=== PATIENT | male | born 1975 | race African-American/Black ===

== ENCOUNTER 2016-03-09 14:29 | Emergency (ER) | payer MEDICARE, OTHER ==
[~2016-03-09] VITALS: Ht 177.8 cm; Wt 150.0 kg
[~2016-03-09 14:29] MED LIST: 1-ME1LIQ PO; ABAC1TAB3 PO; CLON0.2T PO; NOVO7030P2 SQ
[2016-03-09 14:53] VITALS: BP 121/100; PULSE 80; RESP 16; TEMP 98.2; O2SAT 98
--- NOTE | 2016-03-09 15:08 | PD ---
HPI Chief Complaint: Chest Pain Time Seen by Provider: 15:08 Travel History International Travel<30 days: No Contact w/Intl Traveler<30days: No Traveled to known affect area: No History of Present Illness HPI 40-year-old Afro-[place] male with known CAD and recurrent angina. Patient states Central chest and epigastric pain since last night after eating supper. Patient states he has hiccups and burping with it. Patient states he is run out of his nitroglycerin which he would've taken a had a. Patient states the pain subsided last evening but then recurred this morning after eating breakfast , so he called the ambulance. He describes it as a intermittent sharp pain which is 3/10. Patient denies nausea, vomiting, or heartburn. Patient denies shortness of breath. He denies fever, chills, or diarrhea. PFSH Past Medical History Hx Anticoagulant Therapy: No Arthritis: No Asthma: No Autoimmune Disease: No Blood Disorders: No Anxiety: Yes Depression: Yes Heart Rhythm Problems: No Cancer: No Cardiac Catheterization: No Cardiovascular Problems: Yes High Cholesterol: Yes Chemotherapy: No Chest Pain: No Congestive Heart Failure: Yes COPD: Yes Cerebrovascular Accident: Yes (TIA, pt denies) Diabetes: Yes Diminished Hearing: No Endocrine: Yes GERD: Yes Genitourinary: No Headaches: Yes Hepatitis: No Hiatal Hernia: No Heparin Induced Thrombocytopen: No Hypertension: Yes Immune Disorder: Yes (HIV DX , HAS NOT HAD RECENT T CELL CHECK ) Kidney Stones: Yes Musculoskeletal: No Neurologic: No Psychiatric: Yes (anx/dep "ONce in awhile") Reproductive: No Respiratory: Yes Immunizations Current: Yes Migraines: No Myocardial Infarction: No Pneumonia: Yes Radiation Therapy: No Sleep Apnea: No Thyroid Disease: Yes Ulcer: No Past Surgical History Abdominal Surgery: No AICD: No Arteriovenous Shunt: No Cardiac Surgery: No Coronary Artery Bypass Graft: No Ear Surgery: No Endocrine Surgery: No Eye Surgery: Yes (L EYE SURGERY ) Genitourinary Surgery: No Gynecologic Surgery: No Insulin Pump: No Joint Replacement: No Oral Surgery: No Pacemaker: No Thoracic Surgery: No Other Surgery: Yes (L EYE ) Social History Alcohol Use: No (denies) Tobacco Use: No Substance Use: No Allergies-Medications (Allergen,Severity, Reaction): Coded Allergies: No Known Allergies (Verified , 03/09/16) Reported Meds & Prescriptions Reported Meds & Active Scripts Active Nitroglycerin SL (Nitroglycerin) 0.4 Mg Subl 0.4 Mg SL DIRECTED PRN ONE TABLET UNDER THE TONGUE NEEDED FOR CHEST PAIN, MAY REPEAT EVERY FIVE MINUTES FOR A TOTAL OF 3 DOSES OR CALL 911 IF NO RELIEF Isosorbide Mononitrate ER (Isosorbide Mononitrate) 60 Mg Tab 60 Mg PO DAILY Reported Triumeq (Medibcne-Foufntwwxxqy-Einjfvtdpu) 600-50-300 Mg Tab 1 Tab PO DAILY Hazardous agent; use appropriate precautions for handling & disposal. Clonidine (Clonidine HCl) 0.2 Mg Tab 0.2 Mg PO BID Novolin 70-30 Inj (Insulin Human Isoph/Insulin Regular) 1,000 Unit/10 Ml Vial 20 Units SQ HS Novolin 70-30 Inj (Insulin Human Isoph/Insulin Regular) 1,000 Unit/10 Ml Vial 50 Units SQ DAILY 1-Methyl 2-Pyrrolidinone (1-Methyl 2-Pyrrolidone (Bulk)) 10 Mg Tab 10 Mg PO DAILY Review of Systems Except as stated in HPI: all other systems reviewed are Neg General / Constitutional: No: Fever Eyes: No: Visual changes HENT: No: Headaches Cardiovascular: Positive: Chest Pain or Discomfort (see history present illness.), No: Dyspnea on exertion Respiratory: No: Shortness of Breath Gastrointestinal: Positive: Abdominal Pain Genitourinary: No: Dysuria Musculoskeletal: No: Pain Skin: No Rash Neurologic: No: Weakness Psychiatric: No: Depression Endocrine: No: Polydipsia Hematologic/Lymphatic: No: Easy Bruising Physical Exam Narrative GENERAL: Patient appears in no acute distress. He is not dyspneic and speaking in full sentences. He is resting comfortably on the stretcher. SKIN: Warm and dry. Normal color. Normal turgor. HEAD: Atraumatic. Normocephalic. EYES: Pupils equal and round. No scleral icterus. No injection or drainage. ENT: No nasal bleeding or discharge. Mucous membranes pink and moist. Pharynx appears normal. NECK: Trachea midline. No JVD. Neck is supple nontender. CARDIOVASCULAR: Regular rate and rhythm. No murmurs gallops or rubs appreciated. RESPIRATORY: No accessory muscle use. Clear to auscultation. Breath sounds equal bilaterally. No thoracic tenderness with palpation. GASTROINTESTINAL: Abdomen soft, mild to moderate epigastric tenderness to palpation, nondistended. Hepatic and splenic margins not palpable. MUSCULOSKELETAL: Extremities without clubbing, cyanosis, or edema. No obvious deformities. NEUROLOGICAL: Awake and alert. No obvious cranial nerve deficits. Motor grossly within normal limits. Five out of 5 muscle strength in the arms and legs. Normal speech. PSYCHIATRIC: Appropriate mood and affect; insight and judgment normal. Data Data Last Documented VS Vital Signs Date Time Temp Pulse Resp B/P Pulse Ox O2 Delivery O2 Flow Rate FiO2 03/09/16 21:18 70 20 140/89 99 03/09/16 19:15 Room Air 03/09/16 14:53 98.2 Orders Electrocardiogram (03/09/16 15:06) B-Type Natriuretic Peptide (03/09/16 15:06) Ckmb (Isoenzyme) Profile (03/09/16 15:06) Complete Blood Count With Diff (03/09/16 15:06) Comprehensive Metabolic Panel (03/09/16 15:06) Magnesium (Mg) (03/09/16 15:06) Prothrombin Time / Inr (Pt) (03/09/16 15:06) Act Partial Throm Time (Ptt) (03/09/16 15:06) Troponin I (03/09/16 15:06) Chest, Single Ap (03/09/16 15:06) Ecg Monitoring (03/09/16 15:06) Bilateral Bp Monitoring (03/09/16 15:06) Iv Access Insert/Monitor (03/09/16 15:06) Oximetry (03/09/16 15:06) Oxygen Administration (03/09/16 15:06) Aspirin Chew (Aspirin Chew) (03/09/16 15:15) Nitroglycerin 2% Oint (Nitroglycerin 2% (03/09/16 15:15) Sodium Chloride 0.9% Flush (Ns Flush) (03/09/16 15:15) Sodium Chlorid 0.9% 500 Ml Inj (Ns 500 M (03/09/16 15:15) Al-Mag Hy-Si 40-40-4 Mg/Ml Liq (Mag-Al P (03/09/16 15:30) Lidocaine 2% Viscous (Xylocaine 2% Visco (03/09/16 15:30) Morphine Inj (Morphine Inj) (03/09/16 16:45) CKMB (03/09/16 15:53) CKMB% (03/09/16 15:53) Troponin I (03/09/16 19:00) Labs Laboratory Tests Test 03/09/16 03/09/16 15:53 18:35 White Blood Count 3.9 TH/MM3 Red Blood Count 4.65 MIL/MM3 Hemoglobin 12.7 GM/DL Hematocrit 39.5 % Mean Corpuscular Volume 84.8 FL Mean Corpuscular Hemoglobin 27.3 PG Mean Corpuscular Hemoglobin 32.2 % Concent Red Cell Distribution Width 15.4 % Platelet Count 176 TH/MM3 Mean Platelet Volume 9.0 FL Neutrophils (%) (Auto) 69.3 % Lymphocytes (%) (Auto) 16.3 % Monocytes (%) (Auto) 10.0 % Eosinophils (%) (Auto) 3.5 % Basophils (%) (Auto) 0.9 % Neutrophils # (Auto) 2.7 TH/MM3 Lymphocytes # (Auto) 0.6 TH/MM3 Monocytes # (Auto) 0.4 TH/MM3 Eosinophils # (Auto) 0.1 TH/MM3 Basophils # (Auto) 0.0 TH/MM3 CBC Comment DIFF FINAL Differential Comment Prothrombin Time 11.3 SEC Prothromb Time International 1.0 RATIO Ratio Activated Partial 28.5 SEC Thromboplast Time Sodium Level 144 MEQ/L Potassium Level 4.1 MEQ/L Chloride Level 117 MEQ/L Carbon Dioxide Level 17.5 MEQ/L Anion Gap 10 MEQ/L Blood Urea Nitrogen 39 MG/DL Creatinine 3.62 MG/DL Estimat Glomerular Filtration 23 ML/MIN Rate Random Glucose 140 MG/DL Calcium Level 8.4 MG/DL Magnesium Level 2.3 MG/DL Total Bilirubin 0.2 MG/DL Aspartate Amino Transf 5 U/L (AST/SGOT) Alanine Aminotransferase 11 U/L (ALT/SGPT) Alkaline Phosphatase 114 U/L Total Creatine Kinase 130 U/L Creatine Kinase MB 3.1 NG/ML Troponin I 0.05 NG/ML 0.06 NG/ML B-Type Natriuretic Peptide 59 PG/ML Total Protein 7.8 GM/DL Albumin 3.3 GM/DL [facility] Medical Decision Making Medical Screen Exam Complete: Yes Emergency Medical Condition: Yes Differential Diagnosis CAD. Angina. Esophagitis. Gastritis. Narrative Course Patient is medically stable at time of exam. Patient is given 324 mg of aspirin by mouth. Patient started on 2% nitroglycerin ointment 1 inch. EKG is obtained prior to the application of nitroglycerin. IV access is obtained and labs are ordered including CBC, CMP, BNP, cardiac panel. Chest x-ray is ordered. GI cocktail is ordered. Patient was originally seen in the [facility] but then moved to [place] [id number]. EKG shows right bundle-branch block and possible right ventricular hypertrophy which is consistent with previous EKGs without acute changes. This is reviewed with Dr. Reagan. Patient was seen by Dr. Reagan as well. 1635 hrs. patient reassessed and found to be unchanged in terms of his chest pain. GI cocktail did not help. Patient is given 4 mg morphine IV. CBC is unremarkable except for some mild anemia. Coags are normal. Chemistry shows continued renal insufficiency with a BUN of 39 and a creatinine of 3.62. This is typical for the patient. First troponin is 0.05, and BNP is 59. Second troponin is slightly elevated 0.06. Patient is discussed with Dr. Carter. Patient's record and reviewed his medications are reviewed. Patient reports that he recently had a cardiac stress test approximately 3 weeks ago with his oil burner repairer at [facility] which he states was normal. Patient is felt to be medically stable to be discharged home with close follow- up with his primary care physician. Patient was restarted on his exam door 60 mg 1 tablet daily #30. Patient is given a refill of his sublingual nitroglycerin 0.4 mg 1 every 5 minutes when necessary chest pain #100. Patient is to follow with his primary care physician in the next week to ensure improvement and referred to cardiology as needed. Patient may return to emergency Department with worsening symptoms as needed. Diagnosis Primary Impression: CKD (chronic kidney disease) stage 4, GFR 15-29 ml/min Additional Impression: chest pain with elevated troponin I Referrals: Primary Care Physician call for appointment Patient Instructions: Chest Pain (DC), General Instructions, Narcotic given in the ED Additional Instructions: Second troponin is slightly elevated 0.06. Patient is discussed with Dr. Carter. Patient's record and reviewed his medications are reviewed. Patient reports that he recently had a cardiac stress test approximately 3 weeks ago with his oil burner repairer at [facility] which he states was normal. Patient is felt to be medically stable to be discharged home with close follow- up with his primary care physician. Patient was restarted on his exam door 60 mg 1 tablet daily #30. Patient is given a refill of his sublingual nitroglycerin 0.4 mg 1 every 5 minutes when necessary chest pain #100. Patient is to follow with his primary care physician in the next week to ensure improvement and referred to cardiology as needed. Patient may return to emergency Department with worsening symptoms as needed. Med/Other Pt SpecificInfo: Prescription(s) given Scripts Nitroglycerin SL 0.4 Mg Subl0.4 Mg SL DIRECTED PRN (CHEST PAIN) #100 TAB.SL Ref 0 ONE TABLET UNDER THE TONGUE NEEDED FOR CHEST PAIN, MAY REPEAT EVERY FIVE MINUTES FOR A TOTAL OF 3 DOSES OR CALL 911 IF NO RELIEF Prov:Aubree Reagan MD 03/09/16 Isosorbide Mononitrate ER 60 Mg Tab60 Mg PO DAILY #30 TAB Ref 0 Prov:Aubree Reagan MD 03/09/16 Disposition: 01 DISCHARGE HOME Condition: Stable Ronald Rosas Mar 09, 2016 15:08
[2016-03-09] MEDS ORDERED: ASPIRIN 81 MG CHEW TAB PO ONE (15:15)
[2016-03-09] MEDS ORDERED: NITROGLYCERIN 2% OINT 1 GM PACKET TOP ONE (15:15)
[2016-03-09] MEDS ORDERED: SODIUM CHLORID 0.9% 500 ML INJ 500 ML IV ONE (15:15)
[2016-03-09] MEDS ORDERED: SODIUM CHLORIDE 0.9% FLUSH 5 ML FLUSH IVF PRN (15:15)
[2016-03-09] MEDS ORDERED: LIDOCAINE VISCOUS 2% SOLN 15 ML UDC PO ONE (15:30)
[2016-03-09] MEDS ORDERED: ALUMINUM/MAGNESIUM/SIMETH 30 ML CUP PO ONE (15:30)
[2016-03-09 15:41] VITALS: BP_SYST 135; BP_SYST 142; BP_DIAS 66; BP_DIAS 75; BP_DIAS 76; PULSE 75; RESP 18; O2SAT 100; O2SAT 99
--- NOTE | 2016-03-09 15:41 | RADRPT ---
EXAM DATE/TIME: 03/09/2016 15:20 [facility] COMPARISON: CHEST SINGLE AP, December 10, 2015, 6:04. INDICATIONS : Chest pain MEDICAL HISTORY : Hypertension. Chronic obstructive pulmonary disease. Congestive heart failure. SURGICAL HISTORY : None. ENCOUNTER: Initial ACUITY: 1 day PAIN SCORE: 5/10 LOCATION: Right chest FINDINGS: A single view of the chest demonstrates the lungs to be symmetrically aerated without evidence of mas s, infiltrate or effusion. The heart size is enlarged. Osseous structures are intact. CONCLUSION: Cardiomegaly Bhavin Benjamin MD on March 09, 2016 at 15:39 Board Certified Radiologist. This report was verified electronically.
[2016-03-09 16:02] LABS: AUTOMATED NEUTROPHIL # 2.7 TH/MM3 (1.8-7.7); BASOPHIL % 0.9 % (0.0-2.0); EOSINOPHIL # 0.1 TH/MM3 (0-0.4); EOSINOPHIL % 3.5 % (0.0-4.0); HEMATOCRIT 39.5 % (39.0-51.0); HEMO FLAGS DIFF FINAL; LYMPH % 16.3 % (9.0-44.0); LYMPHOCYTE # 0.6 TH/MM3 (1.0-4.8); MEAN CELL VOLUME 84.8 FL (80.0-100.0); MEAN CORPUSCULAR HEMOGLOBIN 27.3 PG (27.0-34.0); MEAN CORPUSCULAR HGB CONC 32.2 % (32.0-36.0); NEUT % 69.3 % (16.0-70.0); PLATELET COUNT 176 TH/MM3 (150-450); RED BLOOD COUNT 4.65 MIL/MM3 (4.50-5.90); RED CELL DISTRIBUTION WIDTH 15.4 % (11.6-17.2); WHITE BLOOD COUNT 3.9 TH/MM3 (4.0-11.0)
[2016-03-09 16:34] LABS: APTT (PATIENT) 28.5 SEC (24.3-30.1); PROTHROMBIN TIME - PATIENT 11.3 SEC (9.8-11.6)
[2016-03-09 16:40] LABS: ALT (GPT) 11 U/L (12-78); ANION GAP 10 MEQ/L (5-15); AST (GOT) 5 U/L (15-37); BICARBONATE 17.5 MEQ/L (21.0-32.0); BLOOD UREA NITROGEN 39 MG/DL (7-18); CHLORIDE 117 MEQ/L (98-107); GLOMERULAR FILTRATION RATE 23 ML/MIN (>89); MAGNESIUM 2.3 MG/DL (1.5-2.5); POTASSIUM 4.1 MEQ/L (3.5-5.1); SODIUM (NA) 144 MEQ/L (136-145)
[2016-03-09 16:43] LABS: ALKALINE PHOSPHATASE 114 U/L (45-117); CREATINE KINASE 130 U/L (39-308); TOTAL BILIRUBIN ADULT 0.2 MG/DL (0.2-1.0)
[2016-03-09] MEDS ORDERED: MORPHINE SULFATE 4 MG/ML INJ IV PUSH ONE (16:45)
[2016-03-09 16:57] LABS: CKMB 3.1 NG/ML (0.5-3.6)
--- NOTE | 2016-03-09 18:29 | PD ---
Data Data Last Documented VS Vital Signs Date Time Temp Pulse Resp B/P Pulse Ox O2 Delivery O2 Flow Rate FiO2 03/09/16 15:41 18 100 Room Air 03/09/16 15:41 75 135/76 142/66 03/09/16 14:53 98.2 Orders Electrocardiogram (03/09/16 15:06) B-Type Natriuretic Peptide (03/09/16 15:06) Ckmb (Isoenzyme) Profile (03/09/16 15:06) Complete Blood Count With Diff (03/09/16 15:06) Comprehensive Metabolic Panel (03/09/16 15:06) Magnesium (Mg) (03/09/16 15:06) Prothrombin Time / Inr (Pt) (03/09/16 15:06) Act Partial Throm Time (Ptt) (03/09/16 15:06) Troponin I (03/09/16 15:06) Chest, Single Ap (03/09/16 15:06) Ecg Monitoring (03/09/16 15:06) Bilateral Bp Monitoring (03/09/16 15:06) Iv Access Insert/Monitor (03/09/16 15:06) Oximetry (03/09/16 15:06) Oxygen Administration (03/09/16 15:06) Aspirin Chew (Aspirin Chew) (03/09/16 15:15) Nitroglycerin 2% Oint (Nitroglycerin 2% (03/09/16 15:15) Sodium Chloride 0.9% Flush (Ns Flush) (03/09/16 15:15) Sodium Chlorid 0.9% 500 Ml Inj (Ns 500 M (03/09/16 15:15) Al-Mag Hy-Si 40-40-4 Mg/Ml Liq (Mag-Al P (03/09/16 15:30) Lidocaine 2% Viscous (Xylocaine 2% Visco (03/09/16 15:30) Morphine Inj (Morphine Inj) (03/09/16 16:45) CKMB (03/09/16 15:53) CKMB% (03/09/16 15:53) Troponin I (03/09/16 19:00) Labs Laboratory Tests Test 03/09/16 15:53 White Blood Count 3.9 TH/MM3 Red Blood Count 4.65 MIL/MM3 Hemoglobin 12.7 GM/DL Hematocrit 39.5 % Mean Corpuscular Volume 84.8 FL Mean Corpuscular Hemoglobin 27.3 PG Mean Corpuscular Hemoglobin 32.2 % Concent Red Cell Distribution Width 15.4 % Platelet Count 176 TH/MM3 Mean Platelet Volume 9.0 FL Neutrophils (%) (Auto) 69.3 % Lymphocytes (%) (Auto) 16.3 % Monocytes (%) (Auto) 10.0 % Eosinophils (%) (Auto) 3.5 % Basophils (%) (Auto) 0.9 % Neutrophils # (Auto) 2.7 TH/MM3 Lymphocytes # (Auto) 0.6 TH/MM3 Monocytes # (Auto) 0.4 TH/MM3 Eosinophils # (Auto) 0.1 TH/MM3 Basophils # (Auto) 0.0 TH/MM3 CBC Comment DIFF FINAL Differential Comment Prothrombin Time 11.3 SEC Prothromb Time International 1.0 RATIO Ratio Activated Partial 28.5 SEC Thromboplast Time Sodium Level 144 MEQ/L Potassium Level 4.1 MEQ/L Chloride Level 117 MEQ/L Carbon Dioxide Level 17.5 MEQ/L Anion Gap 10 MEQ/L Blood Urea Nitrogen 39 MG/DL Creatinine 3.62 MG/DL Estimat Glomerular Filtration 23 ML/MIN Rate Random Glucose 140 MG/DL Calcium Level 8.4 MG/DL Magnesium Level 2.3 MG/DL Total Bilirubin 0.2 MG/DL Aspartate Amino Transf 5 U/L (AST/SGOT) Alanine Aminotransferase 11 U/L (ALT/SGPT) Alkaline Phosphatase 114 U/L Total Creatine Kinase 130 U/L Creatine Kinase MB 3.1 NG/ML Troponin I 0.05 NG/ML B-Type Natriuretic Peptide 59 PG/ML Total Protein 7.8 GM/DL Albumin 3.3 GM/DL [facility] Supervised Visit with DAVID: Yes Narrative Course The history, exam, and medical decision-making in the associated midlevel provider note were completed with my assistance. I reviewed and agree with the findings presented. I attest that I had a [id number] encounter with the patient on the same day, and personally performed and documented my assessment and findings in the medical record. *My assessment and Findings: This is a 40-year-old male who presents to the emergency department with a history chronic kidney disease with chest pain. The patient has come to the emergency department several times this year with chest pain. It's atypical and predominantly in the epigastrium. Patient says he recently had a stress test performed by his primary care physician which was reassuring. I think if patient has 2 troponins at his baseline he can be discharged safely home to follow-up with his tool sharpener. Condition: Stable Aubree Reagan MD Mar 09, 2016 18:29
[2016-03-09 19:15] VITALS: BP 128/77; PULSE 71; RESP 20; O2SAT 100
[2016-03-09] MEDS ORDERED: ISOS60TA PO (20:02)
[2016-03-09] MEDS ORDERED: NITR1SUB3 SL (20:02)
[2016-03-09 21:18] VITALS: BP 140/89
[2016-03-09 21:35] VITALS: BP 146/87
--- NOTE | 2016-03-10 17:06 | EKG ---
Date Performed: 03/09/2016 Time Performed: 15:38:40 PTAGE: 40 years EKG: Sinus rhythm INDETERMINATE AXIS RIGHT BUNDLE BRANCH BLOCK AND POSSIBLE RIGHT VENTRICULAR HYPERTROPHY LEFT POSTERI OR FASCICULAR BLOCK Compared to prior tracing no significant change ABNORMAL ECG PREVIOUS TRACING : 02/07/2016 13.57 DOCTOR: Shannen Tobias Interpretating Date/Time 03/10/2016 17:04:07
== END 2016-03-09 21:57 | disposition home or self-care (01) ==
LOC: NEPE 14:29
DX: I12.9 Hypertensive chronic kidney disease with stage 1 through stage 4 chronic kidney disease, or unspecified chronic kidney disease (principal); N18.4 Chronic kidney disease, stage 4 (severe); R74.8 Abnormal levels of other serum enzymes; R07.9 Chest pain, unspecified; R10.13 Epigastric pain; I50.9 Heart failure, unspecified; I25.10 Atherosclerotic heart disease of native coronary artery without angina pectoris; E11.9 Type 2 diabetes mellitus without complications; Z79.4 Long term (current) use of insulin
CPT/HCPCS: 71010; 80053; 82550; 82552; 83735; 83880; 84484; 85025; 85610; 85730; 93005; 96374; 99285; J2270; J7040

== ENCOUNTER 2016-05-05 16:01 | Emergency (ER) | payer MEDICARE, OTHER ==
[~2016-05-05] VITALS: Ht 175.3 cm; Wt 162.0 kg
[~2016-05-05 16:01] MED LIST changes: +ISOS60TA PO; +NITR1SUB3 SL
[2016-05-05 16:02] VITALS: BP 144/85; PULSE 76; RESP 20; TEMP 97.8; O2SAT 98
== END 2016-05-05 17:30 | disposition left against medical advice (07) ==
LOC: NED 17:30
DX: R68.89 Other general symptoms and signs (principal)
CPT/HCPCS: 99281

== ENCOUNTER 2016-05-12 12:21 | Emergency (ER) | payer MEDICARE, OTHER ==
[~2016-05-12] VITALS: Ht 175.3 cm; Wt 170.0 kg
[2016-05-12 12:35] VITALS: BP 154/91; PULSE 85; RESP 18; TEMP 98; O2SAT 98
[2016-05-12] MEDS ORDERED: SODIUM CHLORIDE 0.9% FLUSH 10 ML FLUSH IVF PRN (15:00)
[2016-05-12] MEDS ORDERED: CARV25TA PO (15:06)
[2016-05-12] MEDS ORDERED: DOLU1TAB PO (15:06)
[2016-05-12] MEDS ORDERED: MINO2.5T PO (15:06)
[2016-05-12] MEDS ORDERED: AMLO10TA2 PO (15:06)
[2016-05-12] MEDS ORDERED: FURO1TAB62 PO (15:06)
[2016-05-12] MEDS ORDERED: LISI40TA PO (15:06)
--- NOTE | 2016-05-12 15:07 | PD ---
HPI Chief Complaint: General Weakness Time Seen by Provider: 14:40 Travel History International Travel<30 days: No Contact w/Intl Traveler<30days: No Traveled to known affect area: No History of Present Illness HPI This patient complains of some generalized weakness. He has no energy and feels fatigued. Duration 2 days. He denies fever or vomiting or diarrhea or abdominal pain or chest pain. He is diabetic insulin-dependent with chronic kidney disease. His sugar was 177 today. Symptoms of moderate severity. No alleviating factors. PFSH Past Medical History Hx Anticoagulant Therapy: No Arthritis: No Asthma: No Autoimmune Disease: No Blood Disorders: No Anxiety: Yes Depression: Yes Heart Rhythm Problems: No Cancer: No Cardiac Catheterization: No Cardiovascular Problems: Yes High Cholesterol: Yes Chemotherapy: No Chest Pain: No Congestive Heart Failure: Yes COPD: Yes Cerebrovascular Accident: Yes (TIA, pt denies) Diabetes: Yes Patient Takes Glucophage: Yes Diminished Hearing: No Endocrine: Yes GERD: Yes Genitourinary: No Headaches: Yes Hepatitis: No Hiatal Hernia: No Heparin Induced Thrombocytopen: No Hypertension: Yes Immune Disorder: Yes (HIV DX , HAS NOT HAD RECENT T CELL CHECK ) Implanted Vascular Access Dvce: No Kidney Stones: Yes Medical other: Yes (HIV) Musculoskeletal: No Neurologic: No Psychiatric: Yes (anx/dep "ONce in awhile") Reproductive: No Respiratory: Yes Immunizations Current: Yes Migraines: No Myocardial Infarction: No Pneumonia: Yes Radiation Therapy: No Sleep Apnea: No Thyroid Disease: Yes Ulcer: No Past Surgical History Abdominal Surgery: No AICD: No Arteriovenous Shunt: No Cardiac Surgery: No Coronary Artery Bypass Graft: No Ear Surgery: No Endocrine Surgery: No Eye Surgery: Yes (L EYE SURGERY ) Genitourinary Surgery: No Gynecologic Surgery: No Insulin Pump: No Joint Replacement: No Neurologic Surgery: No Oral Surgery: No Pacemaker: No Thoracic Surgery: No Other Surgery: Yes (L EYE ) Social History Alcohol Use: No (denies) Tobacco Use: No Substance Use: No Allergies-Medications (Allergen,Severity, Reaction): Coded Allergies: No Known Allergies (Verified , 05/12/16) Reported Meds & Prescriptions Reported Meds & Active Scripts Active Nitroglycerin SL (Nitroglycerin) 0.4 Mg Subl 0.4 Mg SL DIRECTED PRN ONE TABLET UNDER THE TONGUE NEEDED FOR CHEST PAIN, MAY REPEAT EVERY FIVE MINUTES FOR A TOTAL OF 3 DOSES OR CALL 911 IF NO RELIEF Reported Tivicay (Dolutegravir Sodium) 50 Mg Tab 50 Mg PO DAILY Carvedilol 25 Mg Tab 37 Mg PO BID Minoxidil 2.5 Mg Tab 2.5 Mg PO DAILY Amlodipine (Amlodipine Besylate) 10 Mg Tab 10 Mg PO DAILY Lasix (Furosemide) 20 Mg Tab 20 Mg PO DAILY Lisinopril 40 Mg Tab 40 Mg PO DAILY Triumeq (Rjunesgm-Vdvujyxdkmrg-Omamatkgfb) 600-50-300 Mg Tab 1 Tab PO DAILY Hazardous agent; use appropriate precautions for handling & disposal. Clonidine (Clonidine HCl) 0.2 Mg Tab 0.2 Mg PO BID Novolin 70-30 Inj (Insulin Human Isoph/Insulin Regular) 1,000 Unit/10 Ml Vial 20 Units SQ HS Novolin 70-30 Inj (Insulin Human Isoph/Insulin Regular) 1,000 Unit/10 Ml Vial 50 Units SQ DAILY Review of Systems General / Constitutional: No: Fever Eyes: No: Visual changes HENT: No: Headaches Cardiovascular: No: Chest Pain or Discomfort Respiratory: No: Shortness of Breath Gastrointestinal: No: Abdominal Pain Genitourinary: No: Dysuria Musculoskeletal: Positive: Weakness, No: Pain Skin: No Rash Neurologic: Positive: Weakness Psychiatric: No: Depression Endocrine: No: Polydipsia Hematologic/Lymphatic: No: Easy Bruising Physical Exam Narrative GENERAL: Well-nourished, well-developed patient in no apparent distress. SKIN: Warm and dry. HEAD: Atraumatic. Normocephalic. EYES: Pupils equal and round. No scleral icterus. No injection or drainage. ENT: No nasal bleeding or discharge. Mucous membranes pink and moist. NECK: Trachea midline. No JVD. CARDIOVASCULAR: Regular rate and rhythm. No murmur appreciated. RESPIRATORY: No accessory muscle use. Clear to auscultation. Breath sounds equal bilaterally. GASTROINTESTINAL: Abdomen soft, obese, non-tender, nondistended. Hepatic and splenic margins not palpable. MUSCULOSKELETAL: No obvious deformities. No clubbing. No cyanosis. No edema. NEUROLOGICAL: Awake and alert. No obvious cranial nerve deficits. Motor grossly within normal limits. Normal speech. PSYCHIATRIC: Appropriate mood and affect; insight and judgment normal. Data Data Last Documented VS Vital Signs Date Time Temp Pulse Resp B/P Pulse Ox O2 Delivery O2 Flow Rate FiO2 3/27/17 16:50 71 16 127/70 100 Room Air 05/12/16 12:35 98.0 Orders Electrocardiogram (05/12/16 14:53) Basic Metabolic Panel (Bmp) (05/12/16 14:53) Complete Blood Count With Diff (05/12/16 14:53) Urinalysis - C+S If Indicated (05/12/16 14:53) Iv Access Insert/Monitor (05/12/16 14:53) Sodium Chloride 0.9% Flush (Ns Flush) (05/12/16 15:00) Labs Laboratory Tests Test 05/12/16 05/12/16 14:50 14:57 Urine Color LIGHT-YELLOW Urine Turbidity CLEAR Urine pH 6.5 Urine Specific [place] 1.009 Urine Protein 100 mg/dL Urine Glucose (UA) NEG mg/dL Urine Ketones NEG mg/dL Urine Occult Blood NEG Urine Nitrite NEG Urine Bilirubin NEG Urine Urobilinogen LESS THAN 2.0 MG/DL Urine Leukocyte Esterase NEG Urine RBC LESS THAN 1 /hpf Urine WBC 1 /hpf Urine Squamous Epithelial <1 /hpf Cells Microscopic Urinalysis Comment CULT NOT INDICATED White Blood Count 4.3 TH/MM3 Red Blood Count 4.67 MIL/MM3 Hemoglobin 12.6 GM/DL Hematocrit 40.3 % Mean Corpuscular Volume 86.2 FL Mean Corpuscular Hemoglobin 26.9 PG Mean Corpuscular Hemoglobin 31.2 % Concent Red Cell Distribution Width 16.1 % Platelet Count 164 TH/MM3 Mean Platelet Volume 9.8 FL Neutrophils (%) (Auto) 70.0 % Lymphocytes (%) (Auto) 15.1 % Monocytes (%) (Auto) 10.6 % Eosinophils (%) (Auto) 3.1 % Basophils (%) (Auto) 1.2 % Neutrophils # (Auto) 3.0 TH/MM3 Lymphocytes # (Auto) 0.6 TH/MM3 Monocytes # (Auto) 0.5 TH/MM3 Eosinophils # (Auto) 0.1 TH/MM3 Basophils # (Auto) 0.0 TH/MM3 CBC Comment DIFF FINAL Differential Comment Sodium Level 145 MEQ/L Potassium Level 4.1 MEQ/L Chloride Level 115 MEQ/L Carbon Dioxide Level 22.0 MEQ/L Anion Gap 8 MEQ/L Blood Urea Nitrogen 42 MG/DL Creatinine 3.58 MG/DL Estimat Glomerular Filtration 23 ML/MIN Rate Random Glucose 139 MG/DL Calcium Level 8.5 MG/DL MDM Medical Decision Making Medical Screen Exam Complete: Yes Emergency Medical Condition: Yes Medical Record Reviewed: Yes Differential Diagnosis Hyperglycemia, DKA, anemia, renal disease Narrative Course I have reviewed the patient's electronic medical record. Patient was here February 17 had had extensive workup which I have reviewed IV placed CBC is normal Metabolic profile shows significant renal insufficiency with creatinine of 3.5 but this is baseline Urinalysis is clean Patient is neurologically intact I reviewed his EKG was sinus rhythm without ST elevation On recheck he is stable for outpatient follow-up with negative workup other than chronic stable renal failure Diagnosis Primary Impression: Generalized weakness Additional Impression: CKD (chronic kidney disease), stage III Additional Instructions: The patient was advised to follow up with their physician and return if they worsen. Med/Other Pt SpecificInfo: Other Disposition: 01 DISCHARGE HOME Condition: Stable Juancarlos Cruz MD May 12, 2016 15:07
[2016-05-12 16:28] LABS: BASOPHIL % 1.2 % (0.0-2.0); EOSINOPHIL # 0.1 TH/MM3 (0-0.4); EOSINOPHIL % 3.1 % (0.0-4.0); HEMATOCRIT 40.3 % (39.0-51.0); HEMO FLAGS DIFF FINAL; LYMPH % 15.1 % (9.0-44.0); LYMPHOCYTE # 0.6 TH/MM3 (1.0-4.8); MEAN CELL VOLUME 86.2 FL (80.0-100.0); MEAN CORPUSCULAR HEMOGLOBIN 26.9 PG (27.0-34.0); MEAN CORPUSCULAR HGB CONC 31.2 % (32.0-36.0); MONO % 10.6 % (0.0-8.0); PLATELET COUNT 164 TH/MM3 (150-450); RED BLOOD COUNT 4.67 MIL/MM3 (4.50-5.90); RED CELL DISTRIBUTION WIDTH 16.1 % (11.6-17.2); WHITE BLOOD COUNT 4.3 TH/MM3 (4.0-11.0)
[2016-05-12 16:33] LABS: BLOOD, URINE NEG (NEG); GLUCOSE,URINE NEG (NEG); KETONE, URINE NEG (NEG); NITRITE,URINE NEG (NEG); PH, URINE 6.5 (5.0-8.5); SQUAMOUS EPITHELIAL CELL URINE <1 /hpf (0-5); URINE COLOR LIGHT-YELLOW (YELLW/STRAW)
[2016-05-12 16:35] LABS: COMMENT (UR) CULT NOT INDICATED; CULTURE IF INDICATED CULT NOT INDICATED
[2016-05-12 16:47] LABS: POTASSIUM 4.1 MEQ/L (3.5-5.1)
[2016-05-12 16:50] VITALS: BP 127/70; PULSE 71; RESP 16; O2SAT 100
--- NOTE | 2016-05-13 22:05 | EKG ---
Date Performed: 05/12/2016 Time Performed: 15:47:39 PTAGE: 40 years EKG: Sinus rhythm INDETERMINATE AXIS RIGHT BUNDLE BRANCH BLOCK AND POSSIBLE RIGHT VENTRICULAR HYPERTROPHY LEFT POSTERI OR FASCICULAR BLOCK Since previous tracing, no significant change noted ABNORMAL ECG PREVIOUS TRACING : 03/09/2016 15.38 DOCTOR: Guerita Mullen Interpretating Date/Time 05/13/2016 22:04:42
== END 2016-05-12 18:22 | disposition home or self-care (01) ==
LOC: NEPC 12:21
DX: R53.1 Weakness (principal); I12.9 Hypertensive chronic kidney disease with stage 1 through stage 4 chronic kidney disease, or unspecified chronic kidney disease; N18.3 Chronic kidney disease, stage 3 (moderate); E78.00 Pure hypercholesterolemia, unspecified; Z79.4 Long term (current) use of insulin; J44.9 Chronic obstructive pulmonary disease, unspecified; I50.9 Heart failure, unspecified; B20 Human immunodeficiency virus [HIV] disease; R94.31 Abnormal electrocardiogram [ECG] [EKG]
CPT/HCPCS: 80048; 81001; 85025; 93005

== ENCOUNTER 2016-07-09 14:26 | Inpatient (IN) | payer MEDICARE, OTHER ==
[2016-07-09] VITALS (11 sets, daily range): BP systolic 134–254; BP diastolic 77–144; PULSE 102–130; RESP 18–28; TEMP 98–99.1; O2SAT 97–99
[~2016-07-09] VITALS: Ht 175.3 cm; Wt 170.6 kg
[~2016-07-09 14:26] MED LIST changes: -1-ME1LIQ PO; +AMLO10TA2 PO; +CARV25TA PO; +DOLU1TAB PO; +FURO1TAB62 PO; -ISOS60TA PO; +LISI40TA PO; +MINO2.5T PO
--- NOTE | 2016-07-09 14:31 | PD ---
Physical Exam Time Seen by Provider: 14:29 Narrative 40yo M c/o chest tightness, abd pain, diarrhea, vomiting since yesterday. Denies fever. +SOB. Patient seen in triage. VS reviewed. Did not take BP meds this morning. Awaiting bed placement. Data Data Last Documented VS Vital Signs Date Time Temp Pulse Resp B/P Pulse Ox O2 Delivery O2 Flow Rate FiO2 07/09/16 14:27 98.9 106 20 254/144 99 Room Air MDM Supervised Visit with DAVID: Brielle Hdez July 09, 2016 14:31
[2016-07-09] MEDS ORDERED: ONDANSETRON HCL 4 MG/2 ML VIAL IVP ONE (14:45)
[2016-07-09] MEDS ORDERED: SODIUM CHLORIDE 0.9% FLUSH 10 ML FLUSH IV FLUSH PRN (14:45)
--- NOTE | 2016-07-09 14:45 | PD ---
HPI Chief Complaint: GI Complaint Time Seen by Provider: 14:40 Travel History International Travel<30 days: No Contact w/Intl Traveler<30days: No Traveled to known affect area: No History of Present Illness HPI 40-year-old male with history of diabetes, hypertension, recent surgery in [place] for left retinal detachment, presents to the ER today because he has had 2 days history of abdominal pains, chest tightness which she rates at 4 out of 10 currently, nausea, vomiting, and watery diarrhea. He has also been having sore throat and coughing. He does not know any sick contacts. He denies any fevers or any other symptoms. Modifying Factors: None Associated Signs & Symptoms: Nausea, vomiting, abdominal pain, chest pains, diarrhea Risk Factors: None PFSH Past Medical History Hx Anticoagulant Therapy: No Arthritis: No Asthma: No Autoimmune Disease: No Blood Disorders: No Anxiety: Yes Depression: Yes Heart Rhythm Problems: No Cancer: No Cardiac Catheterization: No Cardiovascular Problems: Yes (HTN) High Cholesterol: Yes Chemotherapy: No Chest Pain: No Congestive Heart Failure: Yes COPD: Yes Cerebrovascular Accident: Yes (TIA, pt denies) Diabetes: Yes Diminished Hearing: No Endocrine: Yes GERD: Yes Genitourinary: No Headaches: Yes Hepatitis: No Hiatal Hernia: No Heparin Induced Thrombocytopen: No Hypertension: Yes Immune Disorder: Yes (HIV DX , HAS NOT HAD RECENT T CELL CHECK ) Implanted Vascular Access Dvce: No Kidney Stones: Yes Musculoskeletal: No Neurologic: No Psychiatric: Yes (anx/dep "ONce in awhile") Reproductive: No Respiratory: Yes Immunizations Current: Yes Migraines: No Myocardial Infarction: No Pneumonia: Yes Radiation Therapy: No Sleep Apnea: No Thyroid Disease: Yes Ulcer: No Past Surgical History Abdominal Surgery: No AICD: No Arteriovenous Shunt: No Cardiac Surgery: No Coronary Artery Bypass Graft: No Ear Surgery: No Endocrine Surgery: No Eye Surgery: Yes (L EYE SURGERY ) Genitourinary Surgery: No Gynecologic Surgery: No Insulin Pump: No Joint Replacement: No Neurologic Surgery: No Oral Surgery: No Pacemaker: No Thoracic Surgery: No Other Surgery: Yes (L EYE ) Social History Alcohol Use: No (denies) Tobacco Use: No Substance Use: No Allergies-Medications (Allergen,Severity, Reaction): Coded Allergies: No Known Allergies (Verified , 05/12/16) Reported Meds & Prescriptions Reported Meds & Active Scripts Active Nitroglycerin SL (Nitroglycerin) 0.4 Mg Subl 0.4 Mg SL DIRECTED PRN ONE TABLET UNDER THE TONGUE NEEDED FOR CHEST PAIN, MAY REPEAT EVERY FIVE MINUTES FOR A TOTAL OF 3 DOSES OR CALL 911 IF NO RELIEF Reported Tivicay (Dolutegravir Sodium) 50 Mg Tab 50 Mg PO DAILY Carvedilol 25 Mg Tab 37 Mg PO BID Minoxidil 2.5 Mg Tab 2.5 Mg PO DAILY Amlodipine (Amlodipine Besylate) 10 Mg Tab 10 Mg PO DAILY Lasix (Furosemide) 20 Mg Tab 20 Mg PO DAILY Lisinopril 40 Mg Tab 40 Mg PO DAILY Triumeq (Pwdyqomt-Nfwcszjuqsif-Zsvscfylvg) 600-50-300 Mg Tab 1 Tab PO DAILY Hazardous agent; use appropriate precautions for handling & disposal. Clonidine (Clonidine HCl) 0.2 Mg Tab 0.2 Mg PO BID Novolin 70-30 Inj (Insulin Human Isoph/Insulin Regular) 1,000 Unit/10 Ml Vial 20 Units SQ HS Novolin 70-30 Inj (Insulin Human Isoph/Insulin Regular) 1,000 Unit/10 Ml Vial 50 Units SQ DAILY Review of Systems Except as stated in HPI: all other systems reviewed are Neg Physical Exam Narrative GENERAL: Well-developed obese middle age after Citizen Of The [place] male patient currently in mild distress. Awake and oriented 3. SKIN: Focused skin assessment warm/dry. HEAD: Atraumatic. Normocephalic. EYES: Left conjunctival edema and injection. ENT: No nasal bleeding or discharge. Mucous membranes pink and moist. NECK: Trachea midline. No JVD. CARDIOVASCULAR: Regular rate and rhythm. No murmur appreciated. RESPIRATORY: No accessory muscle use. Clear to auscultation. Breath sounds equal bilaterally. GASTROINTESTINAL: Abdomen soft, mild diffuse left upper quadrant and lower abdominal tenderness without guarding or rebound, nondistended. Hepatic and splenic margins not palpable. MUSCULOSKELETAL: No obvious deformities. No clubbing. No cyanosis. No edema. NEUROLOGICAL: Awake and alert. No obvious cranial nerve deficits. Motor grossly within normal limits. Normal speech. PSYCHIATRIC: Appropriate mood and affect; insight and judgment normal. Data Data Last Documented VS Vital Signs Date Time Temp Pulse Resp B/P Pulse Ox O2 Delivery O2 Flow Rate FiO2 07/09/16 15:45 104 20 236/121 07/09/16 14:55 99 07/09/16 14:27 98.9 Room Air Orders Complete Blood Count With Diff (07/09/16 14:40) Comprehensive Metabolic Panel (07/09/16 14:40) Lipase (07/09/16 14:40) Prothrombin Time / Inr (Pt) (07/09/16 14:40) Act Partial Throm Time (Ptt) (07/09/16 14:40) Urinalysis - C+S If Indicated (07/09/16 14:40) Iv Access Insert/Monitor (07/09/16 14:40) Ecg Monitoring (07/09/16 14:40) Oximetry (07/09/16 14:40) Ondansetron Inj (Zofran Inj) (07/09/16 14:45) Sodium Chloride 0.9% Flush (Ns Flush) (07/09/16 14:45) Electrocardiogram (07/09/16 14:40) Chest, Single Ap (07/09/16 14:40) Ckmb (Isoenzyme) Profile (07/09/16 14:40) Troponin I (07/09/16 14:40) Clonidine (Catapres) (07/09/16 15:15) CKMB (07/09/16 15:00) CKMB% (07/09/16 15:00) Aspirin (Aspirin) (07/09/16 16:30) Nitroglycerin 2% Oint (Nitroglycerin 2% (07/09/16 16:30) Nitroglycerin-Dextrose Inj (Nitroglyceri (07/09/16 16:30) Insulin Human Regular Inj (Novolin R Inj (07/09/16 16:30) Electrocardiogram (07/09/16 14:49) Admit Order (Ed Use Only) (07/09/16 16:35) Labs Laboratory Tests Test 07/09/16 15:00 White Blood Count 8.5 TH/MM3 Red Blood Count 5.25 MIL/MM3 Hemoglobin 14.2 GM/DL Hematocrit 44.5 % Mean Corpuscular Volume 84.8 FL Mean Corpuscular Hemoglobin 27.1 PG Mean Corpuscular Hemoglobin 31.9 % Concent Red Cell Distribution Width 16.4 % Platelet Count 159 TH/MM3 Mean Platelet Volume 10.5 FL Neutrophils (%) (Auto) 80.3 % Lymphocytes (%) (Auto) 8.4 % Monocytes (%) (Auto) 9.2 % Eosinophils (%) (Auto) 1.5 % Basophils (%) (Auto) 0.6 % Neutrophils # (Auto) 6.8 TH/MM3 Lymphocytes # (Auto) 0.7 TH/MM3 Monocytes # (Auto) 0.8 TH/MM3 Eosinophils # (Auto) 0.1 TH/MM3 Basophils # (Auto) 0.1 TH/MM3 CBC Comment DIFF FINAL Differential Comment Prothrombin Time 11.4 SEC Prothromb Time International 1.0 RATIO Ratio Activated Partial 29.5 SEC Thromboplast Time Urine Color YELLOW Urine Turbidity CLEAR Urine pH 6.0 Urine Specific [place] 1.011 Urine Protein 300 mg/dL Urine Glucose (UA) 1000 mg/dL Urine Ketones NEG mg/dL Urine Occult Blood MOD Urine Nitrite NEG Urine Bilirubin NEG Urine Urobilinogen LESS THAN 2.0 MG/DL Urine Leukocyte Esterase NEG Urine RBC 6 /hpf Urine WBC 4 /hpf Urine Squamous Epithelial 1 /hpf Cells Urine Mucus FEW /lpf Microscopic Urinalysis Comment CULT NOT INDICATED Sodium Level 139 MEQ/L Potassium Level 4.0 MEQ/L Chloride Level 108 MEQ/L Carbon Dioxide Level 21.5 MEQ/L Anion Gap 10 MEQ/L Blood Urea Nitrogen 28 MG/DL Creatinine 3.87 MG/DL Estimat Glomerular Filtration 21 ML/MIN Rate Random Glucose 431 MG/DL Calcium Level 8.7 MG/DL Total Bilirubin 0.5 MG/DL Aspartate Amino Transf 27 U/L (AST/SGOT) Alanine Aminotransferase 18 U/L (ALT/SGPT) Alkaline Phosphatase 124 U/L Total Creatine Kinase 136 U/L Creatine Kinase MB 3.6 NG/ML Troponin I 0.15 NG/ML Total Protein 8.3 GM/DL Albumin 3.3 GM/DL Lipase 213 U/L [facility] Medical Decision Making Medical Screen Exam Complete: Yes Emergency Medical Condition: Yes Medical Record Reviewed: Yes Interpretation(s) EKG shows sinus tachycardia at a rate of 100 bpm with a right bundle branch block pattern. Laboratory Tests Test 07/09/16 15:00 Mean Corpuscular Hemoglobin 31.9 % Concent (32.0-36.0) Neutrophils (%) (Auto) 80.3 % (16.0-70.0) Lymphocytes (%) (Auto) 8.4 % (9.0-44.0) Monocytes (%) (Auto) 9.2 % (0.0-8.0) Lymphocytes # (Auto) 0.7 TH/MM3 (1.0-4.8) Urine Protein 300 mg/dL (NEG-TRACE) Urine Glucose (UA) 1000 mg/dL (NEG) Urine Occult Blood MOD (NEG) Urine RBC 6 /hpf (0-3) Urine Mucus FEW /lpf (OCC) Chloride Level 108 MEQ/L (98-107) Blood Urea Nitrogen 28 MG/DL (7-18) Creatinine 3.87 MG/DL (0.60-1.30) Estimat Glomerular Filtration 21 ML/MIN (>89) Rate Random Glucose 431 MG/DL (74-106) Alkaline Phosphatase 124 U/L (45-117) Troponin I 0.15 NG/ML (0.02-0.05) Total Protein 8.3 GM/DL (6.4-8.2) Albumin 3.3 GM/DL (3.4-5.0) Last 24 hours Impressions Chest X-Ray 07/09/16 1440 Signed Impressions: Service Date/Time: Saturday, July 09, 2016 14:49 - CONCLUSION: No acute disease. Bhavin Rivear MD Differential Diagnosis Nausea, vomiting, diarrhea, chest discomfortgastroenteritis versus metabolic issues versus dehydration versus dysrhythmias versus ACS Narrative Course Lab work shows significant hyperglycemia and IV insulin was given. His blood pressure is fairly elevated in the ER. Nitroglycerin was also initiated. At this point, troponin also returns mildly elevated. Aspirin was given as precaution although I think that this may be secondary to the rate and possibly blood pressure. He has underlying hypertensive urgency and there is concern that he could have worsening and cardiac effects. At this point, my plan would be to admit the patient for further treatment. Case was discussed with Dr. Copeland who would like me to admit the patient to critical care. Aggregate critical care time was 25 minutes. Time to perform other separately billable procedures was not included in the critical care time. My time did not include minutes spent treating any other patients simultaneously or on activities that did not directly contribute to the patient's treatment. The services I provided to this patient were to treat and/or prevent clinically significant deterioration that could result in: Worsening accelerated hypertension, CVA, OK, I provided critical care services requiring my management, as noted below: Chart data review, documentation time, medication orders and management, vital sign assessments/reviewing monitor data, ordering and reviewing lab tests, ordering and interpreting/reviewing x-rays and diagnostic studies, care of the patient and discussion of the patient with the admitting physicians. Diagnosis Primary Impression: Malignant hypertension Additional Impression: Diabetes mellitus Admitting Information Admitting Physician Requests: Admit Jesse Smith MD July 09, 2016 14:45
--- NOTE | 2016-07-09 15:14 | RADRPT ---
EXAM DATE/TIME: 07/09/2016 14:49 [facility] COMPARISON: CHEST SINGLE AP, March 09, 2016, 15:20. INDICATIONS : Chest pain today. MEDICAL HISTORY : Hypercholesterolemia. Chronic obstructive pulmonary disease. Gastroesophageal reflux disease. Hypothy roidism. TIA. CHF. Hypertension. Diabetes. Morbidly obese. HIV+. Measles. SURGICAL HISTORY : Left eye surgery. ENCOUNTER: Initial ACUITY: 1 day PAIN SCORE: 7/10 LOCATION: Bilateral chest FINDINGS: A single view of the chest demonstrates the lungs to be symmetrically aerated without evidence of mas s, infiltrate or effusion. The cardiomediastinal contours are unremarkable. Osseous structures are intact. CONCLUSION: No acute disease. Bhavin Rivera MD on July 09, 2016 at 15:12 Board Certified Radiologist. This report was verified electronically.
[2016-07-09] MEDS ORDERED: cloNIDine HCL 0.2 MG TAB PO ONE (15:15)
[2016-07-09 15:22] LABS: AUTOMATED NEUTROPHIL # 6.8 TH/MM3 (1.8-7.7); BASOPHIL # 0.1 TH/MM3 (0-0.2); BASOPHIL % 0.6 % (0.0-2.0); EOSINOPHIL # 0.1 TH/MM3 (0-0.4); EOSINOPHIL % 1.5 % (0.0-4.0); HEMATOCRIT 44.5 % (39.0-51.0); HEMO FLAGS DIFF FINAL; LYMPH % 8.4 % (9.0-44.0); LYMPHOCYTE # 0.7 TH/MM3 (1.0-4.8); MEAN CELL VOLUME 84.8 FL (80.0-100.0); MEAN CORPUSCULAR HEMOGLOBIN 27.1 PG (27.0-34.0); MEAN CORPUSCULAR HGB CONC 31.9 % (32.0-36.0); MONO % 9.2 % (0.0-8.0); NEUT % 80.3 % (16.0-70.0); PLATELET COUNT 159 TH/MM3 (150-450); RED BLOOD COUNT 5.25 MIL/MM3 (4.50-5.90); RED CELL DISTRIBUTION WIDTH 16.4 % (11.6-17.2); WHITE BLOOD COUNT 8.5 TH/MM3 (4.0-11.0)
[2016-07-09 15:27] LABS: BLOOD, URINE MOD (NEG); COMMENT (UR) CULT NOT INDICATED; CULTURE IF INDICATED CULT NOT INDICATED; GLUCOSE,URINE 1000 mg/dL (NEG); KETONE, URINE NEG (NEG); MUCUS URINE FEW /lpf (OCC); NITRITE,URINE NEG (NEG); SQUAMOUS EPITHELIAL CELL URINE 1 /hpf (0-5); URINE COLOR YELLOW (YELLW/STRAW)
[2016-07-09 15:32] LABS: APTT (PATIENT) 29.5 SEC (24.3-30.1); PROTHROMBIN TIME - PATIENT 11.4 SEC (9.8-11.6)
[2016-07-09 15:53] LABS: ALKALINE PHOSPHATASE 124 U/L (45-117); ALT (GPT) 18 U/L (12-78); ANION GAP 10 MEQ/L (5-15); AST (GOT) 27 U/L (15-37); BICARBONATE 21.5 MEQ/L (21.0-32.0); BLOOD UREA NITROGEN 28 MG/DL (7-18); CHLORIDE 108 MEQ/L (98-107); CREATINE KINASE 136 U/L (39-308); GLOMERULAR FILTRATION RATE 21 ML/MIN (>89); SODIUM (NA) 139 MEQ/L (136-145); TOTAL BILIRUBIN ADULT 0.5 MG/DL (0.2-1.0)
[2016-07-09 16:15] LABS: CKMB 3.6 NG/ML (0.5-3.6)
[2016-07-09] MEDS ORDERED: INSULIN HUMAN REGULAR 1,000 UNITS/10 ML VIAL IV PUSH ONE (16:30)
[2016-07-09] MEDS ORDERED: ASPIRIN 325 MG TAB PO ONE (16:30)
[2016-07-09] MEDS ORDERED: NITROGLYCERIN-DEXTROSE INJ 250 ML IV SCH (16:30)
[2016-07-09] MEDS ORDERED: NITROGLYCERIN 2% OINT 1 GM PACKET TOPICAL ONE (16:30)
[2016-07-09] MEDS ORDERED: hydrALAZINE HCL 20 MG/ML VIAL IV PRN (17:00)
[2016-07-09] MEDS ORDERED: LABETALOL HCL 100 MG/20 ML VIAL IV PRN (17:00)
[2016-07-09] MEDS ORDERED: DOLUTEGRAVIR SODIUM 50 MG TAB PO SCH (17:30)
[2016-07-09] MEDS ORDERED: NITROGLYCERIN 0.4 MG SL 25 TABS/BTL SL PRN (17:30)
[2016-07-09] MEDS ORDERED: LOPERAMIDE HCL 2 MG CAP PO PRN (17:45)
[2016-07-09] MEDS ORDERED: SODIUM CHLOR 0.9% 1000 ML INJ 1,000 ML IV ONE (17:45)
[2016-07-09] MEDS ORDERED: Custom Consult Pharmacy 1 EA OTHER SCH (17:45)
[2016-07-09] MEDS ORDERED: FUROSEMIDE 20 MG TAB PO SCH (18:00)
--- NOTE | 2016-07-09 18:32 | HHI.PR ---
Objective Objective Results - Vital Signs Date Time Temp Pulse Resp B/P Pulse Ox O2 Delivery O2 Flow Rate FiO2 07/09/16 18:23 130 18 135/96 07/09/16 18:00 128 134/77 07/09/16 17:31 120 216/95 07/09/16 17:24 122 230/121 07/09/16 15:45 104 20 236/121 07/09/16 15:08 105 24 229/133 07/09/16 15:08 226/127 07/09/16 14:55 102 20 137/88 99 07/09/16 14:27 98.9 106 20 254/144 99 Room Air Result Diagram: 07/09/16 1500 07/09/16 1500 Physical Exam Physical Exam PHYSICAL EXAMINATION GENERAL: This is a well-developed, well-nourished male who appears to be in no acute distress. He is alert and awake, []. HEAD: Normocephalic without any lesion or mass noted. Facial features appear symmetric. OROPHARYNGEAL: Oropharynx without erythema or edema. NECK: Supple. No nuchal rigidity or lymphadenopathy. Trachea midline without deviation. CARDIAC: Regular rhythm, regular rate, S1 and S2 are heard. Murmur []; no gallops or rubs. LUNGS: Clear to auscultation bilaterally. [] wheeze, [] rhonchi or [] rale. No use of accessory muscles on inspiration or expiration. ABDOMEN: Soft, nontender, no organomegaly or masses. Bowel sounds are heard in all four quadrants. No rebound. No guarding. EXTREMITIES: [] edema. Pulses equal bilateral. [] cyanosis. NEUROLOGICAL: Patient mood and affect appropriate. No focal deficit SKIN:Warm and moist A/P Assessment and Plan [id number] Add MARYLU, with dehydration, with CKD Possible gastro Possible C difficile GERD, uncontrolled morbid obesity Possible gastroenteritis IVF, check C diff , CT abd. maintain on clear liquids for now, ada D/W Dr. Dinorah Yadav,Denice SHIPMAN July 09, 2016 18:32
--- NOTE | 2016-07-09 18:41 | RADRPT ---
EXAM DATE/TIME: 07/09/2016 18:08 [facility] COMPARISON: CT ABDOMEN & PELVIS W/O CONTRAST, May 27, 2015, 20:55. INDICATIONS : Upper abdomen pain since yesterday ORAL CONTRAST: No oral contrast ingested. RADIATION DOSE: 35.64 CTDIvol (mGy) MEDICAL HISTORY : Cardiovascular disease. Hypertension. Diabetes mellitus type 2.HIV SURGICAL HISTORY : None. ENCOUNTER: Initial ACUITY: 2 days PAIN SCALE: 4/10 LOCATION: Bilateral upper quadrant TECHNIQUE: Volumetric scanning of the abdomen and pelvis was performed. Using automated exposure control and ad justment of the mA and/or kV according to patient size, radiation dose was kept as low as reasonably achievable to obtain optimal diagnostic quality images. FINDINGS: Lung bases are clear. Degenerative changes of the spine and levoscoliosis identified. No pleural or p ericardial effusions. Liver, gallbladder, spleen, pancreas, bilateral adrenal glands, bilateral kidne ys and stomach are unremarkable. Urinary bladder and prostate are unremarkable. There is abnormal cir cumferential bowel wall thickening identified involving the transverse colon and ascending colon grea test at the level of the ascending colon and hepatic flexure. There is pericolonic stranding. This is characteristic of colitis. No adenopathy and scattered atherosclerotic calcifications are seen. CONCLUSION: 1. Colitis. Rajeev Mcallister MD on July 09, 2016 at 18:37 Board Certified Radiologist. This report was verified electronically.
[2016-07-09] MEDS: LISINOPRIL 20 MG TAB PO SCH (20:07)
[2016-07-09] MEDS: INSULIN HUMAN NPH/R 70/30 1,000 UNITS/10 ML VIAL SQ SCH (20:08)
[2016-07-09] MEDS: SODIUM CHLOR 0.9% 1000 ML INJ 1,000 ML IV SCH (20:36)
[2016-07-09] MEDS: cloNIDine HCL 0.2 MG TAB PO SCH (21:57)
[2016-07-09] MEDS: CARVEDILOL 12.5 MG TAB PO SCH (21:57)
[2016-07-09] MEDS: PANTOPRAZOLE SODIUM 40 MG VIAL IV PUSH SCH (21:57)
[2016-07-09] MEDS: MINOXIDIL 2.5 MG TAB PO SCH (22:05)
[2016-07-09] MEDS: PIPERACIL-TAZO 2.25 GM PREMIX 50 ML IV SCH (22:05)
[2016-07-09] MEDS ORDERED: CHLORHEXIDINE GLUCONATE 2 % 1 PACK (2 CLOTHS)(extra cloths) TOPICAL PRN (23:00)
[2016-07-10] VITALS (13 sets, daily range): BP systolic 94–143; BP diastolic 51–82; PULSE 72–87; RESP 15–33; TEMP 98.3–98.8; O2SAT 89–94
[2016-07-10] MEDS: ACETAMINOPHEN/HYDROcodone 325 MG/5 MG TAB PO PRN ×2 (00:26→09:44)
[2016-07-10] MEDS: PIPERACIL-TAZO 2.25 GM PREMIX 50 ML IV SCH ×4 (02:09→20:10)
[2016-07-10] MEDS ORDERED: ONDANSETRON HCL 4 MG/2 ML VIAL IV PUSH PRN (02:30)
--- NOTE | 2016-07-10 02:48 | PD.CONS ---
[facility] Service Critical Care Medicine Consult Requested By Primary Care Physician Bhavin Concepcion M.D. History of Present Illness 40 yo American male with past medical history of HIV diagnosed in 1989 on HAART with viral load undetectable 6 months ago, hypertension, diabetes mellitus, chronic systolic heart failure with ejection fraction of 45-50%, CKD stage IV who presents to [facility] emergency department with 1 day history of decreased appetite, multiple episodes of nonbloody nonbilious emesis, multiple episodes of watery diarrhea and abdominal pain. Abdominal pain is cramping in nature started on his left side and moved to the middle abdomen. He also complains of sore throat, myalgias. He denies headache, neck pain, fever, ill contacts. He also complained of chest pain which he states was in burning in nature and worse when he tried to eat or when he vomited. Denies exertional shortness of breath or chest pain. He is on 5 different agents for hypertension but has been unable to keep his medications down due to vomiting. Upon presentation to the emergency department his blood pressure was 254/144. He was started on a nitroglycerin drip. He received Zofran and his home medications and nitroglycerin drip was weaned off. He denies chest pain. CT abdomen and pelvis demonstrates findings consistent with a ascending and transverse colitis. C. difficile is pending. Denies recent antibiotic use. Denies prior colits. Past Family Social History Allergies: Coded Allergies: No Known Allergies (Verified , 05/12/16) Past Medical History Hypertension Diabetes HIV diagnosed in 1989. On HAART. Reportedly viral load undetectable 6 months ago CKD stage IV . He is followed by a harvester operator in the [place] he cannot recall their name. chronic systolic heart failure Obesity Retinal detachment Past Surgical History He has had prior eye surgeries He had surgery for retinal detachment of his left eye 07/02/16. He had follow- up for this yesterday with his wedding photographer Reported Medications Lisinopril 40 mg by mouth daily Abacavir/dolutegravir/lamivudine 1 tab by mouth daily Dolutagravir 50 g by mouth daily Carvedilol 37 mg by mouth twice a day Clonidine 0.2 g by mouth twice a day Norvasc to mill grams by mouth daily Minoxidil 2.5 mg by mouth daily Insulin 70 3050 units every morning and 20 units daily at bedtime Lasix 20 mg by mouth daily Nitroglycerin when necessary chest pain Family History Mother has diabetes and hypertension Father is healthy Social History He is a lifetime nonsmoker Denies alcohol or illicit drug use Ambulates with a cane stating that he uses it because of his vision issues He is from [place] Physical Exam Vital Signs Vital Signs Date Time Temp Pulse Resp B/P Pulse Ox O2 Delivery O2 Flow Rate FiO2 07/10/16 00:00 78 07/10/16 00:00 98.8 78 33 116/69 91 07/09/16 22:00 126 07/09/16 20:00 126 07/09/16 20:00 99.1 119 28 153/93 97 07/09/16 18:45 98.0 126 18 141/95 97 07/09/16 18:23 130 18 135/96 07/09/16 18:00 128 134/77 07/09/16 17:31 120 216/95 07/09/16 17:24 122 230/121 07/09/16 15:45 104 20 236/121 07/09/16 15:08 105 24 229/133 07/09/16 15:08 226/127 07/09/16 14:55 102 20 137/88 99 07/09/16 14:27 98.9 106 20 254/144 99 Room Air Physical Exam GENERAL: Overweight, well-developed very pleasant man who is laying in [facility] [place] states that he feels some improvement. SKIN: Warm and dry. HEAD: Atraumatic. Normocephalic. EYES: Right pupil reactive. Left eye has significant chemosis and unable to visualize corneal or pupil.. No scleral icterus. ENT: No nasal bleeding or discharge. Mucous membranes pink and moist. NECK: Trachea midline. No JVD. CARDIOVASCULAR: Regular rate and rhythm. No murmurs rubs or gallops. RESPIRATORY: No accessory muscle use. Clear to auscultation. Breath sounds equal bilaterally. GASTROINTESTINAL: Abdomen soft, obese, non-tender to palpation with no rebound or guarding. Bowel sounds are very active. MUSCULOSKELETAL: Extremities without clubbing, cyanosis, or edema. No obvious deformities. NEUROLOGICAL: Awake and alert. No obvious cranial nerve deficits. Motor grossly within normal limits. Normal speech. Laboratory Laboratory Tests Test 07/09/16 07/09/16 07/09/16 15:00 18:30 19:00 White Blood Count 8.5 Red Blood Count 5.25 Hemoglobin 14.2 Hematocrit 44.5 Mean Corpuscular Volume 84.8 Mean Corpuscular Hemoglobin 27.1 Mean Corpuscular Hemoglobin 31.9 Concent Red Cell Distribution Width 16.4 Platelet Count 159 Mean Platelet Volume 10.5 Neutrophils (%) (Auto) 80.3 Lymphocytes (%) (Auto) 8.4 Monocytes (%) (Auto) 9.2 Eosinophils (%) (Auto) 1.5 Basophils (%) (Auto) 0.6 Neutrophils # (Auto) 6.8 Lymphocytes # (Auto) 0.7 Monocytes # (Auto) 0.8 Eosinophils # (Auto) 0.1 Basophils # (Auto) 0.1 CBC Comment DIFF FINAL Differential Comment Prothrombin Time 11.4 Prothromb Time International 1.0 Ratio Activated Partial 29.5 Thromboplast Time Urine Color YELLOW Urine Turbidity CLEAR Urine pH 6.0 Urine Specific [place] 1.011 Urine Protein 300 Urine Glucose (UA) 1000 Urine Ketones NEG Urine Occult Blood MOD Urine Nitrite NEG Urine Bilirubin NEG Urine Urobilinogen LESS THAN 2.0 Urine Leukocyte Esterase NEG Urine RBC 6 Urine WBC 4 Urine Squamous Epithelial 1 Cells Urine Mucus FEW Microscopic Urinalysis Comment CULT NOT INDICATED Sodium Level 139 Potassium Level 4.0 Chloride Level 108 Carbon Dioxide Level 21.5 Anion Gap 10 Blood Urea Nitrogen 28 Creatinine 3.87 Estimat Glomerular Filtration 21 Rate Random Glucose 431 Calcium Level 8.7 Total Bilirubin 0.5 Aspartate Amino Transf 27 (AST/SGOT) Alanine Aminotransferase 18 (ALT/SGPT) Alkaline Phosphatase 124 Total Creatine Kinase 136 Creatine Kinase MB 3.6 Troponin I 0.15 0.17 Total Protein 8.3 Albumin 3.3 Lipase 213 Lactic Acid Level 1.3 Nasal Screen MRSA (PCR) MRSA NOT DETECTED Result Diagram: 07/09/16 1500 07/09/16 1500 Assessment and Plan Assessment and Plan NEURO: No acute neurologic issues. No headache or focal neuro deficit. RESP: On room air. CV: Accelerated hypertension Troponin elevation is flat at 0.15 and 0.17 which I agree is likely related to accelerated hypertension and chronic systolic heart failure as opposed to an acute coronary process. Obtaining serial troponins and EKG. Noted the cardiology has been consulted and will follow-up recommendations. Was on nitroglycerin in the emergency department to address accelerated hypertension. However he has subsequently been able to tolerate home meds and nitroglycerin was discontinued when systolic blood pressure was in the 110s on home medications. Home medications have been continued by primary team including: lisinopril 40 mg by mouth daily, carvedilol 37 mg by mouth daily, clonidine 0.2 mg by mouth twice a day, Norvasc 10 mg by mouth daily, minoxidil 2.5 mg by mouth daily. GI: Colitis Obesity Constellation of symptoms seems most consistent with viral gastroenterocolitis. LFTs and lipase are unremarkable. CT abdomen and pelvis with ascending and transverse colitis. Consider gastroenterology consult if symptoms not readily resolving. Lactic acid normal. C diff pending. FEN/RENAL: CKD stage IV Suspected CKD secondary to severe HTN, though records from outpatient harvester operator are not available to me. He clinically appeared dry upon admission following multiple episodes of emesis , hyperglycemia and probable osmotic diuresis. Received 1 L normal saline bolus per the emergency Department. Is on gentle hydration at 0.9 NaCl at 100 mL per hour. Will follow-up BMP. Note that nephrology has been consulted and will followup recommendations. ID: HIV on HAART Recent viral load nondetectable. Constellation of symptoms appear to be viral. Has colitis with C diff pending. Lactic acid is normal and his clinical presentation currently does not appear c/w ischemic colitis. Received zosyn empirically but patient clinically does not appear septic at this point so would consider watching off antibiotics if labs remain stable. F/u lactic acid in am. HEME: Monitor CBC. ENDO: Diabetes mellitus Novolin 70 3050 units every morning, 20 units daily at bedtime Bedside glucose every 4 hours with medium dose insulin sliding scale OPHTHO: Surgery for retinal detachment of his left eye 07/02/16 Had follow-up 07/09/16 with wedding photographer and states everything was doing well PROPH: SCDs for DVT prophylaxis. Heparin 5000 units subcutaneous every 12 hours for DVT prophylaxis. Protonix 40 mg IV daily for stress ulcer prophylaxis. ACCESS: Peripheral IV providing adequate access at this time. Level III Consult. Juli Mccarthy MD July 10, 2016 02:48
[2016-07-10] MEDS ORDERED: GLUCAGON 1 MG/ML VIAL OTHER PRN (03:15)
[2016-07-10] MEDS ORDERED: DEXTROSE 50% IN WATER 50 ML VIAL(D50) IV PRN (03:15)
[2016-07-10] MEDS: CHLORHEXIDINE GLUCONATE 2 % 1 PACK (2 CLOTHS)(taper/protocol) TOPICAL SCH (04:00)
[2016-07-10] MEDS: SODIUM CHLOR 0.9% 1000 ML INJ 1,000 ML IV SCH ×2 (04:32→09:48)
[2016-07-10] MEDS: PANTOPRAZOLE SODIUM 40 MG VIAL IV PUSH SCH ×2 (04:33→08:45)
[2016-07-10] MEDS: INSULIN ASPART SUPPLEMENTAL SCALE SQ SCH ×4 (06:43→20:09)
[2016-07-10 06:56] LABS: AUTOMATED NEUTROPHIL # 6.4 TH/MM3 (1.8-7.7); BASOPHIL # 0.1 TH/MM3 (0-0.2); BASOPHIL % 0.7 % (0.0-2.0); EOSINOPHIL # 0.2 TH/MM3 (0-0.4); EOSINOPHIL % 1.9 % (0.0-4.0); HEMATOCRIT 37.6 % (39.0-51.0); HEMO FLAGS DIFF FINAL; LYMPH % 12.2 % (9.0-44.0); MEAN CELL VOLUME 84.3 FL (80.0-100.0); MEAN CORPUSCULAR HEMOGLOBIN 26.7 PG (27.0-34.0); MEAN CORPUSCULAR HGB CONC 31.7 % (32.0-36.0); MONO % 8.7 % (0.0-8.0); NEUT % 76.5 % (16.0-70.0); PLATELET COUNT 142 TH/MM3 (150-450); RED BLOOD COUNT 4.46 MIL/MM3 (4.50-5.90); RED CELL DISTRIBUTION WIDTH 16.2 % (11.6-17.2); WHITE BLOOD COUNT 8.4 TH/MM3 (4.0-11.0)
[2016-07-10 07:30] LABS: BICARBONATE 20.5 MEQ/L (21.0-32.0); POTASSIUM 3.5 MEQ/L (3.5-5.1)
--- NOTE | 2016-07-10 08:09 | MH ---
cc: ABEL SHETTY MD DATE OF ADMISSION 07/09/2016 DATE OF 1975 CHIEF COMPLAINT Chest pain. GI symptoms. Travel last 30 days none. HISTORY OF PRESENT ILLNESS This is a pleasant 40-year-old black male who recently had left retinal detachment surgery in [place] last week. He had been recovering well without any issues up until about 2 days ago, he started having lower mid quadrant abdominal pain. He also had symptoms of nausea, vomiting and diarrhea to the point that he did not take his usual medications today. The patient also is complaining of some cough and sore throat. He denies any contact with sick individuals. He has not had any fever and is basically been just trying to drink fluids and stay in the bed. This was two days ago. Yesterday a.m. he started complaining of midsternal chest pain. He said states that the pain is a burning sensation, nonradiating. He describes it as a reflux pain, burning sensation, nonradiating. He states that he was cleared by cardiology 2 weeks ago before his retinal surgery. He had an EKG that was normal and lab work was normal. He was cleared for his surgery. At this point he is sinus tachycardia, heart rate between 110 and 120. He has a right bundle branch block which may be new. The patient is sitting straight up in the bed, cannot lay flat. He is coughing and some mild shortness of breath noted. The patient's initial blood pressure when first evaluated was 236/121. He was started on nitroglycerin at 5 mics and has been routinely increased up to 20 mics. At this point in time in the emergency room blood pressure is still labile at 230/120. PAST MEDICAL HISTORY Includes, according to the record: 1. Anxiety, depression. 2. Diabetes type 2, 14 years with insulin dependent. The patient states he takes 70/30 insulin, 50 and 20 twice a day. 3. He has hypertension. 4. Hyperlipidemia. 5. Congestive heart failure. 6. Chronic obstructive pulmonary disease. 7. Possible CVAs or TIAs. 8. Gastroesophageal reflux disease. 9. Headaches. 10. HIV diagnosis back in the s but has not had recent T cell check. 11. Kidney stones. 12. History of pneumonia. 13. History of thyroid disease. PAST SURGICAL HISTORY Recent left eye left eye surgery for a retina detachment. SOCIAL HISTORY The patient denies any alcohol, tobacco or illicit drug use. ALLERGIES No known. MEDICATIONS Active medications: 1. Nitroglycerin sublingual. 2. Tivicay. 3. Carvedilol. 4. Minoxidil. 5. Amlodipine. 6. Lasix. 7. Lisinopril. 8. Triumeq. 9. Clonidine. 10. Novolin 70/30. REVIEW OF SYSTEMS A 12 point review of systems was obtained, positives noted are his symptoms from history of present illness including chest pain, burning sensation in his chest, nausea and vomiting, decreased appetite, diarrhea, some shortness of breath, lower abdominal pain with watery diarrhea, cough and some sore throat. Right bundle-branch block which may be new. Hypertensive 236/121. Elevated blood sugar of 431, ketones negative. Other systems negative or unremarkable for now. PHYSICAL EXAMINATION VITAL SIGNS: Temperature is 98.9, pulse labile between 106-122. Respiratory rate 20-24. Blood pressure initially was 254/144, now is 230/121. O2 saturation is 99% on room air. GENERAL: Well-nourished, well-developed, morbidly obese black male, currently sitting up on the side of the bed with acute distress in his chest and his lower abdomen. He is oriented times 3 and a fair historian. SKIN: Has pink mucous membranes, warm and dry. No diaphoresis noted. HEENT: Normocephalic. Right eye is normal and PERRLA. Left eye has conjunctive edema and redness. No nasal discharge. Mucous membranes are pink and moist. Trachea is midline. NECK: Supple. No acute JVD noted. CARDIOVASCULAR: S1, S2. S4 gallop. No murmurs or rubs appreciated. Has a trace to 1+ pedal edema but his extremities are warm. LUNGS: Low volumes but essentially clear to auscultation anteriorly and posteriorly. He does have some decreased breath sounds noted in his bases. GASTROINTESTINAL: Abdomen is obese, soft, tender in the lower mid quadrants. Denies any radiation. No guarding. MUSCULOSKELETAL: No obvious deformities. Mild trace to 1+ lower extremity edema. NEUROLOGIC: He is awake and alert, anxious over his current condition. Moves his extremities with purpose. His speech is clear and understandable. PSYCHIATRIC: Some anxiety but appropriate mood and affect. Insight and judgment are normal. DIAGNOSTIC DATA WBC count 8.5, RBC 5.25, hemoglobin 14.2, hematocrit 44.5, platelet count 159, neutrophils with a left shift at 80.3, lymphocyte 8.4, monocyte percentage 9.2. PT INR is 1. Chemistry, sodium is 139, potassium 4.0, chloride 108, carbon dioxide 21.5, anion gap 10, BUN 28, creatinine 3.87, GFR 21, random glucose is 431, calcium 8.7. Other abnormals are alkaline phosphatase of 124, troponin 0.15 initially. Total protein 8.3, albumin 3.3, lipase 213. Urine is negative for her leukocyte esterase, nitrites and bilirubin. Positive for protein, glucose, moderate amount of blood, occult blood. RBC count is high at 6, few mucus. Culture is not indicated. IMAGING STUDIES Shows chest x-ray to have no acute disease. ASSESSMENT/PLAN 1. Chest pain with probable acute LA. 2. Malignant hypertension with urgency. 3. Insulin dependent diabetes type 2 uncontrolled. 4. Possible gastroenteritis versus metabolic issues. 5. Chronic kidney disease stage III. 6. History of HIV. 7. Noncompliance. 8. Congestive heart failure. 9. Morbid obesity. Our plan is to place him in the ICU setting. I spoke with Dr. Copeland and he is calling the weld inspector at this time for further orders and a report. Our goal at this time is to get his blood pressure under control. He is now on a nitroglycerin drip at 20 mics but he is going to need to have that titrated. He has been given all of his home p.o. meds. Cardiology has been consulted as well as nephrology. The patient was given a Catapres p.o. once. He has Accu-Cheks a.c. and at bedtime with sliding scale. Vital signs are q.1-4 currently being taken every 10 minutes until we get him stabilized. 1800 calories ADA diet will be used but at this point we are maintaining him n.p.o. we will also give him some lactulose 10 milligrams IV q.6 as needed and hydralazine 10 mg IV q.6. The patient will have continuous ECG monitoring, multiple IV access. Aspirin has been given one-time. The patient will receive symptom management for his GI symptoms which will include some Imodium for his diarrhea. DVT prophylaxis. PUD prophylaxis and we will follow. Dictated by: RAMONITA Cyr MD SUMANTH Boswell/JOSEFINA /5:35 PM /8:08 AM
[2016-07-10] MEDS: CARVEDILOL 12.5 MG TAB PO SCH ×2 (08:45→20:07)
[2016-07-10] MEDS: HEPARIN SODIUM - SQ 10,000 UNITS/ML VIAL SQ SCH ×2 (08:45→20:07)
[2016-07-10] MEDS: cloNIDine HCL 0.2 MG TAB PO SCH ×2 (08:45→20:07)
[2016-07-10] MEDS: LISINOPRIL 20 MG TAB PO SCH (08:46)
[2016-07-10] MEDS: INSULIN HUMAN NPH/R 70/30 1,000 UNITS/10 ML VIAL SQ SCH ×2 (08:49→20:09)
[2016-07-10] MEDS ORDERED: NON-FORMULARY DRUG (Abacavir-Dolutegravir-Lamivudine (Triumeq) 1 TAB) PO SCH (09:00)
--- NOTE | 2016-07-10 09:46 | HHI.CCPN ---
Subjective Remarks/Hospital Course 40 yo [place] male with past medical history of HIV diagnosed in 1989 on HAART with viral load undetectable 6 months ago, hypertension, diabetes mellitus, chronic systolic heart failure with ejection fraction of 45-50%, CKD stage IV who presents to [facility] emergency department with 1 day history of decreased appetite, multiple episodes of nonbloody nonbilious emesis, multiple episodes of watery diarrhea and abdominal pain. Abdominal pain is cramping in nature started on his left side and moved to the middle abdomen. He also complains of sore throat, myalgias. He denies headache, neck pain, fever, ill contacts. He also complained of chest pain which he states was in burning in nature and worse when he tried to eat or when he vomited. Denies exertional shortness of breath or chest pain. He is on 5 different agents for hypertension but has been unable to keep his medications down due to vomiting. Upon presentation to the emergency department his blood pressure was 254/144. He was started on a nitroglycerin drip. He received Zofran and his home medications and nitroglycerin drip was weaned off. He denies chest pain. CT abdomen and pelvis demonstrates findings consistent with a ascending and transverse colitis. C. difficile is pending. Denies recent antibiotic use. Denies prior colits. 07/10 Patient is off Nitro drip., afebrile. denies any chest pain, SOB. Objective Vital Signs Date Time Temp Pulse Resp B/P Pulse Ox O2 Delivery O2 Flow Rate FiO2 07/10/16 06:00 84 07/10/16 04:00 98.7 25 94/51 89 07/09/16 14:27 Room Air Intake and Output 07/09/16 07/09/16 07/10/16 08:00 16:00 00:00 Intake Total 485 ml Balance 485 ml Result Diagram: 07/10/16 0635 07/10/16 0635 Other Results Laboratory Tests Test 07/09/16 07/09/16 07/09/16 07/10/16 15:00 18:30 19:00 06:35 White Blood Count 8.5 TH/MM3 8.4 TH/MM3 Red Blood Count 5.25 MIL/MM3 4.46 MIL/MM3 Hemoglobin 14.2 GM/DL 11.9 GM/DL Hematocrit 44.5 % 37.6 % Mean Corpuscular Volume 84.8 FL 84.3 FL Mean Corpuscular Hemoglobin 27.1 PG 26.7 PG Mean Corpuscular Hemoglobin 31.9 % 31.7 % Concent Red Cell Distribution Width 16.4 % 16.2 % Platelet Count 159 TH/MM3 142 TH/MM3 Mean Platelet Volume 10.5 FL 9.7 FL Neutrophils (%) (Auto) 80.3 % 76.5 % Lymphocytes (%) (Auto) 8.4 % 12.2 % Monocytes (%) (Auto) 9.2 % 8.7 % Eosinophils (%) (Auto) 1.5 % 1.9 % Basophils (%) (Auto) 0.6 % 0.7 % Neutrophils # (Auto) 6.8 TH/MM3 6.4 TH/MM3 Lymphocytes # (Auto) 0.7 TH/MM3 1.0 TH/MM3 Monocytes # (Auto) 0.8 TH/MM3 0.7 TH/MM3 Eosinophils # (Auto) 0.1 TH/MM3 0.2 TH/MM3 Basophils # (Auto) 0.1 TH/MM3 0.1 TH/MM3 CBC Comment DIFF FINAL DIFF FINAL Differential Comment Prothrombin Time 11.4 SEC Prothromb Time International 1.0 RATIO Ratio Activated Partial 29.5 SEC Thromboplast Time Urine Color YELLOW Urine Turbidity CLEAR Urine pH 6.0 Urine Specific [place] 1.011 Urine Protein 300 mg/dL Urine Glucose (UA) 1000 mg/dL Urine Ketones NEG mg/dL Urine Occult Blood MOD Urine Nitrite NEG Urine Bilirubin NEG Urine Urobilinogen LESS THAN 2.0 MG/DL Urine Leukocyte Esterase NEG Urine RBC 6 /hpf Urine WBC 4 /hpf Urine Squamous Epithelial 1 /hpf Cells Urine Mucus FEW /lpf Microscopic Urinalysis Comment CULT NOT INDICATED Sodium Level 139 MEQ/L 140 MEQ/L Potassium Level 4.0 MEQ/L 3.5 MEQ/L Chloride Level 108 MEQ/L 110 MEQ/L Carbon Dioxide Level 21.5 MEQ/L 20.5 MEQ/L Anion Gap 10 MEQ/L 10 MEQ/L Blood Urea Nitrogen 28 MG/DL 35 MG/DL Creatinine 3.87 MG/DL 4.77 MG/DL Estimat Glomerular Filtration 21 ML/MIN 16 ML/MIN Rate Random Glucose 431 MG/DL 127 MG/DL Calcium Level 8.7 MG/DL 7.9 MG/DL Total Bilirubin 0.5 MG/DL Aspartate Amino Transf 27 U/L (AST/SGOT) Alanine Aminotransferase 18 U/L (ALT/SGPT) Alkaline Phosphatase 124 U/L Total Creatine Kinase 136 U/L Creatine Kinase MB 3.6 NG/ML Troponin I 0.15 NG/ML 0.17 NG/ML Total Protein 8.3 GM/DL Albumin 3.3 GM/DL Lipase 213 U/L Lactic Acid Level 1.3 mmol/L 0.9 mmol/L Nasal Screen MRSA (PCR) MRSA NOT DETECTED Imaging Last Impressions Chest X-Ray 07/09/16 1440 Signed Impressions: Service Date/Time: Saturday, July 09, 2016 14:49 - CONCLUSION: No acute disease. Bhavin Rivera MD Abdomen/Pelvis CT 07/09/16 0000 Signed Impressions: Service Date/Time: Saturday, July 09, 2016 18:08 - CONCLUSION: 1. Colitis. Rajeev Mcallister MD Objective Remarks GENERAL: Overweight, well-developed very pleasant man sitting up in bed in NAD SKIN: Warm and dry. HEAD: Atraumatic. Normocephalic. EYES: Right pupil reactive. Left eye has significant chemosis and unable to visualize corneal or pupil.. No scleral icterus. ENT: No nasal bleeding or discharge. Mucous membranes pink and moist. NECK: Trachea midline. No JVD. CARDIOVASCULAR: Regular rate and rhythm. No murmurs rubs or gallops. RESPIRATORY: No accessory muscle use. Clear to auscultation. Breath sounds equal bilaterally. GASTROINTESTINAL: Abdomen soft, obese, non-tender to palpation with no rebound or guarding. Bowel sounds are very active. MUSCULOSKELETAL: Extremities without clubbing, cyanosis, or edema. No obvious deformities. NEUROLOGICAL: Awake and alert. No obvious cranial nerve deficits. Motor grossly within normal limits. Normal speech. A/P Assessment and Plan NEURO: No acute neurologic issues. No headache or focal neuro deficit. RESP: Oxygen PRN keep sat>92% CV: Accelerated hypertension- improved Mild elevated trop Off Nitro drip. Monitor HR and BP keep MAP>65mmHg Continue with antihypertensive meds- carvedilol 37 mg BID, clonidine 0.2 mg BID , Norvasc 10 mg by mouth daily, minoxidil 2.5 mg by mouth daily. d/c Lasix Cards consulted-Dr. Monsalve, check echo to eval LV function GI: Colitis Obesity Constellation of symptoms seems most consistent with viral gastroenterocolitis. LFTs and lipase are unremarkable. CT abdomen and pelvis with ascending and transverse colitis. Consider gastroenterology consult if symptoms not readily resolving. Lactic acid normal. C diff pending. FEN/RENAL: Acute on CKD stage IV He clinically appeared dry upon admission following multiple episodes of emesis , hyperglycemia and probable osmotic diuresis. Received 1 L normal saline bolus per the emergency Department. Is on NS@100 mL per hour. Nephrology consulted- Dr. Vera. Cr: 4.77 today from 3.87 Monitor renal function, I/O's, avoid nephrotoxins. Check renal US ID: HIV on HAART Recent viral load nondetectable. C-diff PCR negative Has colitis , Lactic acid is normal and his clinical presentation currently does not appear c/w ischemic colitis. Received zosyn empirically but patient clinically does not appear septic at this point. Continue with empiric abx ( Zosyn)monitor for signs of infections ( Fever, WBC) follow up on blood cxs HEME: Monitor CBC. ENDO: Diabetes mellitus Novolin 70 3050 units every morning, 20 units daily at bedtime Bedside glucose every 4 hours with medium dose insulin sliding scale OPHTHO: Surgery for retinal detachment of his left eye 07/02/16 Had follow-up 07/09/16 with legal secretary receptionist and states everything was doing well PROPH: SCDs for DVT prophylaxis. Heparin 5000 units subcutaneous every 12 hours for DVT prophylaxis. Protonix 40 mg IV daily for stress ulcer prophylaxis. ACCESS: Peripheral IV providing adequate access at this time. Will sign off Level III Jaguar Stein MD July 10, 2016 09:46
--- NOTE | 2016-07-10 09:49 | PD.CONS ---
HPI Consult Requested By Primary Care Physician Bhavin Concepcion M.D. History of Present Illness 40 y/o M with past medical history of HIV diagnosed in 1989 on HAART, hypertension, diabetes mellitus, chronic systolic heart failure with ejection fraction of 45-50%, CKD stage IV admitted with complaints of decreased appetite , multiple episodes of nonbloody nonbilious emesis, multiple episodes of watery diarrhea and abdominal pain. He also complained of chest pain which he states was in burning in nature and worse when he tried to eat or when he vomited. Denies exertional shortness of breath or chest pain. On the emergency department his blood pressure was 254/144. He was started on a nitroglycerin drip. He received Zofran and his home medications and nitroglycerin drip was weaned off. He denies chest pain. Cardiology consulted for mildly elevated troponin. Review of Systems Consitutional: COMPLAINS OF: Fatigue Eyes: DENIES: Amaurosis Fugax, Change in vision HEENT: DENIES: Lightheadedness, Change in hearing Respiratory: COMPLAINS OF: See HPI Cardiovascular: COMPLAINS OF: See HPI Gastrointestinal: COMPLAINS OF: Nausea, Vomiting, Change in bowel habits Genitourinary: DENIES: Urinary incontinence, Difficulty voiding Integumentary: DENIES: Rash Neurologic: DENIES: Tingling or numbness, Memory problems, Poor Balance, Stroke symptoms Musculoskeletal: DENIES: Joint pain, Muscle pain, Limited range of motion, Back pain Psychiatric: DENIES: Anxiety, Depression, Sleep disturbances Hematologic: DENIES: Bruising tendencies, Bleeding tendencies Endocrine: DENIES: Weight gain, Weight loss, Thyroid disease Past Family Social History Allergies: Coded Allergies: No Known Allergies (Verified , 05/12/16) Past Medical History Hypertension Diabetes HIV diagnosed in 1989. On HAART. Reportedly viral load undetectable 6 months ago CKD stage IV . He is followed by a boom conveyor operator in the [place] he cannot recall their name. chronic systolic heart failure Obesity Retinal detachment Past Surgical History He has had prior eye surgeries He had surgery for retinal detachment of his left eye 07/02/16. He had follow- up for this yesterday with his take off man Reported Medications Reported Meds & Active Scripts Active Nitroglycerin SL (Nitroglycerin) 0.4 Mg Subl 0.4 Mg SL DIRECTED PRN ONE TABLET UNDER THE TONGUE NEEDED FOR CHEST PAIN, MAY REPEAT EVERY FIVE MINUTES FOR A TOTAL OF 3 DOSES OR CALL 911 IF NO RELIEF Reported Tivicay (Dolutegravir Sodium) 50 Mg Tab 50 Mg PO DAILY Carvedilol 25 Mg Tab 37 Mg PO BID Minoxidil 2.5 Mg Tab 2.5 Mg PO DAILY Amlodipine (Amlodipine Besylate) 10 Mg Tab 10 Mg PO DAILY Lasix (Furosemide) 20 Mg Tab 20 Mg PO DAILY Lisinopril 40 Mg Tab 40 Mg PO DAILY Triumeq (Uthtmxla-Yyyualyfwolf-Wdvhkskkkp) 600-50-300 Mg Tab 1 Tab PO DAILY Hazardous agent; use appropriate precautions for handling & disposal. Clonidine (Clonidine HCl) 0.2 Mg Tab 0.2 Mg PO BID Novolin 70-30 Inj (Insulin Human Isoph/Insulin Regular) 1,000 Unit/10 Ml Vial 20 Units SQ HS Novolin 70-30 Inj (Insulin Human Isoph/Insulin Regular) 1,000 Unit/10 Ml Vial 50 Units SQ DAILY Active Ordered Medications Current Medications Medications (Trade) Dose Ordered Sig/Sanjeev Route Start Time Stop Time Status Last Admin (NS Flush) 2 ml UNSCH PRN IV FLUSH 07/09/16 14:45 07/09/16 15:48 (Trandate Inj) 10 mg Q6H PRN IV 07/09/16 17:00 (Apresoline Inj) 10 mg Q6H PRN IV 07/09/16 17:00 (Norvasc) 10 mg DAILY PO 07/09/16 17:30 07/10/16 08:45 (Coreg) 37.5 mg BID PO 07/09/16 21:00 07/10/16 08:45 (Catapres) 0.2 mg BID PO 07/09/16 21:00 07/10/16 08:45 (Lasix) 20 mg DAILY PO 07/09/16 18:00 Hold (NovoLIN 70/30 INJ) 20 units HS SQ 07/10/16 21:00 (NovoLIN 70/30 INJ) 50 units DAILY SQ 07/09/16 17:30 07/10/16 08:49 Minoxidil 2.5 mg 2.5 mg DAILY PO 07/09/16 20:00 07/09/16 22:05 (NS 1000 ml Inj) 1,000 ml @ 100 mls/hr Q10H IV 07/09/16 17:45 07/10/16 04:32 (Ziagen) 600 mg DAILY PO 07/09/16 17:45 Lamivudine 300 mg 300 mg DAILY PO 07/09/16 17:45 (Zosyn 2.25 Gm Premix) 50 ml @ 100 mls/hr Q6H IV 07/09/16 20:00 07/10/16 02:09 (Protonix Inj) 40 mg Q12H IV PUSH 07/09/16 20:00 07/10/16 08:45 Miscellaneous Information Patient in critical care unit? Ass... [id number] .[id number] 07/09/16 23:00 07/09/16 23:00 (Chlorhexidine 2% Cloth) 3 pack DAILY@04 TOPICAL 07/10/16 04:00 07/14/16 04:01 07/10/16 04:00 (Chlorhexidine 2% Cloth) 3 pack UNSCH PRN TOPICAL 07/09/16 23:00 07/14/16 22:54 (Chandler 5-325 Mg) 1 tab Q4H PRN PO 07/10/16 00:00 07/10/16 00:26 (Zofran Inj) 4 mg Q6HR PRN IV PUSH 07/10/16 02:30 (Heparin Inj) 5,000 units Q12HR SQ 07/10/16 09:00 07/10/16 08:45 (Protonix Inj) 40 mg Q24H IV PUSH 07/10/16 04:00 07/10/16 04:33 (D50w (Vial) Inj) 50 ml UNSCH PRN IV 07/10/16 03:15 (Glucagon Inj) 1 mg UNSCH PRN OTHER 07/10/16 03:15 Physical Exam Vital Signs Vital Signs Date Time Temp Pulse Resp B/P Pulse Ox O2 Delivery O2 Flow Rate FiO2 07/10/16 06:00 84 07/10/16 04:00 98.7 87 25 94/51 89 07/10/16 04:00 87 07/10/16 02:00 81 07/10/16 00:00 78 07/10/16 00:00 98.8 78 33 116/69 91 07/09/16 22:00 126 07/09/16 20:00 126 07/09/16 20:00 99.1 119 28 153/93 97 07/09/16 18:45 98.0 126 18 141/95 97 07/09/16 18:23 130 18 135/96 07/09/16 18:00 128 134/77 07/09/16 17:31 120 216/95 07/09/16 17:24 122 230/121 07/09/16 15:45 104 20 236/121 07/09/16 15:08 105 24 229/133 07/09/16 15:08 226/127 07/09/16 14:55 102 20 137/88 99 07/09/16 14:27 98.9 106 20 254/144 99 Room Air Physical Exam GENERAL: Well-nourished, well-developed patient. SKIN: Warm and dry. HEAD: Normocephalic. EYES: No scleral icterus. No injection or drainage. NECK: Supple, trachea midline. No JVD or lymphadenopathy. CARDIOVASCULAR: Regular rate and rhythm without murmurs, gallops, or rubs. RESPIRATORY: Breath sounds equal bilaterally. No accessory muscle use. GASTROINTESTINAL: Abdomen soft, non-tender, nondistended. EXTREMITIES: No cyanosis, or edema. NEUROLOGICAL: Awake, alert, and oriented x 3. Non-focal. Laboratory Laboratory Tests Test 07/09/16 07/09/16 07/09/16 07/10/16 15:00 18:30 19:00 06:35 White Blood Count 8.5 8.4 Red Blood Count 5.25 4.46 Hemoglobin 14.2 11.9 Hematocrit 44.5 37.6 Mean Corpuscular Volume 84.8 84.3 Mean Corpuscular Hemoglobin 27.1 26.7 Mean Corpuscular Hemoglobin 31.9 31.7 Concent Red Cell Distribution Width 16.4 16.2 Platelet Count 159 142 Mean Platelet Volume 10.5 9.7 Neutrophils (%) (Auto) 80.3 76.5 Lymphocytes (%) (Auto) 8.4 12.2 Monocytes (%) (Auto) 9.2 8.7 Eosinophils (%) (Auto) 1.5 1.9 Basophils (%) (Auto) 0.6 0.7 Neutrophils # (Auto) 6.8 6.4 Lymphocytes # (Auto) 0.7 1.0 Monocytes # (Auto) 0.8 0.7 Eosinophils # (Auto) 0.1 0.2 Basophils # (Auto) 0.1 0.1 CBC Comment DIFF FINAL DIFF FINAL Differential Comment Prothrombin Time 11.4 Prothromb Time International 1.0 Ratio Activated Partial 29.5 Thromboplast Time Urine Color YELLOW Urine Turbidity CLEAR Urine pH 6.0 Urine Specific [place] 1.011 Urine Protein 300 Urine Glucose (UA) 1000 Urine Ketones NEG Urine Occult Blood MOD Urine Nitrite NEG Urine Bilirubin NEG Urine Urobilinogen LESS THAN 2.0 Urine Leukocyte Esterase NEG Urine RBC 6 Urine WBC 4 Urine Squamous Epithelial 1 Cells Urine Mucus FEW Microscopic Urinalysis Comment CULT NOT INDICATED Sodium Level 139 140 Potassium Level 4.0 3.5 Chloride Level 108 110 Carbon Dioxide Level 21.5 20.5 Anion Gap 10 10 Blood Urea Nitrogen 28 35 Creatinine 3.87 4.77 Estimat Glomerular Filtration 21 16 Rate Random Glucose 431 127 Calcium Level 8.7 7.9 Total Bilirubin 0.5 Aspartate Amino Transf 27 (AST/SGOT) Alanine Aminotransferase 18 (ALT/SGPT) Alkaline Phosphatase 124 Total Creatine Kinase 136 Creatine Kinase MB 3.6 Troponin I 0.15 0.17 Total Protein 8.3 Albumin 3.3 Lipase 213 Lactic Acid Level 1.3 0.9 Nasal Screen MRSA (PCR) MRSA NOT DETECTED Date/Time Procedure Status Source Growth 07/10/16 06:36 Aerobic Blood Culture Received Blood Peripheral Pending 07/10/16 06:36 Anaerobic Blood Culture Received Blood Peripheral Pending Result Diagram: 07/10/16 0635 07/10/16 0635 Imaging Last Impressions Chest X-Ray 07/09/16 1440 Signed Impressions: Service Date/Time: Saturday, July 09, 2016 14:49 - CONCLUSION: No acute disease. Bhavin Rivera MD Abdomen/Pelvis CT 07/09/16 0000 Signed Impressions: Service Date/Time: Saturday, July 09, 2016 18:08 - CONCLUSION: 1. Colitis. Rajeev Mcallister MD Assessment and Plan Problem List: (1) CAD (coronary artery disease) Assessment and Plan: Mildly elevated troponin in the setting of acute on chronic renal failure and HTN urgency. No CV complaints, no EKG changes. No need for invasive cardiac work up at this time. Continue medical management and cardiac risk factors reduction Get 2Dechocardiogram to assess LV systolic function Thank you for the opportunity to participate in the care of this patient Sign off (2) CKD (chronic kidney disease), stage III (3) Type 2 diabetes mellitus (4) Anemia (5) AIDS (acquired immune deficiency syndrome) (6) Morbid obesity (7) Congestive heart failure (8) Diabetes mellitus Josue Lombardo MD July 10, 2016 09:48
[2016-07-10] MEDS: ABACAVIR SULFATE 300 MG TAB PO SCH (10:53)
[2016-07-10] MEDS: DOLUTEGRAVIR SODIUM 50 MG TAB PO SCH (10:53)
--- NOTE | 2016-07-10 11:58 | EC ---
Study Study Date:07/10/2016 STUDY CONCLUSIONS SUMMARY - Left ventricle: The cavity size was normal. Wall thickness was increased increased in a pattern of mild to moderate LVH. Systolic function was normal. The estimated ejection fraction was in the range of 55% to 60%. Wall motion was normal; there were no regional wall motion abnormalities. Doppler parameters are consistent with abnormal left ventricular relaxation (grade 1 diastolic dysfunction). - Mitral valve: Mild regurgitation. If LV function is below 40, please consider prescribing an ACEI or ARB or document rationale for non-use. PROCEDURE DATA STUDY STATUS: Elective. Procedure: Transthoracic echocardiography. Image quality was good. Scanning was performed from the parasternal, apical, and subcostal acoustic windows. Study completion: The patient tolerated the procedure well. Transthoracic echocardiography. M-mode, complete 2D, complete spectral Doppler, and color Doppler. Height: Height: 69in. Weight: Weight: 357.3lb. Body mass index: BMI: 52.9kg/m^2. Body surface area: BSA: 2.65m^2. Patient status: Inpatient. CARDIAC ANATOMY LEFT VENTRICLE: The cavity size was normal. Wall thickness was increased increased in a pattern of mild to moderate LVH. Systolic function was normal. The estimated ejection fraction was in the range of 55% to 60%. Wall motion was normal; there were no regional wall motion abnormalities. Doppler parameters are consistent with abnormal left ventricular relaxation (grade 1 diastolic dysfunction). AORTIC VALVE: Trileaflet; normal thickness leaflets. Doppler: Transvalvular velocity was within the normal range. There was no stenosis. No regurgitation. AORTA: Aortic root: The aortic root was normal in size. MITRAL VALVE: Structurally normal valve. Doppler: Transvalvular velocity was within the normal range. There was no evidence for stenosis. Mild regurgitation. LEFT ATRIUM: The atrium was normal in size. RIGHT VENTRICLE: The cavity size was normal. Wall thickness was normal. PULMONIC VALVE: Doppler: Transvalvular velocity was within the normal range. There was no evidence for stenosis. No regurgitation. TRICUSPID VALVE: Structurally normal valve. Doppler: Transvalvular velocity was within the normal range. Trace to mild regurgitation. PULMONARY ARTERY: The main pulmonary artery was normal-sized. Systolic pressure was within the normal range. RIGHT ATRIUM: The atrium was normal in size. PERICARDIUM: There was no pericardial effusion. SYSTEMIC VEINS: Inferior vena cava: The vessel was normal in size. Patient weight: 357.3lb _Ejection fraction:_ 65-75% _Fractional shortening:_ 32% up to 5Kg 5-11.5Kg 11.6-22.9Kg 23-45Kg 45-57Kg Aortic Root 7-13 <17 13-22 17-27 17-27 LA diam 6-13 <23 24-38 33-47 37-40 RVID 10-17 7-15 7-15 7-18 8-17 LVIDd 12-22 <32 24-38 33-47 37-40 LVPW 2-4 3-6 5-7 6-8 7-8 IVS 2-4 3-6 5-7 6-8 7-8 BASIC MEASUREMENTS ADULT NORMAL Left ventricle LV internal dimension, ED, chordal level, *40 mm 43-52 PLAX LV internal dimension, ES, chordal level, 27.6 mm 23-38 PLAX Fractional shortening, chordal level, PLAX 31 % >29 LV posterior wall thickness, ED 20.6 mm IVS/LVPW ratio, ED 1.03 <1.3 Ventricular septum Septal thickness, ED 21.3 mm Aortic valve Leaflet separation 25 mm 15-26 Right ventricle RV internal dimension, ED, PLAX 36.1 mm 19-38 BASIC MEASUREMENTS ADULT NORMAL Aortic valve Leaflet separation 25 mm 15-26 Aorta Root diameter, ED 34 mm 20-37 Left atrium Anterior-posterior dimension, ES *43 mm 19-40 Anterior-posterior dimension index, ES 1.62 cm/m^2 <2.2 LA/aortic root ratio 1.26 DOPPLER MEASUREMENTS ADULT NORMAL Mitral valve Peak E-wave velocity 57.3 cm/s Peak A-wave velocity 46.9 cm/s Peak E/A ratio 1.2 LEGEND: Mean values are shown as u=mean value. Asterisk (*) potter values outside specified normal range. Prepared and signed by Vishal Morales [id number]
[2016-07-10] MEDS: MINOXIDIL 2.5 MG TAB PO SCH (13:32)
--- NOTE | 2016-07-10 13:44 | HHI.PR ---
Subjective History of Present Illness patient sleeping comfortably OFF nitro gtt BP improved continues to have watery diarrhea upset about Clear liquid diet , wants diet advanced Vitals/Results Intake & Output 07/09/16 07/09/16 07/10/16 15:00 23:00 07:00 Intake Total 485 ml 781 ml Output Total 75 ml Balance 485 ml 706 ml Intake Oral 240 ml 240 ml IV Total 245 ml 541 ml Output Urine Total 75 ml Vital Signs Vital Signs Date Time Temp Pulse Resp B/P Pulse Ox O2 Delivery O2 Flow Rate FiO2 07/10/16 06:00 84 07/10/16 04:00 98.7 87 25 94/51 89 07/10/16 04:00 87 07/10/16 02:00 81 07/10/16 00:00 78 07/10/16 00:00 98.8 78 33 116/69 91 07/09/16 22:00 126 07/09/16 20:00 126 07/09/16 20:00 99.1 119 28 153/93 97 07/09/16 18:45 98.0 126 18 141/95 97 07/09/16 18:23 130 18 135/96 07/09/16 18:00 128 134/77 07/09/16 17:31 120 216/95 07/09/16 17:24 122 230/121 07/09/16 15:45 104 20 236/121 07/09/16 15:08 105 24 229/133 07/09/16 15:08 226/127 07/09/16 14:55 102 20 137/88 99 07/09/16 14:27 98.9 106 20 254/144 99 Room Air CBC/BMP: 07/10/16 0635 07/10/16 0635 Lab Results Laboratory Tests Test 07/09/16 07/09/16 07/09/16 07/10/16 15:00 18:30 19:00 06:35 White Blood Count 8.5 TH/MM3 8.4 TH/MM3 Red Blood Count 5.25 MIL/MM3 4.46 MIL/MM3 Hemoglobin 14.2 GM/DL 11.9 GM/DL Hematocrit 44.5 % 37.6 % Mean Corpuscular Volume 84.8 FL 84.3 FL Mean Corpuscular Hemoglobin 27.1 PG 26.7 PG Mean Corpuscular Hemoglobin 31.9 % 31.7 % Concent Red Cell Distribution Width 16.4 % 16.2 % Platelet Count 159 TH/MM3 142 TH/MM3 Mean Platelet Volume 10.5 FL 9.7 FL Neutrophils (%) (Auto) 80.3 % 76.5 % Lymphocytes (%) (Auto) 8.4 % 12.2 % Monocytes (%) (Auto) 9.2 % 8.7 % Eosinophils (%) (Auto) 1.5 % 1.9 % Basophils (%) (Auto) 0.6 % 0.7 % Neutrophils # (Auto) 6.8 TH/MM3 6.4 TH/MM3 Lymphocytes # (Auto) 0.7 TH/MM3 1.0 TH/MM3 Monocytes # (Auto) 0.8 TH/MM3 0.7 TH/MM3 Eosinophils # (Auto) 0.1 TH/MM3 0.2 TH/MM3 Basophils # (Auto) 0.1 TH/MM3 0.1 TH/MM3 CBC Comment DIFF FINAL DIFF FINAL Differential Comment Prothrombin Time 11.4 SEC Prothromb Time International 1.0 RATIO Ratio Activated Partial 29.5 SEC Thromboplast Time Urine Color YELLOW Urine Turbidity CLEAR Urine pH 6.0 Urine Specific Greer 1.011 Urine Protein 300 mg/dL Urine Glucose (UA) 1000 mg/dL Urine Ketones NEG mg/dL Urine Occult Blood MOD Urine Nitrite NEG Urine Bilirubin NEG Urine Urobilinogen LESS THAN 2.0 MG/DL Urine Leukocyte Esterase NEG Urine RBC 6 /hpf Urine WBC 4 /hpf Urine Squamous Epithelial 1 /hpf Cells Urine Mucus FEW /lpf Microscopic Urinalysis Comment CULT NOT INDICATED Sodium Level 139 MEQ/L 140 MEQ/L Potassium Level 4.0 MEQ/L 3.5 MEQ/L Chloride Level 108 MEQ/L 110 MEQ/L Carbon Dioxide Level 21.5 MEQ/L 20.5 MEQ/L Anion Gap 10 MEQ/L 10 MEQ/L Blood Urea Nitrogen 28 MG/DL 35 MG/DL Creatinine 3.87 MG/DL 4.77 MG/DL Estimat Glomerular Filtration 21 ML/MIN 16 ML/MIN Rate Random Glucose 431 MG/DL 127 MG/DL Calcium Level 8.7 MG/DL 7.9 MG/DL Total Bilirubin 0.5 MG/DL Aspartate Amino Transf 27 U/L (AST/SGOT) Alanine Aminotransferase 18 U/L (ALT/SGPT) Alkaline Phosphatase 124 U/L Total Creatine Kinase 136 U/L Creatine Kinase MB 3.6 NG/ML Troponin I 0.15 NG/ML 0.17 NG/ML Total Protein 8.3 GM/DL Albumin 3.3 GM/DL Lipase 213 U/L Lactic Acid Level 1.3 mmol/L 0.9 mmol/L Nasal Screen MRSA (PCR) MRSA NOT DETECTED Microbiology Microbiology 07/10/16 Aerobic Blood Culture, Received Pending 07/10/16 Anaerobic Blood Culture, Received Pending 07/10/16 Aerobic Blood Culture, Received Pending 07/10/16 Anaerobic Blood Culture, Received Pending Assessment/Plan Assessment/Plan PHYSICAL EXAMINATION GENERAL: Well-nourished, well-developed, morbidly obese black male. appears comfortable SKIN: Has pink mucous membranes, warm and dry. No diaphoresis noted. HEENT: Normocephalic. Right eye is normal and PERRLA. Left eye has conjunctive edema and redness. No nasal discharge. Mucous membranes are pink and moist. Trachea is midline. NECK: Supple. No acute JVD noted. CARDIOVASCULAR: S1, S2. S4 gallop. No murmurs or rubs appreciated. Has a trace to 1+ pedal edema but his extremities are warm. LUNGS: Low volumes but essentially clear to auscultation anteriorly and posteriorly. GASTROINTESTINAL: Abdomen is obese, soft, tender in the lower mid quadrants. Denies any radiation. No guarding. MUSCULOSKELETAL: No obvious deformities. Mild trace to 1+ lower extremity edema. NEUROLOGIC: He is awake and alert, anxious over his current condition. Moves his extremities with purpose. His speech is clear and understandable. PSYCHIATRIC: Some anxiety but appropriate mood and affect. Insight and judgment are normal. SSESSMENT/PLAN 1. Chest pain, unlikely ACS 2. Malignant hypertension with urgency. 3. Insulin dependent diabetes type 2 uncontrolled. 4. Possible gastroenteritis , ascending and transverse colitis 5. Chronic kidney disease stage III. 6. History of HIV. 7. Noncompliance. 8. Congestive heart failure. 9. Morbid obesity. patient seen and examined In ICU Malignant HTN off Nitro gtt monitor BP, low this am Appreciate cardiology input unlikely ACS elevated troponin likely sec to CKD Echo with EF 55-60%, grade 1 diastolic dysfunction monitor renal function nephrology consulted Accuchecks ISS advance diet to soft , diabetic diet send stool for C diff LFTS normal continue HAART recent retinal detachment DVT prophylaxis GI prophylaxis plan of care discussed with nursing staff labs in am Xochitl Stewart MD July 10, 2016 13:43
--- NOTE | 2016-07-10 14:54 | RADRPT ---
EXAM DATE/TIME: 07/10/2016 11:11 [facility] COMPARISON: No previous studies available for comparison. INDICATIONS : Acute renal failure. MEDICAL HISTORY : Congestive heart failure. Hypercholesterolemia. Renal calculi. TIA. HTN. COPD. Pneumonia. Dyspnea. GE RD. Diabetes. HIV. SURGICAL HISTORY : Left eye vision repair. ENCOUNTER: Subsequent ACUITY: 1 day PAIN SCORE: 1/10 LOCATION: Bilateral flank MEASUREMENTS: RIGHT KIDNEY: 11.2 x 6.4 x 6.4 cm LEFT KIDNEY: 12.0 x 6.0 x 6.4 cm FINDINGS: RIGHT KIDNEY: Renal cortex is normal in thickness and echotexture. No hydronephrosis, stone, or mass. LEFT KIDNEY: Renal cortex is normal in thickness and echotexture. No hydronephrosis, stone, or mass. BLADDER: Decompressed CONCLUSION: Normal exam Bhavin Rivera MD on July 10, 2016 at 14:44 Board Certified Radiologist. This report was verified electronically.
[2016-07-10] MEDS: metroNIDAZOLE 500 MG INJ 100 ML IV SCH ×2 (16:00→22:06)
[2016-07-10 16:54] LABS: C. DIFF EPI 027 PRESUMPTIVE NEGATIVE (NEGATIVE); C. DIFF TOXIN PCR NEGATIVE (NEGATIVE)
--- NOTE | 2016-07-10 17:06 | PD.CONS ---
HPI Consult Requested By Primary Care Physician Bhavin Concepcion M.D. History of Present Illness 40-year-old black male with a history of HIV infection, CHF, diabetes mellitus and hypertension. Also has a history of CKD stage IV with a kidney biopsy back in December 2014 indicating diabetic nephropathy, global sclerosis and severe interstitial fibrosis and tubular atrophy. 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 The patient indicated to me that he follows up with a office bookkeeper regularly in [place] however patient indicates he does not remember the name of the office bookkeeper or any contact information. Stated that preparation was being made for dialysis in the near future I cannot indicate to me modality. Now presents with a history of nausea and vomiting noted to have severe accelerated hypertension on presentation. According to patient he could not keep his blood pressure medications down. Recent surgery for detached retina also. Presenting creatinine 3.87 deteriorating today to 4.77. Estimated GFR of only 16. Review of Systems Constitutional: COMPLAINS OF: Fatigue, Change in appetite, DENIES: Diaphoretic episodes, Fever, Weight gain, Weight loss, Chills, Dizziness, Night Sweats Respiratory: DENIES: Apneas, Cough, Snoring, Wheezing, Hemoptysis, Sputum production, Shortness of breath Cardiovascular: DENIES: Chest pain, Palpitations, Syncope, Dyspnea on Exertion , PND, Lower Extremity Edema, Orthopnea, Claudication Gastrointestinal: COMPLAINS OF: Nausea, Vomiting, DENIES: Abdominal pain, Black stools, Bloody stools, Constipation, Diarrhea, Difficulty Swallowing, Anorexia Musculoskeletal: COMPLAINS OF: Joint pain, DENIES: Muscle aches, Stiffness, Joint Swelling, Back pain, Neck pain Psychiatric: DENIES: Anxiety, Confusion Past Family Social History Allergies: Coded Allergies: No Known Allergies (Verified , 05/12/16) Past Medical History Diabetes mellitus Congestive heart failure HIV 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 Previously documented proteinuria of approximately 5000 mg. CKD stage IV with a baseline creatinine ranging between 3.8 and 3.5. Mention of noncompliance in medical records. Past Surgical History Noncontributory to current complaint. Reported Medications Reported Meds & Active Scripts Active Nitroglycerin SL (Nitroglycerin) 0.4 Mg Subl 0.4 Mg SL DIRECTED PRN ONE TABLET UNDER THE TONGUE NEEDED FOR CHEST PAIN, MAY REPEAT EVERY FIVE MINUTES FOR A TOTAL OF 3 DOSES OR CALL 911 IF NO RELIEF Reported Tivicay (Dolutegravir Sodium) 50 Mg Tab 50 Mg PO DAILY Carvedilol 25 Mg Tab 37 Mg PO BID Minoxidil 2.5 Mg Tab 2.5 Mg PO DAILY Amlodipine (Amlodipine Besylate) 10 Mg Tab 10 Mg PO DAILY Lasix (Furosemide) 20 Mg Tab 20 Mg PO DAILY Lisinopril 40 Mg Tab 40 Mg PO DAILY Triumeq (Miyueahh-Egmvsuasvkvw-Acaxlaxpph) 600-50-300 Mg Tab 1 Tab PO DAILY Hazardous agent; use appropriate precautions for handling & disposal. Clonidine (Clonidine HCl) 0.2 Mg Tab 0.2 Mg PO BID Novolin 70-30 Inj (Insulin Human Isoph/Insulin Regular) 1,000 Unit/10 Ml Vial 20 Units SQ HS Novolin 70-30 Inj (Insulin Human Isoph/Insulin Regular) 1,000 Unit/10 Ml Vial 50 Units SQ DAILY Active Ordered Medications Current Medications Ondansetron HCl (Zofran Inj) 4 mg ONCE ONCE IVP Last administered on 15:48; Start 07/09/16 at 14:45; Stop 07/09/16 at 14:46; Status DC Sodium Chloride (NS Flush) 2 ml UNSCH PRN IV FLUSH FLUSH AFTER USING IV ACCESS Last administered on 07/09/16 15:48; Start 07/09/16 at 14:45 Clonidine (Catapres) 0.2 mg ONCE ONCE PO Last administered on 07/09/16 15:48 ; Start 07/09/16 at 15:15; Stop 07/09/16 at 15:16; Status DC Aspirin (Aspirin) 325 mg ONCE ONCE PO Last administered on 07/09/16 16:46; Start 07/09/16 at 16:30; Stop 07/09/16 at 16:31; Status DC Nitroglycerin 1 inch 1 inch ONCE ONCE TOPICAL ; Start 07/09/16 at 16:30; Stop 07/09/16 at 16:31; Status DC Nitroglycerin/ Dextrose (Nitroglycerin-Dextrose Inj) 250 ml @ 0 mls/hr TITRATE IV Last administered on 07/09/16 16:49; Start 07/09/16 at 16:30; Stop at 03:25; Status DC Insulin Human Regular (NovoLIN R INJ) 6 units ONCE ONCE IV PUSH Last administered on 07/09/16 16:30; Start 07/09/16 at 16:30; Stop 07/09/16 at 16:31 ; Status DC Labetalol HCl (Trandate Inj) 10 mg Q6H PRN IV SEE LABEL COMMENTS; Start at 17:00 Hydralazine HCl (Apresoline Inj) 10 mg Q6H PRN IV SEE LABEL COMMENTS; Start at 17:00 Amlodipine Besylate (Norvasc) 10 mg DAILY PO Last administered on 07/10/16 08: 45; Start 07/09/16 at 17:30 Carvedilol (Coreg) 37.5 mg BID PO Last administered on 07/10/16 08:45; Start 07/09/16 at 21:00 Clonidine (Catapres) 0.2 mg BID PO Last administered on 07/10/16 08:45; Start 07/09/16 at 21:00 Furosemide (Lasix) 20 mg DAILY PO ; Start 07/09/16 at 18:00; Status Hold Insulin Human Isoph/Insulin Regular (NovoLIN 70/30 INJ) 20 units HS SQ ; Start 07/10/16 at 21:00 Insulin Human Isoph/Insulin Regular (NovoLIN 70/30 INJ) 50 units DAILY SQ Last administered on 07/10/16 08:49; Start 07/09/16 at 17:30 Minoxidil (Loniten) 2.5 mg DAILY PO Last administered on 07/10/16 13:32; Start 07/09/16 at 20:00 Nitroglycerin (Nitrostat Sl) 0.4 mg 5 TIMES A DAY PRN SL CHEST PAIN; Start at 17:30 Non-Formulary Medication 1 tab DAILY PO ; Start 07/10/16 at 09:00; Status UNV Lisinopril 40 mg 40 mg DAILY PO Last administered on 07/10/16 08:46; Start at 17:45; Stop 07/10/16 at 09:40; Status DC Sodium Chloride 1,000 ml @ 100 mls/hr Q10H IV Last administered on 07/10/16 09:48; Start 07/09/16 at 17:45 Sodium Chloride (NS 1000 ml Inj) 1,000 ml @ 999 mls/hr BOLUS ONCE IV ; Start 07/09/16 at 17:45; Stop 07/09/16 at 18:45; Status DC Abacavir Sulfate (Ziagen) 600 mg DAILY PO Last administered on 07/10/16 10:53 ; Start 07/09/16 at 17:45 Lamivudine 300 mg 300 mg DAILY PO Last administered on 07/10/16 10:53; Start 07/09/16 at 17:45 Piperacillin Sod/ Tazobactam Sod 50 ml @ 100 mls/hr Q6H IV Last administered on 07/10/16 13:33; Start 07/09/16 at 20:00 Pharmacy Profile Note ([facility]) 0 ml @ 0 mls/hr UNSCH OTHER ; Start 07/09/16 at 17:45; Status UNV Loperamide HCl (Imodium) 2 mg UNSCH PRN PO DIARRHEA; Start 07/09/16 at 17:45; Stop 07/10/16 at 02:28; Status DC Pantoprazole Sodium (Protonix Inj) 40 mg Q12H IV PUSH Last administered on 07/10 08:45; Start 07/09/16 at 20:00; Stop 07/10/16 at 14:57; Status DC Miscellaneous Information Patient in critical care unit? Ass... [id number] Last administered on 07/09/16 23:00; Start 07/09/16 at 23:00 Chlorhexidine Gluconate (Chlorhexidine 2% Cloth) 3 pack DAILY@04 TOPICAL Last administered on 07/10/16 04:00; Start 07/10/16 at 04:00; Stop 07/14/16 at 04:01 Chlorhexidine Gluconate (Chlorhexidine 2% Cloth) 3 pack UNSCH PRN TOPICAL HYGIENIC CARE; Start 07/09/16 at 23:00; Stop 07/14/16 at 22:54 Acetaminophen/ Hydrocodone Bitart (Magnolia 5-325 Mg) 1 tab Q4H PRN PO PAIN Last administered on 07/10/16 09:44; Start 07/10/16 at 00:00 Ondansetron HCl (Zofran Inj) 4 mg Q6HR PRN IV PUSH NAUSEA; Start 07/10/16 at 02 :30 Heparin Sodium (Porcine) (Heparin Inj) 5,000 units Q12HR SQ Last administered on 07/10/16 08:45; Start 07/10/16 at 09:00 Pantoprazole Sodium (Protonix Inj) 40 mg Q24H IV PUSH Last administered on 07/10 04:33; Start 07/10/16 at 04:00 Dextrose (D50w (Vial) Inj) 50 ml UNSCH PRN IV HYPOGLYCEMIA-SEE COMMENTS; Start 07/10/16 at 03:15 Glucagon (Glucagon Inj) 1 mg UNSCH PRN OTHER HYPOGLYCEMIA-SEE COMMENTS; Start 07/10/16 at 03:15 Insulin Aspart 1 1 ACHS SLIDING SCALE SQ ; Start 07/10/16 at 07:00 Metronidazole (Flagyl 500 Mg Inj) 100 ml @ 100 mls/hr Q8H IV Last administered on 07/10/16 16:00; Start 07/10/16 at 15:00 Family History Noncontributory to current complaint. Social History As per H&P. Physical Exam Vital Signs Vital Signs Date Time Temp Pulse Resp B/P Pulse Ox O2 Delivery O2 Flow Rate FiO2 07/10/16 06:00 84 07/10/16 04:00 98.7 87 25 94/51 89 07/10/16 04:00 87 07/10/16 02:00 81 07/10/16 00:00 78 07/10/16 00:00 98.8 78 33 116/69 91 07/09/16 22:00 126 07/09/16 20:00 126 07/09/16 20:00 99.1 119 28 153/93 97 07/09/16 18:45 98.0 126 18 141/95 97 07/09/16 18:23 130 18 135/96 07/09/16 18:00 128 134/77 07/09/16 17:31 120 216/95 07/09/16 17:24 122 230/121 Physical Exam GENERAL: The patient is morbidly obese. Not in respiratory distress. SKIN: Warm and dry. Skin turgor slightly diminished. HEAD: Normocephalic. EYES: No scleral icterus. No injection or drainage. NECK: Supple, trachea midline. No JVD or lymphadenopathy. CARDIOVASCULAR: Regular rate and rhythm without murmurs, gallops, or rubs. RESPIRATORY: Breath sounds equal bilaterally. No accessory muscle use. GASTROINTESTINAL: Abdomen soft, non-tender, nondistended. Markedly obese. MUSCULOSKELETAL: No cyanosis, or edema. BACK: Nontender without obvious deformity. No CVA tenderness. Laboratory Laboratory Tests Test 07/09/16 07/09/16 07/10/16 18:30 19:00 06:35 Lactic Acid Level 1.3 0.9 Troponin I 0.17 Nasal Screen MRSA (PCR) MRSA NOT DETECTED White Blood Count 8.4 Red Blood Count 4.46 Hemoglobin 11.9 Hematocrit 37.6 Mean Corpuscular Volume 84.3 Mean Corpuscular Hemoglobin 26.7 Mean Corpuscular Hemoglobin 31.7 Concent Red Cell Distribution Width 16.2 Platelet Count 142 Mean Platelet Volume 9.7 Neutrophils (%) (Auto) 76.5 Lymphocytes (%) (Auto) 12.2 Monocytes (%) (Auto) 8.7 Eosinophils (%) (Auto) 1.9 Basophils (%) (Auto) 0.7 Neutrophils # (Auto) 6.4 Lymphocytes # (Auto) 1.0 Monocytes # (Auto) 0.7 Eosinophils # (Auto) 0.2 Basophils # (Auto) 0.1 CBC Comment DIFF FINAL Differential Comment Sodium Level 140 Potassium Level 3.5 Chloride Level 110 Carbon Dioxide Level 20.5 Anion Gap 10 Blood Urea Nitrogen 35 Creatinine 4.77 Estimat Glomerular Filtration 16 Rate Random Glucose 127 Calcium Level 7.9 Date/Time Procedure Status Source Growth 07/10/16 06:36 Aerobic Blood Culture Received Blood Peripheral Pending 07/10/16 06:36 Anaerobic Blood Culture Received Blood Peripheral Pending Result Diagram: 07/10/16 0635 07/10/16 0635 Imaging Last 48 hours Impressions Renal Ultrasound 07/10/16 0000 Signed Impressions: Service Date/Time: June 11:11 - CONCLUSION: Normal exam Bhavin Rivera MD Chest X-Ray 07/09/16 1440 Signed Impressions: Service Date/Time: Saturday, July 09, 2016 14:49 - CONCLUSION: No acute disease. Bhavin Rivera MD Abdomen/Pelvis CT 07/09/16 0000 Signed Impressions: Service Date/Time: Saturday, July 09, 2016 18:08 - CONCLUSION: 1. Colitis. Rajeev Mcallister MD Assessment and Plan Problem List: (1) Acute renal failure Plan: Patient's creatinine level has deteriorated since admission. This may be related to a relative intravascular volume depletion secondary to accelerated hypertension. Agree with IV hydration at this time. Also there is impaired autoregulation associated with severe hypertension. Renal perfusion may temporarily be reduced with improvement in blood pressure. Continue to monitor. Hopefully the patient has not developed ATN. Patient has a history of severe CKD with limited renal reserve. He may progress to end-stage renal disease during this admission. Medications should be adjusted for the patient's estimated GFR if clinically indicated. Avoid agents with significant potential for nephrotoxicity possible including NSAIDs for analgesia, iodine contrast agents. Gadolinium is contraindicated if the GFR is below 30. (2) CKD (chronic kidney disease) stage 4, GFR 15-29 ml/min Plan: Documented as being secondary to diabetic nephropathy based on kidney biopsy December 21, 2014. The presence of heavy proteinuria, severe interstitial nephritis as well as tubular atrophy are poor prognostic indicators as far as preservation of renal function is concerned. Screen for secondary hyperparathyroidism of renal disease. (3) Hypertensive urgency Plan: Blood pressure improving. Once patient's renal function stabilizes he may benefit from reinstitution of the ROB inhibitor which can slow progression of diabetic nephropathy in the setting of proteinuria. (4) AIDS (acquired immune deficiency syndrome) Plan: Defer management to primary care physician. (5) Diabetes mellitus Plan: Defer management to primary care physician. (6) Proteinuria Plan: Secondary to diabetic nephropathy. (7) CHF (congestive heart failure) Plan: Clinically compensated at this time. Antoni Vera MD July 10, 2016 17:06
--- NOTE | 2016-07-10 17:32 | EKG ---
Date Performed: 07/09/2016 Time Performed: 14:49:57 PTAGE: 40 years EKG: SINUS TACHYCARDIA POSSIBLE LEFT ATRIAL ENLARGEMENT INDETERMINATE AXIS RIGHT BUNDLE BRANCH B LOCK AND POSSIBLE RIGHT VENTRICULAR HYPERTROPHY POSSIBLE LEFT VENTRICULAR HYPERTROPHY INFERIOR MYOCAR DIAL INFARCTION MARKED T-WAVE ABNORMALITY, CONSIDER ANTEROLATERAL ISCHEMIA ABNORMAL ECG PREVIOUS TRACING : 07/09/2016 14.48 Compared to prior tracing no significant change DOCTOR: Dominic Alanis Interpretating Date/Time 07/10/2016 17:31:27
--- NOTE | 2016-07-10 17:32 | EKG ---
Date Performed: 07/09/2016 Time Performed: 14:48:03 PTAGE: 40 years EKG: SINUS TACHYCARDIA POSSIBLE LEFT ATRIAL ENLARGEMENT INDETERMINATE AXIS RIGHT BUNDLE BRANCH B LOCK AND POSSIBLE RIGHT VENTRICULAR HYPERTROPHY LEFT POSTERIOR FASCICULAR BLOCK POSSIBLE LEFT VENTRIC ULAR HYPERTROPHY MARKED T-WAVE ABNORMALITY, CONSIDER ANTEROLATERAL ISCHEMIA MODERATE T-WAVE ABNORMALI TY, CONSIDER INFERIOR ISCHEMIA ABNORMAL ECG Compared to the PREVIOUS TRACING from 05/12/16, rate has increased DOCTOR: Dominic Alanis Interpretating Date/Time 07/10/2016 17:31:57
[2016-07-11] VITALS (12 sets, daily range): BP systolic 96–141; BP diastolic 50–81; PULSE 75–91; RESP 18–31; TEMP 98.2–98.7; O2SAT 94–97
[2016-07-11] MEDS: SODIUM CHLOR 0.9% 1000 ML INJ 1,000 ML IV SCH ×3 (01:31→19:45)
[2016-07-11] MEDS: PIPERACIL-TAZO 2.25 GM PREMIX 50 ML IV SCH ×4 (01:31→21:42)
[2016-07-11] MEDS: CHLORHEXIDINE GLUCONATE 2 % 1 PACK (2 CLOTHS)(taper/protocol) TOPICAL SCH (04:00)
[2016-07-11] MEDS: PANTOPRAZOLE SODIUM 40 MG VIAL IV PUSH SCH (05:01)
[2016-07-11] MEDS: INSULIN ASPART SUPPLEMENTAL SCALE SQ SCH ×4 (06:02→21:00)
[2016-07-11] MEDS: metroNIDAZOLE 500 MG INJ 100 ML IV SCH ×3 (06:02→21:42)
[2016-07-11 07:22] LABS: AUTOMATED NEUTROPHIL # 4.1 TH/MM3 (1.8-7.7); BASOPHIL % 0.8 % (0.0-2.0); EOSINOPHIL # 0.2 TH/MM3 (0-0.4); EOSINOPHIL % 3.5 % (0.0-4.0); HEMATOCRIT 36.3 % (39.0-51.0); HEMO FLAGS DIFF FINAL; LYMPH % 11.7 % (9.0-44.0); LYMPHOCYTE # 0.7 TH/MM3 (1.0-4.8); MEAN CELL VOLUME 85.4 FL (80.0-100.0); MEAN CORPUSCULAR HEMOGLOBIN 26.7 PG (27.0-34.0); MEAN CORPUSCULAR HGB CONC 31.3 % (32.0-36.0); MONO % 9.3 % (0.0-8.0); NEUT % 74.7 % (16.0-70.0); PLATELET COUNT 124 TH/MM3 (150-450); RED BLOOD COUNT 4.25 MIL/MM3 (4.50-5.90); RED CELL DISTRIBUTION WIDTH 16.5 % (11.6-17.2); WHITE BLOOD COUNT 5.6 TH/MM3 (4.0-11.0)
[2016-07-11 07:50] LABS: POTASSIUM 3.3 MEQ/L (3.5-5.1)
--- NOTE | 2016-07-11 08:24 | HHI.PR ---
Objective Objective Results - Vital Signs Date Time Temp Pulse Resp B/P Pulse Ox O2 Delivery O2 Flow Rate FiO2 07/11/16 06:00 81 07/11/16 04:00 81 07/11/16 04:00 98.6 81 23 103/59 07/11/16 02:00 80 07/11/16 00:00 98.7 81 21 121/66 94 07/11/16 00:00 81 07/10/16 22:00 79 07/10/16 20:00 84 07/10/16 20:00 98.4 84 32 116/72 94 07/10/16 18:00 75 07/10/16 16:00 75 07/10/16 15:00 98.3 72 17 95/55 92 07/10/16 14:00 74 07/10/16 12:00 77 07/10/16 12:00 98.4 77 15 107/65 93 07/10/16 10:00 85 I/O 07/10/16 07/10/16 07/10/16 07/11/16 07/11/16 07/11/16 07:00 15:00 23:00 07:00 15:00 23:00 Intake Total 781 ml 1920 ml 931 ml 764 ml Output Total 75 ml 4 ml 100 ml 200 ml Balance 706 ml 1916 ml 831 ml 564 ml Intake Oral 240 ml 1060 ml 480 ml IV Total 541 ml 860 ml 451 ml 764 ml Output Urine Total 75 ml 100 ml 200 ml Stool Total 4 ml # Voids 4 1 # Bowel Movements 1 1 Result Diagram: 07/11/16 0636 07/11/16 0636 A/P Assessment and Plan [id number] Add MARYLU, with dehydration, with CKD Possible gastro Possible C difficile GERD, uncontrolled morbid obesity Possible gastroenteritis IVF, check C diff , CT abd. maintain on clear liquids for now, ada D/W Dr. Copeland, patient was seen per Dr. Copeland, on admission Denice Yadav July 11, 2016 08:24
[2016-07-11] MEDS: CARVEDILOL 12.5 MG TAB PO SCH ×2 (09:16→21:43)
[2016-07-11] MEDS: ABACAVIR SULFATE 300 MG TAB PO SCH (09:16)
[2016-07-11] MEDS: cloNIDine HCL 0.2 MG TAB PO SCH ×2 (09:17→21:43)
[2016-07-11] MEDS: DOLUTEGRAVIR SODIUM 50 MG TAB PO SCH (09:17)
[2016-07-11] MEDS: MINOXIDIL 2.5 MG TAB PO SCH (09:17)
[2016-07-11] MEDS: INSULIN HUMAN NPH/R 70/30 1,000 UNITS/10 ML VIAL SQ SCH ×2 (09:19→21:00)
[2016-07-11] MEDS: HEPARIN SODIUM - SQ 10,000 UNITS/ML VIAL SQ SCH ×2 (09:19→21:44)
--- NOTE | 2016-07-11 14:19 | HHI.NPPN ---
Subjective History of Present Illness 40-year-old black male with a history of HIV infection, CHF, diabetes mellitus and hypertension. Also has a history of CKD stage IV with a kidney biopsy back in December 2014 indicating diabetic nephropathy, global sclerosis and severe interstitial fibrosis and tubular atrophy. 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 The patient indicated to me that he follows up with a molder foam rubber regularly in [place] however patient indicates he does not remember the name of the molder foam rubber or any contact information. Stated that preparation was being made for dialysis in the near future I cannot indicate to me modality. Now presents with a history of nausea and vomiting noted to have severe accelerated hypertension on presentation. According to patient he could not keep his blood pressure medications down. Recent surgery for detached retina also. Interval History Patient had verbal complaints currently. Objective Data Data 07/10/16 07/11/16 19:00 07:00 Intake Total 1920 ml 1695 ml Output Total 4 ml 300 ml Balance 1916 ml 1395 ml Intake Oral 1060 ml 480 ml IV Total 860 ml 1215 ml Output Urine Total 300 ml Stool Total 4 ml # Voids 4 1 # Bowel Movements 2 Vital Signs Date Time Temp Pulse Resp B/P Pulse Ox O2 Delivery O2 Flow Rate FiO2 07/11/16 12:00 98.2 80 23 97/50 97 07/11/16 12:00 82 07/11/16 10:00 80 07/11/16 08:00 82 07/11/16 08:00 98.5 82 23 113/59 97 07/11/16 06:00 81 07/11/16 04:00 81 07/11/16 04:00 98.6 81 23 103/59 07/11/16 02:00 80 07/11/16 00:00 98.7 81 21 121/66 94 07/11/16 00:00 81 07/10/16 22:00 79 07/10/16 20:00 84 07/10/16 20:00 98.4 84 32 116/72 94 07/10/16 18:00 75 07/10/16 16:00 75 07/10/16 15:00 98.3 72 17 95/55 92 -: 07/11/16 0636 07/11/16 0636 Medication Review Current Medications Ondansetron HCl (Zofran Inj) 4 mg ONCE ONCE IVP Last administered on 15:48; Start 07/09/16 at 14:45; Stop 07/09/16 at 14:46; Status DC Sodium Chloride (NS Flush) 2 ml UNSCH PRN IV FLUSH FLUSH AFTER USING IV ACCESS Last administered on 07/09/16 15:48; Start 07/09/16 at 14:45 Clonidine (Catapres) 0.2 mg ONCE ONCE PO Last administered on 07/09/16 15:48 ; Start 07/09/16 at 15:15; Stop 07/09/16 at 15:16; Status DC Aspirin (Aspirin) 325 mg ONCE ONCE PO Last administered on 07/09/16 16:46; Start 07/09/16 at 16:30; Stop 07/09/16 at 16:31; Status DC Nitroglycerin 1 inch 1 inch ONCE ONCE TOPICAL ; Start 07/09/16 at 16:30; Stop 07/09/16 at 16:31; Status DC Nitroglycerin/ Dextrose (Nitroglycerin-Dextrose Inj) 250 ml @ 0 mls/hr TITRATE IV Last administered on 07/09/16 16:49; Start 07/09/16 at 16:30; Stop at 03:25; Status DC Insulin Human Regular (NovoLIN R INJ) 6 units ONCE ONCE IV PUSH Last administered on 07/09/16 16:30; Start 07/09/16 at 16:30; Stop 07/09/16 at 16:31 ; Status DC Labetalol HCl (Trandate Inj) 10 mg Q6H PRN IV SEE LABEL COMMENTS; Start at 17:00 Hydralazine HCl (Apresoline Inj) 10 mg Q6H PRN IV SEE LABEL COMMENTS; Start at 17:00 Amlodipine Besylate (Norvasc) 10 mg DAILY PO Last administered on 07/11/16 09: 17; Start 07/09/16 at 17:30 Carvedilol (Coreg) 37.5 mg BID PO Last administered on 07/11/16 09:16; Start 07/09/16 at 21:00 Clonidine (Catapres) 0.2 mg BID PO Last administered on 07/11/16 09:17; Start 07/09/16 at 21:00 Furosemide (Lasix) 20 mg DAILY PO ; Start 07/09/16 at 18:00; Status Hold Insulin Human Isoph/Insulin Regular (NovoLIN 70/30 INJ) 20 units HS SQ Last administered on 07/10/16 20:09; Start 07/10/16 at 21:00 Insulin Human Isoph/Insulin Regular (NovoLIN 70/30 INJ) 50 units DAILY SQ Last administered on 07/11/16 09:19; Start 07/09/16 at 17:30 Minoxidil (Loniten) 2.5 mg DAILY PO Last administered on 07/11/16 09:17; Start 07/09/16 at 20:00 Nitroglycerin (Nitrostat Sl) 0.4 mg 5 TIMES A DAY PRN SL CHEST PAIN; Start at 17:30 Non-Formulary Medication 1 tab DAILY PO ; Start 07/10/16 at 09:00; Status UNV Lisinopril 40 mg 40 mg DAILY PO Last administered on 07/10/16 08:46; Start at 17:45; Stop 07/10/16 at 09:40; Status DC Sodium Chloride 1,000 ml @ 100 mls/hr Q10H IV Last administered on 07/11/16 09:20; Start 07/09/16 at 17:45 Sodium Chloride (NS 1000 ml Inj) 1,000 ml @ 999 mls/hr BOLUS ONCE IV ; Start 07/09/16 at 17:45; Stop 07/09/16 at 18:45; Status DC Abacavir Sulfate (Ziagen) 600 mg DAILY PO Last administered on 07/11/16 09:16 ; Start 07/09/16 at 17:45 Lamivudine 300 mg 300 mg DAILY PO Last administered on 07/11/16 09:16; Start 07/09/16 at 17:45 Piperacillin Sod/ Tazobactam Sod 50 ml @ 100 mls/hr Q6H IV Last administered on 07/11/16 09:21; Start 07/09/16 at 20:00 Pharmacy Profile Note ([facility]) 0 ml @ 0 mls/hr UNSCH OTHER ; Start 07/09/16 at 17:45; Status UNV Loperamide HCl (Imodium) 2 mg UNSCH PRN PO DIARRHEA; Start 07/09/16 at 17:45; Stop 07/10/16 at 02:28; Status DC Pantoprazole Sodium (Protonix Inj) 40 mg Q12H IV PUSH Last administered on 07/10 08:45; Start 07/09/16 at 20:00; Stop 07/10/16 at 14:57; Status DC Miscellaneous Information Patient in critical care unit? Ass... [id number] Last administered on 07/09/16 23:00; Start 07/09/16 at 23:00 Chlorhexidine Gluconate (Chlorhexidine 2% Cloth) 3 pack DAILY@04 TOPICAL Last administered on 07/11/16 04:00; Start 07/10/16 at 04:00; Stop 07/14/16 at 04:01 Chlorhexidine Gluconate (Chlorhexidine 2% Cloth) 3 pack UNSCH PRN TOPICAL HYGIENIC CARE; Start 07/09/16 at 23:00; Stop 07/14/16 at 22:54 Acetaminophen/ Hydrocodone Bitart ([place] 5-325 Mg) 1 tab Q4H PRN PO PAIN Last administered on 07/10/16 09:44; Start 07/10/16 at 00:00 Ondansetron HCl (Zofran Inj) 4 mg Q6HR PRN IV PUSH NAUSEA; Start 07/10/16 at 02 :30 Heparin Sodium (Porcine) (Heparin Inj) 5,000 units Q12HR SQ Last administered on 07/11/16 09:19; Start 07/10/16 at 09:00 Pantoprazole Sodium (Protonix Inj) 40 mg Q24H IV PUSH Last administered on 07/11 05:01; Start 07/10/16 at 04:00 Dextrose (D50w (Vial) Inj) 50 ml UNSCH PRN IV HYPOGLYCEMIA-SEE COMMENTS; Start 07/10/16 at 03:15 Glucagon (Glucagon Inj) 1 mg UNSCH PRN OTHER HYPOGLYCEMIA-SEE COMMENTS; Start 07/10/16 at 03:15 Insulin Aspart 1 1 ACHS SLIDING SCALE SQ ; Start 07/10/16 at 07:00 Metronidazole (Flagyl 500 Mg Inj) 100 ml @ 100 mls/hr Q8H IV Last administered on 07/11/16 06:02; Start 07/10/16 at 15:00 Physical Exam General Appearance: No Acute Distress, Comfortable, Obese Eyes Eye Exam: Sclera White Pulmonary Resp Exam: Clear Bilaterally, Breath Sounds Equal Cardiology CV Exam: Regular, Normal Sinus Rhythm Gastrointestinal/Abdomen GI Exam: Soft GI Remarks Morbidly obese. Extremeties Extremities Exam: No Edema Neurologic Neuro Exam: Alert, Awake, Speech Clear, Moving All Extremities Assessment/Plan Problem List: (1) Acute renal failure Plan: Unfortunately despite IV fluids patient's creatinine continues to deteriorate. Continue IV hydration. Patient was counseled regarding the progressive nature of his azotemia. Continue to monitor and hopefully the renal indices will plateau and improve prior to requirement for dialysis as discussed with him. Appears that the patient has sustained significant acute kidney injury. Medications should be adjusted for the patient's estimated GFR if clinically indicated. Avoid agents with significant potential for nephrotoxicity possible including NSAIDs for analgesia, iodine contrast agents. Gadolinium is contraindicated if the GFR is below 30. (2) CKD (chronic kidney disease) stage 4, GFR 15-29 ml/min Plan: Documented as being secondary to diabetic nephropathy based on kidney biopsy December 21, 2014. The presence of heavy proteinuria, severe interstitial nephritis as well as tubular atrophy are poor prognostic indicators as far as preservation of renal function is concerned. Screen for secondary hyperparathyroidism of renal disease. (3) Hypertensive urgency Plan: Blood pressure improving. Once patient's renal function stabilizes he may benefit from reinstitution of the ROB inhibitor which can slow progression of diabetic nephropathy in the setting of proteinuria. (4) AIDS (acquired immune deficiency syndrome) Plan: Defer management to primary care physician. (5) Diabetes mellitus Plan: Defer management to primary care physician. (6) Proteinuria Plan: Secondary to diabetic nephropathy. (7) CHF (congestive heart failure) Plan: Clinically compensated at this time. Antoni Vera MD July 11, 2016 14:19
--- NOTE | 2016-07-11 14:56 | HHI.PR ---
Subjective History of Present Illness awake alertand oriented OFF nitro gtt BP improved improving diarrhea tolerating diet no other complaints Vitals/Results Intake & Output 07/10/16 07/10/16 07/11/16 15:00 23:00 07:00 Intake Total 1920 ml 931 ml 764 ml Output Total 4 ml 100 ml 200 ml Balance 1916 ml 831 ml 564 ml Intake Oral 1060 ml 480 ml IV Total 860 ml 451 ml 764 ml Output Urine Total 100 ml 200 ml Stool Total 4 ml # Voids 4 1 # Bowel Movements 1 1 Vital Signs Vital Signs Date Time Temp Pulse Resp B/P Pulse Ox O2 Delivery O2 Flow Rate FiO2 07/11/16 12:00 98.2 80 23 97/50 97 07/11/16 12:00 82 07/11/16 10:00 80 07/11/16 08:00 82 07/11/16 08:00 98.5 82 23 113/59 97 07/11/16 06:00 81 07/11/16 04:00 81 07/11/16 04:00 98.6 81 23 103/59 07/11/16 02:00 80 07/11/16 00:00 98.7 81 21 121/66 94 07/11/16 00:00 81 07/10/16 22:00 79 07/10/16 20:00 84 07/10/16 20:00 98.4 84 32 116/72 94 07/10/16 18:00 75 07/10/16 16:00 75 07/10/16 15:00 98.3 72 17 95/55 92 CBC/BMP: 07/11/16 0636 07/11/16 0636 Lab Results Laboratory Tests Test 07/11/16 06:36 White Blood Count 5.6 TH/MM3 Red Blood Count 4.25 MIL/MM3 Hemoglobin 11.4 GM/DL Hematocrit 36.3 % Mean Corpuscular Volume 85.4 FL Mean Corpuscular Hemoglobin 26.7 PG Mean Corpuscular Hemoglobin 31.3 % Concent Red Cell Distribution Width 16.5 % Platelet Count 124 TH/MM3 Mean Platelet Volume 9.8 FL Neutrophils (%) (Auto) 74.7 % Lymphocytes (%) (Auto) 11.7 % Monocytes (%) (Auto) 9.3 % Eosinophils (%) (Auto) 3.5 % Basophils (%) (Auto) 0.8 % Neutrophils # (Auto) 4.1 TH/MM3 Lymphocytes # (Auto) 0.7 TH/MM3 Monocytes # (Auto) 0.5 TH/MM3 Eosinophils # (Auto) 0.2 TH/MM3 Basophils # (Auto) 0.0 TH/MM3 CBC Comment DIFF FINAL Differential Comment Sodium Level 144 MEQ/L Potassium Level 3.3 MEQ/L Chloride Level 113 MEQ/L Carbon Dioxide Level 20.0 MEQ/L Anion Gap 11 MEQ/L Blood Urea Nitrogen 40 MG/DL Creatinine 5.26 MG/DL Estimat Glomerular Filtration 15 ML/MIN Rate Random Glucose 96 MG/DL Calcium Level 7.6 MG/DL Troponin I 0.16 NG/ML 25-Hydroxy Vitamin D Total 21.5 ng/ML Parathyroid Hormone (Intact) 456.7 PG/ML Physical Exam General General Appearance: No Acute Distress, Comfortable, Obese Eyes Eye Exam: Sclera White Pulmonary Resp Exam: Clear Bilaterally, Breath Sounds Equal Cardiology CV Exam: Regular, Normal Sinus Rhythm Gastrointestinal/Abdomen GI Exam: Soft Extremeties Extremities Exam: No Edema Neurologic Neuro Exam: Alert, Awake, Speech Clear, Moving All Extremities Assessment/Plan Assessment/Plan PHYSICAL EXAMINATION GENERAL: Well-nourished, well-developed, morbidly obese black male. appears comfortable SKIN: Has pink mucous membranes, warm and dry. No diaphoresis noted. HEENT: Normocephalic. Right eye is normal and PERRLA. Left eye has conjunctive edema and redness. No nasal discharge. Mucous membranes are pink and moist. Trachea is midline. NECK: Supple. No acute JVD noted. CARDIOVASCULAR: S1, S2. S4 gallop. No murmurs or rubs appreciated. Has a trace to 1+ pedal edema but his extremities are warm. LUNGS: Low volumes but essentially clear to auscultation anteriorly and posteriorly. GASTROINTESTINAL: Abdomen is obese, soft, tender in the lower mid quadrants. Denies any radiation. No guarding. MUSCULOSKELETAL: No obvious deformities. Mild trace to 1+ lower extremity edema. NEUROLOGIC: He is awake and alert, anxious over his current condition. Moves his extremities with purpose. His speech is clear and understandable. PSYCHIATRIC: Some anxiety but appropriate mood and affect. Insight and judgment are normal. SSESSMENT/PLAN 1. Chest pain, unlikely ACS 2. Malignant hypertension with urgency. 3. Insulin dependent diabetes type 2 uncontrolled. 4. Possible gastroenteritis , ascending and transverse colitis 5. Chronic kidney disease stage III. 6. History of HIV. 7. Noncompliance. 8. Congestive heart failure. 9. Morbid obesity. patient seen and examined In ICU Malignant HTN off Nitro gtt monitor BP, low this am Appreciate cardiology input unlikely ACS elevated troponin likely sec to CKD Echo with EF 55-60%, grade 1 diastolic dysfunction monitor renal function nephrology input appreciated CR 5.26 Accuchecks ISS advance diet to soft , diabetic diet stool neg for C diff LFTS normal continue HAART recent retinal detachment DVT prophylaxis GI prophylaxis plan of care discussed with patient, nursing staff labs in am ok to transfer to floor with tele Xochitl Stewart MD July 11, 2016 14:56
[2016-07-12] VITALS (12 sets, daily range): BP systolic 122–143; BP diastolic 75–86; PULSE 77–86; RESP 18–31; TEMP 98.3–100.3; O2SAT 97–98
[2016-07-12] MEDS: PIPERACIL-TAZO 2.25 GM PREMIX 50 ML IV SCH ×4 (01:23→21:57)
[2016-07-12] MEDS: PANTOPRAZOLE SODIUM 40 MG VIAL IV PUSH SCH (03:40)
[2016-07-12] MEDS: CHLORHEXIDINE GLUCONATE 2 % 1 PACK (2 CLOTHS)(taper/protocol) TOPICAL SCH (03:40)
[2016-07-12] MEDS: SODIUM CHLOR 0.9% 1000 ML INJ 1,000 ML IV SCH ×2 (03:40→22:08)
[2016-07-12] MEDS: metroNIDAZOLE 500 MG INJ 100 ML IV SCH ×3 (06:36→21:57)
[2016-07-12] MEDS: INSULIN ASPART SUPPLEMENTAL SCALE SQ SCH ×4 (06:40→21:00)
[2016-07-12 07:40] LABS: AUTOMATED NEUTROPHIL # 2.8 TH/MM3 (1.8-7.7); BASOPHIL % 0.9 % (0.0-2.0); EOSINOPHIL # 0.2 TH/MM3 (0-0.4); EOSINOPHIL % 3.7 % (0.0-4.0); HEMATOCRIT 34.7 % (39.0-51.0); HEMO FLAGS DIFF FINAL; LYMPHOCYTE # 0.7 TH/MM3 (1.0-4.8); MEAN CELL VOLUME 84.3 FL (80.0-100.0); MEAN CORPUSCULAR HGB CONC 32.1 % (32.0-36.0); MONO % 12.5 % (0.0-8.0); NEUT % 65.9 % (16.0-70.0); PLATELET COUNT 144 TH/MM3 (150-450); RED BLOOD COUNT 4.11 MIL/MM3 (4.50-5.90); RED CELL DISTRIBUTION WIDTH 16.2 % (11.6-17.2); WHITE BLOOD COUNT 4.2 TH/MM3 (4.0-11.0)
[2016-07-12 08:03] LABS: BICARBONATE 20.9 MEQ/L (21.0-32.0); POTASSIUM 3.4 MEQ/L (3.5-5.1)
[2016-07-12] MEDS: ABACAVIR SULFATE 300 MG TAB PO SCH (08:17)
[2016-07-12] MEDS: CARVEDILOL 12.5 MG TAB PO SCH ×2 (08:17→21:50)
[2016-07-12] MEDS: cloNIDine HCL 0.2 MG TAB PO SCH ×3 (08:17→23:22)
[2016-07-12] MEDS: HEPARIN SODIUM - SQ 10,000 UNITS/ML VIAL SQ SCH ×2 (08:18→21:00)
[2016-07-12] MEDS: DOLUTEGRAVIR SODIUM 50 MG TAB PO SCH (08:18)
[2016-07-12] MEDS: INSULIN HUMAN NPH/R 70/30 1,000 UNITS/10 ML VIAL SQ SCH ×2 (08:22→22:00)
[2016-07-12] MEDS: MINOXIDIL 2.5 MG TAB PO SCH (08:22)
[2016-07-12] MEDS: ACETAMINOPHEN/HYDROcodone 325 MG/5 MG TAB PO PRN (08:22)
--- NOTE | 2016-07-12 10:30 | HHI.NPPN ---
Subjective History of Present Illness 40-year-old black male with a history of HIV infection, CHF, diabetes mellitus and hypertension. Also has a history of CKD stage IV with a kidney biopsy back in December 2014 indicating diabetic nephropathy, global sclerosis and severe interstitial fibrosis and tubular atrophy. 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 The patient indicated to me that he follows up with a tanning consultant regularly in [place] however patient indicates he does not remember the name of the tanning consultant or any contact information. Stated that preparation was being made for dialysis in the near future I cannot indicate to me modality. Now presents with a history of nausea and vomiting noted to have severe accelerated hypertension on presentation. According to patient he could not keep his blood pressure medications down. Recent surgery for detached retina also. Interval History Patient indicated that he was feeling tired. Otherwise no verbal complaints. Objective Data Data 07/11/16 07/12/16 19:00 07:00 Intake Total 1732 ml 1636 ml Output Total 2 ml 275 ml Balance 1730 ml 1361 ml Intake Oral 840 ml 340 ml IV Total 892 ml 1296 ml Output Urine Total 275 ml Stool Total 2 ml # Voids 4 1 Vital Signs Date Time Temp Pulse Resp B/P Pulse Ox O2 Delivery O2 Flow Rate FiO2 07/12/16 08:00 100.3 80 31 132/77 07/12/16 08:00 80 07/12/16 06:00 77 07/12/16 04:00 98.9 77 25 135/77 07/12/16 04:00 77 07/12/16 02:00 81 07/12/16 00:00 80 07/12/16 00:00 98.6 80 28 135/79 07/11/16 22:00 91 07/11/16 20:00 86 07/11/16 20:00 98.6 86 31 141/81 07/11/16 18:00 85 07/11/16 16:00 98.6 75 18 96/54 95 07/11/16 16:00 75 07/11/16 14:00 80 07/11/16 12:00 98.2 80 23 97/50 97 07/11/16 12:00 82 -: 07/12/16 0658 07/12/16 0658 Physical Exam General Appearance: No Acute Distress, Comfortable, Obese Eyes Eye Exam: Sclera White Pulmonary Resp Exam: Clear Bilaterally, Breath Sounds Equal Cardiology CV Exam: Regular, Normal Sinus Rhythm Gastrointestinal/Abdomen GI Exam: Soft GI Remarks Morbidly obese. Extremeties Extremities Exam: No Edema Neurologic Neuro Exam: Alert, Awake, Speech Clear, Moving All Extremities Assessment/Plan Discussed Condition With: Patient Problem List: (1) Acute renal failure Plan: Unfortunately despite IV fluids patient's creatinine again continues to deteriorate. Continue IV hydration. Patient was counseled regarding the progressive nature of his azotemia. Continue to monitor and hopefully the renal indices will plateau and improve prior to requirement for dialysis as discussed with him. Continue to monitor for signs of fluid overload and or uremia. Appears that the patient has sustained significant acute kidney injury related to his previous accelerated hypertension. Medications should be adjusted for the patient's estimated GFR if clinically indicated. Avoid agents with significant potential for nephrotoxicity possible including NSAIDs for analgesia, iodine contrast agents. Gadolinium is contraindicated if the GFR is below 30. (2) CKD (chronic kidney disease) stage 4, GFR 15-29 ml/min Plan: Documented as being secondary to diabetic nephropathy based on kidney biopsy December 21, 2014. The presence of heavy proteinuria, severe interstitial nephritis as well as tubular atrophy are poor prognostic indicators as far as preservation of renal function is concerned. Screen for secondary hyperparathyroidism of renal disease. (3) Hypertensive urgency Plan: Blood pressure improving. Once patient's renal function stabilizes he may benefit from reinstitution of the ROB inhibitor which can slow progression of diabetic nephropathy in the setting of proteinuria. (4) AIDS (acquired immune deficiency syndrome) Plan: Defer management to primary care physician. (5) Diabetes mellitus Plan: Defer management to primary care physician. (6) Proteinuria Plan: Secondary to diabetic nephropathy. (7) CHF (congestive heart failure) Plan: Clinically compensated at this time. Antoni Vera MD July 12, 2016 10:30
[2016-07-12] MEDS ORDERED: ERGOCALCIFEROL (VIT D2) 50,000 UNIT CAP PO SCH (12:00)
[2016-07-12] MEDS ORDERED: POTASSIUM CHLORIDE 25 MEQ EFFERVESCENT TAB PO ONE (15:00)
--- NOTE | 2016-07-12 15:06 | HHI.PR ---
Subjective Remarks Patient's resting on his right side Alert oriented cooperative Low-grade fever last night at midnight, normal trends today Blood pressure controlled Objective Objective Results - Vital Signs Date Time Temp Pulse Resp B/P Pulse Ox O2 Delivery O2 Flow Rate FiO2 07/12/16 13:30 98.7 78 18 122/75 07/12/16 12:01 98.4 82 28 132/77 07/12/16 12:00 100.3 80 31 132/77 07/12/16 12:00 80 07/12/16 10:00 77 07/12/16 08:00 100.3 80 31 132/77 07/12/16 08:00 80 07/12/16 06:00 77 07/12/16 04:00 98.9 77 25 135/77 07/12/16 04:00 77 07/12/16 02:00 81 07/12/16 00:00 80 07/12/16 00:00 98.6 80 28 135/79 07/11/16 22:00 91 07/11/16 20:00 86 07/11/16 20:00 98.6 86 31 141/81 07/11/16 18:00 85 07/11/16 16:00 98.6 75 18 96/54 95 07/11/16 16:00 75 I/O 07/11/16 07/11/16 07/11/16 07/12/16 07/12/16 07/12/16 07:00 15:00 23:00 07:00 15:00 23:00 Intake Total 764 ml 1732 ml 708 ml 928 ml 1869 ml Output Total 200 ml 2 ml 225 ml 50 ml 354 ml Balance 564 ml 1730 ml 483 ml 878 ml 1515 ml Intake Oral 840 ml 100 ml 240 ml 240 ml IV Total 764 ml 892 ml 608 ml 688 ml 1629 ml Output Urine Total 200 ml 225 ml 50 ml 350 ml Stool Total 2 ml 4 ml # Voids 4 1 # Bowel Movements 1 Result Diagram: 07/12/1665707/12/16657 ROS General: Fatigue, Weakness (continues), Other (10 point ROS done positives noted other systems negative or unremarkable) Cardiac: Edema (mild to 1+ lower extremity but improved) Pulmonary: SOB (exertional) GI: BM (BM yesterdaym, continue to monitor bowel regimen) Neuro/MS: Other (alert responsive) Physical Exam Physical Exam PHYSICAL EXAMINATION GENERAL: This is an obese male who appears to be in no acute distress. He is alert and awake, HEAD: Normocephalic without any lesion or mass noted. Facial features appear symmetric. Bilateral periorbital edema noted with some tearing. Noted recent surgery OROPHARYNGEAL: Oropharynx without erythema or edema. NECK: Supple. Obese Trachea midline without deviation. CARDIAC: Regular rhythm, regular rate, S1 and S2 are heard. LUNGS: Mild diminished sounds to auscultation bilaterally. No wheezes rales or rhonchi noted ABDOMEN: Soft, nontender, no organomegaly or masses. Bowel sounds are heard in all four quadrants. No rebound. No guarding. EXTREMITIES: Mild lower extremity edema. Pulses equal bilateral. NEUROLOGICAL: Patient mood and affect appropriate. Answers questions appropriately SKIN:Warm and moist, turgor thick and dry A/P Assessment and Plan 1. Chest pain, unlikely ACS 2. Malignant hypertension with urgency. 3. Insulin dependent diabetes type 2 uncontrolled. 4. Possible gastroenteritis , ascending and transverse colitis 5. Chronic kidney disease stage IV 6. History of HIV. 7. Noncompliance. 8. Congestive heart failure. 9. Morbid obesity. #10 hypokalemia Malignant HTN, now controlled with medical management off Nitro gtt. monitor Appreciate cardiology input unlikely ACS elevated troponin probably secondary CKD stage IV Echo with EF 55-60%, grade 1 diastolic dysfunction Peripheral edema in his lower extremities improved with medical management nephrology input appreciated Monitoring renal labs and also checking for parathyroidism Discussing with patient possible dialysis, patient is considering the pros and cons but states if he has to do it to [facility] he will Periorbital edema noted Accuchecks, ISS Patient now on renal, diabetic diet and tolerating fairly well continue HAART recent retinal detachment, using his eyedrops from outpatient Still has some tearing Will increase activity to at least sitting on side of the bed tomorrow, and up in chair PT to eval and treat Mild hypokalemia noted, 1 by mouth dose of K today, recheck BMP in the morning DVT prophylaxis GI prophylaxis Denice Yadav July 12, 2016 15:06
[2016-07-13] VITALS (7 sets, daily range): BP systolic 113–142; BP diastolic 71–92; PULSE 76–87; RESP 16–22; TEMP 98.1–99.1; O2SAT 96–99
[2016-07-13] MEDS: PIPERACIL-TAZO 2.25 GM PREMIX 50 ML IV SCH ×2 (02:24→08:56)
[2016-07-13] MEDS: SODIUM CHLOR 0.9% 1000 ML INJ 1,000 ML IV SCH ×3 (02:24→21:45)
[2016-07-13] MEDS: CHLORHEXIDINE GLUCONATE 2 % 1 PACK (2 CLOTHS)(taper/protocol) TOPICAL SCH (04:00)
[2016-07-13] MEDS: INSULIN ASPART SUPPLEMENTAL SCALE SQ SCH ×4 (06:01→21:52)
[2016-07-13] MEDS: PANTOPRAZOLE SODIUM 40 MG VIAL IV PUSH SCH (06:02)
[2016-07-13] MEDS: metroNIDAZOLE 500 MG INJ 100 ML IV SCH (06:03)
[2016-07-13 06:05] LABS: AUTOMATED NEUTROPHIL # 2.2 TH/MM3 (1.8-7.7); BASOPHIL % 0.9 % (0.0-2.0); EOSINOPHIL # 0.1 TH/MM3 (0-0.4); EOSINOPHIL % 3.5 % (0.0-4.0); HEMATOCRIT 32.9 % (39.0-51.0); HEMO FLAGS DIFF FINAL; LYMPHOCYTE # 0.7 TH/MM3 (1.0-4.8); MEAN CELL VOLUME 84.1 FL (80.0-100.0); MEAN CORPUSCULAR HEMOGLOBIN 27.9 PG (27.0-34.0); MEAN CORPUSCULAR HGB CONC 33.2 % (32.0-36.0); MONO % 12.3 % (0.0-8.0); NEUT % 64.3 % (16.0-70.0); PLATELET COUNT 140 TH/MM3 (150-450); RED CELL DISTRIBUTION WIDTH 16.1 % (11.6-17.2); WHITE BLOOD COUNT 3.5 TH/MM3 (4.0-11.0)
[2016-07-13 06:43] LABS: POTASSIUM 3.4 MEQ/L (3.5-5.1)
[2016-07-13] MEDS: CARVEDILOL 12.5 MG TAB PO SCH ×2 (09:18→21:53)
[2016-07-13] MEDS: ABACAVIR SULFATE 300 MG TAB PO SCH (09:19)
[2016-07-13] MEDS: cloNIDine HCL 0.2 MG TAB PO SCH ×2 (09:19→21:53)
[2016-07-13] MEDS: HEPARIN SODIUM - SQ 10,000 UNITS/ML VIAL SQ SCH ×2 (09:19→21:54)
[2016-07-13] MEDS: INSULIN HUMAN NPH/R 70/30 1,000 UNITS/10 ML VIAL SQ SCH ×2 (09:19→21:51)
[2016-07-13] MEDS: DOLUTEGRAVIR SODIUM 50 MG TAB PO SCH (09:20)
[2016-07-13] MEDS: MINOXIDIL 2.5 MG TAB PO SCH (09:20)
[2016-07-13] MEDS ORDERED: POTASSIUM CHLORIDE 25 MEQ EFFERVESCENT TAB PO ONE (10:30)
[2016-07-13] MEDS ORDERED: POTASSIUM CHLORIDE 20 MEQ CONTROLLED RELEASE TAB PO ONE (11:00)
--- NOTE | 2016-07-13 12:11 | HHI.PR ---
Subjective Subjective Remarks sleeping, awakes to voice, oriented x 3 was out of bed for breakfast for one hour no cp no sob has no complaints. Review of Systems Constitutional Constitutional Remarks 12 point ROS completed, negative except as noted above, unreliable Vitals/Results Intake & Output 07/12/16 07/12/16 07/13/16 15:00 23:00 07:00 Intake Total 1869 ml 720 ml 480 ml Output Total 354 ml 1100 ml 1600 ml Balance 1515 ml -380 ml -1120 ml Intake Oral 240 ml 720 ml 480 ml IV Total 1629 ml Output Urine Total 350 ml 1100 ml 1600 ml Stool Total 4 ml # Bowel Movements 0 0 Vital Signs Vital Signs Date Time Temp Pulse Resp B/P Pulse Ox O2 Delivery O2 Flow Rate FiO2 07/13/16 08:45 98.3 82 16 137/76 98 07/13/16 00:00 98.4 87 20 142/92 99 07/12/16 20:00 98.3 86 19 125/80 98 07/12/16 20:00 81 07/12/16 16:00 98.4 80 24 143/86 07/12/16 16:00 98.4 80 24 143/86 97 07/12/16 13:30 98.7 78 18 122/75 07/12/16 13:03 80 07/12/16 12:01 98.4 82 28 132/77 07/12/16 12:00 100.3 80 31 132/77 07/12/16 12:00 80 CBC/BMP: 07/13/16 0504 07/13/16 0504 Lab Results Laboratory Tests Test 07/13/16 05:04 White Blood Count 3.5 TH/MM3 Red Blood Count 3.90 MIL/MM3 Hemoglobin 10.9 GM/DL Hematocrit 32.9 % Mean Corpuscular Volume 84.1 FL Mean Corpuscular Hemoglobin 27.9 PG Mean Corpuscular Hemoglobin 33.2 % Concent Red Cell Distribution Width 16.1 % Platelet Count 140 TH/MM3 Mean Platelet Volume 9.8 FL Neutrophils (%) (Auto) 64.3 % Lymphocytes (%) (Auto) 19.0 % Monocytes (%) (Auto) 12.3 % Eosinophils (%) (Auto) 3.5 % Basophils (%) (Auto) 0.9 % Neutrophils # (Auto) 2.2 TH/MM3 Lymphocytes # (Auto) 0.7 TH/MM3 Monocytes # (Auto) 0.4 TH/MM3 Eosinophils # (Auto) 0.1 TH/MM3 Basophils # (Auto) 0.0 TH/MM3 CBC Comment DIFF FINAL Differential Comment Sodium Level 143 MEQ/L Potassium Level 3.4 MEQ/L Chloride Level 112 MEQ/L Carbon Dioxide Level 22.0 MEQ/L Anion Gap 9 MEQ/L Blood Urea Nitrogen 40 MG/DL Creatinine 5.28 MG/DL Estimat Glomerular Filtration 15 ML/MIN Rate Random Glucose 177 MG/DL Calcium Level 7.6 MG/DL Physical Exam General General Appearance: No Acute Distress, Comfortable, Obese Eyes Eye Remarks left eye with recent surgery, erythematous, ectropion Ears & Nose Ears & Nose Exam: Nasal Mucosa [place] Throat Throat Exam: Oral Mucosa [place] & Moist Neck Neck Exam: Neck Supple, Trachea Midline Pulmonary Resp Exam: Clear Bilaterally, Breath Sounds Equal Cardiology CV Exam: Regular, Normal Sinus Rhythm Gastrointestinal/Abdomen GI Exam: Soft, Non-Tender, Bowel Sounds Present, Non-Distended Musculoskeletal MS Exam: Joints Intact Extremeties Extremities Exam: No Edema, Pedal Pulses Palpable Neurologic Neuro Exam: Alert, Awake, Speech Clear, Moving All Extremities, No Focal Deficits VTE Prophylaxis VTE Prophylaxis Meds: Heparin Assessment/Plan Assessment/Plan 1. Chest pain, unlikely ACS 2. Malignant hypertension with urgency. 3. Insulin dependent diabetes type 2 uncontrolled. 4. Possible gastroenteritis , ascending and transverse colitis 5. Acute on Chronic kidney disease stage III. 6. HIV. 7. Noncompliance. 8. Congestive heart failure. 9. Morbid obesity. Plan Malignant HTN off Nitro gtt BP improved continue PO meds Appreciate cardiology input- unlikely ACS elevated troponin likely sec to CKD Echo with EF 55-60%, grade 1 diastolic dysfunction Acute on CKD nephrology input appreciated Creat. not improving, continue with IVF -NS @ 100/hr avoid nephrotoxic agents IDDM continue with Accuchecks and ISS advance diet to soft , diabetic diet Colitis Stop Zosyn change Flagyl to PO stool neg for C diff LFTS normal HIV continue HAART recent retinal detachment monitor closely Inc. activity Heparin for DVT prophylaxis PPI for GI prophylaxis Replace K PT eval and tx needs OOB, d/w pt. Labs in am not ready for dc yet, monitor renal function closely D/W RN D/W pt. D/W Dr. Stewart This patient was seen by myself and Dr. Stewart, this note is written on her behalf. Marianna Chino July 13, 2016 12:10
[2016-07-13] MEDS: metroNIDAZOLE 500 MG TAB PO SCH ×3 (14:00→21:54)
--- NOTE | 2016-07-13 14:44 | HHI.NPPN ---
Subjective History of Present Illness 40-year-old black male with a history of HIV infection, CHF, diabetes mellitus and hypertension. Also has a history of CKD stage IV with a kidney biopsy back in December 2014 indicating diabetic nephropathy, global sclerosis and severe interstitial fibrosis and tubular atrophy. 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 The patient indicated to me that he follows up with a motor vehicle lecturer regularly in [place] however patient indicates he does not remember the name of the motor vehicle lecturer or any contact information. Stated that preparation was being made for dialysis in the near future I cannot indicate to me modality. Now presents with a history of nausea and vomiting noted to have severe accelerated hypertension on presentation. According to patient he could not keep his blood pressure medications down. Recent surgery for detached retina also. Interval History Patient indicated that he was feeling somewhat better today. Objective Data Data 07/12/16 07/13/16 19:00 07:00 Intake Total 1869 ml 1200 ml Output Total 454 ml 2600 ml Balance 1415 ml -1400 ml Intake Oral 240 ml 1200 ml IV Total 1629 ml Output Urine Total 450 ml 2600 ml Stool Total 4 ml # Bowel Movements 0 Vital Signs Date Time Temp Pulse Resp B/P Pulse Ox O2 Delivery O2 Flow Rate FiO2 07/13/16 12:00 98.8 77 18 128/71 96 07/13/16 08:45 98.3 82 16 137/76 98 07/13/16 08:05 80 07/13/16 00:00 98.4 87 20 142/92 99 07/12/16 20:00 98.3 86 19 125/80 98 07/12/16 20:00 81 07/12/16 16:00 98.4 80 24 143/86 07/12/16 16:00 98.4 80 24 143/86 97 -: 07/13/16 0504 07/13/16 0504 Physical Exam General Appearance: No Acute Distress, Comfortable, Obese Ears & Nose Ears & Nose Exam: Nasal Mucosa [place] Throat Throat Exam: Oral Mucosa [place] & Moist Neck Neck Exam: Neck Supple, Trachea Midline Pulmonary Resp Exam: Clear Bilaterally, Breath Sounds Equal Cardiology CV Exam: Regular, Normal Sinus Rhythm Gastrointestinal/Abdomen GI Exam: Soft, Non-Tender, Bowel Sounds Present, Non-Distended GI Remarks Morbidly obese. Musculoskeletal MS Exam: Joints Intact Extremeties Extremities Exam: No Edema, Pedal Pulses Palpable Neurologic Neuro Exam: Alert, Awake, Speech Clear, Moving All Extremities, No Focal Deficits Assessment/Plan Discussed Condition With: Patient Problem List: (1) Acute renal failure Plan: The patient's creatinine level is slightly better today and his urine output appears to be improving. Hopefully this trend will continue as discussed with the patient. Potassium supplementation as ordered. Appears that the patient has sustained significant acute kidney injury related to his previous accelerated hypertension. Medications should be adjusted for the patient's estimated GFR if clinically indicated. Avoid agents with significant potential for nephrotoxicity possible including NSAIDs for analgesia, iodine contrast agents. Gadolinium is contraindicated if the GFR is below 30. (2) CKD (chronic kidney disease) stage 4, GFR 15-29 ml/min Plan: Documented as being secondary to diabetic nephropathy based on kidney biopsy December 21, 2014. The presence of heavy proteinuria, severe interstitial nephritis as well as tubular atrophy are poor prognostic indicators as far as preservation of renal function is concerned. Screen for secondary hyperparathyroidism of renal disease. (3) Hypertensive urgency Plan: Blood pressure improving. Once patient's renal function stabilizes he may benefit from reinstitution of the ROB inhibitor which can slow progression of diabetic nephropathy in the setting of proteinuria. (4) AIDS (acquired immune deficiency syndrome) Plan: Defer management to primary care physician. (5) Diabetes mellitus Plan: Defer management to primary care physician. (6) Proteinuria Plan: Secondary to diabetic nephropathy. (7) CHF (congestive heart failure) Plan: Clinically compensated at this time. Antoni Vera MD July 13, 2016 14:44
[2016-07-13] MEDS ORDERED: POTASSIUM CHLORIDE 10 MEQ CONTROLLED RELEASE TAB PO ONE (14:45)
[2016-07-14] VITALS (8 sets, daily range): BP systolic 127–178; BP diastolic 66–108; PULSE 78–89; RESP 20–22; TEMP 98–98.9; O2SAT 94–99
[2016-07-14] MEDS: SODIUM CHLOR 0.9% 1000 ML INJ 1,000 ML IV SCH ×2 (02:00→07:45)
[2016-07-14] MEDS: CHLORHEXIDINE GLUCONATE 2 % 1 PACK (2 CLOTHS)(taper/protocol) TOPICAL SCH (02:00)
[2016-07-14] MEDS: INSULIN ASPART SUPPLEMENTAL SCALE SQ SCH ×4 (05:19→21:40)
[2016-07-14] MEDS: metroNIDAZOLE 500 MG TAB PO SCH ×3 (05:41→21:53)
--- NOTE | 2016-07-14 09:36 | HHI.NPPN ---
Subjective History of Present Illness 40-year-old black male with a history of HIV infection, CHF, diabetes mellitus and hypertension. Also has a history of CKD stage IV with a kidney biopsy back in December 2014 indicating diabetic nephropathy, global sclerosis and severe interstitial fibrosis and tubular atrophy. 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 The patient indicated to me that he follows up with a flight operations manager regularly in [place] however patient indicates he does not remember the name of the flight operations manager or any contact information. Stated that preparation was being made for dialysis in the near future I cannot indicate to me modality. Now presents with a history of nausea and vomiting noted to have severe accelerated hypertension on presentation. According to patient he could not keep his blood pressure medications down. Recent surgery for detached retina also. Interval History Labs pending today Pt c/o watery diarrhea No other complaints. RN states BP overnight been running very high. (Lesley Castillo) Review of Systems Gastrointestinal Gastrointestinal: Diarrhea (Lesley Castillo) Objective Data Data 07/13/16 07/14/16 19:00 07:00 Intake Total 1720 ml 2470 ml Output Total 1000 ml 2000 ml Balance 720 ml 470 ml Intake Oral 720 ml 720 ml IV Total 1000 ml 1750 ml Output Urine Total 1000 ml 2000 ml # Bowel Movements 1 Vital Signs Date Time Temp Pulse Resp B/P Pulse Ox O2 Delivery O2 Flow Rate FiO2 07/14/16 08:04 80 07/14/16 05:00 98.9 89 20 155/94 98 07/14/16 02:00 98.9 82 22 141/99 98 07/13/16 20:11 79 07/13/16 20:00 99.1 84 22 139/92 98 07/13/16 16:00 98.1 76 16 113/71 98 07/13/16 12:00 98.8 77 18 128/71 96 (eLsley Castillo) -: 07/13/16 0504 07/13/16 0504 Imaging Last Impressions Renal Ultrasound 07/10/16 0000 Signed Impressions: Service Date/Time: June 11:11 - CONCLUSION: Normal exam Bhavin Rivera MD Chest X-Ray 07/09/16 1440 Signed Impressions: Service Date/Time: Saturday, July 09, 2016 14:49 - CONCLUSION: No acute disease. Bhavin Rivera MD Abdomen/Pelvis CT 07/09/16 0000 Signed Impressions: Service Date/Time: Saturday, July 09, 2016 18:08 - CONCLUSION: 1. Colitis. Rajeev Mcallister MD Medication Review Current Medications Medications (Trade) Dose Ordered Sig/Sanjeev Route Start Time Stop Time Status Last Admin (NS Flush) 2 ml UNSCH PRN IV FLUSH 07/09/16 14:45 07/09/16 15:48 (Trandate Inj) 10 mg Q6H PRN IV 07/09/16 17:00 (Apresoline Inj) 10 mg Q6H PRN IV 07/09/16 17:00 (Norvasc) 10 mg DAILY PO 07/09/16 17:30 07/13/16 09:19 (Coreg) 37.5 mg BID PO 07/09/16 21:00 07/13/16 21:53 (Catapres) 0.2 mg BID PO 07/09/16 21:00 07/13/16 21:53 (Lasix) 20 mg DAILY PO 07/09/16 18:00 Hold (NovoLIN 70/30 INJ) 20 units HS SQ 07/10/16 21:00 07/13/16 21:51 (NovoLIN 70/30 INJ) 50 units DAILY SQ 07/09/16 17:30 07/13/16 09:19 Minoxidil 2.5 mg 2.5 mg DAILY PO 07/09/16 20:00 07/13/16 09:20 (NS 1000 ml Inj) 1,000 ml @ 100 mls/hr Q10H IV 07/09/16 17:45 07/14/16 02:00 (Ziagen) 600 mg DAILY PO 07/09/16 17:45 07/13/16 09:19 (Epivir) 300 mg DAILY PO 07/09/16 17:45 07/13/16 09:20 Miscellaneous Information Patient in critical care unit? Ass... [id number] 07/09/16 23:00 07/09/16 23:00 (Chlorhexidine 2% Cloth) 3 pack UNSCH PRN TOPICAL 07/09/16 23:00 07/14/16 22:54 ([place] 5-325 Mg) 1 tab Q4H PRN PO 07/10/16 00:00 07/12/16 08:22 (Zofran Inj) 4 mg Q6HR PRN IV PUSH 07/10/16 02:30 (Heparin Inj) 5,000 units Q12HR SQ 07/10/16 09:00 07/13/16 21:54 (D50w (Vial) Inj) 50 ml UNSCH PRN IV 07/10/16 03:15 (Glucagon Inj) 1 mg UNSCH PRN OTHER 07/10/16 03:15 (Drisdol) 50,000 units Q7D PO 07/12/16 12:00 (Protonix) 40 mg DAILY PO 07/14/16 09:00 (Flagyl) 500 mg Q8HR PO 07/13/16 14:00 07/13/16 21:54 (Lesley Castillo) Physical Exam General Appearance: No Acute Distress, Comfortable, Obese (Lesley Castillo) Ears & Nose Ears & Nose Exam: Nasal Mucosa [place] (Lesley Castillo) Throat Throat Exam: Oral Mucosa [place] & Moist (Lesley Castillo) Neck Neck Exam: Neck Supple, Trachea Midline (Lesley Castillo) Pulmonary Resp Exam: Clear Bilaterally, Breath Sounds Equal (Lesley Castillo) Cardiology CV Exam: Regular, Normal Sinus Rhythm (Lesley Castillo) Gastrointestinal/Abdomen GI Exam: Soft, Non-Tender, Bowel Sounds Present, Non-Distended (Lesley Castillo) Musculoskeletal MS Exam: Joints Intact (Lesley Castillo) Extremeties Extremities Exam: No Edema, Pedal Pulses Palpable (Lesley Castillo) Neurologic Neuro Exam: Alert, Awake, Speech Clear, Moving All Extremities, No Focal Deficits (Lesley Castillo) Assessment/Plan Discussed Condition With: Patient Problem List: (1) Acute renal failure Plan: Appears that the patient has sustained significant acute kidney injury related to his previous accelerated hypertension. Renal functions improving UOP remains good. Change IVF to 1/2NS as he is developing hypernatremia Hopefully renal functions continue to improve, or at least remain stable. Pt aware that he will require dialytic intervention in the near future Medications should be adjusted for the patient's estimated GFR if clinically indicated. Avoid agents with significant potential for nephrotoxicity possible including NSAIDs for analgesia, iodine contrast agents. Gadolinium is contraindicated if the GFR is below 30. (2) CKD (chronic kidney disease) stage 4, GFR 15-29 ml/min Plan: Documented as being secondary to diabetic nephropathy based on kidney biopsy December 21, 2014. The presence of heavy proteinuria, severe interstitial nephritis as well as tubular atrophy are poor prognostic indicators as far as preservation of renal function is concerned. Screen for secondary hyperparathyroidism of renal disease. (3) Hypertensive urgency Plan: Blood pressure improving. Will switch Minoxidil to HS dosing to see if improves overnight BPs Once patient's renal function stabilizes he may benefit from reinstitution of the ROB inhibitor which can slow progression of diabetic nephropathy in the setting of proteinuria. (4) AIDS (acquired immune deficiency syndrome) Plan: Defer management to primary care physician. (5) Diabetes mellitus Plan: Defer management to primary care physician. (6) Proteinuria Plan: Secondary to diabetic nephropathy. (7) CHF (congestive heart failure) Plan: Clinically compensated at this time. Continue on IVF in light of diarrhea. (8) Diarrhea Plan: Mgmt as per primary (Lesley Castillo) Plan The exam, history, and the medical decision-making described in the above note were completed with the assistance of the PA-C. I reviewed and agree with the findings presented. (Antoni Vera MD) Lesley Castillo July 14, 2016 09:36 Antoni Vera MD July 15, 2016 10:45
[2016-07-14] MEDS: CARVEDILOL 12.5 MG TAB PO SCH ×2 (10:00→21:40)
[2016-07-14] MEDS: PANTOPRAZOLE SOD 40 MG DELAYED RELEASE TAB PO SCH (10:00)
[2016-07-14] MEDS: ABACAVIR SULFATE 300 MG TAB PO SCH (10:01)
[2016-07-14] MEDS: cloNIDine HCL 0.2 MG TAB PO SCH ×2 (10:01→21:40)
[2016-07-14] MEDS: DOLUTEGRAVIR SODIUM 50 MG TAB PO SCH (10:01)
[2016-07-14] MEDS: HEPARIN SODIUM - SQ 10,000 UNITS/ML VIAL SQ SCH ×2 (10:03→21:39)
[2016-07-14] MEDS: INSULIN HUMAN NPH/R 70/30 1,000 UNITS/10 ML VIAL SQ SCH ×2 (10:04→21:38)
--- NOTE | 2016-07-14 11:55 | HHI.PR ---
Subjective Subjective Remarks sitting up in chair voiding no cp no sob eating okay diarrhea, watery x 3. Refusing Flagyl, "pills are too big" BP up he can't understand why his kidneys not working and why blood pressure high Review of Systems Constitutional Constitutional Remarks 12 point ROS completed, negative except as noted above, unreliable Vitals/Results Intake & Output 07/13/16 07/13/16 07/14/16 15:00 23:00 07:00 Intake Total 1720 ml 1290 ml 1180 ml Output Total 1000 ml 1000 ml 1000 ml Balance 720 ml 290 ml 180 ml Intake Oral 720 ml 240 ml 480 ml IV Total 1000 ml 1050 ml 700 ml Output Urine Total 1000 ml 1000 ml 1000 ml # Bowel Movements 0 1 Vital Signs Vital Signs Date Time Temp Pulse Resp B/P Pulse Ox O2 Delivery O2 Flow Rate FiO2 07/14/16 08:04 80 07/14/16 08:00 98.3 85 20 178/108 98 07/14/16 05:00 98.9 89 20 155/94 98 07/14/16 02:00 98.9 82 22 141/99 98 07/13/16 20:11 79 07/13/16 20:00 99.1 84 22 139/92 98 07/13/16 16:00 98.1 76 16 113/71 98 07/13/16 12:00 98.8 77 18 128/71 96 CBC/BMP: 07/13/16 0504 07/13/16 0504 Physical Exam General General Appearance: No Acute Distress, Comfortable, Obese Eyes Eye Remarks left eye with recent surgery, erythematous, ectropion Ears & Nose Ears & Nose Exam: Nasal Mucosa [place] Throat Throat Exam: Oral Mucosa [place] & Moist Neck Neck Exam: Neck Supple, Trachea Midline Pulmonary Resp Exam: Clear Bilaterally, Breath Sounds Equal Cardiology CV Exam: Regular, Normal Sinus Rhythm Gastrointestinal/Abdomen GI Exam: Soft, Non-Tender, Bowel Sounds Present, Non-Distended Musculoskeletal MS Exam: Joints Intact Extremeties Extremities Exam: No Edema, Pedal Pulses Palpable Neurologic Neuro Exam: Alert, Awake, Speech Clear, Moving All Extremities, No Focal Deficits VTE Prophylaxis VTE Prophylaxis Meds: Heparin Assessment/Plan Assessment/Plan 1. Chest pain, unlikely ACS 2. Malignant hypertension with urgency. 3. Insulin dependent diabetes type 2 uncontrolled. 4. Possible gastroenteritis , ascending and transverse colitis 5. Acute on Chronic kidney disease stage III. 6. HIV. 7. Noncompliance. 8. Congestive heart failure. 9. Morbid obesity. 10. Diarrhea Plan Malignant HTN off Nitro gtt BP improved continue PO meds BP up, added Hydralazine 50 mg PO q 8 Appreciate cardiology input- unlikely ACS elevated troponin likely sec to CKD Echo with EF 55-60%, grade 1 diastolic dysfunction Acute on CKD nephrology input appreciated creat improved today, continue IVF NS at 100/hr avoid nephrotoxic agents IDDM continue with Accuchecks and ISS advance diet to soft , diabetic diet Colitis Stop Zosyn continue Flagyl PO, had been refusing. D/W pt. at length, agreeing to take now c/o diarrhea x 3 today, will check stools for cdiff HIV continue HAART recent retinal detachment monitor closely Inc. activity Heparin for DVT prophylaxis PPI for GI prophylaxis Replace K PT eval and tx OOB daily some improvement in renal function poss dc in 1-2 days D/W RN D/W pt. D/W Dr. Stewart This patient was seen by myself and Dr. Stewart, this note is written on her behalf. Marianna Chino July 14, 2016 11:55
[2016-07-14 12:07] LABS: BICARBONATE 22.3 MEQ/L (21.0-32.0); POTASSIUM 3.5 MEQ/L (3.5-5.1)
[2016-07-14] MEDS: hydrALAZINE HCL 50 MG TAB PO SCH ×2 (14:57→22:40)
[2016-07-14] MEDS ORDERED: POTASSIUM CHLORIDE 20 MEQ CONTROLLED RELEASE TAB PO ONE (15:00)
[2016-07-14] MEDS: SODIUM CHLOR 0.45% 1000 ML INJ 1,000 ML IV SCH (16:40)
[2016-07-14] MEDS: MINOXIDIL 2.5 MG TAB PO SCH (21:39)
[2016-07-14] MEDS: ACETAMINOPHEN/HYDROcodone 325 MG/5 MG TAB PO PRN (21:53)
[2016-07-15] VITALS (8 sets, daily range): BP systolic 124–142; BP diastolic 74–87; PULSE 74–86; RESP 16–24; TEMP 79–98.4; O2SAT 96–98
[2016-07-15] MEDS: INSULIN ASPART SUPPLEMENTAL SCALE SQ SCH ×4 (05:49→19:59)
[2016-07-15] MEDS: SODIUM CHLOR 0.45% 1000 ML INJ 1,000 ML IV SCH (05:49)
[2016-07-15] MEDS: ACETAMINOPHEN/HYDROcodone 325 MG/5 MG TAB PO PRN ×2 (05:54→15:57)
[2016-07-15] MEDS: hydrALAZINE HCL 50 MG TAB PO SCH ×4 (06:00→22:51)
[2016-07-15] MEDS: metroNIDAZOLE 500 MG TAB PO SCH ×4 (06:00→22:51)
[2016-07-15 06:48] LABS: HEMATOCRIT 36.7 % (39.0-51.0); MEAN CELL VOLUME 85.5 FL (80.0-100.0); MEAN CORPUSCULAR HEMOGLOBIN 26.8 PG (27.0-34.0); MEAN CORPUSCULAR HGB CONC 31.3 % (32.0-36.0); PLATELET COUNT 165 TH/MM3 (150-450); RED CELL DISTRIBUTION WIDTH 16.4 % (11.6-17.2); REVIEW FLAG FINAL
[2016-07-15 07:13] LABS: BICARBONATE 19.2 MEQ/L (21.0-32.0); POTASSIUM 3.4 MEQ/L (3.5-5.1)
[2016-07-15] MEDS ORDERED: POTASSIUM CHLORIDE 20 MEQ CONTROLLED RELEASE TAB PO ONE ×2 (08:00→11:00)
--- NOTE | 2016-07-15 10:10 | HHI.PR ---
Subjective Subjective Remarks working with PT able to transfer no cp no sob stools soft, x 1 today taking meds BP improved Review of Systems Constitutional Constitutional Remarks 12 point ROS completed, negative except as noted above, unreliable Vitals/Results Intake & Output 07/14/16 07/14/16 07/15/16 15:00 23:00 07:00 Intake Total 360 ml 1300 ml 1520 ml Output Total 700 ml 400 ml Balance 360 ml 600 ml 1120 ml Intake Oral 360 ml 500 ml 720 ml IV Total 800 ml 800 ml Output Urine Total 700 ml 400 ml # Voids 3 # Bowel Movements 3 1 0 Vital Signs Vital Signs Date Time Temp Pulse Resp B/P Pulse Ox O2 Delivery O2 Flow Rate FiO2 07/15/16 08:00 97.5 82 16 142/87 98 07/15/16 05:25 97.4 83 24 135/79 97 07/15/16 00:00 98.4 80 18 135/74 96 07/14/16 21:50 98.3 84 22 128/66 99 07/14/16 20:06 84 07/14/16 16:24 98.0 89 20 133/73 94 07/14/16 12:00 98.1 78 20 127/83 96 CBC/BMP: 07/15/16 0557 07/15/16 0557 Lab Results Laboratory Tests Test 07/14/16 07/15/16 10:52 05:57 Sodium Level 146 MEQ/L 144 MEQ/L Potassium Level 3.5 MEQ/L 3.4 MEQ/L Chloride Level 113 MEQ/L 114 MEQ/L Carbon Dioxide Level 22.3 MEQ/L 19.2 MEQ/L Anion Gap 11 MEQ/L 11 MEQ/L Blood Urea Nitrogen 35 MG/DL 32 MG/DL Creatinine 4.39 MG/DL 4.13 MG/DL Estimat Glomerular Filtration 18 ML/MIN 19 ML/MIN Rate Random Glucose 118 MG/DL 66 MG/DL Calcium Level 8.0 MG/DL 8.3 MG/DL Magnesium Level 2.0 MG/DL White Blood Count 4.0 TH/MM3 Red Blood Count 4.30 MIL/MM3 Hemoglobin 11.5 GM/DL Hematocrit 36.7 % Mean Corpuscular Volume 85.5 FL Mean Corpuscular Hemoglobin 26.8 PG Mean Corpuscular Hemoglobin 31.3 % Concent Red Cell Distribution Width 16.4 % Platelet Count 165 TH/MM3 Mean Platelet Volume 10.0 FL Phosphorus Level 3.1 MG/DL Albumin 2.7 GM/DL Physical Exam General General Appearance: No Acute Distress, Comfortable, Obese Eyes Eye Remarks left eye with recent surgery, erythematous, ectropion Ears & Nose Ears & Nose Exam: Nasal Mucosa [place] Throat Throat Exam: Oral Mucosa [place] & Moist Neck Neck Exam: Neck Supple, Trachea Midline Pulmonary Resp Exam: Clear Bilaterally, Breath Sounds Equal Cardiology CV Exam: Regular, Normal Sinus Rhythm Gastrointestinal/Abdomen GI Exam: Soft, Non-Tender, Bowel Sounds Present, Non-Distended Musculoskeletal MS Exam: Joints Intact Extremeties Extremities Exam: No Edema, Pedal Pulses Palpable Neurologic Neuro Exam: Alert, Awake, Speech Clear, Moving All Extremities, No Focal Deficits VTE Prophylaxis VTE Prophylaxis Meds: Heparin Assessment/Plan Assessment/Plan 1. Chest pain, unlikely ACS 2. Malignant hypertension with urgency. 3. Insulin dependent diabetes type 2 uncontrolled. 4. Possible gastroenteritis , ascending and transverse colitis 5. Acute on Chronic kidney disease stage III. 6. HIV. 7. Noncompliance. 8. Congestive heart failure. 9. Morbid obesity. 10. Diarrhea Plan Malignant HTN off Nitro gtt BP improved continue PO meds BP better, continue Hydralazine 50 mg PO q 8 Appreciate cardiology input- unlikely ACS elevated troponin likely sec to CKD Echo with EF 55-60%, grade 1 diastolic dysfunction Acute on CKD nephrology input appreciated creat improving, dec. IVF to 50/hr avoid nephrotoxic agents IDDM continue with Accuchecks and ISS advance diet to soft , diabetic diet Colitis continue Flagyl PO diarrhea, neg. cdiff stools loose now HIV continue HAART recent retinal detachment monitor closely Inc. activity doing well wants to go to SNF Heparin for DVT prophylaxis PPI for GI prophylaxis Replace K PT eval and tx OOB daily Renal function continues to improve, poss dc today or tomorrow CM for dc planning, SNF placement. Pt. lives alone and needs more help/ supervision D/W RN D/W pt. D/W Dr. Stewart This patient was seen by myself and Dr. Stewart, this note is written on her behalf. Marianna Chino July 15, 2016 10:10
[2016-07-15] MEDS: ABACAVIR SULFATE 300 MG TAB PO SCH (10:12)
[2016-07-15] MEDS: cloNIDine HCL 0.2 MG TAB PO SCH ×2 (10:13→20:01)
[2016-07-15] MEDS: CARVEDILOL 12.5 MG TAB PO SCH ×2 (10:13→20:01)
[2016-07-15] MEDS: PANTOPRAZOLE SOD 40 MG DELAYED RELEASE TAB PO SCH (10:13)
[2016-07-15] MEDS: HEPARIN SODIUM - SQ 10,000 UNITS/ML VIAL SQ SCH ×2 (10:15→20:05)
[2016-07-15] MEDS: DOLUTEGRAVIR SODIUM 50 MG TAB PO SCH (10:15)
[2016-07-15] MEDS: INSULIN HUMAN NPH/R 70/30 1,000 UNITS/10 ML VIAL SQ SCH ×2 (10:20→20:02)
--- NOTE | 2016-07-15 10:50 | HHI.NPPN ---
Subjective History of Present Illness 40-year-old black male with a history of HIV infection, CHF, diabetes mellitus and hypertension. Also has a history of CKD stage IV with a kidney biopsy back in December 2014 indicating diabetic nephropathy, global sclerosis and severe interstitial fibrosis and tubular atrophy. 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 The patient indicated to me that he follows up with a textile artist regularly in [place] however patient indicates he does not remember the name of the textile artist or any contact information. Stated that preparation was being made for dialysis in the near future I cannot indicate to me modality. Now presents with a history of nausea and vomiting noted to have severe accelerated hypertension on presentation. According to patient he could not keep his blood pressure medications down. Recent surgery for detached retina also. Interval History Patient had no verbal complaints today. Review of Systems Gastrointestinal Gastrointestinal: Diarrhea Objective Data Data 07/14/16 07/15/16 19:00 07:00 Intake Total 360 ml 2820 ml Output Total 1100 ml Balance 360 ml 1720 ml Intake Oral 360 ml 1220 ml IV Total 1600 ml Output Urine Total 1100 ml # Voids 3 # Bowel Movements 3 1 Vital Signs Date Time Temp Pulse Resp B/P Pulse Ox O2 Delivery O2 Flow Rate FiO2 07/15/16 08:00 97.5 82 16 142/87 98 07/15/16 05:25 97.4 83 24 135/79 97 07/15/16 00:00 98.4 80 18 135/74 96 07/14/16 21:50 98.3 84 22 128/66 99 07/14/16 20:06 84 07/14/16 16:24 98.0 89 20 133/73 94 07/14/16 12:00 98.1 78 20 127/83 96 -: 07/15/16 0557 07/15/16 0557 Physical Exam General Appearance: No Acute Distress, Comfortable, Obese Ears & Nose Ears & Nose Exam: Nasal Mucosa [place] Throat Throat Exam: Oral Mucosa [place] & Moist Neck Neck Exam: Neck Supple, Trachea Midline Pulmonary Resp Exam: Clear Bilaterally, Breath Sounds Equal Cardiology CV Exam: Regular, Normal Sinus Rhythm Gastrointestinal/Abdomen GI Exam: Soft, Non-Tender, Bowel Sounds Present, Non-Distended GI Remarks Morbidly obese. Musculoskeletal MS Exam: Joints Intact Extremeties Extremities Exam: No Edema, Pedal Pulses Palpable Neurologic Neuro Exam: Alert, Awake, Speech Clear, Moving All Extremities, No Focal Deficits Assessment/Plan Discussed Condition With: Patient Problem List: (1) Acute renal failure Plan: Patient's creatinine level improved again today and the patient appears to be approaching his preadmission baseline. Discharge planning okay from renal point of view with outpatient follow-up within the next week or 2 with the patient's primary textile artist post discharge as discussed with him. Recommend holding ROB inhibitor for the present pending follow-up with his own textile artist. Blood pressure currently well controlled. Potassium chloride as ordered. Will probably not require regular potassium supplementation once his ROB inhibitor is resumed as an outpatient. Pt aware that he will require dialytic intervention in the near future he was also counseled regarding the importance of compliance with his hypertensive regimen. At this point in time patient will be seen when necessary. Medications should be adjusted for the patient's estimated GFR if clinically indicated. Avoid agents with significant potential for nephrotoxicity possible including NSAIDs for analgesia, iodine contrast agents. Gadolinium is contraindicated if the GFR is below 30. (2) CKD (chronic kidney disease) stage 4, GFR 15-29 ml/min Plan: Documented as being secondary to diabetic nephropathy based on kidney biopsy December 21, 2014. The presence of heavy proteinuria, severe interstitial nephritis as well as tubular atrophy are poor prognostic indicators as far as preservation of renal function is concerned. Screen for secondary hyperparathyroidism of renal disease. (3) Hypertensive urgency Plan: Blood pressure improving. Will switch Minoxidil to HS dosing to see if improves overnight BPs Once patient's renal function stabilizes he may benefit from reinstitution of the ROB inhibitor which can slow progression of diabetic nephropathy in the setting of proteinuria. (4) AIDS (acquired immune deficiency syndrome) Plan: Defer management to primary care physician. (5) Diabetes mellitus Plan: Defer management to primary care physician. (6) Proteinuria Plan: Secondary to diabetic nephropathy. (7) CHF (congestive heart failure) Plan: Clinically compensated at this time. Continue on IVF in light of diarrhea. (8) Diarrhea Plan: Mgmt as per primary Plan The exam, history, and the medical decision-making described in the above note were completed with the assistance of the ROSSI. I reviewed and agree with the findings presented. Antoni Vera MD July 15, 2016 10:50
[2016-07-15] MEDS ORDERED: MINO2.5T PO (12:57)
--- NOTE | 2016-07-15 12:57 | HHI.DCPOC ---
Discharge Care Plan Diagnosis: (1) Malignant hypertension Your Health Problems Are: Chest Pain Shortness of Breath Goals to Promote Your Health * To prevent worsening of your condition and complications * To maintain your health at the optimal level Directions to Meet Your Goals Take your medications as prescribed Follow your dietary instruction Follow activity as directed Keep your appointments as scheduled Take your immunizations and boosters as scheduled If your symptoms worsen call your PCP, if no PCP go to Urgent Care Center or Emergency Room Smoking is Dangerous to Your Health. Avoid second hand smoke Call the 24-hour hour crisis hotline for domestic abuse at [facility]. [facility] July 15, 2016 12:57
--- NOTE | 2016-07-15 15:44 | HHI.DS ---
Discharge Summary Admission Date July 09, 2016 at 16:39 Discharge Date: July 15, 2016 Admitting Diagnosis accelerated hypertension/hyperglycemia (1) Chest pain, atypical (2) Accelerated hypertension (3) Colitis (4) CKD (chronic kidney disease) stage 4, GFR 15-29 ml/min (5) Non-compliance (6) Persistent proteinuria associated with type 2 diabetes mellitus (7) Morbid obesity (8) Hypothyroidism (9) Anemia (10) Type 2 diabetes mellitus (11) Immunocompromised (12) CAD (coronary artery disease) (13) CHF (congestive heart failure) (14) Diarrhea (15) Non-ischemic cardiomyopathy CBC/BMP: 07/15/16 0557 07/15/16 0557 Significant Findings Laboratory Tests Test 07/13/16 07/14/16 07/15/16 05:04 10:52 05:57 White Blood Count 3.5 TH/MM3 (4.0-11.0) Red Blood Count 3.90 MIL/MM3 4.30 MIL/MM3 (4.50-5.90) (4.50-5.90) Hemoglobin 10.9 GM/DL 11.5 GM/DL (13.0-17.0) (13.0-17.0) Hematocrit 32.9 % 36.7 % (39.0-51.0) (39.0-51.0) Platelet Count 140 TH/MM3 (150-450) Monocytes (%) (Auto) 12.3 % (0.0-8.0) Lymphocytes # (Auto) 0.7 TH/MM3 (1.0-4.8) Potassium Level 3.4 MEQ/L 3.4 MEQ/L (3.5-5.1) (3.5-5.1) Chloride Level 112 MEQ/L 113 MEQ/L 114 MEQ/L (98-107) (98-107) (98-107) Blood Urea Nitrogen 40 MG/DL (7-18) 35 MG/DL (7-18) 32 MG/DL (7-18) Creatinine 5.28 MG/DL 4.39 MG/DL 4.13 MG/DL (0.60-1.30) (0.60-1.30) (0.60-1.30) Estimat Glomerular Filtration 15 ML/MIN (>89) 18 ML/MIN (>89) 19 ML/MIN (>89) Rate Random Glucose 177 MG/DL 118 MG/DL 66 MG/DL (74-106) (74-106) (74-106) Calcium Level 7.6 MG/DL 8.0 MG/DL 8.3 MG/DL (8.5-10.1) (8.5-10.1) (8.5-10.1) Sodium Level 146 MEQ/L (136-145) Mean Corpuscular Hemoglobin 26.8 PG (27.0-34.0) Mean Corpuscular Hemoglobin 31.3 % Concent (32.0-36.0) Carbon Dioxide Level 19.2 MEQ/L (21.0-32.0) Albumin 2.7 GM/DL (3.4-5.0) Imaging Last Impressions Renal Ultrasound 07/10/16 0000 Signed Impressions: Service Date/Time: June 11:11 - CONCLUSION: Normal exam Bhavin Rivera MD Chest X-Ray 07/09/16 1440 Signed Impressions: Service Date/Time: Saturday, July 09, 2016 14:49 - CONCLUSION: No acute disease. Bhavin Rivera MD Abdomen/Pelvis CT 07/09/16 0000 Signed Impressions: Service Date/Time: Saturday, July 09, 2016 18:08 - CONCLUSION: 1. Colitis. Rajeev Mcallister MD Hospital Course 40 yo [facility] male with past medical history of HIV diagnosed in 1989 on HAART with viral load undetectable 6 months ago, hypertension, diabetes mellitus, chronic systolic heart failure with ejection fraction of 45-50%, CKD stage IV who presents to [facility] emergency department with 1 day history of decreased appetite, multiple episodes of nonbloody nonbilious emesis, multiple episodes of watery diarrhea and abdominal pain. Abdominal pain is cramping in nature started on his left side and moved to the middle abdomen. He also complains of sore throat, myalgias. He denies headache, neck pain, fever, ill contacts. He also complained of chest pain which he states was in burning in nature and worse when he tried to eat or when he vomited. Denies exertional shortness of breath or chest pain. He is on 5 different agents for hypertension but has been unable to keep his medications down due to vomiting. Upon presentation to the emergency department his blood pressure was 254/144. He was started on a nitroglycerin drip. He received Zofran and his home medications and nitroglycerin drip was weaned off. He denies chest pain. CT abdomen and pelvis demonstrates findings consistent with a ascending and transverse colitis. C. difficile was pending. Denied recent antibiotic use. Denies prior colits. Was noted with worsening renal function. Pt. was admitted to ICU initially with: 1. Chest pain, unlikely ACS 2. Malignant hypertension with urgency. 3. Insulin dependent diabetes type 2 uncontrolled. 4. Possible gastroenteritis , ascending and transverse colitis 5. Acute on Chronic kidney disease stage III. 6. HIV. 7. Noncompliance. 8. Congestive heart failure. 9. Morbid obesity. 10. Diarrhea During the course of hospitalization, the following events took place: Initially admitted to ICU, CCM consulted for Malignant HTN weaned off Nitro gtt BP improved, continue PO meds. Meds continued to be adjusted. Added Hydralazine 50 mg PO q 8 For chest and elevated trop. Cardiology consulted- unlikely ACS elevated troponin likely sec to CKD Echo with EF 55-60%, grade 1 diastolic dysfunction medical management recommended Acute on CKD nephrology input appreciated creat improving, put on IVF ROB stopped K replaced orally recommendations were to restart ROB when renal function improved. Pt. likely to need HD in the future, compliance with follow up and meds discussed. Pt. could not recall intake clerk name, instructed to f/u dr. Marino if needed. avoided nephrotoxic agents IDDM continued with Accuchecks and ISS advance diet to soft , diabetic diet Colitis noted via ct abd. put on abx Stopped Sozyn, changed to Flagyl PO. Pt. did refuse some of the doses. diarrhea, neg. cdiff stools loose now, less frequency. HIV continued HAART recent retinal detachment monitored closely needs to f/u ophthalmology Inc. activity with PT instructed daily to get out bed wanted to go to SNF Heparin for DVT prophylaxis PPI for GI prophylaxis Renal function continues to improve, cleared by renal abd. pain improved, less diarrhea, no fever, tolerating diet well bp better controlled. Discharged in stable condition F/U nephrology, PCP Diet-diabetic Activity-as tolerated Pt Condition on Discharge: Stable Discharge Disposition: Discharge to SNF Discharge Instructions DIET: Follow Instructions for: Heart Healthy Diet, Renal Failure Diet Activities you can perform: Regular-No Restrictions Follow up Referrals: Nephrology - [address] MARINO New Medications: Hydralazine HCl (Hydralazine HCl) 50 Mg Tablet 50 MG PO Q8HR Blood Pressure Management #90 Ref 0 TAB Changed Medications: Minoxidil (Minoxidil) 2.5 Mg Tab 2.5 MG PO HS Blood Pressure Management #30 Ref 0 TAB (Changed from: DAILY) Continued Medications: Radbumih-Edhrqencyqht-Kuxoofspac (Triumeq) 600-50-300 Mg Tab 1 TAB PO DAILY Hazardous agent; use appropriate precautions for handling & disposal. Mgmt Viral Infection #30 Ref 0 TAB Amlodipine (Amlodipine) 10 Mg Tab 10 MG PO DAILY Blood Pressure Management #30 Ref 0 TAB Carvedilol (Carvedilol) 25 Mg Tab 37 MG PO BID #60 Ref 0 TAB Clonidine (Clonidine) 0.2 Mg Tab 0.2 MG PO BID Blood Pressure Management #60 Ref 0 TAB Dolutegravir (Tivicay) 50 Mg Tab 50 MG PO DAILY Mgmt Viral Infection #30 Ref 0 TAB Insulin Human Isophane-Regular 70-30 Inj (Novolin 70-30 Inj) 1,000 Unit/10 Ml Vial 50 UNITS SQ DAILY Blood Sugar Management Ref 0 ML Insulin Human Isophane-Regular 70-30 Inj (Novolin 70-30 Inj) 1,000 Unit/10 Ml Vial 20 UNITS SQ HS Blood Sugar Management Ref 0 ML Nitroglycerin SL (Nitroglycerin SL) 0.4 Mg Subl 0.4 MG SL DIRECTED ONE TABLET UNDER THE TONGUE NEEDED FOR CHEST PAIN, MAY REPEAT EVERY FIVE MINUTES FOR A TOTAL OF 3 DOSES OR CALL 911 IF NO RELIEF PRN CHEST PAIN #100 Ref 0 TAB.SL Discontinued Medications: Furosemide (Lasix) 20 Mg Tab 20 MG PO DAILY #30 Ref 0 TAB Lisinopril (Lisinopril) 40 Mg Tab 40 MG PO DAILY Blood Pressure Management #30 Ref 0 TAB [facility] July 15, 2016 15:44
[2016-07-15] MEDS ORDERED: HYDR-3800 PO (15:45)
--- NOTE | 2016-07-15 15:46 | HHI.FF ---
Face to Face Verification Diagnosis: (1) Hypertension (2) Generalized weakness (3) CKD (chronic kidney disease) stage 4, GFR 15-29 ml/min (4) Hypertensive urgency (5) Diarrhea Physical Therapy Order: Evaluate and Treat Occupational Therapy Order: Evaluate and Treat I have seen patient Frank Thakkar on 07/15/16. My clinical findings support the need for the requested home health care services because: Deconditioned w/ increased weakness I certify that my clinical findings support that this patient is homebound because: Unsteady gait/balance Xochitl Stewart MD July 15, 2016 15:46
[2016-07-15] MEDS: MINOXIDIL 2.5 MG TAB PO SCH (20:01)
[2016-07-16] VITALS: BP 123/62; PULSE 85; RESP 20; TEMP 98.1; O2SAT 95
[2016-07-16 04:00] VITALS: BP_SYST 117; BP_SYST 129; BP_DIAS 72; BP_DIAS 95; PULSE 82; PULSE 85; RESP 20; TEMP 97; TEMP 98.9; O2SAT 95
[2016-07-16] MEDS: metroNIDAZOLE 500 MG TAB PO SCH ×2 (05:27→14:31)
[2016-07-16] MEDS: hydrALAZINE HCL 50 MG TAB PO SCH ×2 (05:27→14:31)
[2016-07-16] MEDS: INSULIN ASPART SUPPLEMENTAL SCALE SQ SCH ×3 (06:00→16:00)
[2016-07-16 08:00] VITALS: BP 151/97; PULSE 97; RESP 18; TEMP 98.3; O2SAT 95
[2016-07-16] MEDS: cloNIDine HCL 0.2 MG TAB PO SCH (09:27)
[2016-07-16] MEDS: PANTOPRAZOLE SOD 40 MG DELAYED RELEASE TAB PO SCH (09:27)
[2016-07-16] MEDS: CARVEDILOL 12.5 MG TAB PO SCH (09:27)
[2016-07-16] MEDS: ABACAVIR SULFATE 300 MG TAB PO SCH (09:27)
[2016-07-16] MEDS: HEPARIN SODIUM - SQ 10,000 UNITS/ML VIAL SQ SCH (09:28)
[2016-07-16] MEDS: DOLUTEGRAVIR SODIUM 50 MG TAB PO SCH (09:28)
[2016-07-16] MEDS: ACETAMINOPHEN/HYDROcodone 325 MG/5 MG TAB PO PRN (09:37)
[2016-07-16] MEDS: INSULIN HUMAN NPH/R 70/30 1,000 UNITS/10 ML VIAL SQ SCH (09:37)
[2016-07-16 10:52] LABS: BICARBONATE 17.6 MEQ/L (21.0-32.0); POTASSIUM 3.8 MEQ/L (3.5-5.1)
[2016-07-16 12:00] VITALS: BP 136/82; PULSE 82; RESP 18; TEMP 98.2; O2SAT 96
--- NOTE | 2016-07-16 13:05 | HHI.PR ---
Subjective Subjective Remarks sitting up in chair eating lunch No acute pain or SOB afebrile (Denice Yadav) Review of Systems Constitutional Constitutional: Fatigue (improved), Weakness Constitutional Remarks 10 pt. ROS done. Positives noted, (Denice Yadav) Musculoskeletal MS: Swelling (provingmils) (Denice Yadav) Psychiatric Psychiatric: Normal Mood (Denice Yadav) Vitals/Results Intake & Output 07/15/16 07/15/16 07/16/16 15:00 23:00 07:00 Intake Total 1080 ml 890 ml 1200 ml Output Total 1200 ml 200 ml 1000 ml Balance -120 ml 690 ml 200 ml Intake Oral 1080 ml 240 ml 1200 ml IV Total 650 ml Output Urine Total 1200 ml 200 ml 1000 ml # Bowel Movements 1 1 0 Vital Signs Vital Signs Date Time Temp Pulse Resp B/P Pulse Ox O2 Delivery O2 Flow Rate FiO2 07/16/16 12:00 98.2 82 18 136/82 96 07/16/16 08:00 98.3 97 18 151/97 95 07/16/16 04:00 98.9 85 20 129/95 95 07/16/16 00:00 98.1 85 20 123/62 95 07/15/16 23:00 97.6 86 20 124/74 97 07/15/16 20:02 80 07/15/16 20:00 79.0 78 20 126/74 96 07/15/16 16:00 97.9 84 16 141/80 98 (Denice Yadav) CBC/BMP: 07/15/16 0557 07/16/16 0626 Lab Results Laboratory Tests Test 07/16/16 06:26 Sodium Level 142 MEQ/L Potassium Level 3.8 MEQ/L Chloride Level 115 MEQ/L Carbon Dioxide Level 17.6 MEQ/L Anion Gap 9 MEQ/L Blood Urea Nitrogen 38 MG/DL Creatinine 4.24 MG/DL Estimat Glomerular Filtration 19 ML/MIN Rate Random Glucose 78 MG/DL Calcium Level 8.3 MG/DL (Denice Yadav) Physical Exam General General Appearance: No Acute Distress, Comfortable, Obese (Denice Yadav) Eyes Eye Exam: Pupils Reactive ([place],Denice M. EXPORT DOCUMENTS CLERK) Ears & Nose Ears & Nose Exam: Nasal Mucosa [place] (Denice Yadav M. EXPORT DOCUMENTS CLERK) Throat Throat Exam: Oral Mucosa [place] & Moist (Denice Yadav M. EXPORT DOCUMENTS CLERK) Neck Neck Exam: Neck Supple, Trachea Midline (Denice Yadav M. EXPORT DOCUMENTS CLERK) Pulmonary Resp Exam: Clear Bilaterally, Breath Sounds Equal (Denice Yadav M. EXPORT DOCUMENTS CLERK) Cardiology CV Exam: Regular, Normal Sinus Rhythm (Denice Yadav. EXPORT DOCUMENTS CLERK) Gastrointestinal/Abdomen GI Exam: Soft, Non-Tender, Bowel Sounds Present, Non-Distended (Denice Yadav M. EXPORT DOCUMENTS CLERK) Musculoskeletal MS Exam: Joints Intact (Denice Yadav. EXPORT DOCUMENTS CLERK) Extremeties Extremities Exam: No Edema, Pedal Pulses Palpable (Denice Yadav M. EXPORT DOCUMENTS CLERK) Neurologic Neuro Exam: Alert, Awake, Speech Clear, Moving All Extremities, No Focal Deficits (Denice Yadav M. EXPORT DOCUMENTS CLERK) VTE Prophylaxis VTE Prophylaxis Meds: Heparin (Denice YadavP) Assessment/Plan Assessment/Plan 1. Chest pain, unlikely ACS 2. Malignant hypertension with urgency. 3. Insulin dependent diabetes type 2 uncontrolled. 4. Possible gastroenteritis , ascending and transverse colitis 5. Acute on Chronic kidney disease stage III. 6. HIV. 7. Noncompliance. 8. Congestive heart failure. 9. Morbid obesity. 10. Diarrhea Plan Malignant HTN, controlled vitals reviewed, BP improved Hydralazine 50 mg PO q 8 Appreciate cardiology input- unlikely ACS elevated troponin likely sec to CKD Echo with EF 55-60%, grade 1 diastolic dysfunction Acute on CKD, stable f/u as OP nephrology input appreciated avoid nephrotoxic agents IDDM continue with Accuchecks and ISS advance diet to soft , diabetic diet, appetite good Colitis, controlled continue Flagyl PO diarrhea, neg. cdiff HIV continue HAART recent retinal detachment monitor closely , eye with erythema, but opened now Inc. activity doing well wants to go to SNF, plan for today Heparin for DVT prophylaxis PPI for GI prophylaxis D/W RN D/W pt. D/W Dr. Stewart, seen on her behalf (Denice Yadav) Assessment/Plan patient seen and examined no diarrhea agree with above assessment and plan has a bed at [facility] discussed with patient, case liner discussed with Denice SHIPMAN (Xochitl Stewart MD) Denice Yadav July 16, 2016 13:05 Xochitl Stewart MD July 16, 2016 14:24
[2016-07-16 16:00] VITALS: BP 139/88; PULSE 88; RESP 18; TEMP 98.4; O2SAT 95
--- NOTE | 2016-07-16 18:39 | HHI.DS ---
Discharge Summary Admission Date July 09, 2016 at 16:39 Discharge Date: July 16, 2016 Admitting Diagnosis accelerated hypertension/hyperglycemia (1) Chest pain, atypical Diagnosis: Principal (2) Accelerated hypertension Diagnosis: Principal (3) Colitis Diagnosis: Principal (4) CKD (chronic kidney disease) stage 4, GFR 15-29 ml/min Diagnosis: Secondary (5) Non-compliance Diagnosis: Secondary (6) Persistent proteinuria associated with type 2 diabetes mellitus Diagnosis: Secondary (7) Morbid obesity Diagnosis: Secondary (8) Hypothyroidism Diagnosis: Secondary (9) Anemia Diagnosis: Secondary (10) Type 2 diabetes mellitus Diagnosis: Secondary (11) Immunocompromised Diagnosis: Secondary (12) CAD (coronary artery disease) Diagnosis: Secondary (13) CHF (congestive heart failure) Diagnosis: Secondary (14) Diarrhea Diagnosis: Principal (15) Non-ischemic cardiomyopathy Diagnosis: Secondary Brief History 40 yr old black male having chest pain, and found with MARYLU, CKD. Admitted for further eval and R/O CAD, mi. Morbid obese with severe debility and SOB noted in ER CBC/BMP: 07/15/16 0557 07/16/16 0626 Significant Findings Laboratory Tests Test 07/14/16 07/15/16 07/16/16 10:52 05:57 06:26 Sodium Level 146 MEQ/L (136-145) Chloride Level 113 MEQ/L 114 MEQ/L 115 MEQ/L (98-107) (98-107) (98-107) Blood Urea Nitrogen 35 MG/DL (7-18) 32 MG/DL (7-18) 38 MG/DL (7-18) Creatinine 4.39 MG/DL 4.13 MG/DL 4.24 MG/DL (0.60-1.30) (0.60-1.30) (0.60-1.30) Estimat Glomerular Filtration 18 ML/MIN (>89) 19 ML/MIN (>89) 19 ML/MIN (>89) Rate Random Glucose 118 MG/DL 66 MG/DL (74-106) (74-106) Calcium Level 8.0 MG/DL 8.3 MG/DL 8.3 MG/DL (8.5-10.1) (8.5-10.1) (8.5-10.1) Red Blood Count 4.30 MIL/MM3 (4.50-5.90) Hemoglobin 11.5 GM/DL (13.0-17.0) Hematocrit 36.7 % (39.0-51.0) Mean Corpuscular Hemoglobin 26.8 PG (27.0-34.0) Mean Corpuscular Hemoglobin 31.3 % Concent (32.0-36.0) Potassium Level 3.4 MEQ/L (3.5-5.1) Carbon Dioxide Level 19.2 MEQ/L 17.6 MEQ/L (21.0-32.0) (21.0-32.0) Albumin 2.7 GM/DL (3.4-5.0) Imaging Administered Medications Medications (Trade) Dose Ordered Sig/Sanjeev Route PRN Reason Start Time Stop Time Status Last Admin Dose Admin Sodium Chloride (NS Flush) 2 ml UNSCH PRN IV FLUSH FLUSH AFTER USING IV ACCESS 07/09/16 14:45 07/09/16 15:48 Amlodipine Besylate (Norvasc) 10 mg DAILY PO 07/09/16 17:30 07/16/16 09:28 Carvedilol (Coreg) 37.5 mg BID PO 07/09/16 21:00 07/16/16 09:27 Clonidine (Catapres) 0.2 mg BID PO 07/09/16 21:00 07/16/16 09:27 Insulin Human Isoph/Insulin Regular (NovoLIN 70/30 INJ) 20 units HS SQ 07/10/16 21:00 07/15/16 20:02 Insulin Human Isoph/Insulin Regular (NovoLIN 70/30 INJ) 50 units DAILY SQ 07/09/16 17:30 07/16/16 09:37 Abacavir Sulfate (Ziagen) 600 mg DAILY PO 07/09/16 17:45 07/16/16 09:27 Lamivudine (Epivir) 300 mg DAILY PO 07/09/16 17:45 07/16/16 09:27 Miscellaneous Information Patient in critical care unit? Ass... [id number] .XX 07/09/16 23:00 07/09/16 23:00 Acetaminophen/ Hydrocodone Bitart ([place] 5-325 Mg) 1 tab Q4H PRN PO PAIN 07/10/16 00:00 07/16/16 09:37 Heparin Sodium (Porcine) (Heparin Inj) 5,000 units Q12HR SQ 07/10/16 09:00 07/16/16 09:28 Pantoprazole Sodium (Protonix) 40 mg DAILY PO 07/14/16 09:00 07/16/16 09:27 Metronidazole (Flagyl) 500 mg Q8HR PO 07/13/16 14:00 07/16/16 14:31 Minoxidil (Loniten) 2.5 mg HS PO 07/14/16 21:00 07/15/16 20:01 Hydralazine HCl (Apresoline) 50 mg Q8HR PO 07/14/16 14:00 07/16/16 14:31 PE at Discharge General General Appearance: No Acute Distress, Comfortable, Obese (Vicenta,Denice M. PATIENT FLOW COORDINATOR) Eyes Eye Exam: Pupils Reactive (VicentaDenice M. PATIENT FLOW COORDINATOR) Ears & Nose Ears & Nose Exam: Nasal Mucosa [place] (Vicenta,Denice M. PATIENT FLOW COORDINATOR) Throat Throat Exam: Oral Mucosa [place] & Moist ([place],Denice M. PATIENT FLOW COORDINATOR) Neck Neck Exam: Neck Supple, Trachea Midline ([place],Denice M. PATIENT FLOW COORDINATOR) Pulmonary Resp Exam: Clear Bilaterally, Breath Sounds Equal ([place],Denice M. PATIENT FLOW COORDINATOR) Cardiology CV Exam: Regular, Normal Sinus Rhythm (Vicenta,Denice M. PATIENT FLOW COORDINATOR) Gastrointestinal/Abdomen GI Exam: Soft, Non-Tender, Bowel Sounds Present, Non-Distended (Vicenta,Denice M. PATIENT FLOW COORDINATOR) Musculoskeletal MS Exam: Joints Intact ([place],Denice M. PATIENT FLOW COORDINATOR) Extremeties Extremities Exam: No Edema, Pedal Pulses Palpable (Vicenta,Denice M. PATIENT FLOW COORDINATOR) Neurologic Neuro Exam: Alert, Awake, Speech Clear, Moving All Extremities, No Focal Deficits (Vicenta,Denice M. PATIENT FLOW COORDINATOR) VTE Prophylaxis VTE Prophylaxis Meds: Heparin ([place],Denice M. PATIENT FLOW COORDINATOR) HIV continue HAART recent retinal detachment monitor closely , eye with erythema, but opened now Inc. activity doing well wants to go to SNF, plan for today Heparin for DVT prophylaxis PPI for GI prophylaxis Hospital Course note available SNF bed today for rehabilitation for pt. dc today Diagnosis listed used to treat patient. See above Initially patient was monitored and treated in the ICU setting until stable. Continued with labs and medical management until DC planning donr for SNF rehab. See initial dc summary. Plan on 07/16/16 Malignant HTN, controlled vitals reviewed, BP improved Hydralazine 50 mg PO q 8 Appreciate cardiology input- unlikely ACS elevated troponin likely sec to CKD Echo with EF 55-60%, grade 1 diastolic dysfunction Acute on CKD, stable f/u as OP nephrology input appreciated IDDM continue with Accuchecks and ISS advance diet to soft , diabetic diet, appetite good Colitis, controlled continue Flagyl PO diarrhea, neg. cdiff Debility, further rehab for dc planning Pt Condition on Discharge: Stable Discharge Disposition: Discharge to SNF Discharge Instructions DIET: Follow Instructions for: Heart Healthy Diet, Renal Failure Diet Activities you can perform: Regular-No Restrictions Follow up Referrals: Nephrology - [address] MARINO New Medications: Hydralazine HCl (Hydralazine HCl) 50 Mg Tablet 50 MG PO Q8HR htn #90 TAB Changed Medications: Minoxidil (Minoxidil) 2.5 Mg Tab 2.5 MG PO HS Blood Pressure Management #30 Ref 0 TAB (Changed from: DAILY) Continued Medications: Mjoqghvu-Dsmemwzwfthb-Pxxdixnimn (Triumeq) 600-50-300 Mg Tab 1 TAB PO DAILY Hazardous agent; use appropriate precautions for handling & disposal. Mgmt Viral Infection #30 Ref 0 TAB Amlodipine (Amlodipine) 10 Mg Tab 10 MG PO DAILY Blood Pressure Management #30 Ref 0 TAB Carvedilol (Carvedilol) 25 Mg Tab 37 MG PO BID #60 Ref 0 TAB Clonidine (Clonidine) 0.2 Mg Tab 0.2 MG PO BID Blood Pressure Management #60 Ref 0 TAB Dolutegravir (Tivicay) 50 Mg Tab 50 MG PO DAILY Mgmt Viral Infection #30 Ref 0 TAB Insulin Human Isophane-Regular 70-30 Inj (Novolin 70-30 Inj) 1,000 Unit/10 Ml Vial 50 UNITS SQ DAILY Blood Sugar Management Ref 0 ML Insulin Human Isophane-Regular 70-30 Inj (Novolin 70-30 Inj) 1,000 Unit/10 Ml Vial 20 UNITS SQ HS Blood Sugar Management Ref 0 ML Nitroglycerin SL (Nitroglycerin SL) 0.4 Mg Subl 0.4 MG SL DIRECTED ONE TABLET UNDER THE TONGUE NEEDED FOR CHEST PAIN, MAY REPEAT EVERY FIVE MINUTES FOR A TOTAL OF 3 DOSES OR CALL 911 IF NO RELIEF PRN CHEST PAIN #100 Ref 0 TAB.SL Discontinued Medications: Furosemide (Lasix) 20 Mg Tab 20 MG PO DAILY #30 Ref 0 TAB Lisinopril (Lisinopril) 40 Mg Tab 40 MG PO DAILY Blood Pressure Management #30 Ref 0 TAB Denice Yadav July 16, 2016 18:39
== END 2016-07-16 18:53 | DRG 683 ==
LOC: NEPE 14:26 → NEDA 16:39 → HIMN 19:00 → HOCA 07-12 12:43
PROVIDERS: ADMIT Specialist; ATTEND Specialist
DX: N17.9 Acute kidney failure, unspecified (principal); I42.9 Cardiomyopathy, unspecified; Z68.43 Body mass index [BMI] 50.0-59.9, adult; E11.22 Type 2 diabetes mellitus with diabetic chronic kidney disease; I13.0 Hypertensive heart and chronic kidney disease with heart failure and stage 1 through stage 4 chronic kidney disease, or unspecified chronic kidney disease; I50.32 Chronic diastolic (congestive) heart failure; K52.9 Noninfective gastroenteritis and colitis, unspecified; N18.3 Chronic kidney disease, stage 3 (moderate); J44.9 Chronic obstructive pulmonary disease, unspecified; E66.01 Morbid (severe) obesity due to excess calories; I45.10 Unspecified right bundle-branch block; I16.0 Hypertensive urgency; K21.9 Gastro-esophageal reflux disease without esophagitis; F32.9 Major depressive disorder, single episode, unspecified; E78.5 Hyperlipidemia, unspecified; F41.9 Anxiety disorder, unspecified; I25.10 Atherosclerotic heart disease of native coronary artery without angina pectoris; E03.9 Hypothyroidism, unspecified; D64.9 Anemia, unspecified; Z21 Asymptomatic human immunodeficiency virus [HIV] infection status; E11.65 Type 2 diabetes mellitus with hyperglycemia; E86.0 Dehydration; E87.6 Hypokalemia; Z79.4 Long term (current) use of insulin; Z91.19 Patient's noncompliance with other medical treatment and regimen
CPT/HCPCS: 71010; 74176; 76775; 80048; 80053; 80069; 81001; 82306; 82550; 82552; 82948; 83605; 83690; 83735; 83970; 84484; 85025; 85027; 85610; 85730; 87040; 87493; 87641; 93005; 93306; 96372; 96374; C9113; J1644; J1815; J2405; J2543; J7030

== ENCOUNTER 2016-07-17 10:37 | Emergency (ER) | payer MEDICARE, OTHER ==
[~2016-07-17] VITALS: Ht 175.3 cm; Wt 160.0 kg
[~2016-07-17 10:37] MED LIST changes: -FURO1TAB62 PO; +HYDR-3800 PO; -LISI40TA PO
[2016-07-17 10:48] VITALS: BP 173/114; PULSE 109; RESP 24; TEMP 99.6; O2SAT 95
[2016-07-17 11:00] VITALS: RESP 18; O2SAT 98
[2016-07-17 11:17] LABS: AUTOMATED NEUTROPHIL # 3.1 TH/MM3 (1.8-7.7); BASOPHIL % 0.8 % (0.0-2.0); EOSINOPHIL # 0.1 TH/MM3 (0-0.4); EOSINOPHIL % 3.2 % (0.0-4.0); HEMO FLAGS DIFF FINAL; LYMPH % 16.9 % (9.0-44.0); LYMPHOCYTE # 0.8 TH/MM3 (1.0-4.8); MEAN CELL VOLUME 84.9 FL (80.0-100.0); MEAN CORPUSCULAR HGB CONC 31.8 % (32.0-36.0); MONO % 10.2 % (0.0-8.0); NEUT % 68.9 % (16.0-70.0); PLATELET COUNT 199 TH/MM3 (150-450); RED BLOOD COUNT 4.71 MIL/MM3 (4.50-5.90); RED CELL DISTRIBUTION WIDTH 16.6 % (11.6-17.2); WHITE BLOOD COUNT 4.5 TH/MM3 (4.0-11.0)
--- NOTE | 2016-07-17 11:29 | PD ---
HPI Chief Complaint: Respiratory Distress Time Seen by Provider: 11:29 Travel History International Travel<30 days: No Contact w/Intl Traveler<30days: No Traveled to known affect area: No History of Present Illness HPI 40-year-old male with a history of CHF, diabetes, hypertension, hyperlipidemia, COPD, GERD, HIV presents to the emergency department for evaluation of shortness of breath when lying flat. The patient was discharged from our hospital yesterday to a custodial facility. He states that when he got to the custodial facility yesterday he was upset that he had to share a room with another patient and therefore left and went home. He states that when he went home he went to sleep and this morning he woke up feeling short of breath. States that he tried to go back to sleep but when he lays flat he experiences shortness of breath. States that the shortness of breath is alleviated when sitting up. States that he "just doesn't feel right." He denies any chest pain, lightheadedness, dizziness, nausea, vomiting, abdominal pain, fever, chills, cough or cold symptoms. No other complaints. PCP is Dr. Oneil Concepcion. FORMERLY [facility], [facility] Past Medical History Hx Anticoagulant Therapy: No Arthritis: No Asthma: No Autoimmune Disease: No Blood Disorders: No Anxiety: Yes Depression: Yes Heart Rhythm Problems: No Cancer: No Cardiac Catheterization: No Cardiovascular Problems: Yes (HTN) High Cholesterol: Yes Chemotherapy: No Chest Pain: No Congestive Heart Failure: Yes COPD: Yes Cerebrovascular Accident: Yes (TIA, pt denies) Diabetes: Yes (13 yrs.) Patient Takes Glucophage: No Diminished Hearing: No Endocrine: Yes GERD: Yes Genitourinary: No Headaches: Yes Hepatitis: No Hiatal Hernia: No Heparin Induced Thrombocytopen: No Hypertension: Yes Immune Disorder: Yes (HIV DX , HAS NOT HAD RECENT T CELL CHECK ) Implanted Vascular Access Dvce: No Kidney Stones: Yes Medical other: Yes (HIV) Musculoskeletal: No Neurologic: No Psychiatric: Yes (anx/dep "ONce in awhile") Reproductive: No Respiratory: Yes Immunizations Current: Yes Migraines: No Myocardial Infarction: No Pneumonia: Yes Radiation Therapy: No Sleep Apnea: No Thyroid Disease: Yes Ulcer: No ?: Not Past Surgical History Abdominal Surgery: No AICD: No Arteriovenous Shunt: No Cardiac Surgery: No Coronary Artery Bypass Graft: No Ear Surgery: No Endocrine Surgery: No Eye Surgery: Yes (recent) Genitourinary Surgery: No Gynecologic Surgery: No Insulin Pump: No Joint Replacement: No Neurologic Surgery: No Oral Surgery: No Pacemaker: No Thoracic Surgery: No Other Surgery: Yes (L EYE ) Family History Family Myocardial Infarction: No Social History Alcohol Use: No Tobacco Use: No Substance Use: No Allergies-Medications (Allergen,Severity, Reaction): Coded Allergies: No Known Allergies (Verified , 05/12/16) Reported Meds & Prescriptions Reported Meds & Active Scripts Active Hydralazine HCl 50 Mg Tablet 50 Mg PO Q8HR Minoxidil 2.5 Mg Tab 2.5 Mg PO HS Nitroglycerin SL (Nitroglycerin) 0.4 Mg Subl 0.4 Mg SL DIRECTED PRN ONE TABLET UNDER THE TONGUE NEEDED FOR CHEST PAIN, MAY REPEAT EVERY FIVE MINUTES FOR A TOTAL OF 3 DOSES OR CALL 911 IF NO RELIEF Reported Tivicay (Dolutegravir Sodium) 50 Mg Tab 50 Mg PO DAILY Carvedilol 25 Mg Tab 37 Mg PO BID Amlodipine (Amlodipine Besylate) 10 Mg Tab 10 Mg PO DAILY Triumeq (Pmmuikij-Ipfzsjsvthzy-Ozahtvmmna) 600-50-300 Mg Tab 1 Tab PO DAILY Hazardous agent; use appropriate precautions for handling & disposal. Clonidine (Clonidine HCl) 0.2 Mg Tab 0.2 Mg PO BID Novolin 70-30 Inj (Insulin Human Isoph/Insulin Regular) 1,000 Unit/10 Ml Vial 20 Units SQ HS Novolin 70-30 Inj (Insulin Human Isoph/Insulin Regular) 1,000 Unit/10 Ml Vial 50 Units SQ DAILY Review of Systems Except as stated in HPI: all other systems reviewed are Neg Physical Exam Narrative GENERAL: Morbidly obese male patient in no acute distress. Sleeping sitting up in bed when I arrived to the room. SKIN: Warm and dry. HEAD: Normocephalic and atraumatic. EYES: No injection, drainage, or hyphema noted. PERRLA. EOMI. ENT: No nasal drainage noted. Oropharynx is clear. NECK: Supple and the trachea is midline. CARDIOVASCULAR: Regular rate and rhythm. RESPIRATORY: Breath sounds are equal bilaterally with no accessory muscle use, wheezing, rhonchi, or crackles. GASTROINTESTINAL: Abdomen is soft, non-tender, and nondistended. MUSCULOSKELETAL: No obvious deformities, swelling, cyanosis, or ecchymosis is present throughout the upper and lower extremities. Patient has full range of motion without any signs of neurovascular compromise. NEUROLOGICAL: Awake, alert, and oriented. Normal speech and gait. Cranial nerves are grossly intact. Data Data Last Documented VS Vital Signs Date Time Temp Pulse Resp B/P Pulse Ox O2 Delivery O2 Flow Rate FiO2 07/17/16 12:23 99 18 184/95 96 Room Air 07/17/16 11:00 2 07/17/16 10:48 99.6 Orders Electrocardiogram (07/17/16 10:56) Complete Blood Count With Diff (07/17/16 10:56) Basic Metabolic Panel (Bmp) (07/17/16 10:56) Ckmb (Isoenzyme) Profile (07/17/16 10:56) Troponin I (07/17/16 10:56) Chest, Single Ap (07/17/16 10:56) Iv Access Insert/Monitor (07/17/16 10:56) Ecg Monitoring (07/17/16 10:56) Oxygen Administration (07/17/16 10:56) Oximetry (07/17/16 10:56) Comprehensive Metabolic Panel (07/17/16 10:56) Lactic Acid Sepsis Protocol (07/17/16 10:56) B-Type Natriuretic Peptide (07/17/16 11:27) CKMB (07/17/16 11:00) CKMB% (07/17/16 11:00) Labs Laboratory Tests Test 07/17/16 07/17/16 11:00 11:32 White Blood Count 4.5 TH/MM3 Red Blood Count 4.71 MIL/MM3 Hemoglobin 12.7 GM/DL Hematocrit 40.0 % Mean Corpuscular Volume 84.9 FL Mean Corpuscular Hemoglobin 27.0 PG Mean Corpuscular Hemoglobin 31.8 % Concent Red Cell Distribution Width 16.6 % Platelet Count 199 TH/MM3 Mean Platelet Volume 9.6 FL Neutrophils (%) (Auto) 68.9 % Lymphocytes (%) (Auto) 16.9 % Monocytes (%) (Auto) 10.2 % Eosinophils (%) (Auto) 3.2 % Basophils (%) (Auto) 0.8 % Neutrophils # (Auto) 3.1 TH/MM3 Lymphocytes # (Auto) 0.8 TH/MM3 Monocytes # (Auto) 0.5 TH/MM3 Eosinophils # (Auto) 0.1 TH/MM3 Basophils # (Auto) 0.0 TH/MM3 CBC Comment DIFF FINAL Differential Comment Sodium Level 144 MEQ/L Potassium Level 4.1 MEQ/L Chloride Level 113 MEQ/L Carbon Dioxide Level 19.2 MEQ/L Anion Gap 12 MEQ/L Blood Urea Nitrogen 34 MG/DL Creatinine 4.14 MG/DL Estimat Glomerular Filtration 19 ML/MIN Rate Random Glucose 158 MG/DL Lactic Acid Level 0.8 mmol/L Calcium Level 9.0 MG/DL Total Bilirubin 0.3 MG/DL Aspartate Amino Transf 29 U/L (AST/SGOT) Alanine Aminotransferase 29 U/L (ALT/SGPT) Alkaline Phosphatase 89 U/L Total Creatine Kinase 161 U/L Creatine Kinase MB 4.0 NG/ML Troponin I 0.14 NG/ML Total Protein 7.8 GM/DL Albumin 3.4 GM/DL B-Type Natriuretic Peptide 346 PG/ML MDM Medical Decision Making Medical Screen Exam Complete: Yes Emergency Medical Condition: Yes Differential Diagnosis CHF exacerbation versus pneumonia versus sleep apnea versus placement issues Narrative Course 40-year-old male presents to the emergency department 1 day after being discharged from our hospital to a custodial facility. Patient is afebrile. Vital signs are stable. Physical examination is unremarkable for any acute abnormalities, he is in no acute distress, lungs are clear to auscultation, he speaking in full sentences without any difficulty. He is complaining of orthopnea. He left the custodial facility yesterday because he was upset that he would be sharing a room with another patient and went home. He does admit that he is hoping to be placed in another facility today. CBC shows mild anemia with a hemoglobin of 12.7, otherwise unremarkable. Improved from recent lab values. CMP shows renal insufficiency with a creatinine of 4.14, BUN 34, GFR 19. This appears to be about his recent baseline. Troponin is 0.14, trending down from recent elevation. BNP is elevated at 346. Chest x-ray shows low lung volumes with chronic cardiac silhouette enlargement. Likely secondary to body habitus. The patient has remained stable and without complaint while here in the emergency department. He has been sleeping comfortably throughout the entire visit with no signs of respiratory difficulty or distress. Labs are reassuring , similar and even improved from his recent hospitalization. His chest x-ray does not show any fluid or volume overload. The patient's clinical picture does not fit an acute heart failure or other acute pulmonary illness. The patient is seeking a change in placement of his custodial. I did discuss this case with my attending physician Dr. Cruz who recommends patient either be discharged back to [facility] or discharged to home. I discussed this with the patient who agrees with this plan. Diagnosis Primary Impression: SOB (shortness of breath) Referrals: Primary Care Physician 2 days Patient Instructions: General Instructions Additional Instructions: Follow-up with your Primary Care Physician. Return to the ED for any acute worsening of symptoms. Med/Other Pt SpecificInfo: No Change to Meds Disposition: 01 DISCHARGE HOME Condition: Stable Brielle Matthew Jul 17, 2016 11:29
--- NOTE | 2016-07-17 11:32 | RADRPT ---
EXAM DATE/TIME: 07/17/2016 11:02 [place] COMPARISON: CHEST SINGLE AP, July 09, 2016, 14:49. INDICATIONS : Shortness of breath today. MEDICAL HISTORY : Hypertension. Diabetes mellitus type II. Congestive heart failure. COPD. TIA. SURGICAL HISTORY : None. ENCOUNTER: Initial ACUITY: 1 day PAIN SCORE: 0/10 LOCATION: Bilateral chest FINDINGS: Single AP view of the chest. Low lung volumes. Moderate cardiac silhouette enlargement unchanged. Leila gs clear. No evidence of pleural effusion or pneumothorax. CONCLUSION: Low lung volumes. Chronic cardiac silhouette enlargement. Bladimir Lancaster MD on July 17, 2016 at 11:28 Board Certified Radiologist. This report was verified electronically.
[2016-07-17 11:50] LABS: ALKALINE PHOSPHATASE 89 U/L (45-117); ALT (GPT) 29 U/L (12-78); ANION GAP 12 MEQ/L (5-15); AST (GOT) 29 U/L (15-37); BICARBONATE 19.2 MEQ/L (21.0-32.0); BLOOD UREA NITROGEN 34 MG/DL (7-18); CHLORIDE 113 MEQ/L (98-107); CREATINE KINASE 161 U/L (39-308); GLOMERULAR FILTRATION RATE 19 ML/MIN (>89); POTASSIUM 4.1 MEQ/L (3.5-5.1); SODIUM (NA) 144 MEQ/L (136-145); TOTAL BILIRUBIN ADULT 0.3 MG/DL (0.2-1.0)
[2016-07-17 12:23] VITALS: BP 184/95; PULSE 99; RESP 18; O2SAT 96
--- NOTE | 2016-07-18 12:20 | EKG ---
Date Performed: 07/17/2016 Time Performed: 11:00:10 PTAGE: 40 years EKG: SINUS TACHYCARDIA INDETERMINATE AXIS RIGHT BUNDLE BRANCH BLOCK AND POSSIBLE RIGHT VENTRICUL AR HYPERTROPHY LEFT POSTERIOR FASCICULAR BLOCK ABNORMAL ECG Compared to prior tracing no significant change PREVIOUS TRACING : 07/09/2016 14.49 DOCTOR: Jb Kim Interpretating Date/Time 07/18/2016 12:18:54
== END 2016-07-17 14:10 | disposition home or self-care (01) ==
LOC: NEPE 10:37
DX: R06.02 Shortness of breath (principal); I50.9 Heart failure, unspecified; J44.9 Chronic obstructive pulmonary disease, unspecified; B20 Human immunodeficiency virus [HIV] disease; I10 Essential (primary) hypertension; E78.5 Hyperlipidemia, unspecified; Z79.4 Long term (current) use of insulin; E66.01 Morbid (severe) obesity due to excess calories; E11.9 Type 2 diabetes mellitus without complications; Z86.73 Personal history of transient ischemic attack (TIA), and cerebral infarction without residual deficits; R94.31 Abnormal electrocardiogram [ECG] [EKG]
CPT/HCPCS: 71010; 80053; 82550; 82552; 83605; 83880; 84484; 85025; 93005

== ENCOUNTER 2016-08-04 15:03 | Emergency (ER) | payer MEDICARE, OTHER ==
[~2016-08-04] VITALS: Ht 175.3 cm; Wt 163.0 kg
[2016-08-04 15:15] VITALS: BP 165/108; PULSE 79; RESP 16; TEMP 98; O2SAT 98
[2016-08-04 16:12] VITALS: BP 163/90; PULSE 77; RESP 14; TEMP 98.5; O2SAT 98
--- NOTE | 2016-08-04 16:26 | PD ---
HPI Chief Complaint: Eye Problems/Injury Time Seen by Provider: 16:14 Travel History International Travel<30 days: No Contact w/Intl Traveler<30days: No Traveled to known affect area: No History of Present Illness HPI This is a 41-year-old male who presents to the emergency department having had retinal surgery several weeks ago by Dr. Grimm in [place] who presents to the emergency department with increasing pain and swelling of his left eye, constant, severe. He says he hasn't been able to see anything out of his left eye and he reports he has no light perception ever since the surgery. He says that his route clerk has seen the swelling in his thigh but since then has gotten worse and now he has some pus coming from it. He has a lot of pain. PFSH Past Medical History Hx Anticoagulant Therapy: No Arthritis: No Asthma: No Autoimmune Disease: No Blood Disorders: No Anxiety: Yes Depression: Yes Heart Rhythm Problems: No Cancer: No Cardiac Catheterization: No Cardiovascular Problems: Yes (HTN) High Cholesterol: Yes Chemotherapy: No Chest Pain: No Congestive Heart Failure: Yes COPD: Yes Cerebrovascular Accident: Yes (TIA, pt denies) Diabetes: Yes (13 yrs.) Patient Takes Glucophage: No Diminished Hearing: No Endocrine: Yes GERD: Yes Genitourinary: No Headaches: Yes Hepatitis: No Hiatal Hernia: No Heparin Induced Thrombocytopen: No Hypertension: Yes Immune Disorder: Yes (HIV DX , HAS NOT HAD RECENT T CELL CHECK ) Implanted Vascular Access Dvce: No Kidney Stones: Yes Medical other: Yes (HIV) Musculoskeletal: No Neurologic: No Psychiatric: Yes (anx/dep "ONce in awhile") Reproductive: No Respiratory: Yes Immunizations Current: Yes Migraines: No Myocardial Infarction: No Pneumonia: Yes Radiation Therapy: No Sleep Apnea: No Thyroid Disease: Yes Ulcer: No Past Surgical History Abdominal Surgery: No AICD: No Arteriovenous Shunt: No Cardiac Surgery: No Coronary Artery Bypass Graft: No Ear Surgery: No Endocrine Surgery: No Eye Surgery: Yes (recent) Genitourinary Surgery: No Gynecologic Surgery: No Insulin Pump: No Joint Replacement: No Neurologic Surgery: No Oral Surgery: No Pacemaker: No Thoracic Surgery: No Other Surgery: Yes (L EYE ) Social History Alcohol Use: No Tobacco Use: No Substance Use: No Allergies-Medications (Allergen,Severity, Reaction): Coded Allergies: No Known Allergies (Verified , 08/04/16) Reported Meds & Prescriptions Reported Meds & Active Scripts Active Hydralazine HCl 50 Mg Tablet 50 Mg PO Q8HR Minoxidil 2.5 Mg Tab 2.5 Mg PO HS Nitroglycerin SL (Nitroglycerin) 0.4 Mg Subl 0.4 Mg SL DIRECTED PRN ONE TABLET UNDER THE TONGUE NEEDED FOR CHEST PAIN, MAY REPEAT EVERY FIVE MINUTES FOR A TOTAL OF 3 DOSES OR CALL 911 IF NO RELIEF Reported Tivicay (Dolutegravir Sodium) 50 Mg Tab 50 Mg PO DAILY Carvedilol 25 Mg Tab 37 Mg PO BID Amlodipine (Amlodipine Besylate) 10 Mg Tab 10 Mg PO DAILY Triumeq (Axrcbtgf-Ysiesjpxqmnp-Ayuoabqhpn) 600-50-300 Mg Tab 1 Tab PO DAILY Hazardous agent; use appropriate precautions for handling & disposal. Clonidine (Clonidine HCl) 0.2 Mg Tab 0.2 Mg PO BID Novolin 70-30 Inj (Insulin Human Isoph/Insulin Regular) 1,000 Unit/10 Ml Vial 20 Units SQ HS Novolin 70-30 Inj (Insulin Human Isoph/Insulin Regular) 1,000 Unit/10 Ml Vial 50 Units SQ DAILY Review of Systems Except as stated in HPI: all other systems reviewed are Neg Physical Exam Narrative GENERAL:Well appearing, no acute distress SKIN: Focused skin assessment warm and dry. HEAD: Atraumatic. Normocephalic. EYES: Diffuse conjunctival injection of the left eye with chemosis impressive involving the left lower conjunctiva with the left eyelid inverted and some purulent drainage overlying the surface of the eye on the exposed lower lid. Pupil does not react to light and is dilated. ENT: Moist mucous membranes NECK: Trachea midline. CARDIOVASCULAR: Regular rate and rhythm. No murmur appreciated. RESPIRATORY: Clear to auscultation. Breath sounds equal bilaterally. GASTROINTESTINAL: Abdomen soft, non-tender, nondistended. MUSCULOSKELETAL: No obvious deformities. NEUROLOGICAL: Awake and alert. No obvious cranial nerve deficits. Moving all extremities. PSYCHIATRIC: Appropriate mood and affect; insight and judgment normal. Data Data Last Documented VS Vital Signs Date Time Temp Pulse Resp B/P Pulse Ox O2 Delivery O2 Flow Rate FiO2 08/04/16 16:12 98.5 77 14 163/90 98 Room Air MDM Medical Decision Making Medical Screen Exam Complete: Yes Emergency Medical Condition: Yes Interpretation(s) afebrile, no tachycardic, hypertensive Differential Diagnosis Chemosis, edema, conjunctivitis Narrative Course This is a 41-year-old male who presents to the emergency department with swelling in his left eye. Patient had cyclic cryotherapy on his left eye by Dr. Grimm an route clerk to control pressure. I spoke to Dr. Grimm and he reports that the patient has no function in that left eye. He saw him recently in the office in the setting of this poorly controlled chemosis and the discharge is expected as has exposed conjunctiva. He thinks it 's likely in the setting of global volume imbalance and it will take some time to heal. He instructed him to keep it moist. He doesn't think he needs any antibiotics or any additional treatment at this time. He agrees to see the patient back in clinic. Diagnosis Primary Impression: Chemosis of conjunctiva Qualified Code: H11.422 - Chemosis of conjunctiva, left Additional Instructions: Follow up with Dr. Grimm as an outpatient. Keep your eye moistened with wet gauze. Med/Other Pt SpecificInfo: No Change to Meds Disposition: 01 DISCHARGE HOME Condition: Stable Aubree Reagan MD Aug 04, 2016 16:26
[2016-08-04] MEDS ORDERED: ERYTOIN10 EACH EYE (16:52)
== END 2016-08-04 17:06 | disposition home or self-care (01) ==
LOC: NEPD 15:03
DX: H11.422 Conjunctival edema, left eye (principal); E78.00 Pure hypercholesterolemia, unspecified; I10 Essential (primary) hypertension; I50.9 Heart failure, unspecified; J44.9 Chronic obstructive pulmonary disease, unspecified; E11.9 Type 2 diabetes mellitus without complications; Z21 Asymptomatic human immunodeficiency virus [HIV] infection status; Z98.890 Other specified postprocedural states
CPT/HCPCS: 99283

== ENCOUNTER → 2016-09-02 | Day surgery (SDC) | payer MEDICARE, OTHER ==
[~2016-09-02] VITALS: Ht 175.3 cm; Wt 166.9 kg
[~2016-09-02] MED LIST changes: +*RESP: ALBUTEROL 2.5 MG/3 ML NEB (PRN) PERIprocedural Use ONLY NEB ONE; +ABAC300T PO; +ACETAMINOPHEN/HYDROcodone 325 MG/5 MG TAB PO PRN; +BUPIVACAINE/EPINEPHRINE 0.5% PF 30 ML VIAL INFIL ONE; +CALC0.25 PO; +CHLORHEXIDINE GLUCONATE 2 % 1 PACK (2 CLOTHS) TOPICAL PRN; +DO NOT ADM ANY ANTICOAGULANT DRUGS PRN; +ERYTOIN10 EACH EYE; +FURO20TA PO; +HEPARIN SODIUM - SQ 10,000 UNITS/ML VIAL ONE; +INSULIN HUMAN REGULAR 1,000 UNITS/10 ML VIAL SQ PRN; +KETAMINE HCL 500 MG/5 ML VIAL ONE; +LACTATED RINGER'S 1000 ML IV PRN; +LAMI1TAB7 PO; +LISI40TA PO; +METOPROLOL TARTRATE 25 MG TAB PO PRN; +MIDAZOLAM HCL 2 MG/2 ML VIAL ONE; +NEPHTAB3 PO; +ONDANSETRON HCL 4 MG/2 ML VIAL IV PUSH ONE; +PHENYLEPH/NS 1000 MCG/10 ML SYR IV ONE; +POVIDONE IODINE 5% (ANTISEPSIS KIT) 4 APPLICATIONS EACH NARE PRN; +PROPOFOL 200 MG/20 ML AMP IV ONE; +SODIUM CHLOR 0.9% 250 ML INJ 250 ML IV ONE; +SODIUM CHLORID 0.9% 500 ML IV PRN; +VASOPRESSIN INJ 20 UNITS/ML VIAL IV ONE; +ceFAZolin 1,000 MG/NS 100 ML IV SCH; +ePHEDrine/NS 25 MG/5 ML SYR IV ONE; +fentaNYL CITRATE 250 MCG/5 ML AMP ONE
[2016-09-02 06:45] VITALS: BP 159/97; PULSE 81; RESP 20; TEMP 98.6; O2SAT 98
[2016-09-02 07:05] LABS: AUTOMATED NEUTROPHIL # 3.8 TH/MM3 (1.8-7.7); BASOPHIL % 0.8 % (0.0-2.0); EOSINOPHIL # 0.2 TH/MM3 (0-0.4); EOSINOPHIL % 3.4 % (0.0-4.0); HEMATOCRIT 38.7 % (39.0-51.0); HEMO FLAGS DIFF FINAL; LYMPH % 15.8 % (9.0-44.0); LYMPHOCYTE # 0.8 TH/MM3 (1.0-4.8); MEAN CELL VOLUME 84.2 FL (80.0-100.0); MEAN CORPUSCULAR HEMOGLOBIN 27.8 PG (27.0-34.0); MONO % 9.6 % (0.0-8.0); NEUT % 70.4 % (16.0-70.0); PLATELET COUNT 182 TH/MM3 (150-450); RED BLOOD COUNT 4.59 MIL/MM3 (4.50-5.90); RED CELL DISTRIBUTION WIDTH 15.5 % (11.6-17.2); WHITE BLOOD COUNT 5.4 TH/MM3 (4.0-11.0)
[2016-09-02 07:25] LABS: POTASSIUM 4.6 MEQ/L (3.5-5.1)
[2016-09-02 13:28] VITALS: BP 114/85; PULSE 80; RESP 20; TEMP 97.5; O2SAT 100
--- NOTE | 2016-09-02 18:19 | EKG ---
Date Performed: 09/02/2016 Time Performed: 06:50:29 PTAGE: 41 years EKG: Sinus rhythm INDETERMINATE AXIS RIGHT BUNDLE BRANCH BLOCK AND POSSIBLE RIGHT VENTRICULAR HYPERTROPHY LEFT POSTERI OR FASCICULAR BLOCK ABNORMAL ECG PREVIOUS TRACING : 07/17/2016 11.00 Compared to the previous tracing, rate has decreased DOCTOR: Dominic Alanis Interpretating Date/Time 09/02/2016 18:18:01
--- NOTE | 2016-09-02 23:33 | MP ---
cc: JASPER GENAO DATE OF SURGERY 09/02/16 PREOPERATIVE DIAGNOSIS Need for permanent hemodialysis access. POSTOPERATIVE DIAGNOSIS Need for permanent hemodialysis access. PROCEDURE Right brachiocephalic AV fistula creation. SURGEON Antoni Genao MD ANESTHESIA Local MAC ASSOCIATE DIRECTOR ARACELI Matias DESCRIPTION OF PROCEDURE With the patient in the supine position and under IV sedation, the right arm was prepped with Betadine and draped in a sterile fashion. One gram of Ancef was administered intravenously. Following a protocol time-out, skin and subcutaneous tissue along the proposed incisional area was preemptively infiltrated with 0.5% Marcaine with epinephrine. A curvilinear incision was made along the medial supra antecubital region through which the cephalic vein and brachial artery were circumferentially mobilized. The vein was ligated distally with 4-0 silk, transected proximal to the ligature, spatulated on end, flushed with heparinized saline and occluded with a Yasargil clip. The brachial artery was occluded proximally and distally with Yasargil clips. A vertical 4-mm arteriotomy was performed along the anterolateral surface. The arterial lumen was flushed proximally and distally with heparinized saline. An end-to-side anastomosis was accomplished between the vein and arteriotomy with continuous 7-0 Prolene. The occluding Yasargil clips were removed reestablishing pulsatile flow within the brachial artery as well as to the cephalic vein. Strict hemostasis was assured along with normal perfusion within the right hand. The incision was closed with interrupted subcutaneous 4-0 Monocryl and continuous subcuticular 5-0 Monocryl, reinforced with Steri-Strips and covered with sterile gauze. The patient had needle and sponge count correct. There were no operative complications. The patient taken to the recovery room in stable condition having tolerated procedure well. MD MORRIS Pond/ /5:31 PM /11:26 PM
== END | disposition home or self-care (01) ==
LOC: HSDC 06:03
PROVIDERS: ATTEND Surgery Vascular Surgery
DX: I13.0 Hypertensive heart and chronic kidney disease with heart failure and stage 1 through stage 4 chronic kidney disease, or unspecified chronic kidney disease (principal); E11.22 Type 2 diabetes mellitus with diabetic chronic kidney disease; I50.9 Heart failure, unspecified; N18.4 Chronic kidney disease, stage 4 (severe); E21.3 Hyperparathyroidism, unspecified; B20 Human immunodeficiency virus [HIV] disease
CPT/HCPCS: 01844; 36821; 80048; 85025; 93005; 94664; J0690; J1644; J2250; J2370; J2405; J3010; J7040; J7050; J7613

== ENCOUNTER 2016-09-17 12:01 | Emergency (ER) | payer MEDICARE, OTHER ==
[~2016-09-17] VITALS: Ht 175.3 cm; Wt 162.5 kg
[~2016-09-17 12:01] MED LIST changes: -*RESP: ALBUTEROL 2.5 MG/3 ML NEB (PRN) PERIprocedural Use ONLY NEB ONE; -ACETAMINOPHEN/HYDROcodone 325 MG/5 MG TAB PO PRN; -BUPIVACAINE/EPINEPHRINE 0.5% PF 30 ML VIAL INFIL ONE; -CHLORHEXIDINE GLUCONATE 2 % 1 PACK (2 CLOTHS) TOPICAL PRN; -DO NOT ADM ANY ANTICOAGULANT DRUGS PRN; -ERYTOIN10 EACH EYE; -HEPARIN SODIUM - SQ 10,000 UNITS/ML VIAL ONE; -HYDR-3800 PO; -INSULIN HUMAN REGULAR 1,000 UNITS/10 ML VIAL SQ PRN; -KETAMINE HCL 500 MG/5 ML VIAL ONE; -LACTATED RINGER'S 1000 ML IV PRN; -METOPROLOL TARTRATE 25 MG TAB PO PRN; -MIDAZOLAM HCL 2 MG/2 ML VIAL ONE; -ONDANSETRON HCL 4 MG/2 ML VIAL IV PUSH ONE; -PHENYLEPH/NS 1000 MCG/10 ML SYR IV ONE; -POVIDONE IODINE 5% (ANTISEPSIS KIT) 4 APPLICATIONS EACH NARE PRN; -PROPOFOL 200 MG/20 ML AMP IV ONE; -SODIUM CHLOR 0.9% 250 ML INJ 250 ML IV ONE; -SODIUM CHLORID 0.9% 500 ML IV PRN; -VASOPRESSIN INJ 20 UNITS/ML VIAL IV ONE; -ceFAZolin 1,000 MG/NS 100 ML IV SCH; -ePHEDrine/NS 25 MG/5 ML SYR IV ONE; -fentaNYL CITRATE 250 MCG/5 ML AMP ONE
[2016-09-17 12:13] VITALS: BP 180/92; PULSE 96; RESP 15; TEMP 98.8; O2SAT 98
--- NOTE | 2016-09-17 12:36 | PD ---
Physical Exam Time Seen by Provider: 12:34 Narrative 41yo M c/o weakness, SOB, body aches since yesterday. Denies chest pain. Says he had high fever at his house. Patient seen in triage. VS reviewed. Patient awaiting bed placement. Data Data Last Documented VS Vital Signs Date Time Temp Pulse Resp B/P Pulse Ox O2 Delivery O2 Flow Rate FiO2 09/17/16 12:13 98.8 96 15 180/92 98 MDM Supervised Visit with DAVID: Brielle Hdez Sep 17, 2016 12:36
[2016-09-17 16:53] VITALS: BP 186/129; PULSE 83; RESP 19; TEMP 97.7; O2SAT 98
--- NOTE | 2016-09-17 17:16 | PD ---
HPI Chief Complaint: General Weakness Time Seen by Provider: 17:09 Travel History International Travel<30 days: No Contact w/Intl Traveler<30days: No Traveled to known affect area: No History of Present Illness HPI 41-year-old male presents emergency Department with complaints of body aches cough and congestion for the past 2 days. Patient states diabetic and his sugars been running fine in the 170s range. He also states that he's recently had surgery on his left eye is waiting for the go down to have a repeat operation. Denies any fevers. Denies any sputum production. Denies any earache sore throat. Denies any chest pain or shortness of breath. States symptoms are mild and gradually worsening. PFSH Past Medical History Hx Anticoagulant Therapy: No Arthritis: No Asthma: No Autoimmune Disease: No Blood Disorders: No Anxiety: Yes Depression: Yes Heart Rhythm Problems: No Cancer: No Cardiac Catheterization: No Cardiovascular Problems: Yes (enlarged heart,CHF) High Cholesterol: Yes Chemotherapy: No Chest Pain: No Congestive Heart Failure: Yes COPD: Yes Cerebrovascular Accident: Yes (TIA, pt denies) Diabetes: Yes Patient Takes Glucophage: No Diminished Hearing: No Endocrine: Yes GERD: Yes Genitourinary: No Headaches: Yes Hepatitis: No Hiatal Hernia: No Heparin Induced Thrombocytopen: No Hypertension: Yes Immune Disorder: Yes (HIV DX ) Implanted Vascular Access Dvce: No Kidney Stones: Yes Medical other: Yes (ALLERGIC REACTION TO SURGERY IN L EYE BLISTER COVERING IT) Musculoskeletal: No Neurologic: No Psychiatric: Yes (anx/depression-no medication) Reproductive: No Respiratory: No Immunizations Current: Yes Migraines: No Myocardial Infarction: No Pneumonia: Yes Radiation Therapy: No Sleep Apnea: No Thyroid Disease: No Ulcer: No Past Surgical History Abdominal Surgery: No AICD: No Arteriovenous Shunt: No Cardiac Surgery: No Coronary Artery Bypass Graft: No Ear Surgery: No Endocrine Surgery: No Eye Surgery: Yes (L cataract removed) Genitourinary Surgery: No Gynecologic Surgery: No Insulin Pump: No Joint Replacement: No Neurologic Surgery: No Oral Surgery: Yes (teeth pulled) Pacemaker: No Thoracic Surgery: No Other Surgery: Yes (L EYE ) Social History Alcohol Use: No Tobacco Use: No Substance Use: No Allergies-Medications (Allergen,Severity, Reaction): Coded Allergies: No Known Allergies (Verified , 09/17/16) Reported Meds & Prescriptions Reported Meds & Active Scripts Active Azithromycin 250 Mg Tab 250 Mg PO DIRECTED Take 2 tabs (500 mg) on day 1 then 1 tab daily x 4 days. Minoxidil 2.5 Mg Tab 2.5 Mg PO HS Reported Furosemide 20 Mg Tab 20 Mg PO DAILY PRN Nephro-Destiny (B-Complex W/ C & Folic Acid) 1 Tab 1 Tab PO DAILY Lisinopril 40 Mg Tab 40 Mg PO DAILY Calcitriol 0.25 Mcg Cap 0.25 Mcg PO M,W,F Lamivudine 150 Mg Tab 75 Mg PO DAILY Abacavir (Abacavir Sulfate) 300 Mg Tab 300 Mg PO DAILY Hazardous agent; use appropriate precautions for handling & disposal. Tivicay (Dolutegravir Sodium) 50 Mg Tab 50 Mg PO DAILY Carvedilol 25 Mg Tab 37 Mg PO BID Amlodipine (Amlodipine Besylate) 10 Mg Tab 10 Mg PO DAILY Triumeq (Vbmevram-Vzdguqtyfxel-Jswcozvwmw) 600-50-300 Mg Tab 1 Tab PO DAILY Hazardous agent; use appropriate precautions for handling & disposal. Clonidine (Clonidine HCl) 0.2 Mg Tab 0.2 Mg PO BID Novolin 70-30 Inj (Insulin Human Isoph/Insulin Regular) 1,000 Unit/10 Ml Vial 25 Units SQ HS Novolin 70-30 Inj (Insulin Human Isoph/Insulin Regular) 1,000 Unit/10 Ml Vial 50 Units SQ DAILY Review of Systems Except as stated in HPI: all other systems reviewed are Neg Physical Exam Narrative GENERAL: Well-developed, morbidly obese, no obvious distress. SKIN: Focused skin assessment warm/dry. HEAD: Atraumatic. Normocephalic. EYES: Pupils equal and round and reactive to light.. No scleral icterus. No injection or drainage. Significant palpebral swelling of the inferior eyelid. Symptoms the point where it swelling his eye shut. This appears to be noninfectious in etiology without any erythema or surrounding induration. Overlying skin is thin. Appears to be consistent with a bulla. ENT: No nasal bleeding or discharge. Mucous membranes pink and moist. TMs clear bilaterally, oropharynx clear and moist. NECK: Trachea midline. No JVD. CARDIOVASCULAR: Regular rate and rhythm. No murmur appreciated. RESPIRATORY: No accessory muscle use. Clear to auscultation. Breath sounds equal bilaterally. GASTROINTESTINAL: Abdomen soft, non-tender, nondistended. Hepatic and splenic margins not palpable. MUSCULOSKELETAL: No obvious deformities. No clubbing. No cyanosis. Minimal pitting edema to bilateral lower extremities from mid tibia distally. NEUROLOGICAL: Awake and alert. No obvious cranial nerve deficits. Motor grossly within normal limits. Normal speech. PSYCHIATRIC: Appropriate mood and affect; insight and judgment normal. Data Data Last Documented VS Vital Signs Date Time Temp Pulse Resp B/P Pulse Ox O2 Delivery O2 Flow Rate FiO2 09/17/16 16:53 97.7 83 19 186/129 98 Room Air Orders Chest, Pa & Lat (09/17/16 ) [facility] Medical Decision Making Medical Screen Exam Complete: Yes Emergency Medical Condition: Yes Differential Diagnosis URI, body aches, pneumonia. Narrative Course Patient roomed emergency department, appears well in no obvious distress. Chest x-ray shows no obvious infiltrate or effusion. There is some cardiomegaly. The patient does have some mild pedal edema but states does have a history of congestive heart failure. Do not see any indication at this is a worsening heart failure complains pushing given his cough which is dry. We'll place on some azithromycin and discussed need for follow-up with his primary care physician and return here. No indication further workup at this time Diagnosis Primary Impression: Upper respiratory infection Med/Other Pt SpecificInfo: Prescription(s) given Scripts Azithromycin 250 Mg [id number] Mg PO DIRECTED #6 TAB Ref 0 Take 2 tabs (500 mg) on day 1 then 1 tab daily x 4 days. Prov:Rafael Stafford MD 09/17/16 Disposition: 01 DISCHARGE HOME Condition: Stable Rafael Stafford MD Sep 17, 2016 17:16
--- NOTE | 2016-09-17 17:44 | RADRPT ---
EXAM DATE/TIME: 09/17/2016 17:23 [facility] COMPARISON: CHEST PA & LAT, May 21, 2015, 21:08. INDICATIONS : Cough and shortness of breath. MEDICAL HISTORY : Stroke. Hypertension. Diabetes mellitus type II. Congestive heart failure. COPD. SURGICAL HISTORY : None. ENCOUNTER: Initial ACUITY: 2 days PAIN SCORE: 0/10 LOCATION: Bilateral chest FINDINGS: PA and lateral views of the chest demonstrate the lungs to be symmetrically aerated without evidence of mass, infiltrate or effusion. Mild cardiomegaly without pulmonary vascular engorgement. Osseous s tructures are intact. CONCLUSION: Cardiomegaly without pulmonary vascular engorgement. Jorje Andres Jr., MD on September 17, 2016 at 17:42 Board Certified Radiologist. This report was verified electronically.
[2016-09-17] MEDS ORDERED: AZIT250T3 PO (17:56)
== END 2016-09-17 18:43 | disposition home or self-care (01) ==
LOC: NEPD 12:01
DX: J06.9 Acute upper respiratory infection, unspecified (principal); Z79.4 Long term (current) use of insulin; E11.9 Type 2 diabetes mellitus without complications; E78.00 Pure hypercholesterolemia, unspecified; I11.0 Hypertensive heart disease with heart failure; I50.9 Heart failure, unspecified; Z87.442 Personal history of urinary calculi; J44.9 Chronic obstructive pulmonary disease, unspecified
CPT/HCPCS: 71020; 99283

== ENCOUNTER 2016-09-23 11:01 | Observation (INO) | payer MEDICARE, OTHER ==
[~2016-09-23] VITALS: Ht 175.3 cm; Wt 160.0 kg
[~2016-09-23 11:01] MED LIST changes: +AZIT250T3 PO; -NITR1SUB3 SL
[2016-09-23 11:20] VITALS: BP 161/84; PULSE 95; RESP 18; TEMP 98.3; O2SAT 93
[2016-09-23 11:29] LABS: AUTOMATED NEUTROPHIL # 3.3 TH/MM3 (1.8-7.7); BASOPHIL % 0.7 % (0.0-2.0); EOSINOPHIL # 0.2 TH/MM3 (0-0.4); EOSINOPHIL % 3.5 % (0.0-4.0); HEMATOCRIT 35.7 % (39.0-51.0); HEMO FLAGS DIFF FINAL; LYMPH % 13.5 % (9.0-44.0); LYMPHOCYTE # 0.6 TH/MM3 (1.0-4.8); MEAN CORPUSCULAR HEMOGLOBIN 27.1 PG (27.0-34.0); MEAN CORPUSCULAR HGB CONC 31.8 % (32.0-36.0); MONO % 9.4 % (0.0-8.0); NEUT % 72.9 % (16.0-70.0); PLATELET COUNT 165 TH/MM3 (150-450); RED CELL DISTRIBUTION WIDTH 15.9 % (11.6-17.2); WHITE BLOOD COUNT 4.6 TH/MM3 (4.0-11.0)
--- NOTE | 2016-09-23 11:42 | RADRPT ---
EXAM DATE/TIME: 09/23/2016 11:18 [facility] COMPARISON: CHEST SINGLE AP, July 17, 2016, 11:02. INDICATIONS : Chest pain, fatigue, weakness, cough, and shortness of breath. MEDICAL HISTORY : Chronic obstructive pulmonary disease. Stroke. Hypertension. Diabetes mellitus type II. Congest hussein heart failure SURGICAL HISTORY : None. ENCOUNTER: Initial ACUITY: 2 days PAIN SCORE: 8/10 LOCATION: Bilateral chest FINDINGS: There is increased interstitial infiltrate throughout both lung dougherty suggestive of either pulmonary edema versus pneumonia. The heart size is enlarged. No definite pleural effusions. No evidence of pn eumothorax. CONCLUSION: Increased interstitial infiltrates bilaterally suggestive of either pulmonary edema versus pneumonia. Fernando Gu MD on September 23, 2016 at 11:40 Board Certified Radiologist. This report was verified electronically.
[2016-09-23 11:51] LABS: ANION GAP 7 MEQ/L (5-15); BICARBONATE 23.9 MEQ/L (21.0-32.0); BLOOD UREA NITROGEN 31 MG/DL (7-18); CHLORIDE 112 MEQ/L (98-107); GLOMERULAR FILTRATION RATE 20 ML/MIN (>89); POTASSIUM 4.3 MEQ/L (3.5-5.1); SODIUM (NA) 143 MEQ/L (136-145)
[2016-09-23 11:54] LABS: CREATINE KINASE 260 U/L (39-308)
--- NOTE | 2016-09-23 12:46 | PD ---
HPI Chief Complaint: Chest Pain Time Seen by Provider: 12:36 Travel History International Travel<30 days: No Contact w/Intl Traveler<30days: No Traveled to known affect area: No History of Present Illness HPI Patient is a 41-year-old male presenting to the emergency department for evaluation of shortness of breath. Patient states it started yesterday, he reports feeling fatigued and weak. The shortness of breath is worse with exertion and produces a tightness in his chest. He denies any fever, chills, nausea, vomiting, abdominal pain, headache. He does report a productive cough with clear sputum. Additionally patient states he has hesitancy when he attempts to urinate just been ongoing for the last 2 weeks. Past medical history is significant for congestive heart failure, type 2 diabetes, hypertension, HIV on antiviral therapy, COPD, chronic kidney disease, coronary artery disease, cardiomyopathy. His primary care provider is Oneil Concepcion. [facility] Past Medical History Anxiety: Yes Depression: Yes Cardiomyopathy: Yes High Cholesterol: Yes Congestive Heart Failure: Yes COPD: Yes Coronary Artery Disease: Yes Diabetes: Yes Gastrointestinal Disorders: Yes (COLITIS) GERD: Yes Headaches: Yes Hypertension: Yes Immune Disorder: Yes (HIV ON HAART) Kidney Stones: Yes Medical other: Yes (ALLERGIC REACTION TO SURGERY IN L EYE BLISTER COVERING IT) Immunizations Current: Yes Myocardial Infarction: Yes Pneumonia: Yes Renal Failure: Yes (CKD STAGE 4) Past Surgical History Abdominal Surgery: No AICD: No Arteriovenous Shunt: Yes (RIGHT ARM AV FISTULA) Cardiac Surgery: No Coronary Artery Bypass Graft: No Ear Surgery: No Endocrine Surgery: No Eye Surgery: Yes (L cataract removed) Genitourinary Surgery: No Gynecologic Surgery: No Insulin Pump: No Joint Replacement: No Neurologic Surgery: No Pacemaker: No Thoracic Surgery: No Social History Alcohol Use: No Tobacco Use: No Substance Use: No Allergies-Medications (Allergen,Severity, Reaction): Coded Allergies: No Known Allergies (Verified , 09/17/16) Reported Meds & Prescriptions Reported Meds & Active Scripts Active Azithromycin 250 Mg Tab 250 Mg PO DIRECTED Take 2 tabs (500 mg) on day 1 then 1 tab daily x 4 days. Minoxidil 2.5 Mg Tab 2.5 Mg PO HS Reported Furosemide 20 Mg Tab 20 Mg PO DAILY PRN Nephro-Destiny (B-Complex W/ C & Folic Acid) 1 Tab 1 Tab PO DAILY Lisinopril 40 Mg Tab 40 Mg PO DAILY Calcitriol 0.25 Mcg Cap 0.25 Mcg PO M,W,F Lamivudine 150 Mg Tab 75 Mg PO DAILY Abacavir (Abacavir Sulfate) 300 Mg Tab 300 Mg PO DAILY Hazardous agent; use appropriate precautions for handling & disposal. Tivicay (Dolutegravir Sodium) 50 Mg Tab 50 Mg PO DAILY Carvedilol 25 Mg Tab 37 Mg PO BID Amlodipine (Amlodipine Besylate) 10 Mg Tab 10 Mg PO DAILY Triumeq (Dkjqoeyu-Kuafsravhfwg-Uhvdwckxov) 600-50-300 Mg Tab 1 Tab PO DAILY Hazardous agent; use appropriate precautions for handling & disposal. Clonidine (Clonidine HCl) 0.2 Mg Tab 0.2 Mg PO BID Novolin 70-30 Inj (Insulin Human Isoph/Insulin Regular) 1,000 Unit/10 Ml Vial 25 Units SQ HS Novolin 70-30 Inj (Insulin Human Isoph/Insulin Regular) 1,000 Unit/10 Ml Vial 50 Units SQ DAILY Review of Systems Except as stated in HPI: all other systems reviewed are Neg General / Constitutional: No: Fever, Chills HENT: No: Headaches, Lightheadedness Cardiovascular: Positive: Chest Pain or Discomfort, Dyspnea on exertion, No: Edema Respiratory: Positive: Cough, Shortness of Breath, Orthopnea Gastrointestinal: No: Nausea, Vomiting, Abdominal Pain Genitourinary: Positive: Hesitancy Neurologic: Positive: Weakness, No: Dizziness, Syncope, Focal Abnormalities Physical Exam Narrative GENERAL: Morbidly obese, well-developed, alert male. Resting comfortably in no acute distress. SKIN: Warm and dry. HEAD: Atraumatic. Normocephalic. EYES: Pupils equal and round. No scleral icterus. No injection or drainage. Left lower eyelid bulla, no surrounding erythema. ENT: No nasal bleeding or discharge. Mucous membranes pink and moist. NECK: Trachea midline. No JVD. CARDIOVASCULAR: Regular rate and rhythm. RESPIRATORY: No accessory muscle use. Diminished throughout. GASTROINTESTINAL: Abdomen obese, soft, non-tender, nondistended. Hepatic and splenic margins not palpable. Positive bowel sounds, no rebound, no guarding. MUSCULOSKELETAL: Extremities without clubbing, cyanosis, or edema. No obvious deformities. 2+ dorsalis pedal pulses bilaterally NEUROLOGICAL: Awake and alert. No obvious cranial nerve deficits. Motor grossly within normal limits. Five out of 5 muscle strength in the arms and legs. Normal speech. PSYCHIATRIC: Appropriate mood and affect; insight and judgment normal. Data Data Last Documented VS Vital Signs Date Time Temp Pulse Resp B/P Pulse Ox O2 Delivery O2 Flow Rate FiO2 09/23/16 15:35 90 Room Air 09/23/16 13:27 2.00 09/23/16 11:20 98.3 95 18 161/84 Orders Electrocardiogram (09/23/16 11:13) Complete Blood Count With Diff (09/23/16 11:13) Basic Metabolic Panel (Bmp) (09/23/16 11:13) Ckmb (Isoenzyme) Profile (09/23/16 11:13) Troponin I (09/23/16 11:13) Chest, Single Ap (09/23/16 11:13) Iv Access Insert/Monitor (09/23/16 11:13) Ecg Monitoring (09/23/16 11:13) Oxygen Administration (09/23/16 11:13) Oximetry (09/23/16 11:13) B-Type Natriuretic Peptide (09/23/16 11:18) CKMB (09/23/16 11:15) CKMB% (09/23/16 11:15) Furosemide Inj (Lasix Inj) (09/23/16 13:00) Albuterol-Ipratropium Neb (Duoneb Neb) (09/23/16 13:00) Urinalysis - C+S If Indicated (09/23/16 13:08) Budesonide Neb (Pulmicort Respule Neb) (09/23/16 15:00) Admit Order (Ed Use Only) (09/23/16 16:03) Labs Laboratory Tests Test 09/23/16 09/23/16 11:15 13:49 White Blood Count 4.6 TH/MM3 Red Blood Count 4.20 MIL/MM3 Hemoglobin 11.4 GM/DL Hematocrit 35.7 % Mean Corpuscular Volume 85.0 FL Mean Corpuscular Hemoglobin 27.1 PG Mean Corpuscular Hemoglobin 31.8 % Concent Red Cell Distribution Width 15.9 % Platelet Count 165 TH/MM3 Mean Platelet Volume 8.8 FL Neutrophils (%) (Auto) 72.9 % Lymphocytes (%) (Auto) 13.5 % Monocytes (%) (Auto) 9.4 % Eosinophils (%) (Auto) 3.5 % Basophils (%) (Auto) 0.7 % Neutrophils # (Auto) 3.3 TH/MM3 Lymphocytes # (Auto) 0.6 TH/MM3 Monocytes # (Auto) 0.4 TH/MM3 Eosinophils # (Auto) 0.2 TH/MM3 Basophils # (Auto) 0.0 TH/MM3 CBC Comment DIFF FINAL Differential Comment Sodium Level 143 MEQ/L Potassium Level 4.3 MEQ/L Chloride Level 112 MEQ/L Carbon Dioxide Level 23.9 MEQ/L Anion Gap 7 MEQ/L Blood Urea Nitrogen 31 MG/DL Creatinine 3.99 MG/DL Estimat Glomerular Filtration 20 ML/MIN Rate Random Glucose 161 MG/DL Calcium Level 8.5 MG/DL Total Creatine Kinase 260 U/L Creatine Kinase MB 3.0 NG/ML Troponin I 0.06 NG/ML B-Type Natriuretic Peptide 166 PG/ML Urine Color LIGHT-YELLOW Urine Turbidity CLEAR Urine pH 6.0 Urine Specific [place] 1.007 Urine Protein 30 mg/dL Urine Glucose (UA) NEG mg/dL Urine Ketones NEG mg/dL Urine Occult Blood NEG Urine Nitrite NEG Urine Bilirubin NEG Urine Urobilinogen LESS THAN 2.0 MG/DL Urine Leukocyte Esterase NEG Urine RBC LESS THAN 1 /hpf Urine WBC 1 /hpf Microscopic Urinalysis Comment CULT NOT INDICATED MDM Medical Decision Making Medical Screen Exam Complete: Yes Emergency Medical Condition: Yes Medical Record Reviewed: Yes Interpretation(s) Last Impressions Chest X-Ray 09/23/16 1113 Signed Impressions: Service Date/Time: Friday, September 23, 2016 11:18 - CONCLUSION: Increased interstitial infiltrates bilaterally suggestive of either pulmonary edema versus pneumonia. Fernando Gu MD Vital Signs Date Time Temp Pulse Resp B/P Pulse Ox O2 Delivery O2 Flow Rate FiO2 09/23/16 11:35 97 Nasal Cannula 2 09/23/16 11:24 97 Nasal Cannula 2 09/23/16 11:20 98.3 95 18 161/84 93 Differential Diagnosis CHF versus pneumonia versus ACS versus metabolic abnormality versus other Narrative Course Patient is a 41-year-old male presenting for evaluation of shortness breath and chest pain that started yesterday, shortness of breath is exacerbated with exertion. Vital signs reviewed, patient is on 2 L nasal cannula. Labs and imaging ordered per protocol while patient was waiting. Initial chest x-ray shows increased interstitial infiltrates bilaterally suggestive of either pulmonary edema versus pneumonia, this was read by the radiologist. Lasix 40mg IV X 1 dose ordered as well as Duonebs x 3. CBC with a mild anemia 11.4/35.7, stable when compared to prior values. CMP reviewed, BUN and creatinine 31/3.99, this improved from prior 3 weeks ago. Troponin 0.06, this continues to trend down. BNP 166 UA is unremarkable Pt continues to feel SOB. He was ambulated on room air and O2 sats dropped to 90 %. Pt has no inhalers (advair/spiriva etc) at home for COPD mgmt, nor does it appear he is compliant with lasix. [facility] paged for admit. Discussed with Dr. Lewis. Orders placed. Dr. Lewis called back and stated pt needs to go to [facility], page placed. Discussed with Dr. Childress. Admit order changed to his service. Diagnosis Primary Impression: Chronic obstructive airway disease Qualified Code: J44.1 - Chronic obstructive pulmonary disease with acute exacerbation Additional Impressions: CHF (congestive heart failure) Qualified Code: I50.9 - Congestive heart failure, unspecified congestive heart failure chronicity, unspecified congestive heart failure type Chest pain Qualified Code: R07.89 - Other chest pain Admitting Information Admitting Physician Requests: Observation Condition: Stable Neda Castillo Sep 23, 2016 12:46
[2016-09-23] MEDS ORDERED: FUROSEMIDE 40 MG/4 ML VIAL IV PUSH ONE (13:00)
[2016-09-23] MEDS: RESP: ALBUTEROL 2.5 MG/IPRATROPIUM 0.5 MG NEB (SCH) INH (13:25)
[2016-09-23 13:27] VITALS: O2SAT 96
[2016-09-23 14:08] LABS: BLOOD, URINE NEG (NEG); GLUCOSE,URINE NEG (NEG); KETONE, URINE NEG (NEG); NITRITE,URINE NEG (NEG); URINE COLOR LIGHT-YELLOW (YELLW/STRAW)
[2016-09-23 14:14] LABS: COMMENT (UR) CULT NOT INDICATED; CULTURE IF INDICATED CULT NOT INDICATED
[2016-09-23] MEDS ORDERED: RESP: BUDESONIDE 0.5 MG/2 ML NEB NEB ONE (15:00)
[2016-09-23 15:35] VITALS: O2SAT 90
[2016-09-23] MEDS ORDERED: LACTULOSE SYRUP 20 GM/30 ML CUP PO PRN (17:00)
[2016-09-23] MEDS ORDERED: NALOXONE HCL 0.4 MG/ML AMP IV PRN (17:00)
[2016-09-23] MEDS ORDERED: MAGNESIUM HYDROXIDE SUSP 30 ML CUP PO PRN (17:00)
[2016-09-23] MEDS ORDERED: SENNOSIDES 8.6 MG TAB PO PRN (17:00)
[2016-09-23] MEDS ORDERED: BISACODYL 10 MG SUPP RECTAL PRN (17:00)
[2016-09-23] MEDS ORDERED: FUROSEMIDE 20 MG TAB PO PRN (17:00)
[2016-09-23] MEDS ORDERED: ONDANSETRON HCL 4 MG/2 ML VIAL IVP PRN (17:00)
[2016-09-23] MEDS ORDERED: SODIUM CHLORIDE 0.9% FLUSH 10 ML FLUSH IV FLUSH PRN (17:00)
[2016-09-23 17:58] VITALS: BP 151/97; PULSE 86; RESP 20; O2SAT 94
--- NOTE | 2016-09-23 18:38 | HHI.PR ---
Objective Objective Results - Vital Signs Date Time Temp Pulse Resp B/P Pulse Ox O2 Delivery O2 Flow Rate FiO2 09/23/16 17:58 86 20 151/97 94 Room Air 09/23/16 15:35 90 Room Air 09/23/16 13:27 96 Nasal Cannula 2.00 09/23/16 11:35 97 Nasal Cannula 2 09/23/16 11:24 97 Nasal Cannula 2 09/23/16 11:20 98.3 95 18 161/84 93 I/O 09/22/16 09/22/16 09/22/16 09/23/16 09/23/16 09/23/16 07:00 15:00 23:00 07:00 15:00 23:00 Output Total 200 ml Balance -200 ml Output Urine Total 200 ml # Voids 1 Result Diagram: 09/23/16 1115 09/23/16 1115 A/P Assessment and Plan wound care consult for rt. AC, open area on suture line, vaseline gauze and dry dressing tonight. Denice Yadav Sep 23, 2016 18:38 OROPHARYNGEAL: Oropharynx without erythema or edema. NECK: Supple. No nuchal rigidity or lymphadenopathy. Trachea midline without deviation. CARDIAC: Regular rhythm, regular rate, S1 and S2 are heard. Murmur []; no gallops or rubs. LUNGS: Clear to auscultation bilaterally. [] wheeze, [] rhonchi or [] rale. No use of accessory muscles on inspiration or expiration. ABDOMEN: Soft, nontender, no organomegaly or masses. Bowel sounds are heard in all four quadrants. No rebound. No guarding. EXTREMITIES: [] edema. Pulses equal bilateral. [] cyanosis. NEUROLOGICAL: Patient mood and affect appropriate. No focal deficit SKIN:Warm and moist A/P Assessment and Plan wound care consult for rt. AC, open area on suture line, vaseline gauze and dry dressing tonight. Denice Yadav Sep 23, 2016 18:38
[2016-09-23] MEDS ORDERED: PILL SPLITTER OTHER PRN (19:30)
--- NOTE | 2016-09-23 20:11 | HP.UPD ---
H&P Update Note Is a 41-year-old male with history of HIV, diabetes, morbid obesity, hypertension, hyperlipidemia, cataract surgery on her left eye, COPD, reflux disease, He also has advanced chronic kidney disease stage IV, status post AV fistula surgery, arrangements are being made for dialysis He was evaluated in the emergency department for shortness of breath, fatigue and chest pressure, Chest x-ray shows bilateral infiltrate versus pulmonary congestion, infection versus pulmonary edema He was placed on observation, serial CKs and troponins ordered, cardiology consultation and nephrology consultation requested He also has a swollen left lower lid, CT of the orbit is ordered and ophthalmology consultation Full history and physical to follow He was seen and evaluated by the undersigned at the emergency department room C 35 Sandra Childress MD Sep 23, 2016 20:08
--- NOTE | 2016-09-23 20:13 | RADRPT ---
EXAM DATE/TIME: 09/23/2016 18:32 [facility] COMPARISON: No previous studies available for comparison. INDICATIONS : Patient with swollen left eye. RADIATION DOSE: 14.99 CTDIvol (mGy) MEDICAL HISTORY : Congestive hearrt failure. Hypertension. Renal failure, chronic. SURGICAL HISTORY : right arm fistula ENCOUNTER: Initial ACUITY: 2 months PAIN SCORE: 0/10 LOCATION: Left eye TECHNIQUE: Volumetric scanning of the orbits was performed. Using automated exposure control and adjustment of the mA and/or kV according to patient size, radiation dose was kept as low as reasonably achievable t o obtain optimal diagnostic quality images. DICOM format image data is available electronically for review and comparison. FINDINGS: There is pre-septal soft tissue swelling at the left orbit the thickness of about 1.6 cm in length kn own etiology. The globes are intact. There is no right sided orbital swelling. No acute bony abnormal ities are present. There is a retention cyst in the right maxillary sinus. CONCLUSION: 1. Preseptal soft tissue swelling left orbit, possibly complex fluid. Globes intact. No retro-bulbar abnormalities identified. Javier Monsalve MD on September 23, 2016 at 20:08 Board Certified Radiologist. This report was verified electronically.
[2016-09-23 20:24] VITALS: BP 174/95; PULSE 86; RESP 19; TEMP 98.2; O2SAT 94
[2016-09-23] MEDS: cloNIDine HCL 0.2 MG TAB PO SCH (20:42)
[2016-09-23] MEDS: DOCUSATE SODIUM 50 MG/SENNA 8.6 MG TAB PO SCH (20:42)
[2016-09-23] MEDS: CARVEDILOL 12.5 MG TAB PO SCH (20:43)
[2016-09-23] MEDS: SODIUM CHLORIDE 0.9% FLUSH 10 ML FLUSH IV FLUSH SCH (20:52)
[2016-09-23] MEDS: INSULIN HUMAN NPH/R 70/30 1,000 UNITS/10 ML VIAL SQ SCH (21:00)
[2016-09-23] MEDS: MINOXIDIL 2.5 MG TAB PO SCH (22:06)
[2016-09-23 23:09] VITALS: PULSE 79
[2016-09-24] VITALS (7 sets, daily range): BP systolic 126–179; BP diastolic 69–96; PULSE 80–94; RESP 19–22; TEMP 97.3–98.5; O2SAT 95–98
[2016-09-24 07:39] LABS: BICARBONATE 21.4 MEQ/L (21.0-32.0); POTASSIUM 4.4 MEQ/L (3.5-5.1)
[2016-09-24] MEDS ORDERED: hydrALAZINE HCL 20 MG/ML VIAL IV PUSH PRN (08:00)
[2016-09-24 08:03] LABS: AUTOMATED NEUTROPHIL # 2.8 TH/MM3 (1.8-7.7); BASOPHIL % 0.6 % (0.0-2.0); EOSINOPHIL # 0.2 TH/MM3 (0-0.4); EOSINOPHIL % 4.7 % (0.0-4.0); HEMATOCRIT 34.2 % (39.0-51.0); HEMO FLAGS DIFF FINAL; LYMPH % 17.2 % (9.0-44.0); LYMPHOCYTE # 0.7 TH/MM3 (1.0-4.8); MEAN CORPUSCULAR HEMOGLOBIN 27.1 PG (27.0-34.0); MEAN CORPUSCULAR HGB CONC 31.5 % (32.0-36.0); MONO % 10.9 % (0.0-8.0); NEUT % 66.6 % (16.0-70.0); PLATELET COUNT 149 TH/MM3 (150-450); RED BLOOD COUNT 3.97 MIL/MM3 (4.50-5.90); RED CELL DISTRIBUTION WIDTH 16.1 % (11.6-17.2); WHITE BLOOD COUNT 4.3 TH/MM3 (4.0-11.0)
[2016-09-24] MEDS: LISINOPRIL 20 MG TAB PO SCH (08:15)
[2016-09-24] MEDS: FUROSEMIDE 40 MG/4 ML VIAL IV PUSH SCH ×3 (08:15→17:25)
[2016-09-24] MEDS: VITAMIN B CMPLX/VITC/FOLIC AC CAP PO SCH (08:16)
[2016-09-24] MEDS: hydrALAZINE HCL 50 MG TAB PO SCH ×2 (08:16→17:26)
[2016-09-24] MEDS: DOLUTEGRAVIR SODIUM 50 MG TAB PO SCH (08:17)
[2016-09-24] MEDS: ABACAVIR SULFATE 300 MG TAB PO SCH (08:17)
[2016-09-24] MEDS: DOCUSATE SODIUM 50 MG/SENNA 8.6 MG TAB PO SCH ×2 (08:17→20:30)
[2016-09-24] MEDS: CALCITRIOL 0.25 MCG CAP PO SCH (08:17)
[2016-09-24] MEDS: CARVEDILOL 12.5 MG TAB PO SCH ×2 (08:18→20:30)
[2016-09-24] MEDS: cloNIDine HCL 0.2 MG TAB PO SCH ×2 (08:18→20:30)
[2016-09-24] MEDS: SODIUM CHLORIDE 0.9% FLUSH 10 ML FLUSH IV FLUSH SCH ×2 (08:29→20:30)
[2016-09-24] MEDS: INSULIN HUMAN NPH/R 70/30 1,000 UNITS/10 ML VIAL SQ SCH ×2 (08:29→20:36)
--- NOTE | 2016-09-24 08:34 | HHI.PR ---
Subjective Subjective Remarks still sob worst with laying down no cp at this time no palpitations left eye covered no fever no acute changes overnight going for STT today BP 170s Review of Systems Constitutional Constitutional Remarks 12 point ros completed, negative except as noted above Vitals/Results Intake & Output 09/23/16 09/23/16 09/24/16 15:00 23:00 07:00 Output Total 200 ml Balance -200 ml Output Urine Total 200 ml # Voids 1 Vital Signs Vital Signs Date Time Temp Pulse Resp B/P Pulse Ox O2 Delivery O2 Flow Rate FiO2 09/24/16 07:35 98.5 86 22 174/92 96 09/24/16 04:48 98.1 83 19 158/94 98 09/24/16 00:21 97.3 80 20 179/96 96 09/23/16 23:09 79 09/23/16 20:24 98.2 86 19 174/95 94 09/23/16 17:58 86 20 151/97 94 Room Air 09/23/16 15:35 90 Room Air 09/23/16 13:27 96 Nasal Cannula 2.00 09/23/16 11:35 97 Nasal Cannula 2 09/23/16 11:24 97 Nasal Cannula 2 09/23/16 11:20 98.3 95 18 161/84 93 CBC/BMP: 09/24/16 0612 09/24/16 0612 Lab Results Laboratory Tests Test 09/23/16 09/23/16 09/23/16 09/24/16 11:15 13:49 17:25 06:12 White Blood Count 4.6 TH/MM3 4.3 TH/MM3 Red Blood Count 4.20 MIL/MM3 3.97 MIL/MM3 Hemoglobin 11.4 GM/DL 10.8 GM/DL Hematocrit 35.7 % 34.2 % Mean Corpuscular Volume 85.0 FL 86.0 FL Mean Corpuscular Hemoglobin 27.1 PG 27.1 PG Mean Corpuscular Hemoglobin 31.8 % 31.5 % Concent Red Cell Distribution Width 15.9 % 16.1 % Platelet Count 165 TH/MM3 149 TH/MM3 Mean Platelet Volume 8.8 FL 8.6 FL Neutrophils (%) (Auto) 72.9 % 66.6 % Lymphocytes (%) (Auto) 13.5 % 17.2 % Monocytes (%) (Auto) 9.4 % 10.9 % Eosinophils (%) (Auto) 3.5 % 4.7 % Basophils (%) (Auto) 0.7 % 0.6 % Neutrophils # (Auto) 3.3 TH/MM3 2.8 TH/MM3 Lymphocytes # (Auto) 0.6 TH/MM3 0.7 TH/MM3 Monocytes # (Auto) 0.4 TH/MM3 0.5 TH/MM3 Eosinophils # (Auto) 0.2 TH/MM3 0.2 TH/MM3 Basophils # (Auto) 0.0 TH/MM3 0.0 TH/MM3 CBC Comment DIFF FINAL DIFF FINAL Differential Comment Sodium Level 143 MEQ/L 142 MEQ/L Potassium Level 4.3 MEQ/L 4.4 MEQ/L Chloride Level 112 MEQ/L 111 MEQ/L Carbon Dioxide Level 23.9 MEQ/L 21.4 MEQ/L Anion Gap 7 MEQ/L 10 MEQ/L Blood Urea Nitrogen 31 MG/DL 32 MG/DL Creatinine 3.99 MG/DL 4.00 MG/DL Estimat Glomerular Filtration 20 ML/MIN 20 ML/MIN Rate Random Glucose 161 MG/DL 149 MG/DL Calcium Level 8.5 MG/DL 8.3 MG/DL Total Creatine Kinase 260 U/L 247 U/L Creatine Kinase MB 3.0 NG/ML Troponin I 0.06 NG/ML 0.06 NG/ML B-Type Natriuretic Peptide 166 PG/ML Urine Color LIGHT-YELLOW Urine Turbidity CLEAR Urine pH 6.0 Urine Specific Dora 1.007 Urine Protein 30 mg/dL Urine Glucose (UA) NEG mg/dL Urine Ketones NEG mg/dL Urine Occult Blood NEG Urine Nitrite NEG Urine Bilirubin NEG Urine Urobilinogen LESS THAN 2.0 MG/DL Urine Leukocyte Esterase NEG Urine RBC LESS THAN 1 /hpf Urine WBC 1 /hpf Microscopic Urinalysis Comment CULT NOT INDICATED Physical Exam General General Appearance: Well Developed, No Acute Distress, Comfortable, Obese Eyes Eye Remarks right pupil equal and reactive left lower lid protruding, swollen Ears & Nose Ears & Nose Exam: Nasal Mucosa Herrings Throat Throat Exam: Oral Mucosa [place] & Moist Neck Neck Exam: Neck Supple, Trachea Midline Pulmonary Resp Exam: Decreased Bases, Poor Inspiratory Effort Cardiology CV Exam: Regular, Good Perfusion Gastrointestinal/Abdomen GI Exam: Soft, Non-Tender, Bowel Sounds Present, Non-Distended Musculoskeletal MS Exam: Joints Intact Integumentary Skin Exam: Warm, Dry Extremeties Extremities Exam: Trace Edema Neurologic Neuro Exam: Alert, Awake, Oriented, Speech Clear, Moving All Extremities, No Focal Deficits Psychiatric Psych Exam: Appropriate Responses Assessment/Plan Problem List: (1) Pulmonary edema (2) Chest pain (3) Type 2 diabetes mellitus (4) Morbid obesity (5) Hypothyroidism (6) Hypertension (7) CAD (coronary artery disease) (8) CKD (chronic kidney disease) stage 4, GFR 15-29 ml/min Assessment/Plan SOB worst with laying flat, no CP today trop indeterminate appreciate card input, plans for STT today Pulm edema continue Lasix nephrology consult pending has new AVF to right FA, per Dr. Genao has some dehiscence, wound care consult keep covered. May need to be seen by Dr. Genao BP elevated continue home meds PRN Hydralazine IV added per card, pt. will need to go to floor if necessary add Accuchecks AC/HS with ISS continue home meds Left eye with lower lid swelling ophthalmology consult pending orbit MRI, preseptal soft tissue swelling left orbit, possibly complex fluid, globe intact keep covered will f/u results of STT D/W RN D/W Dr. Childress D/W pt This patient was seen by myself and Dr. Childress, this note is written on his behalf. Problem Qualifiers (1) Pulmonary edema: Qualified Code: J81.0 - Acute pulmonary edema (2) Chest pain: Qualified Code: R07.89 - Other chest pain (3) Type 2 diabetes mellitus: (4) Hypothyroidism: Qualified Code: E03.9 - Hypothyroidism, unspecified type (5) Hypertension: Qualified Code: I10 - Essential hypertension (6) CAD (coronary artery disease): Qualified Code: I25.10 - Coronary artery disease involving viejas coronary artery of viejas heart without angina pectoris Marianna Chino [facility] Sep 24, 2016 08:34
--- NOTE | 2016-09-24 08:36 | MH ---
cc: RAJENDRA PIÑA MD DATE OF ADMISSION: 09/23/2016 DATE OF 1975. CHIEF COMPLAINT: Shortness of breath, chest pain. Travel in the last 30 days, none. HISTORY OF PRESENT ILLNESS This is a pleasant 41-year-old black male who started feeling weak and fatigue yesterday with acute shortness of breath. He states that he could not lie flat and was unable to sleep well last night. He states that the breathing has continued to worsen to the point that he was breathing hard and started having tightness in his chest. He states now the chest pain has eased and he is beginning to diurese after receiving IV Lasix in the ER. The patient states that he did have a hacky cough yesterday but is coughing up no sputum. Denies any fever, chills, no nausea, no vomiting, no diarrhea or constipation. The patient has end-stage renal disease and has recently had an AV shunt placed in his right axilla. He does have significant history of cardiomyopathy, congestive heart failure, diabetes with peripheral neuropathy, and other comorbidities. Currently he is alert, oriented, fairly good historian, sitting on the side of the bed. PAST MEDICAL HISTORY: According to the patient and record: 1. Cardiomyopathy. 2. Hyperlipidemia. 3. Congestive heart failure. 4. COPD. 5. Coronary artery disease. 6. Diabetes with peripheral neuropathy. 7. Anxiety and depression. 8. Colitis. 9. GERD. 10. Headache. 11. HIV on HAART. 12. Hypertension. 13. Kidney stones. 14. Chronic kidney disease, stage IV. 15. Pneumonia. 16. [place]. PAST SURGICAL HISTORY: 1. Recent right arm A-V fistula. 2. Left cataract removed. ALLERGIES: NONE KNOWN. MEDICATIONS: 1. Azithromycin. 2. Minoxidil. Dictated by: RAMONITA Cyr MD VIANNEY Lawrence/GINETTE /6:17 PM /8:30 AM
--- NOTE | 2016-09-24 08:40 | EKG ---
Date Performed: 09/23/2016 Time Performed: 11:09:01 PTAGE: 41 years EKG: Sinus rhythm INDETERMINATE AXIS RIGHT BUNDLE BRANCH BLOCK AND POSSIBLE RIGHT VENTRICULAR HYPERTROPHY LEFT POSTERI OR FASCICULAR BLOCK MODERATE T-WAVE ABNORMALITY, CONSIDER LATERAL ISCHEMIA ABNORMAL ECG INTERPRETATIO N BASED ON A DEFAULT AGE OF 40 YEARS PREVIOUS TRACING : 09/02/2016 06.50 DOCTOR: Josue Lombardo Interpretating Date/Time 09/24/2016 08:34:51
[2016-09-24] MEDS ORDERED: FOLIC ACID PO SCH (09:00)
[2016-09-24] MEDS ORDERED: NON-FORMULARY DRUG (Lisinopril 40 MG) PO SCH (09:00)
[2016-09-24] MEDS ORDERED: B COMPLEX PO SCH (09:00)
[2016-09-24] MEDS ORDERED: [UNRECOGNIZED DRUG - OTHER] PO SCH (09:00)
[2016-09-24] MEDS: NIFEdipine 60 MG SUSTAINED RELEASE TAB PO SCH (09:45)
[2016-09-24] MEDS ORDERED: DEXTROSE 50% IN WATER 50 ML VIAL(D50) IV PRN (10:00)
[2016-09-24] MEDS ORDERED: GLUCAGON 1 MG/ML VIAL OTHER PRN (10:00)
[2016-09-24] MEDS: INSULIN ASPART SUPPLEMENTAL SCALE SQ SCH ×3 (11:00→20:29)
[2016-09-24 11:51] LABS: INDIRECT BILIRUBIN 0.2 MG/DL (0.0-0.8); TOTAL BILIRUBIN ADULT 0.3 MG/DL (0.2-1.0)
[2016-09-24] MEDS: SUCRALFATE 1 GM/10 ML CUP PO SCH ×3 (12:13→20:30)
[2016-09-24] MEDS: PANTOPRAZOLE SOD 40 MG DELAYED RELEASE TAB PO SCH (12:14)
[2016-09-24] MEDS ORDERED: REGADENOSON INJ 0.4 MG/5 ML SYR ONE (13:42)
[2016-09-24] MEDS: MINOXIDIL 2.5 MG TAB PO SCH (20:30)
[2016-09-25] VITALS (12 sets, daily range): BP systolic 88–140; BP diastolic 50–88; PULSE 80–92; RESP 17–21; TEMP 97.4–98.2; O2SAT 95–96
[2016-09-25] MEDS: hydrALAZINE HCL 50 MG TAB PO SCH ×3 (01:03→16:00)
[2016-09-25] MEDS: INSULIN ASPART SUPPLEMENTAL SCALE SQ SCH ×5 (06:24→22:11)
[2016-09-25] MEDS: SUCRALFATE 1 GM/10 ML CUP PO SCH ×4 (06:26→20:25)
[2016-09-25] MEDS: ABACAVIR SULFATE 300 MG TAB PO SCH (08:05)
[2016-09-25] MEDS: FUROSEMIDE 40 MG/4 ML VIAL IV PUSH SCH ×2 (08:05→18:06)
[2016-09-25] MEDS: DOLUTEGRAVIR SODIUM 50 MG TAB PO SCH (08:06)
[2016-09-25] MEDS: VITAMIN B CMPLX/VITC/FOLIC AC CAP PO SCH (08:06)
[2016-09-25] MEDS: LISINOPRIL 20 MG TAB PO SCH (08:07)
[2016-09-25] MEDS: cloNIDine HCL 0.2 MG TAB PO SCH ×2 (08:07→21:00)
[2016-09-25] MEDS: DOCUSATE SODIUM 50 MG/SENNA 8.6 MG TAB PO SCH ×2 (08:07→20:26)
[2016-09-25] MEDS: PANTOPRAZOLE SOD 40 MG DELAYED RELEASE TAB PO SCH (08:07)
[2016-09-25] MEDS: NIFEdipine 60 MG SUSTAINED RELEASE TAB PO SCH (08:07)
[2016-09-25] MEDS: CALCITRIOL 0.25 MCG CAP PO SCH (08:07)
[2016-09-25] MEDS: SODIUM CHLORIDE 0.9% FLUSH 10 ML FLUSH IV FLUSH SCH ×2 (08:08→20:31)
[2016-09-25] MEDS: INSULIN HUMAN NPH/R 70/30 1,000 UNITS/10 ML VIAL SQ SCH ×2 (08:08→21:00)
[2016-09-25] MEDS: CARVEDILOL 12.5 MG TAB PO SCH ×2 (08:08→20:26)
--- NOTE | 2016-09-25 08:34 | MB ---
cc: DAVID DUNN MD DATE OF CONSULTATION 09/24/2016 REASON FOR CONSULTATION Chronic kidney disease with elevated BUN and creatinine. HISTORY OF PRESENT ILLNESS This 41-year-old male with a past medical history of hypertension and diabetes mellitus, history of chronic kidney disease with advanced stage IV renal failure, cardiomyopathy, hyperlipidemia, chronic obstructive pulmonary disease, gastroesophageal reflux disease, peripheral neuropathy, anxiety/depression was admitted because of shortness of breath and chest pain. I was called to see the patient because of elevated BUN and creatinine. The patient has a known history of chronic kidney disease. He has been following with nephrology in [place] with Dr. Medina. He has multiple admissions here at [facility]. The patient was told that he will require hemodialysis soon and he has AV fistula in the right arm by Dr. Genao about two weeks ago. The patient gradually noticed that his breathing is getting worse and there was some retrosternal chest pain and he also noticed increased swelling of the legs. He was taking the diuretics at home, but according to him, he did not notice any improvement in his swelling. The patient came to the emergency department. He also has cough with whitish sputum. There is no dysuria, hematuria or difficulty passing urine. PAST MEDICAL HISTORY 1. Hypertension 2. Diabetes mellitus 3. Chronic kidney disease 4. Cardiomyopathy 5. Hyperlipidemia 6. Depression 7. History of renal stone. PAST SURGICAL HISTORY 1. He right arm AV fistula surgery 2. Cataract surgery REVIEW OF SYSTEMS The patient denies any history of fever, sore throat, generalized weakness. The patient has shortness of breath especially on exertion. He has increased swelling of his legs. He has cough with whitish sputum. Chest pain is retrosternal off and on increased with exertion. There is no nausea or vomiting and appetite has been normal. SOCIAL HISTORY He has no previous history of smoking or alcoholism. FAMILY HISTORY Positive for hypertension. There is no known history of renal disease. ALLERGIES He has NO KNOWN DRUG ALLERGIES. MEDICATIONS Currently he is on following medications: 1. Carafate one grams q.h.s. 2. Larisa-Colace one tablet b.i.d. 3. Coreg 37.5 mg b.i.d. 4. Catapres 0.2 mg b.i.d. 5. Furosemide 40 mg IV b.i.d. 6. Ziagen 300 mg once a day 7. Calcitriol 0.25 mcg once a day 8. Insulin sliding scale 9. Epivir 75 mg daily 10. Lisinopril 40 mg once daily 11. Nephrocaps 1 capsule daily 12. Nifedipine 60 mg once a day 13. Protonix 40 mg daily 14. NovoLog 70/30, 25 units q.h.s. 15. Minoxidil 2.5 mg q.h.s. 16. Hydralazine 50 mg q8h 17. Zofran as needed 18. Lactulose as needed NEUROLOGIC EXAMINATION The patient is alert and oriented and not in acute distress. VITAL SIGNS: Blood pressure is 140/77, temperature 97.9, oxygen saturation 95%. HEAD, EYES, EARS, NOSE, AND THROAT: Pupils equally reacting to light. Nonicteric sclera, conjunctiva normal. NECK: Supple. JVD slightly elevated. LUNGS: The patient has bilateral decreased air entry with basilar rales and scattered wheezing. HEART: S1 and S2, regular rhythm. ABDOMEN: Soft and lax. There is no tenderness. Bowel sounds positive. EXTREMITIES: Bilateral 2+ edema. The right arm has an AV fistula. INVESTIGATION WBC count is 4.3, hemoglobin 10.88, platelet count of 149, neutrophils 66.6%, eosinophils 4.7%. BMP showing a sodium of 142, potassium 4.4, chloride 111, bicarb 21.4, BUN 32, creatinine 4.0, glucose 149, calcium 8.3, AST, ALT 11 and 10, total bilirubin is 0.3, creatinine kinase 247. Troponin-I is 0.06, BNP is 166, total protein 7.4, albumin 3.1. Urinalysis showing that he has protein of 30. Previously, he has serology showing that the NICOL was negative and ANCA was negative January 2013. IMAGING STUDIES The patient has a chest x-ray done which shows interstitial infiltrate with mild pedal edema. No evidence of pneumothorax. CT of the orbit was done July 24 shows soft tissue swelling in the left orbit. No retrobulbar abnormalities identified. ASSESSMENT/PLAN 1. Chronic kidney disease with advanced renal failure 2. Cardiomyopathy and fluid overload status. 3. Chest pain atypical 4. Chronic obstructive pulmonary disease 5. History of HIV disease. 6. Anemia 7. Diabetes mellitus The patient had a kidney biopsy done in the past that shows that he has a history of diabetic renal disease along with severe arteriosclerosis. The patient has advanced renal failure. He is getting preparation for hemodialysis. The GFR is around 20 and this is his baseline. I agree with continuing diuretics at present. There is no acute urgent need for dialysis. Follow the urine output and the BUN and creatinine. I did discuss with the patient about the possibility of future dialysis. He was seen by cardiology. Cardiology atypical and follow with them for further recommendations. Thank you for the consultation. I will follow the patient while he is in the hospital. MD SELMA George/KEISHA /10:57 PM /8:05 AM
--- NOTE | 2016-09-25 08:48 | PD.CONS ---
History of Present Illness Service Ophthalmology Consult Requested By Reason for Consult left eye swelling Primary Care Physician No Primary Care Physician Diagnoses: History of Present Illness 41 yo BM with history of HIV, diabetes, morbid obesity, hypertension, hyperlipidemia, COPD, reflux disease, and chronic kidney disease. Presented to ED for shortness of breath and chest pressure. Patient is poor historian - had to obtain ocular history from several different ophthalmologists he has been treated by as an outpatient. ([facility]) has done panretinal photocoagulation laser for his diabetic retinopathy in both eyes in 2011. Dr. Hopper performed cataract surgery on both eyes in early 2015. 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 He saw in [place] a few months ago for a second opinion. He performed possible cyclophotocoagulation (YARD SPOTTER) to help reduce pressure. Pt states he noticed his left eye starting to swell a few months ago. told him to keep it well lubricated with ointment and keep it covered which the patient has not been doing. Past Family Social History Allergies: Coded Allergies: No Known Allergies (Verified , 09/17/16) Physical Exam Vital Signs Vital Signs Date Time Temp Pulse Resp B/P Pulse Ox O2 Delivery O2 Flow Rate FiO2 09/25/16 04:14 98.2 84 18 107/54 95 09/25/16 02:08 92 09/25/16 00:07 98.2 92 17 136/78 96 09/24/16 20:17 97.9 94 20 140/77 95 09/24/16 16:00 98.0 86 20 149/79 97 09/24/16 11:08 97.9 82 22 126/69 95 Physical Exam Va sc at near OD 20/400, OS NLP EOM full OU, no diplopia CVF unable Pupils 3mm OU IOP 14, 16 Anterior exam OD - normal eyelid, C/S W&Q, K clear, AC deep, pupil round, PCIOL OS - normal eyelid, severe inferior conj chemosis, K clear, AC deep, pupil round , PCIOL Laboratory Laboratory Tests Test 09/24/16 11:07 Lactic Acid Level 0.5 Total Bilirubin 0.3 Direct Bilirubin 0.1 Indirect Bilirubin 0.2 Aspartate Amino Transf 11 (AST/SGOT) Alanine Aminotransferase 10 (ALT/SGPT) Alkaline Phosphatase 96 Total Protein 7.4 Albumin 3.1 Result Diagram: 09/24/1661109/24/16611 Assessment and Plan Problem List: (1) Retinal detachment, tractional, both eyes Status: Acute Plan: Secondary to severe diabetic retinopathy. has been operated on by ([facility]). (2) Chemosis of left conjunctiva Status: Acute Plan: Has been present for months. Recommend generous amount of Lacri-lube on swollen conjunctiva and keeping it covered (not with gauze or anything else that will stick to it) 24 hours a day to reduce exposure to air which is making it more inflamed. This will take weeks to resolve. Can follow up as outpatient. Puja Harmon MD Sep 25, 2016 08:48
--- NOTE | 2016-09-25 09:01 | PD.CARD.PN ---
Subjective Subjective Remarks Feels a little better. No chest discomfort at rest Objective Vital Signs / I&O Vital Signs Date Time Temp Pulse Resp B/P Pulse Ox O2 Delivery O2 Flow Rate FiO2 09/25/16 08:41 98.2 86 20 140/76 95 09/25/16 04:14 98.2 84 18 107/54 95 09/25/16 02:08 92 09/25/16 00:07 98.2 92 17 136/78 96 09/24/16 20:17 97.9 94 20 140/77 95 09/24/16 16:00 98.0 86 20 149/79 97 09/24/16 11:08 97.9 82 22 126/69 95 Physical Exam Lungs clear Heart sounds distant Laboratory Laboratory Tests Test 09/24/16 11:07 Lactic Acid Level 0.5 mmol/L Total Bilirubin 0.3 MG/DL Direct Bilirubin 0.1 MG/DL Indirect Bilirubin 0.2 MG/DL Aspartate Amino Transf 11 U/L (AST/SGOT) Alanine Aminotransferase 10 U/L (ALT/SGPT) Alkaline Phosphatase 96 U/L Total Protein 7.4 GM/DL Albumin 3.1 GM/DL Assessment and Plan Assessment and Plan For Dieter Mirza MD Sep 25, 2016 09:01
--- NOTE | 2016-09-25 10:32 | MH ---
cc: RAJENDRA PIÑA MD CORRECTED COPY: 09/25/2016 DATE OF ADMISSION 09/23/2016 DATE OF 1975 CHIEF COMPLAINT: Shortness of breath, chest pain. Travel in the last 30 days, none. HISTORY OF PRESENT ILLNESS This is a pleasant 41-year-old black male who started feeling weak and fatigue yesterday with acute shortness of breath. He states that he could not lie flat and was unable to sleep well last night. The patient was having chest pain with inspiration and tachypneic respirations being evaluated per EMS. He states that the breathing has continued to worsen to the point that he was breathing hard and started having tightness in his chest. He states now the chest pain has eased and he is beginning to diurese after receiving IV Lasix in the ER. The patient states that he did have a hacky cough yesterday but is coughing up no sputum. Denies any fever, chills, no nausea, no vomiting, no diarrhea or constipation. The patient has end-stage renal disease. The patient had a right arm new AV fistula that had been placed. Part of the sutures are intact, but there is one small area that has opened. He does have significant history of cardiomyopathy, congestive heart failure, diabetes with peripheral neuropathy, and other comorbidities. Currently he is alert, oriented, fairly good historian, sitting on the side of the bed. PAST MEDICAL HISTORY: According to the patient and record: 1. Cardiomyopathy. 2. Hyperlipidemia. 3. Congestive heart failure. 4. COPD. 5. Coronary artery disease. 6. Diabetes with peripheral neuropathy. 7. Anxiety and depression. 8. Colitis. 9. GERD. 10. Headache. 11. HIV on HAART. 12. Hypertension. 13. Kidney stones. 14. Chronic kidney disease, stage IV. 15. Pneumonia. 16. [place]. PAST SURGICAL HISTORY: 1. Recent right arm A-V fistula. 2. Left cataract removed. ALLERGIES: NONE KNOWN. MEDICATIONS 1. Lisinopril 2. Abacavir 3. Tivicay 4. Carvedilol 5. Clonidine 6. Amlodipine 7. Minoxidil 8. Lamivudine 9. Insulin 10. Lasix 11. Azithromycin 12. B-complex 13. Calcium SOCIAL HISTORY The patient is single, lives in his own apartment upstairs. He has no history of alcohol, tobacco or illicit drugs. REVIEW OF SYSTEMS Positives noted in the HPI which include acute shortness of breath with anxiety, tachypneic respirations, orthopnea, cough, generalized weakness and fatigue. Otherwise systems negative or unremarkable. VITAL SIGNS Temperature 98, pulse 86, respirations 20, blood pressure 149/79, O2 sat 97. PHYSICAL EXAMINATION GENERAL: A morbidly obese black male who looks to be his stated age sitting up on the side of the bed with tachypneic respirations. SKIN: [place] mucous membranes, warm and dry. HEENT: Atraumatic, normocephalic with the exception of a left eye bulla with a large amount of edema under the left eye. Tongue is midline. Large amount of swelling under the left eye with a pink consistency bulla. NECK: Obese, supple. CARDIOVASCULAR: S1-S2, distal heart sounds, S3 gallop. LUNGS: Diminished breath sounds throughout with bibasilar rales. No audible rhonchi. ABDOMEN: Morbidly obese, but soft and nontender, nondistended. Bowel sounds are active. MUSCULOSKELETAL: Moves his extremities with purpose. No obvious deformities. NEUROLOGIC: He is alert and oriented and a fairly good historian. PSYCHIATRIC: Appropriate mood and affect. DIAGNOSTIC DATA WBC count 4.6, RBC 4.2, hemoglobin 11.4, hematocrit 35.7, platelet count 165, neutrophil count percentage 72.9, monocyte 9.4, lymphocytes 0.9, otherwise are negative or within normal range. Chemistry BNP 166, troponin 0.06. Urine light yellow and clear. Protein is 30, negative leukocyte esterase. Cath is not indicated. IMAGING STUDIES Show a chest x-ray to have increased interstitial infiltrates bilateral suggestive of pulmonary edema versus pneumonia. Orbit CT preseptal soft tissue swelling left orbit possibly complex fluid. Globes intact. No retrobulbar abnormalities identified. ASSESSMENT/PLAN 1. Pulmonary edema 2. Chronic kidney disease stage IV with probable end-stage renal disease 3. Hypertension 4. History of coronary artery disease. 5. Chest time atypical PLAN The plan is to admit. Active diuresis with intensive intake and output. We will reconcile medications, monitor his labs and rule out cardiac event with his troponin's. A heart healthy diet, 1800 calorie ADA, vital signs q. four and as warranted. The patient can be out of bed, but with assistance. We will consult cardiology for his expert opinion. We will consult ophthalmology to evaluate left eye bulla, swelling and edema. PPI Protonix. We will consult nephrology for their expert opinion. Once the patient's diuresis is complete, we will follow his response to the treatment regimen and the plan of care and plan his discharge planning when he is stable. Dictated by, RAMONITA Cyr MD VIANNEY Lawrence/KEISHA /9:05 AM /10:04 AM
--- NOTE | 2016-09-25 10:35 | HHI.PR ---
Subjective Remarks Resting in the bed Able to lie flat at 25-30 now States shortness of breath much improved and hopes to finish testing today Blood pressure low normal range, continue to monitor for any symptoms (Denice Yadav) Objective Objective Results - Vital Signs Date Time Temp Pulse Resp B/P Pulse Ox O2 Delivery O2 Flow Rate FiO2 09/25/16 08:41 98.2 86 20 140/76 95 09/25/16 04:14 98.2 84 18 107/54 95 09/25/16 02:08 92 09/25/16 00:07 98.2 92 17 136/78 96 09/24/16 20:17 97.9 94 20 140/77 95 09/24/16 16:00 98.0 86 20 149/79 97 09/24/16 11:08 97.9 82 22 126/69 95 (Denice Yadav) Result Diagram: 09/24/16 0612 09/24/16 0612 ROS General: Fatigue, Weakness, Other (10 point ROS done , generalized weakness improving) HEENT: Other (left eye edema bulla lower.) Pulmonary: Cough (occasional), SOB (exertional) GI: BM ( bowel regimen) (Denice Yadav) Physical Exam Physical Exam PHYSICAL EXAMINATION GENERAL: This is a morbidly obese male who appears to be in no acute distress this a.m. and dosing, responds to verbal stimuli HEAD: Normocephalic Facial features With left eye bulla and swelling, wrapped with some serous pink drainage OROPHARYNGEAL: Oropharynx clear NECK: Supple. Trachea midline without deviation. CARDIAC: Regular rhythm, regular rate, S1 and S2 are heard. Sounds distant LUNGS: Diminished especially in bases to auscultation bilaterally. ABDOMEN: Large round Soft, nontender, sounds active EXTREMITIES: 3+ lower extremity edema. NEUROLOGICAL: Patient mood and affect appropriate. Responds to simple questions SKIN:Warm and moist (Denice Yadav) A/P Assessment and Plan Vital signs reviewed , Telemetry shows sinus rhythm with bundle branch block rate controlled Bowel regimen monitor Pulm edema, Active diuresis, patient is now able to lay at 25-30 head of bed, without struggle for shortness of breath, now compensated Etiology consult appreciate, patient was unable to lie flat for a nuclear med study yesterday but thinks that he should be able to complete today. continue Lasix nephrology consult has new AVF to right FA,, smaller wound with suture that may have opened, covered, maintaining dressing clean dry and intact BP elevated initially on admission but now controlled, 107/54, which seems to be on the low side for him continue home meds PRN Hydralazine IV added per card, pt. will need to go to floor if necessary add Accuchecks AC/HS with ISS continue home meds Left eye with lower lid swelling continues, patient did have some release of edematous fluid, wrapped and secured with gauze, pinkish tinged fluid Change dressing when necessary and as needed ophthalmology consult, appreciate assistance with medical management D/W RN D/W Dr. Childress, seen on his behalf D/W pt (Denice Yadav) Assessment and Plan seen, examined by myself, Dr Childress, today Discussed with patient Due for stress test today Further plans with the results of the stress test Left side looking relatively better Seen by ophthalmology Discussed with mid level provider The exam, history, and the medical decision-making described in the above note were completed with the assistance of the mid-level provider. I reviewed the findings presented. I attest that I had a [id number] encounter with the patient on the same day, and personally performed and documented my assessment and findings in the medical record. (Sandra Childress MD) Denice Yadav Sep 25, 2016 10:35 Sandra Childress MD Sep 25, 2016 20:13
[2016-09-25] MEDS ORDERED: ERYTOIN10 LEFT EYE (11:35)
[2016-09-25] MEDS ORDERED: REGADENOSON INJ 0.4 MG/5 ML SYR ONE (12:34)
--- NOTE | 2016-09-25 17:24 | HHI.NPPN ---
Subjective General Problems: Anemia, Edema, Heart Disease, Hypertension Renal Failure: Chronic, Stage IV History of Present Illness 41-year-old male with a past medical history of hypertension and diabetes mellitus, history of chronic kidney disease with advanced stage IV renal failure, cardiomyopathy, hyperlipidemia, chronic obstructive pulmonary disease, gastroesophageal reflux disease, peripheral neuropathy, anxiety/depression was admitted because of shortness of breath and chest pain. I was called to see the patient because of elevated BUN and creatinine. The patient has a known history of chronic kidney disease. He has been following with nephrology in [place] with Dr. Medina. Additional Remarks Patient is alert, breathing is slightly better, no chest pain. Review of Systems General Constitutional: Fatigue Respiratory Lungs: SOB, Cough, Sputum, Wheeze Cardiovascular Cardiac: FUNG Objective Data Data Vital Signs Date Time Temp Pulse Resp B/P Pulse Ox O2 Delivery O2 Flow Rate FiO2 09/25/16 17:10 136/88 Automatic Cuff 09/25/16 15:38 98.0 84 20 88/53 95 09/25/16 14:55 97.4 88 18 140/70 96 09/25/16 11:55 98.0 80 21 96/50 95 09/25/16 08:41 98.2 86 20 140/76 95 09/25/16 08:00 83 09/25/16 04:14 98.2 84 18 107/54 95 09/25/16 02:08 92 09/25/16 00:07 98.2 92 17 136/78 96 09/24/16 20:17 97.9 94 20 140/77 95 -: 09/24/16 0612 09/24/16 0612 Physical Exam General Appearance: Well Developed, No Acute Distress, Comfortable, Obese Ears & Nose Ears & Nose Exam: Nasal Mucosa [place] Throat Throat Exam: Oral Mucosa [place] & Moist Neck Neck Exam: Neck Supple, Trachea Midline Pulmonary Resp Exam: Decreased Bases, Poor Inspiratory Effort Cardiology CV Exam: Regular, Good Perfusion Gastrointestinal/Abdomen GI Exam: Soft, Non-Tender, Bowel Sounds Present, Non-Distended Musculoskeletal MS Exam: Joints Intact Integumentary Skin Exam: Warm, Dry Extremeties Extremities Exam: Trace Edema Neurologic Neuro Exam: Alert, Awake, Oriented, Speech Clear, Moving All Extremities, No Focal Deficits Psychiatric Psych Exam: Appropriate Responses Assessment/Plan Assessment Summary: Anemia of CKD, Fluid/Volume Overload, Hypertension, CKD Stage IV Problem List: (1) HTN (hypertension) (2) CHF (congestive heart failure) (3) Diabetes mellitus (4) SOB (shortness of breath) (5) Hypoxia (6) AIDS (acquired immune deficiency syndrome) (7) CKD (chronic kidney disease) stage 4, GFR 15-29 ml/min Plan Patient has no BMP today, refused drawing the blood. Urine out put is better. Continue Lasix. Cardiology following, has stress test. Follow the BMP. If get worse, possible Dialysis. Problem Qualifiers (1) Diabetes mellitus: Parker Ramos MD Sep 25, 2016 17:24
[2016-09-25 18:19] LABS: POTASSIUM 4.3 MEQ/L (3.5-5.1)
[2016-09-25] MEDS: MINOXIDIL 2.5 MG TAB PO SCH (20:26)
[2016-09-26] VITALS (8 sets, daily range): BP systolic 105–136; BP diastolic 59–74; PULSE 82–90; RESP 16–20; TEMP 98–98.6; O2SAT 94–97
[2016-09-26] MEDS: INSULIN ASPART SUPPLEMENTAL SCALE SQ SCH ×4 (06:27→21:00)
[2016-09-26] MEDS: SUCRALFATE 1 GM/10 ML CUP PO SCH ×4 (06:30→22:05)
[2016-09-26] MEDS: cloNIDine HCL 0.2 MG TAB PO SCH ×2 (08:36→22:05)
[2016-09-26] MEDS: CALCITRIOL 0.25 MCG CAP PO SCH (08:36)
[2016-09-26] MEDS: ABACAVIR SULFATE 300 MG TAB PO SCH (08:36)
[2016-09-26] MEDS: DOCUSATE SODIUM 50 MG/SENNA 8.6 MG TAB PO SCH ×2 (08:36→21:00)
[2016-09-26] MEDS: CARVEDILOL 12.5 MG TAB PO SCH ×2 (08:36→22:06)
[2016-09-26] MEDS: NIFEdipine 60 MG SUSTAINED RELEASE TAB PO SCH (08:36)
[2016-09-26] MEDS: LISINOPRIL 20 MG TAB PO SCH (08:36)
[2016-09-26] MEDS: DOLUTEGRAVIR SODIUM 50 MG TAB PO SCH (08:37)
[2016-09-26] MEDS: SODIUM CHLORIDE 0.9% FLUSH 10 ML FLUSH IV FLUSH SCH ×2 (08:37→22:07)
[2016-09-26] MEDS: hydrALAZINE HCL 50 MG TAB PO SCH ×3 (08:37→18:11)
--- NOTE | 2016-09-26 08:37 | PD.CARD.PN ---
Subjective Subjective Remarks continues with cough, denies chest pain Objective Vital Signs / I&O Vital Signs Date Time Temp Pulse Resp B/P Pulse Ox O2 Delivery O2 Flow Rate FiO2 09/26/16 07:53 98.6 90 17 115/69 95 09/26/16 07:15 90 09/26/16 03:32 98.1 82 20 105/59 95 09/25/16 23:02 97.9 83 20 133/73 96 09/25/16 20:02 82 09/25/16 19:23 97.9 81 20 136/73 96 09/25/16 17:10 136/88 Automatic Cuff 09/25/16 15:38 98.0 84 20 88/53 95 09/25/16 14:55 97.4 88 18 140/70 96 09/25/16 11:55 98.0 80 21 96/50 95 09/25/16 08:41 98.2 86 20 140/76 95 I/O 09/25/16 09/25/16 09/25/16 09/26/16 09/26/16 09/26/16 06:59 14:59 22:59 06:59 14:59 22:59 Output Total 300 ml Balance -300 ml Output Urine Total 300 ml Physical Exam GENERAL: Well-nourished, well-developed patient in no apparent distress. NECK: No JVD. No carotid bruit. CARDIOVASCULAR: Regular rate and rhythm. S1/S2 no murmur, rub, or gallop. RESPIRATORY: No accessory muscle use. Clear to auscultation. Breath sounds equal bilaterally. GASTROINTESTINAL: Abdomen soft, non-tender, nondistended. MUSCULOSKELETAL: Extremities without clubbing, cyanosis, or edema. Laboratory Laboratory Tests Test 09/25/16 17:05 Sodium Level 142 MEQ/L Potassium Level 4.3 MEQ/L Chloride Level 108 MEQ/L Carbon Dioxide Level 24.0 MEQ/L Anion Gap 10 MEQ/L Blood Urea Nitrogen 44 MG/DL Creatinine 4.81 MG/DL Estimat Glomerular Filtration 16 ML/MIN Rate Random Glucose 187 MG/DL Calcium Level 8.3 MG/DL Total Creatine Kinase 250 U/L Troponin I 0.06 NG/ML Assessment and Plan Problem List: (1) Ischemic cardiomyopathy (2) CAD (coronary artery disease) (3) Hypertension Assessment and Plan will await SPECT results and go from there He is on a good medical regimen and has has slight diuresis His blood pressure is well controlled Problem Qualifiers (1) CAD (coronary artery disease): Qualified Code: I25.10 - Coronary artery disease involving [place] coronary artery of [place] heart without angina pectoris (2) Hypertension: Qualified Code: I10 - Essential hypertension Rishi Stahl Sep 26, 2016 08:37
[2016-09-26] MEDS: PANTOPRAZOLE SOD 40 MG DELAYED RELEASE TAB PO SCH (08:38)
[2016-09-26] MEDS: INSULIN HUMAN NPH/R 70/30 1,000 UNITS/10 ML VIAL SQ SCH ×2 (08:40→22:03)
[2016-09-26] MEDS: FUROSEMIDE 40 MG/4 ML VIAL IV PUSH SCH ×2 (09:00→18:09)
[2016-09-26] MEDS: VITAMIN B CMPLX/VITC/FOLIC AC CAP PO SCH (09:00)
--- NOTE | 2016-09-26 09:32 | HHI.PR ---
Subjective Remarks Resting in the bed and dangle on the side of the bed Able to lie flat at 25-30 now Due to complete second part of test today Blood pressure low normal range, continue to monitor for any symptoms (Denice Yadav) Objective Objective Results - Vital Signs Date Time Temp Pulse Resp B/P Pulse Ox O2 Delivery O2 Flow Rate FiO2 09/26/16 07:53 98.6 90 17 115/69 95 09/26/16 07:15 90 09/26/16 03:32 98.1 82 20 105/59 95 09/25/16 23:02 97.9 83 20 133/73 96 09/25/16 20:02 82 09/25/16 19:23 97.9 81 20 136/73 96 09/25/16 17:10 136/88 Automatic Cuff 09/25/16 15:38 98.0 84 20 88/53 95 09/25/16 14:55 97.4 88 18 140/70 96 09/25/16 11:55 98.0 80 21 96/50 95 I/O 09/25/16 09/25/16 09/25/16 09/26/16 09/26/16 09/26/16 07:00 15:00 23:00 07:00 15:00 23:00 Output Total 300 ml Balance -300 ml Output Urine Total 300 ml (Denice Yadav) Result Diagram: 09/24/16 0612 09/25/16 1705 ROS General: Fatigue, Weakness, Other (10 point ROS done positives noted) /WELT WHEELER: Other (to see and follow-up with nephrology, recent AV shunt placed in right arm) (Denice Yadav) Physical Exam Physical Exam PHYSICAL EXAMINATION GENERAL: This is a morbidly obese male who appears to be in no acute distress. He is alert and awake, feeling much better HEAD: Normocephalic Facial features appear asymmetric with left eye bulla, still has erythema and edema but mildly improved OROPHARYNGEAL: Oropharynx clear NECK: Supple. Trachea midline without deviation. CARDIAC: Regular rhythm, regular rate, S1 and S2 are heard. Distant LUNGS: Diminished in bases bilateral to auscultation Mild use of accessory muscles on inspiration or expiration. ABDOMEN: Obese, Soft, nontender, no organomegaly or masses. Bowel sounds soft EXTREMITIES: 2-3+ or extremity edema. Extremities warm NEUROLOGICAL: Patient mood and affect appropriate. SKIN:Warm and moist (Denice Yadav) A/P Assessment and Plan Vital signs reviewed , normal trends patient is afebrile, BP 105/59 with machine blood pressure, due to patient's body habitus encouraged staff to take manual blood pressures on him for accuracy Telemetry shows sinus rhythm with bundle branch block rate controlled, case and all PVCs Bowel regimen monitor, may need laxative this p.m. if no BM today Pulm edema, Active diuresis, continues to mildly diurese now compensated Cardiology consult appreciated, patient is to have the second part of his cardiac scan today continue Lasix nephrology consult has new AVF to right FA,, smaller wound with suture light scab, no erythema covered, maintaining dressing clean dry and intact BP, controlled with increased diuresis continue home meds PRN Hydralazine IV added per card, pt. will need to go to floor if necessary add Accuchecks AC/HS with ISS continue home meds Left eye with lower lid swelling continues, patient did have some release of edematous fluid, wrapped and secured with gauze, pinkish tinged fluid Change dressing when necessary and as needed ophthalmology consult, appreciate assistance with medical management D/W RN D/W Dr. 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 I reviewed the findings presented. I attest that I had a [id number] encounter with the patient on the same day, and personally performed and documented my assessment and findings in the medical record. (Sandra Childress MD) Denice Yadav Sep 26, 2016 09:32 Sandra Childress MD Sep 26, 2016 19:18
--- NOTE | 2016-09-26 10:16 | HHI.NPPN ---
Subjective General Problems: Anemia, Edema, Heart Disease, Hypertension Renal Failure: Chronic, Stage IV History of Present Illness 41-year-old male with a past medical history of hypertension and diabetes mellitus, history of chronic kidney disease with advanced stage IV renal failure, cardiomyopathy, hyperlipidemia, chronic obstructive pulmonary disease, gastroesophageal reflux disease, peripheral neuropathy, anxiety/depression was admitted because of shortness of breath and chest pain. I was called to see the patient because of elevated BUN and creatinine. The patient has a known history of chronic kidney disease. He has been following with nephrology in [place] with Dr. Medina. Additional Remarks Patient is alert, has orthopnea, and SOB on exertion. Review of Systems General Constitutional: Fatigue Respiratory Lungs: SOB, Cough, Sputum, Wheeze Cardiovascular Cardiac: FUNG Objective Data Data 09/25/16 09/26/16 19:00 07:00 Output Total 300 ml Balance -300 ml Output Urine Total 300 ml Vital Signs Date Time Temp Pulse Resp B/P Pulse Ox O2 Delivery O2 Flow Rate FiO2 09/26/16 07:53 98.6 90 17 115/69 95 09/26/16 07:15 90 09/26/16 03:32 98.1 82 20 105/59 95 09/25/16 23:02 97.9 83 20 133/73 96 09/25/16 20:02 82 09/25/16 19:23 97.9 81 20 136/73 96 09/25/16 17:10 136/88 Automatic Cuff 09/25/16 15:38 98.0 84 20 88/53 95 09/25/16 14:55 97.4 88 18 140/70 96 09/25/16 11:55 98.0 80 21 96/50 95 -: 09/24/16 0612 09/25/16 1705 Physical Exam General Appearance: Well Developed, No Acute Distress, Comfortable, Obese Ears & Nose Ears & Nose Exam: Nasal Mucosa [place] Throat Throat Exam: Oral Mucosa [place] & Moist Neck Neck Exam: Neck Supple, Trachea Midline Pulmonary Resp Exam: Decreased Bases, Poor Inspiratory Effort Cardiology CV Exam: Regular, Good Perfusion Gastrointestinal/Abdomen GI Exam: Soft, Non-Tender, Bowel Sounds Present, Non-Distended Musculoskeletal MS Exam: Joints Intact Integumentary Skin Exam: Warm, Dry Extremeties Extremities Exam: Trace Edema Neurologic Neuro Exam: Alert, Awake, Oriented, Speech Clear, Moving All Extremities, No Focal Deficits Psychiatric Psych Exam: Appropriate Responses Assessment/Plan Assessment Summary: Anemia of CKD, Fluid/Volume Overload, Hypertension, CKD Stage IV Problem List: (1) HTN (hypertension) (2) CHF (congestive heart failure) (3) Diabetes mellitus (4) SOB (shortness of breath) (5) Hypoxia (6) AIDS (acquired immune deficiency syndrome) (7) CKD (chronic kidney disease) stage 4, GFR 15-29 ml/min Plan Creatinine increase slightly, mainly due to diuretics. Urine out put is better. Continue Lasix. Cardiology following, has stress test. Follow the result. Discuss with the patient about possible Dialysis, if not better. Problem Qualifiers (1) Diabetes mellitus: Parker Ramos MD Sep 26, 2016 10:16
--- NOTE | 2016-09-26 12:02 | RADRPT ---
EXAM DATE/TIME: 09/25/2016 13:01 [facility] COMPARISON: MYOCARDIAL PERF PHARM SPECT, GATED W/EF, October 11, 2011, 13:25. INDICATIONS : Dyspnea worse with exertion and produces chest tightness. Angina. DOSE: 30.1 mCi Tc99m Myoview at stress. 30.5 mCi Tc99m Myoview at rest. 0.4 mg Lexiscan STRESS SYMPTOMS: Chest heaviness. EJECTION FRACTION: 50% MEDICAL HISTORY : Renal insufficiency, chrnoic. Congestive heart failure. Chronic obstructive pulmonary disease. Hypert ension. GERD. SURGICAL HISTORY : None. ENCOUNTER: Initial ACUITY: 1 day PAIN SCALE: 5/10 LOCATION: chest TECHNIQUE: The patient underwent pharmacologic stress with infusion of prescribed dose. Continuous ECG tracing was monitored during stress. Gated SPECT imaging was performed after stress and conventional SPECT i maging was performed at rest. The examination was performed on a SPECT/CT scanner, both attenuation and non-corrected datasets were reviewed. FINDINGS: DISTRIBUTION: The maximum perfused segment at stress is in the inferoseptal wall. PERFUSION STUDY: A large and predominantly fixed perfusion abnormality is identified anterior, lateral and inferior wa lls. There is some reperfusion on the anterior wall margin of the defect. No other reversible perfusi on abnormalities are seen. GATED STUDY: Left ventricular chamber is dilated.. Significant hypokinesia is identified in both the anterior and inferior sanchez. There is paradoxical motion of the apex. Calculated ejection fraction is 50%. CONCLUSION: Large predominantly fixed perfusion abnormality involving the anterior, lateral and inferior sanchez wi th some reperfusion along the anterior wall margin. Hypokinetic anterior and inferior sanchez with paradoxical motion of the apex. 50% ejection fraction. RISK CATEGORY: High (>3% Annual Mortality Rate) Richy Holder MD on September 26, 2016 at 11:54 Board Certified Radiologist. This report was verified electronically.
[2016-09-26] MEDS: MINOXIDIL 2.5 MG TAB PO SCH (22:07)
[2016-09-27] VITALS (9 sets, daily range): BP systolic 92–136; BP diastolic 53–72; PULSE 77–96; RESP 18–20; TEMP 98.3–98.5; O2SAT 94–97
[2016-09-27] MEDS: hydrALAZINE HCL 50 MG TAB PO SCH ×3 (00:54→17:15)
[2016-09-27] MEDS: INSULIN ASPART SUPPLEMENTAL SCALE SQ SCH ×4 (06:29→20:41)
[2016-09-27] MEDS: SUCRALFATE 1 GM/10 ML CUP PO SCH ×4 (06:33→21:15)
[2016-09-27] MEDS: FUROSEMIDE 40 MG/4 ML VIAL IV PUSH SCH ×2 (08:16→17:16)
[2016-09-27] MEDS: CALCITRIOL 0.25 MCG CAP PO SCH (08:17)
[2016-09-27] MEDS: LISINOPRIL 20 MG TAB PO SCH (08:17)
[2016-09-27] MEDS: DOLUTEGRAVIR SODIUM 50 MG TAB PO SCH (08:17)
[2016-09-27] MEDS: NIFEdipine 60 MG SUSTAINED RELEASE TAB PO SCH (08:18)
[2016-09-27] MEDS: ABACAVIR SULFATE 300 MG TAB PO SCH (08:18)
[2016-09-27] MEDS: DOCUSATE SODIUM 50 MG/SENNA 8.6 MG TAB PO SCH ×2 (08:18→20:42)
[2016-09-27] MEDS: CARVEDILOL 12.5 MG TAB PO SCH ×2 (08:18→21:16)
[2016-09-27] MEDS: SODIUM CHLORIDE 0.9% FLUSH 10 ML FLUSH IV FLUSH SCH ×2 (08:18→21:13)
[2016-09-27] MEDS: cloNIDine HCL 0.2 MG TAB PO SCH ×2 (08:18→21:16)
[2016-09-27] MEDS: VITAMIN B CMPLX/VITC/FOLIC AC CAP PO SCH (08:19)
[2016-09-27] MEDS: PANTOPRAZOLE SOD 40 MG DELAYED RELEASE TAB PO SCH (08:19)
--- NOTE | 2016-09-27 08:54 | HHI.PR ---
Subjective Remarks Resting in the bed , able to lie flatter No SOB at rest Blood pressure low normal range, continue to monitor for any symptoms, need manual checks , discussed with nurse (Denice Yadav) Objective Objective Results - Vital Signs Date Time Temp Pulse Resp B/P Pulse Ox O2 Delivery O2 Flow Rate FiO2 09/27/16 07:15 77 09/27/16 04:15 83 09/27/16 04:07 98.5 80 18 109/59 97 09/27/16 00:07 86 09/26/16 23:13 98.2 85 18 136/70 97 09/26/16 20:21 98.2 86 20 133/63 97 09/26/16 20:02 85 09/26/16 18:32 98.0 86 18 122/74 97 09/26/16 12:38 98.6 85 16 117/65 94 I/O 09/26/16 09/26/16 09/26/16 09/27/16 09/27/16 09/27/16 07:00 15:00 23:00 07:00 15:00 23:00 Output Total 400 ml 250 ml Balance -400 ml -250 ml Output Urine Total 400 ml 250 ml # Voids 2 (Denice Yadav) Result Diagram: 09/24/16 0612 09/25/16 1705 ROS General: Weakness, Other (10 point ROS done) HEENT: Other (lt. eye bulla, serous drainage) Pulmonary: SOB (none at rest.) (Denice Yadav) Physical Exam Physical Exam PHYSICAL EXAMINATION GENERAL: This is a black [place] male who appears to be in no acute distress. He is sleeping , but arouses HEAD: Normocephalic, lt eye bulla OROPHARYNGEAL: Oropharynx without erythema or edema. NECK: Supple. obese Trachea midline without deviation. CARDIAC: Regular rhythm, regular rate, S1 and S2 are heard. distant LUNGS: Diminished at bases to auscultation bilaterally. ABDOMEN: Soft, nontender, no organomegaly or masses. Bowel sounds are heard in all four quadrants. No rebound. No guarding. EXTREMITIES: 2+ edema. LE NEUROLOGICAL: Patient mood and affect appropriate. No focal deficit SKIN:Warm and moist (Denice Yadav) A/P Assessment and Plan Vital signs reviewed , normal trends patient is afebrile, machine BP 105/59, requested manual, asymptomatic Telemetry shows sinus rhythm with bundle branch block rate controlled, case and all PVCs Bowel regimen BM yesterday restarted Ointment on lt. eye Pulm edema, Active diuresis, continues to mildly diurese now compensated Cardiology consult appreciated, nuclear scan reviewed, further testing and treatment possible. continue Lasix, patient able to sleep flat now. nephrology consult has new AVF to right FA,, smaller wound with suture light scab, no erythema covered, maintaining dressing clean dry and intact BP, controlled with increased diuresis continue home meds PRN Hydralazine IV added per card, pt. will need to go to floor if necessary add Accuchecks AC/HS with ISS continue home meds Left eye with lower lid swelling continues, patient did have some release of edematous fluid, wrapped and secured with gauze, pinkish tinged fluid, patient removes dressing at intervals for comfort. Change dressing when necessary and as needed appreciate ophthalmology input, F/U as OP D/W RN D/W Dr. Childress, seen on his behalf D/W pt Discharge planning based on cardiology findings and further testing (Denice Yadav) Assessment and Plan seen, examined by myself, Dr Childress, today Discussed with patient Stable clinically Stress test showed a large fixed defect We will discuss with cardiology Likely he could go home on medical treatment Discussed with mid level provider The exam, history, and the medical decision-making described in the above note were completed with the assistance of the mid-level provider. I reviewed the findings presented. I attest that I had a [id number] encounter with the patient on the same day, and personally performed and documented my assessment and findings in the medical record. (Sandra Childress MD) Denice Yadav Sep 27, 2016 08:54 Sandra Childress MD Sep 27, 2016 09:36
[2016-09-27] MEDS: ERYTHROMYCIN 0.5% OPTH OINT 3.5 GM TUBO LEFT EYE SCH ×4 (09:00→21:13)
[2016-09-27] MEDS: INSULIN HUMAN NPH/R 70/30 1,000 UNITS/10 ML VIAL SQ SCH ×2 (10:26→21:10)
--- NOTE | 2016-09-27 13:28 | HHI.NPPN ---
Subjective General Problems: Anemia, Edema, Heart Disease, Hypertension Renal Failure: Chronic, Stage IV History of Present Illness 41-year-old male with a past medical history of hypertension and diabetes mellitus, history of chronic kidney disease with advanced stage IV renal failure, cardiomyopathy, hyperlipidemia, chronic obstructive pulmonary disease, gastroesophageal reflux disease, peripheral neuropathy, anxiety/depression was admitted because of shortness of breath and chest pain. I was called to see the patient because of elevated BUN and creatinine. The patient has a known history of chronic kidney disease. He has been following with nephrology in [place] with Dr. Medina. Additional Remarks Patient is alert, has orthopnea, other [place] breathing is better. Review of Systems General Constitutional: Fatigue Respiratory Lungs: SOB, Cough, Sputum, Wheeze Cardiovascular Cardiac: FUNG Objective Data Data 09/26/16 09/27/16 19:00 07:00 Output Total 650 ml Balance -650 ml Output Urine Total 650 ml # Voids 2 Vital Signs Date Time Temp Pulse Resp B/P Pulse Ox O2 Delivery O2 Flow Rate FiO2 09/27/16 10:44 126/72 09/27/16 07:15 77 09/27/16 04:15 83 09/27/16 04:07 98.5 80 18 109/59 97 09/27/16 00:07 86 09/26/16 23:13 98.2 85 18 136/70 97 09/26/16 20:21 98.2 86 20 133/63 97 09/26/16 20:02 85 09/26/16 18:32 98.0 86 18 122/74 97 -: 09/24/16 0612 09/25/16 1705 Physical Exam General Appearance: Well Developed, No Acute Distress, Comfortable, Obese Ears & Nose Ears & Nose Exam: Nasal Mucosa [place] Throat Throat Exam: Oral Mucosa [place] & Moist Neck Neck Exam: Neck Supple, Trachea Midline Pulmonary Resp Exam: Decreased Bases, Poor Inspiratory Effort Cardiology CV Exam: Regular, Good Perfusion Gastrointestinal/Abdomen GI Exam: Soft, Non-Tender, Bowel Sounds Present, Non-Distended Musculoskeletal MS Exam: Joints Intact Integumentary Skin Exam: Warm, Dry Extremeties Extremities Exam: Trace Edema Neurologic Neuro Exam: Alert, Awake, Oriented, Speech Clear, Moving All Extremities, No Focal Deficits Psychiatric Psych Exam: Appropriate Responses Assessment/Plan Assessment Summary: Anemia of CKD, Fluid/Volume Overload, Hypertension, CKD Stage IV Problem List: (1) HTN (hypertension) (2) CHF (congestive heart failure) (3) Diabetes mellitus (4) SOB (shortness of breath) (5) Hypoxia (6) AIDS (acquired immune deficiency syndrome) (7) CKD (chronic kidney disease) stage 4, GFR 15-29 ml/min Plan Creatinine increase slightly, mainly due to diuretics. Urine out put is better. Continue Lasix. Cardiology following, has stress test. The results are noted. Need top restrict salt and fluid. Continue diuretics. Will need HD in near future. Problem Qualifiers (1) HTN (hypertension): Qualified Code: I10 - Essential hypertension (2) Diabetes mellitus: Parker Ramos MD Sep 27, 2016 13:28
[2016-09-27] MEDS ORDERED: FURO1TAB61 PO (18:19)
[2016-09-27] MEDS: MINOXIDIL 2.5 MG TAB PO SCH (21:16)
[2016-09-28 00:07] VITALS: BP 112/54; PULSE 85; RESP 18; TEMP 98.1; O2SAT 97
[2016-09-28 04:02] VITALS: PULSE 79
[2016-09-28 04:12] VITALS: BP 93/51; PULSE 80; RESP 18; TEMP 98.4; O2SAT 98
[2016-09-28] MEDS: INSULIN ASPART SUPPLEMENTAL SCALE SQ SCH (05:50)
[2016-09-28] MEDS: SUCRALFATE 1 GM/10 ML CUP PO SCH ×2 (05:56→10:28)
[2016-09-28] MEDS: hydrALAZINE HCL 50 MG TAB PO SCH ×2 (08:00)
--- NOTE | 2016-09-28 08:24 | HHI.PR ---
Subjective Remarks Resting in the bed , states struggling with shortness of breath more this morning Chest x-ray done, no new infiltrate noted Encourage patient to keep his left eye wrapped and secured Duo nebs ordered (Denice Yadav) Objective Objective Results - Vital Signs Date Time Temp Pulse Resp B/P Pulse Ox O2 Delivery O2 Flow Rate FiO2 09/28/16 04:12 98.4 80 18 93/51 98 09/28/16 04:02 79 09/28/16 00:07 98.1 85 18 112/54 97 09/27/16 23:43 83 09/27/16 23:38 96 09/27/16 20:21 98.3 89 18 136/71 97 09/27/16 12:00 89 20 116/68 94 09/27/16 10:44 126/72 I/O 09/27/16 09/27/16 09/27/16 09/28/16 09/28/16 09/28/16 07:00 15:00 23:00 07:00 15:00 23:00 Output Total 250 ml Balance -250 ml Output Urine Total 250 ml # Voids 2 (Denice Yadav) Result Diagram: 09/24/16 0612 09/25/16 1705 ROS General: Fatigue, Weakness, Other HEENT: Other (10 point ROS done positives noted in left eye bulla edema) Pulmonary: Cough, SOB (Denice Yadav) Physical Exam Physical Exam PHYSICAL EXAMINATION GENERAL: This is a obese male who appears to be in mild shortness of breath. He is alert and awake, HEAD: Normocephalic with left eye bulla and edema. Currently open to air with serous drainage OROPHARYNGEAL: Oropharynx without erythema or edema. NECK: Supple. Obese Trachea midline without deviation. CARDIAC: Regular rhythm, regular rate, S1 and S2 are heard. LUNGS: Decreased breath sounds in his mid to lower bases to auscultation bilaterally. Mild tachypnea respirations at rest low volumes ABDOMEN: Soft, nontender, obese Bowel sounds are heard in all four quadrants. EXTREMITIES: 2-3+ lower extremity edema. Pulses equal bilateral. NEUROLOGICAL: Patient mood and affect appropriate. SKIN:Warm and moist (Denice Yadav) A/P Assessment and Plan Vital signs reviewed , normal trends patient is afebrile, charted blood pressure 93/51, requested manual pressure with large cuff, BP 128/65 Lab results, anemia secondary to his chronic disease, no obvious blood loss Telemetry shows sinus rhythm with bundle branch block rate controlled, case and all PVCs Bowel regimen BM 2 days ago restarted Ointment on lt. eye, encourage patient to keep dressing on especially during the daytime Pulm edema, Active diuresis, which controlled his shortness of breath for several days but now complaining that he is struggling to lay flat again, lung volumes are low, chest x-ray ordered, no new infiltrates seen no Lasix given, duo nebs ordered Cardiology consult appreciated, need scan results and plan a care for this patient before discharge If chest x-ray continues to show heart failure we'll give IV Lasix this morning COPD, added DuoNeb treatments this morning every 6 hours nephrology consult has new AVF to right FA,, smaller wound with suture light scab, no erythema covered, maintaining dressing clean dry and intact Noted that patient may need dialysis to assist with his fluid control BP, controlled, continue home meds PRN Hydralazine IV added per card, pt. will need to go to floor if necessary add Accuchecks AC/HS with ISS continue home meds Left eye with lower lid swelling continues, patient did have some release of edematous fluid, wrapped and secured with gauze, pinkish tinged fluid, patient removes dressing at intervals for comfort. Change dressing when necessary and as needed appreciate ophthalmology input, F/U as OP D/W RN D/W Dr. Childress, seen on his behalf D/W pt Discharge planning based on cardiology findings and further testing and patient' s stability with his heart failure (Denice Yadav) Assessment and Plan seen, examined by myself, Dr Childress, today Discussed with patient Discussed with nurse Discussed with Dr. Mason Discussed with energy conservation specialist Discharge home today, he is cleared from cardiology standpoint He does have fixed defect on his stress test He is a high risk for intervention from several standpoints He has advanced kidney disease and unlikely to tolerate contrast for any cardiac catheterization without pushing him towards dialysis Discussed with mid level provider The exam, history, and the medical decision-making described in the above note were completed with the assistance of the mid-level provider. I reviewed the findings presented. I attest that I had a [id number] encounter with the patient on the same day, and personally performed and documented my assessment and findings in the medical record. 45 minutes Discussed With: Nurse (Sandra Childress MD) Denice Yadav Sep 28, 2016 08:24 Sandra Childress MD Sep 28, 2016 12:34
--- NOTE | 2016-09-28 08:24 | RADRPT ---
EXAM DATE/TIME: 09/28/2016 08:14 [facility] COMPARISON: CHEST SINGLE AP, September 23, 2016, 11:18. INDICATIONS : Chest pain, coughing, and shortness of breath. MEDICAL HISTORY : Diabetes mellitus type II. Congestive heart failure. Chronic obstructive pulmonary disease. Stro ke. Hypertension. SURGICAL HISTORY : None. ENCOUNTER: Subsequent ACUITY: 4 - 6 days PAIN SCORE: 6/10 LOCATION: Bilateral chest FINDINGS: 2 AP portable semierect views of the chest were obtained and again demonstrate moderate cardiomegaly with globular heart configuration. There is mild hazy opacity in the perihilar regions and lung bases with no definite confluent infiltrates or effusions. The bony thorax is intact. There are overlying electrocardiogram leads. CONCLUSION: 1. Cardiomegaly again noted. 2. Mild hazy opacity in both lungs which may be artifactual and due to overlying attenuation by soft tissue. There is no definite consolidation or effusion. Germain Ramírez MD on September 28, 2016 at 8:21 Board Certified Radiologist. This report was verified electronically.
[2016-09-28 08:40] VITALS: BP 128/65; PULSE 68; RESP 18; TEMP 97.8; O2SAT 95
[2016-09-28] MEDS: VITAMIN B CMPLX/VITC/FOLIC AC CAP PO SCH (09:00)
[2016-09-28] MEDS: CALCITRIOL 0.25 MCG CAP PO SCH (09:00)
[2016-09-28] MEDS: ERYTHROMYCIN 0.5% OPTH OINT 3.5 GM TUBO LEFT EYE SCH (09:00)
[2016-09-28] MEDS: INSULIN HUMAN NPH/R 70/30 1,000 UNITS/10 ML VIAL SQ SCH (09:00)
[2016-09-28] MEDS ORDERED: RESP: ALBUTEROL 2.5 MG/IPRATROPIUM 0.5 MG NEB (SCH) NEB (10:00)
[2016-09-28] MEDS: PANTOPRAZOLE SOD 40 MG DELAYED RELEASE TAB PO SCH (10:25)
[2016-09-28] MEDS: cloNIDine HCL 0.2 MG TAB PO SCH (10:25)
[2016-09-28] MEDS: DOCUSATE SODIUM 50 MG/SENNA 8.6 MG TAB PO SCH (10:25)
[2016-09-28] MEDS: NIFEdipine 60 MG SUSTAINED RELEASE TAB PO SCH (10:25)
[2016-09-28] MEDS: DOLUTEGRAVIR SODIUM 50 MG TAB PO SCH (10:25)
[2016-09-28] MEDS: ABACAVIR SULFATE 300 MG TAB PO SCH (10:25)
[2016-09-28] MEDS: LISINOPRIL 20 MG TAB PO SCH (10:25)
[2016-09-28] MEDS: CARVEDILOL 12.5 MG TAB PO SCH (10:26)
[2016-09-28] MEDS: FUROSEMIDE 40 MG/4 ML VIAL IV PUSH SCH (10:26)
[2016-09-28] MEDS: SODIUM CHLORIDE 0.9% FLUSH 10 ML FLUSH IV FLUSH SCH (10:26)
--- NOTE | 2016-09-28 12:58 | HHI.NPPN ---
Subjective General Problems: Anemia, Edema, Heart Disease, Hypertension Renal Failure: Chronic, Stage IV History of Present Illness 41-year-old male with a past medical history of hypertension and diabetes mellitus, history of chronic kidney disease with advanced stage IV renal failure, cardiomyopathy, hyperlipidemia, chronic obstructive pulmonary disease, gastroesophageal reflux disease, peripheral neuropathy, anxiety/depression was admitted because of shortness of breath and chest pain. I was called to see the patient because of elevated BUN and creatinine. The patient has a known history of chronic kidney disease. He has been following with nephrology in [place] with Dr. Medina. Additional Remarks Patient is alert, breathing is much better, passing more urine. Review of Systems General Constitutional: Fatigue Respiratory Lungs: SOB, Cough, Sputum, Wheeze Cardiovascular Cardiac: FUNG Objective Data Data Vital Signs Date Time Temp Pulse Resp B/P Pulse Ox O2 Delivery O2 Flow Rate FiO2 09/28/16 08:40 97.8 68 18 128/65 95 09/28/16 04:12 98.4 80 18 93/51 98 09/28/16 04:02 79 09/28/16 00:07 98.1 85 18 112/54 97 09/27/16 23:43 83 09/27/16 23:38 96 09/27/16 20:21 98.3 89 18 136/71 97 -: 09/24/16 0612 09/25/16 1705 Physical Exam General Appearance: Well Developed, No Acute Distress, Comfortable, Obese Ears & Nose Ears & Nose Exam: Nasal Mucosa [place] Throat Throat Exam: Oral Mucosa [place] & Moist Neck Neck Exam: Neck Supple, Trachea Midline Pulmonary Resp Exam: Decreased Bases, Poor Inspiratory Effort Cardiology CV Exam: Regular, Good Perfusion Gastrointestinal/Abdomen GI Exam: Soft, Non-Tender, Bowel Sounds Present, Non-Distended Musculoskeletal MS Exam: Joints Intact Integumentary Skin Exam: Warm, Dry Extremeties Extremities Exam: Trace Edema Neurologic Neuro Exam: Alert, Awake, Oriented, Speech Clear, Moving All Extremities, No Focal Deficits Psychiatric Psych Exam: Appropriate Responses Assessment/Plan Assessment Summary: Anemia of CKD, Fluid/Volume Overload, Hypertension, CKD Stage IV Problem List: (1) HTN (hypertension) (2) CHF (congestive heart failure) (3) Diabetes mellitus (4) SOB (shortness of breath) (5) Hypoxia (6) AIDS (acquired immune deficiency syndrome) (7) CKD (chronic kidney disease) stage 4, GFR 15-29 ml/min Plan Creatinine increase slightly, mainly due to diuretics. Urine out put is better. Continue Lasix. Cardiology following, has stress test. The results are noted. Need top restrict salt and fluid. Continue diuretics. Will need HD in near future. Now for D/C, to follow in 2-3 weeks. Problem Qualifiers (1) HTN (hypertension): Qualified Code: I10 - Essential hypertension (2) Diabetes mellitus: Parker Ramos MD Sep 28, 2016 12:58
--- NOTE | 2016-09-28 17:05 | HHI.DS ---
Discharge Summary Admission Date Sep 23, 2016 at 16:04 Discharge Date: Sep 28, 2016 Admitting Diagnosis ATYPICAL CP, SOB, CHF Brief History This was a pleasant 41-year-old black male who started feeling weak and fatigue yesterday with acute shortness of breath. He stated that he could not lie flat and was unable to sleep well last night. He stated that the breathing has continued to worsen to the point that he was breathing hard and started having tightness in his chest. He stated now the chest pain has eased and he was beginning to diurese after receiving IV Lasix in the ER. The patient stated that he did have a hacky cough yesterday but is coughing up no sputum. Denied any fever, chills, no nausea, no vomiting, no diarrhea or constipation. The patient has end-stage renal disease and has recently had an AV shunt placed in his right axilla. He does have significant history of cardiomyopathy, congestive heart failure, diabetes with peripheral neuropathy, and other comorbidities. alert, oriented, fairly good historian, sitting on the side of the bed. CBC/BMP: 09/24/16 0612 09/25/16 1705 Significant Findings Laboratory Tests Test 09/25/16 17:05 Chloride Level 108 MEQ/L (98-107) Blood Urea Nitrogen 44 MG/DL (7-18) Creatinine 4.81 MG/DL (0.60-1.30) Estimat Glomerular Filtration 16 ML/MIN (>89) Rate Random Glucose 187 MG/DL (74-106) Calcium Level 8.3 MG/DL (8.5-10.1) Troponin I 0.06 NG/ML (0.02-0.05) Imaging Last Impressions Chest X-Ray 09/28/16 0000 Signed Impressions: Service Date/Time: Wednesday, September 28, 2016 08:14 - CONCLUSION: 1. Cardiomegaly again noted. 2. Mild hazy opacity in both lungs which may be artifactual and due to overlying attenuation by soft tissue. There is no definite consolidation or effusion. Germain Ramírez MD Myocardial Perfusion Scan Nuc Med 09/25/16 0000 Signed Impressions: Service Date/Time: September 13:01 - CONCLUSION: Large predominantly fixed perfusion abnormality involving the anterior, lateral and inferior sanchez with some reperfusion along the anterior wall margin. Hypokinetic anterior and inferior sanchez with paradoxical motion of the apex. 50%% ejection fraction. RISK CATEGORY: High (>3%% Annual Mortality Rate) Richy Holder MD Orbit CT 09/23/16 0000 Signed Impressions: Service Date/Time: Friday, September 23, 2016 18:32 - CONCLUSION: 1. Preseptal soft tissue swelling left orbit, possibly complex fluid. Globes intact. No retro-bulbar abnormalities identified. Javier Monsalve MD PE at Discharge GENERAL: obese male who appeared to be in mild shortness of breath. alert and awake, HEAD: Normocephalic with left eye bulla and edema. Currently open to air with serous drainage OROPHARYNGEAL: Oropharynx without erythema or edema. NECK: Supple. Obese Trachea midline without deviation. CARDIAC: Regular rhythm, regular rate, S1 and S2 are heard. LUNGS: Decreased breath sounds in his mid to lower bases to auscultation bilaterally. Mild tachypnea respirations at rest low volumes ABDOMEN: Soft, nontender, obese Bowel sounds are heard in all four quadrants. EXTREMITIES: 2-3+ lower extremity edema. Pulses equal bilateral. NEUROLOGICAL: Patient mood and affect appropriate. SKIN:Warm and moist Hospital Course Patient's initial diagnosis was used to design his plan of care during this hospital stay. Vital signs reviewed throughout hospital stay , normal trends for the most part , charted blood pressure 93/51, requested manual pressure with large cuff, BP 128/65, encouraged staff to use the same large BP cuff for every blood pressure Lab results, anemia secondary to his chronic disease, no obvious blood loss throughout hospital stay Telemetry shows sinus rhythm with bundle branch block rate controlled, case and all PVCs Bowel regimen BM 2 days ago, no acute issues during hospital stay restarted Ointment on lt. eye, encourage patient to keep dressing on especially during the daytime Admitted with Pulm edema, Active diuresis, on admission which controlled his shortness of breath for several days but now complaining that he is struggling to lay flat again, lung volumes are low, chest x-ray ordered, no new infiltrates seen no Lasix given, duo nebs ordered, chest x-ray done today shows improvement of pulmonary edema and resolved. No further Lasix given Cardiology consult appreciated, need scan results and plan a care for this patient before discharge Dr. Childress did speak with Dr. Mason today, cardiac stress test was negative. Patient is high risk for any further intervention test, due to his kidney disease, and using any type of contrast media. Patient was medically stable and appropriate to discharge COPD, added DuoNeb treatments this morning every 6 hours nephrology consult has new AVF to right FA,, smaller wound with suture light scab, no erythema covered, maintaining dressing clean dry and intact Noted that patient may need dialysis to assist with his fluid control in the near future BP, controlled, continue home meds PRN Hydralazine IV added per card, pt. will need to go to floor if necessary add Accuchecks AC/HS with ISS continue home meds Left eye with lower lid swelling continues, patient did have some release of edematous fluid, wrapped and secured with gauze, pinkish tinged fluid, patient removes dressing at intervals for comfort. Change dressing when necessary and as needed appreciate ophthalmology input, F/U as OP Pt Condition on Discharge: Stable Discharge Disposition: Discharge Home Discharge Instructions DIET: Follow Instructions for: Heart Healthy Diet, Diabetic Diet Activities you can perform: Weight Bearing as Andrez Follow up Referrals: Nephrology - 3-[address] Ramos New Medications: Furosemide (Lasix) 80 Mg Tab 80 MG PO BID fluid retention #60 Ref 0 TAB Continued Medications: Abacavir (Abacavir) 300 Mg Tab 300 MG PO DAILY Hazardous agent; use appropriate precautions for handling & disposal. Mgmt Viral Infection #30 Ref 0 TAB Wtukgqlc-Uygiheubjulr-Jhvhklkacl (Triumeq) 600-50-300 Mg Tab 1 TAB PO DAILY Hazardous agent; use appropriate precautions for handling & disposal. Mgmt Viral Infection #30 Ref 0 TAB Amlodipine (Amlodipine) 10 Mg Tab 10 MG PO DAILY Blood Pressure Management #30 Ref 0 TAB Azithromycin (Azithromycin) 250 Mg Tab 250 MG PO DIRECTED Take 2 tabs (500 mg) on day 1 then 1 tab daily x 4 days. Infection #6 Ref 0 TAB B-Complex W/ C & Folic Acid (Nephro-Destiny) 1 Tab 1 TAB PO DAILY Nutritional Supplement #30 Ref 0 TAB Calcitriol (Calcitriol) 0.25 Mcg Cap 0.25 MCG PO M,W,F Calcium Supplement #30 Ref 0 CAP Carvedilol (Carvedilol) 25 Mg Tab 37 MG PO BID #60 Ref 0 TAB Clonidine (Clonidine) 0.2 Mg Tab 0.2 MG PO BID Blood Pressure Management #60 Ref 0 TAB Dolutegravir (Tivicay) 50 Mg Tab 50 MG PO DAILY Mgmt Viral Infection #30 Ref 0 TAB Erythromycin Opth Oint (Erythromycin Opth Oint) 5 Mg/Gm Oint 1 APPLIC LEFT EYE QID Infection #1 Ref 0 TUBE Furosemide (Furosemide) 20 Mg Tab 20 MG PO DAILY PRN SWELLING #30 Ref 0 TAB Insulin Human Isophane-Regular 70-30 Inj (Novolin 70-30 Inj) 1,000 Unit/10 Ml Vial 50 UNITS SQ DAILY Blood Sugar Management Ref 0 ML Insulin Human Isophane-Regular 70-30 Inj (Novolin 70-30 Inj) 1,000 Unit/10 Ml Vial 25 UNITS SQ HS Blood Sugar Management Ref 0 ML Lamivudine (Lamivudine) 150 Mg Tab 75 MG PO DAILY Mgmt Viral Infection #60 Ref 0 TAB Lisinopril (Lisinopril) 40 Mg Tab 40 MG PO DAILY Blood Pressure Management #30 Ref 0 TAB Minoxidil (Minoxidil) 2.5 Mg Tab 2.5 MG PO HS Blood Pressure Management #30 Ref 0 TAB Denice Yadav Sep 28, 2016 17:04
== END 2016-09-28 12:05 | disposition home or self-care (01) ==
LOC: NEPC 11:01 → NEDA 16:04 → NEPGCP 18:37
PROVIDERS: ADMIT Specialist; ATTEND Specialist
DX: J44.1 Chronic obstructive pulmonary disease with (acute) exacerbation (principal); I50.9 Heart failure, unspecified; N18.6 End stage renal disease; I25.5 Ischemic cardiomyopathy; E11.42 Type 2 diabetes mellitus with diabetic polyneuropathy; E78.5 Hyperlipidemia, unspecified; I25.10 Atherosclerotic heart disease of native coronary artery without angina pectoris; F41.8 Other specified anxiety disorders; K21.9 Gastro-esophageal reflux disease without esophagitis; B20 Human immunodeficiency virus [HIV] disease; I25.2 Old myocardial infarction; Z79.899 Other long term (current) drug therapy; I45.4 Nonspecific intraventricular block; Z79.4 Long term (current) use of insulin; I13.2 Hypertensive heart and chronic kidney disease with heart failure and with stage 5 chronic kidney disease, or end stage renal disease; R94.31 Abnormal electrocardiogram [ECG] [EKG]; H57.8 Other specified disorders of eye and adnexa; E66.01 Morbid (severe) obesity due to excess calories; E11.319 Type 2 diabetes mellitus with unspecified diabetic retinopathy without macular edema; H33.23 Serous retinal detachment, bilateral; E03.9 Hypothyroidism, unspecified; T81.30XA Disruption of wound, unspecified, initial encounter; X58.XXXA Exposure to other specified factors, initial encounter; E11.22 Type 2 diabetes mellitus with diabetic chronic kidney disease
CPT/HCPCS: 70480; 71010; 78452; 80048; 80076; 81001; 82550; 82552; 82948; 83605; 83880; 84484; 85025; 93005; 93017; 94640; 94664; 96372; 96374; 96376; 99285; A9502; G0378; J1815; J1940; J2785; J7626

== ENCOUNTER 2016-09-29 12:38 | Inpatient (IN) | payer MEDICARE, OTHER ==
[~2016-09-29] VITALS: Ht 172.7 cm; Wt 170.0 kg
[2016-09-29] VITALS (9 sets, daily range): BP systolic 134–165; BP diastolic 59–109; PULSE 86–96; RESP 18–22; TEMP 97.9–99.4; O2SAT 83–98
[~2016-09-29 12:38] MED LIST changes: +ERYTOIN10 LEFT EYE; +FURO1TAB61 PO
[2016-09-29] MEDS ORDERED: SODIUM CHLORIDE 0.9% FLUSH 10 ML FLUSH IVF PRN (13:45)
--- NOTE | 2016-09-29 14:40 | RADRPT ---
EXAM DATE/TIME: 09/29/2016 14:11 [facility] COMPARISON: CHEST SINGLE AP, September 28, 2016, 8:14. INDICATIONS : Shortness of breath. MEDICAL HISTORY : Diabetes mellitus type II. Congestive heart failure. Chronic obstructive SURGICAL HISTORY : None. ENCOUNTER: Initial ACUITY: 1 week PAIN SCORE: 0/10 LOCATION: Bilateral chest FINDINGS: The heart is enlarged. There is diffuse interstitial prominence suggesting congestive failure. No pne umothorax is seen. The visualized bony structures are grossly intact. The exam does demonstrate tubing overlying the right shoulder and upper right neck. CONCLUSION: 1. Cardiomegaly and interstitial prominence suggesting congestive failure. Deni Conklin MD on September 29, 2016 at 14:38 Board Certified Radiologist. This report was verified electronically.
[2016-09-29 14:52] LABS: AUTOMATED NEUTROPHIL # 3.6 TH/MM3 (1.8-7.7); BASOPHIL % 0.7 % (0.0-2.0); EOSINOPHIL # 0.1 TH/MM3 (0-0.4); EOSINOPHIL % 2.6 % (0.0-4.0); HEMO FLAGS DIFF FINAL; LYMPH % 11.9 % (9.0-44.0); LYMPHOCYTE # 0.6 TH/MM3 (1.0-4.8); MEAN CORPUSCULAR HEMOGLOBIN 27.6 PG (27.0-34.0); MEAN CORPUSCULAR HGB CONC 32.9 % (32.0-36.0); MONO % 9.5 % (0.0-8.0); NEUT % 75.3 % (16.0-70.0); PLATELET COUNT 144 TH/MM3 (150-450); RED BLOOD COUNT 3.93 MIL/MM3 (4.50-5.90); RED CELL DISTRIBUTION WIDTH 15.8 % (11.6-17.2); WHITE BLOOD COUNT 4.8 TH/MM3 (4.0-11.0)
[2016-09-29] MEDS ORDERED: FUROSEMIDE 100 MG/10 ML VIAL IV PUSH ONE (15:00)
[2016-09-29 15:06] LABS: ALT (GPT) 13 U/L (12-78); ANION GAP 9 MEQ/L (5-15); AST (GOT) 13 U/L (15-37); BICARBONATE 23.5 MEQ/L (21.0-32.0); BLOOD UREA NITROGEN 65 MG/DL (7-18); CHLORIDE 109 MEQ/L (98-107); GLOMERULAR FILTRATION RATE 14 ML/MIN (>89); POTASSIUM 4.6 MEQ/L (3.5-5.1); SODIUM (NA) 141 MEQ/L (136-145)
[2016-09-29 15:10] LABS: ALKALINE PHOSPHATASE 93 U/L (45-117); TOTAL BILIRUBIN ADULT 0.4 MG/DL (0.2-1.0)
[2016-09-29] MEDS ORDERED: SENNOSIDES 8.6 MG TAB PO PRN (15:45)
[2016-09-29] MEDS ORDERED: MAGNESIUM HYDROXIDE SUSP 30 ML CUP PO PRN (15:45)
[2016-09-29] MEDS ORDERED: ONDANSETRON HCL 4 MG/2 ML VIAL IVP PRN (15:45)
[2016-09-29] MEDS ORDERED: BISACODYL 10 MG SUPP RECTAL PRN (15:45)
[2016-09-29] MEDS ORDERED: SODIUM CHLORIDE 0.9% FLUSH 10 ML FLUSH IV FLUSH PRN (15:45)
[2016-09-29] MEDS ORDERED: NALOXONE HCL 0.4 MG/ML AMP IV PRN (15:45)
[2016-09-29] MEDS ORDERED: LACTULOSE SYRUP 20 GM/30 ML CUP PO PRN (15:45)
--- NOTE | 2016-09-29 16:12 | PD ---
HPI Chief Complaint: Respiratory Symptoms Time Seen by Provider: 12:54 Travel History International Travel<30 days: No Contact w/Intl Traveler<30days: No Traveled to known affect area: No History of Present Illness HPI This is a 41-year-old male who has a history of chronic kidney disease who presents to the emergency department with increasing shortness of breath, constant, severe, worse with exertion and worse laying flat associated with lower extremity swelling. Patient was just admitted to the hospital for 5 days and discharged yesterday. He was diuresed. His symptoms improved. His symptoms seem to be attributed to worsening kidney disease. He Had a fistula placed on September 02. PFSH Past Medical History Asthma: No Blood Disorders: No Anxiety: Yes Depression: Yes Heart Rhythm Problems: No Cancer: No Cardiomyopathy: Yes Cardiovascular Problems: Yes High Cholesterol: Yes Chemotherapy: No Chest Pain: No Congestive Heart Failure: Yes COPD: Yes Coronary Artery Disease: Yes Diabetes: Yes Patient Takes Glucophage: No Diminished Hearing: No Endocrine: Yes Gastrointestinal Disorders: Yes (COLITIS) GERD: Yes Genitourinary: No Headaches: Yes Heparin Induced Thrombocytopen: No Hypertension: Yes Immune Disorder: Yes (HIV ON HAART) Implanted Vascular Access Dvce: No Kidney Stones: Yes Medical other: Yes (ALLERGIC REACTION TO SURGERY IN L EYE BLISTER COVERING IT) Musculoskeletal: No Neurologic: No Psychiatric: Yes Reproductive: No Respiratory: Yes Immunizations Current: Yes Myocardial Infarction: Yes Pneumonia: Yes Radiation Therapy: No Renal Failure: Yes (CKD STAGE 4) Sleep Apnea: No Thyroid Disease: No ?: Not Past Surgical History Abdominal Surgery: No AICD: No Arteriovenous Shunt: Yes (RIGHT ARM AV FISTULA) Cardiac Surgery: No Coronary Artery Bypass Graft: No Ear Surgery: No Endocrine Surgery: No Eye Surgery: Yes (L cataract removed) Genitourinary Surgery: No Gynecologic Surgery: No Insulin Pump: No Joint Replacement: No Neurologic Surgery: No Pacemaker: No Thoracic Surgery: No Other Surgery: Yes (L EYE FOR LASIX AND CATARACT AND "FREEZE EYE" ) Family History Family Myocardial Infarction: No Social History Alcohol Use: No Tobacco Use: No Substance Use: No Allergies-Medications (Allergen,Severity, Reaction): Coded Allergies: No Known Allergies (Verified , 09/29/16) Reported Meds & Prescriptions Reported Meds & Active Scripts Active Lasix (Furosemide) 80 Mg Tab 80 Mg PO BID Minoxidil 2.5 Mg Tab 2.5 Mg PO HS Reported Erythromycin Opth Oint 5 Mg/Gm Oint 1 Applic LEFT EYE QID Furosemide 20 Mg Tab 20 Mg PO DAILY PRN Nephro-Destiny (B-Complex W/ C & Folic Acid) 1 Tab 1 Tab PO DAILY Lisinopril 40 Mg Tab 40 Mg PO DAILY Calcitriol 0.25 Mcg Cap 0.25 Mcg PO M,W,F Lamivudine 150 Mg Tab 75 Mg PO DAILY Abacavir (Abacavir Sulfate) 300 Mg Tab 300 Mg PO DAILY Hazardous agent; use appropriate precautions for handling & disposal. Tivicay (Dolutegravir Sodium) 50 Mg Tab 50 Mg PO DAILY Carvedilol 25 Mg Tab 37 Mg PO BID Amlodipine (Amlodipine Besylate) 10 Mg Tab 10 Mg PO DAILY Triumeq (Guqtwfof-Jjobxublccro-Aegzydwvxw) 600-50-300 Mg Tab 1 Tab PO DAILY Hazardous agent; use appropriate precautions for handling & disposal. Clonidine (Clonidine HCl) 0.2 Mg Tab 0.2 Mg PO BID Novolin 70-30 Inj (Insulin Human Isoph/Insulin Regular) 1,000 Unit/10 Ml Vial 25 Units SQ HS Novolin 70-30 Inj (Insulin Human Isoph/Insulin Regular) 1,000 Unit/10 Ml Vial 50 Units SQ DAILY Review of Systems Except as stated in HPI: all other systems reviewed are Neg Physical Exam Narrative GENERAL: Morbidly obese. SKIN: Focused skin assessment warm and dry. HEAD: Atraumatic. Normocephalic. EYES: Pupils equal and round. Edema of the left lower eyelid. ENT: Moist mucous membranes NECK: Trachea midline. CARDIOVASCULAR: Regular rate and rhythm. No murmur appreciated. 2+ pitting edema in the bilateral lower extremities. RESPIRATORY: Breath sounds equal bilaterally. Exam limited by habitus. GASTROINTESTINAL: Abdomen soft, non-tender, nondistended. MUSCULOSKELETAL: No obvious deformities. NEUROLOGICAL: Awake and alert. No obvious cranial nerve deficits. Moving all extremities. PSYCHIATRIC: Appropriate mood and affect; insight and judgment normal. Data Data Last Documented VS Vital Signs Date Time Temp Pulse Resp B/P Pulse Ox O2 Delivery O2 Flow Rate FiO2 09/29/16 13:01 90 22 96 Nasal Cannula 4 09/29/16 13:01 99.4 165/89 Orders Electrocardiogram (09/29/16 13:45) B-Type Natriuretic Peptide (09/29/16 13:45) Complete Blood Count With Diff (09/29/16 13:45) Comprehensive Metabolic Panel (09/29/16 13:45) Troponin I (09/29/16 13:45) Chest, Single Ap (09/29/16 13:45) Ecg Monitoring (09/29/16 13:45) Bilateral Bp Monitoring (09/29/16 13:45) Iv Access Insert/Monitor (09/29/16 13:45) Oximetry (09/29/16 13:45) Oxygen Administration (09/29/16 13:45) Sodium Chloride 0.9% Flush (Ns Flush) (09/29/16 13:45) Furosemide Inj (Lasix Inj) (09/29/16 15:00) Admit Order (Ed Use Only) (09/29/16 15:38) Labs Laboratory Tests Test 09/29/16 14:10 White Blood Count 4.8 TH/MM3 Red Blood Count 3.93 MIL/MM3 Hemoglobin 10.8 GM/DL Hematocrit 33.0 % Mean Corpuscular Volume 84.0 FL Mean Corpuscular Hemoglobin 27.6 PG Mean Corpuscular Hemoglobin 32.9 % Concent Red Cell Distribution Width 15.8 % Platelet Count 144 TH/MM3 Mean Platelet Volume 9.6 FL Neutrophils (%) (Auto) 75.3 % Lymphocytes (%) (Auto) 11.9 % Monocytes (%) (Auto) 9.5 % Eosinophils (%) (Auto) 2.6 % Basophils (%) (Auto) 0.7 % Neutrophils # (Auto) 3.6 TH/MM3 Lymphocytes # (Auto) 0.6 TH/MM3 Monocytes # (Auto) 0.5 TH/MM3 Eosinophils # (Auto) 0.1 TH/MM3 Basophils # (Auto) 0.0 TH/MM3 CBC Comment DIFF FINAL Differential Comment Sodium Level 141 MEQ/L Potassium Level 4.6 MEQ/L Chloride Level 109 MEQ/L Carbon Dioxide Level 23.5 MEQ/L Anion Gap 9 MEQ/L Blood Urea Nitrogen 65 MG/DL Creatinine 5.48 MG/DL Estimat Glomerular Filtration 14 ML/MIN Rate Random Glucose 145 MG/DL Calcium Level 8.3 MG/DL Total Bilirubin 0.4 MG/DL Aspartate Amino Transf 13 U/L (AST/SGOT) Alanine Aminotransferase 13 U/L (ALT/SGPT) Alkaline Phosphatase 93 U/L Troponin I 0.06 NG/ML B-Type Natriuretic Peptide 295 PG/ML Total Protein 7.3 GM/DL Albumin 3.1 GM/DL MDM Medical Decision Making Medical Screen Exam Complete: Yes Emergency Medical Condition: Yes Interpretation(s) No leukocytosis Anemia BUN is 65 Creatinine is 5.4 Troponin is 0.06 which is similar to prior BNP is 295 slightly increased from prior Last 24 hours Impressions Chest X-Ray 09/29/16 1345 Signed Impressions: Service Date/Time: Thursday, September 29, 2016 14:11 - CONCLUSION: 1. Cardiomegaly and interstitial prominence suggesting congestive failure. Deni Conklin MD Differential Diagnosis Volume overload, congestive heart failure, renal failure, pneumonia, myocardial infarction Narrative Course This is a 41-year-old male who presents to the emergency department with increasing shortness of breath and dyspnea on exertion. On exam he has pitting edema of the lower extremities. He was hypoxic on room air on arrival to 83%. He was placed on a monitor and an IV was established. He was given 80 mg of IV Lasix. Labs demonstrate slightly worsening renal function. Chest x-ray demonstrates pulmonary edema. I think patient likely requires dialysis and his symptoms are due to volume overload. Patient will be admitted Diagnosis Primary Impression: Pulmonary edema Qualified Code: J81.0 - Acute pulmonary edema Admitting Information Admitting Physician Requests: Admit Aubree Reagan MD Sep 29, 2016 16:12
[2016-09-29] MEDS ORDERED: PILL SPLITTER OTHER PRN (16:15)
[2016-09-29] MEDS: ERYTHROMYCIN 0.5% OPTH OINT 3.5 GM TUBO LEFT EYE SCH ×3 (18:00→21:03)
--- NOTE | 2016-09-29 18:17 | HHI.PR ---
Objective Objective Results - Vital Signs Date Time Temp Pulse Resp B/P Pulse Ox O2 Delivery O2 Flow Rate FiO2 09/29/16 17:07 88 20 146/84 98 Nasal Cannula 4 09/29/16 16:31 86 20 134/76 98 Room Air 142/78 09/29/16 16:31 96 Nasal Cannula 4 09/29/16 16:31 96 Nasal Cannula 4 09/29/16 15:00 88 18 162/59 98 Nasal Cannula 4 09/29/16 13:01 90 22 96 Nasal Cannula 4 09/29/16 13:01 99.4 90 20 165/89 96 Nasal Cannula 4 09/29/16 12:56 99.4 90 22 165/89 83 I/O 09/28/16 09/28/16 09/28/16 09/29/16 09/29/16 09/29/16 07:00 15:00 23:00 07:00 15:00 23:00 Output Total 1000 ml Balance -1000 ml Output Urine Total 1000 ml # Voids 2 (Denice Yadav) Result Diagram: 09/29/16 1410 09/29/16 1410 A/P Assessment and Plan [id number] CHF, failed OP therapy and treatment\ DM2 HTN CKD, 4 cough, uncontrolled, possible bronchitis COPD (Denice Yadav) Denice Yadav Sep 29, 2016 18:17 Sandra Childress MD Sep 30, 2016 18:49
[2016-09-29] MEDS: HEPARIN SODIUM - SQ 10,000 UNITS/ML VIAL SQ SCH (18:22)
[2016-09-29] MEDS: FUROSEMIDE 40 MG/4 ML VIAL IV PUSH SCH (18:23)
--- NOTE | 2016-09-29 18:53 | EKG ---
Date Performed: 09/29/2016 Time Performed: 12:57:39 PTAGE: 41 years EKG: Baseline artifact present Sinus rhythm POSSIBLE LEFT ATRIAL ENLARGEMENT INDETERMINATE AXIS Right bundle branch block ABNORMAL ECG Compared to prior tracing no significant change PREVIOUS TRACING : 09/23/2016 11.09 DOCTOR: John Paul Hammond Interpretating Date/Time 09/29/2016 18:52:09
--- NOTE | 2016-09-29 19:09 | MH ---
cc: RAJENDRA PIÑA MD DATE OF ADMISSION 09/29/2016 DATE OF 1975 CHIEF COMPLAINT Shortness of breath, uncontrolled. Cough uncontrolled. Travel in the last 30 days none. HISTORY OF THE PRESENT ILLNESS This is a 41-year-old black male who was recently in the hospital and discharged yesterday with some of the same symptoms, shortness of breath, chest pain, atypical and chronic kidney disease. The patient recently had a A-V fistula placed in his right arm. He is currently seeing nephrology for dialysis in the near future. The patient has generalized edema in his periphery. He is morbidly obese. He struggles with his mobility, ambulation and shortness of breath especially when trying to lie flat. His shortness of breath and pain are worse with exertion. He states his chest pain is more sharp in nature. He is coughing, a dry, hacky cough, nonproductive. PAST MEDICAL HISTORY Includes: 1. Depression, anxiety 2. Cardiomyopathy. 3. Cardiovascular disease. 4. Hyperlipidemia. 5. Congestive heart failure. 6. COPD. 7. Coronary artery disease. 8. Diabetes type 2. 9. History of colitis. 10. Gastroesophageal reflux disease. 11. HIV on HAART. 12. Kidney stones. 13. Cataract surgery with an allergic reaction to the surgery left eye bulla with a large blister, candy apple red in color with some serous drainage about the eye. 14. Respiratory, chronic obstructive pulmonary disease. 15. Chronic kidney disease stage IV. 16. History of pneumonia. 17. Myocardial infarction. 18. Possible obstructive sleep apnea. PAST SURGICAL HISTORY 1. Right arm A-V fistula, fairly recent. 2. Left cataract removed. 3. Recent stress test this past admission which was negative for any further workup needed. 4. Left eye surgery for LASIK and cataract and "freeze eye", that is according to the record. ALLERGIES NO KNOWN ALLERGIES. MEDICATIONS Reported medications: 1. Erythromycin ophthalmic ointment. 2. Lasix. 3. B complex vitamins. 4. Lisinopril. 5. Calcitriol. 6. Lamivudine. 7. Abacavir. 8. Tivicay. 9. Carvedilol. 10. Amlodipine. 11. Triumeq. 12. Clonidine. 13. Novolin 70/30 insulin. SOCIAL HISTORY The patient is single. Lives alone in a second story apartment. No alcohol, tobacco or illicit drug use. REVIEW OF SYSTEMS A 12 point review of systems was obtained, positives noted are uncontrolled cough, shortness of breath. Uncontrolled atypical chest pain, sharp in nature. Anasarca edema with special attention to his lower extremities. Other systems negative or unremarkable. PHYSICAL EXAMINATION VITAL SIGNS: Temperature is 99.4, pulse 90, respiratory rate 22, blood pressure on admission 165/89, now 146/84. O2 saturation 98% nasal cannula at 4 liters. GENERAL: Morbidly obese black male. Looks older than his stated age. Sitting up in a chair. He is alert and oriented and a fairly good historian. SKIN: He has pink mucous membranes, warm and dry. Skin is very dry to touch. Turgor is fair and dry. HEENT: Normocephalic, atraumatic with the exception of the left eye which has an edematous lower lid bullae and serous drainage. Mucous membranes are pink. NECK: Supple. CARDIOVASCULAR: S1-S2, distant heart sounds. LUNGS: The lung sounds are diminished throughout with special attention to his lower bibasilar area. ABDOMEN: Round, soft, nontender. Morbidly obese. Taut. MUSCULOSKELETAL: 2+ edema in his lower extremities, pitting edema. Generalized edema in his trunk and upper extremities. NEUROLOGIC: He is alert and oriented, understands the situation. PSYCHIATRIC: Anxiety noted. Appropriate mood and affect except for his anxiety. LABORATORY DATA Diagnostic data, WBC count 4.8, RBC 3.93, hemoglobin 10.8, hematocrit 33. Platelet count 144. Neutrophil count 75.3. Monocytes count 9.5. Sodium 141, potassium 4.6, chloride 109, BUN 65, creatinine 5.48, GFR 14. Random glucose 145. Calcium 8.3. Troponin 0.06. BNP 295. Albumin 3.1. IMAGING Imaging studies show his chest x-ray to have cardiomegaly and interstitial prominence suggesting congestive heart failure. ASSESSMENT AND PLAN 1. Congestive heart failure failed outpatient treatment regimen, with uncontrolled dyspnea. 2. Ischemic cardiomyopathy. 3. Cough with possible bronchitis. 4. History of hypertension. 5. Diabetes type 2. 6. Chronic kidney disease stage IV. 7. Chemosis of the left conjunctiva. Our plan is vital signs every four hours. Reconcile his medications. Monitor his labs. Keep him on telemetry with IV access. The patient will then be on Accu-Chek before meals and bedtime with sliding scale insulin. Erythromycin ointment on his left eye. He will be inpatient certification. Bowel regimen. Healthy heart diet, 1800 calorie ADA diet. We will consult nephrology for their expert opinion. It has been discussed recently about possible dialysis to help control the patient's fluid balance and shift. We will give him 40 of Lasix IV three times a day for some active diuresis. The patient is full code, full aggressive care. We will follow. Dictated by: RAMONITA Cyr MD VIANNEY Lawrence/JOSEFINA /6:03 PM /6:27 PM
[2016-09-29] MEDS: cloNIDine HCL 0.2 MG TAB PO SCH (20:55)
[2016-09-29] MEDS: CARVEDILOL 12.5 MG TAB PO SCH (20:55)
[2016-09-29] MEDS: DOCUSATE SODIUM 50 MG/SENNA 8.6 MG TAB PO SCH (20:55)
[2016-09-29] MEDS: MINOXIDIL 2.5 MG TAB PO SCH (20:56)
[2016-09-29] MEDS: SODIUM CHLORIDE 0.9% FLUSH 10 ML FLUSH IV FLUSH SCH (20:57)
[2016-09-29] MEDS: INSULIN HUMAN NPH/R 70/30 1,000 UNITS/10 ML VIAL SQ SCH (21:00)
[2016-09-29] MEDS: BENZONATATE 100 MG CAP PO PRN (21:03)
[2016-09-29] MEDS: guaiFENesin SOLUTION 200 MG/10 ML CUP PO PRN (22:53)
[2016-09-30] MEDS: BENZONATATE 100 MG CAP PO PRN (01:26)
[2016-09-30 04:39] VITALS: BP 130/78; PULSE 90; RESP 19; TEMP 97.6; O2SAT 92
[2016-09-30] MEDS: HEPARIN SODIUM - SQ 10,000 UNITS/ML VIAL SQ SCH ×2 (05:11→18:00)
--- NOTE | 2016-09-30 07:09 | MB ---
cc: DAVID DUNN MD DATE OF CONSULTATION 09/29/2016 REASON FOR CONSULTATION Chronic kidney disease with advanced renal failure and fluid overload status. HISTORY OF PRESENT ILLNESS This is a 41-year-old male known to me from his last admission which was a few days ago and he was discharged yesterday with past medical history of hypertension, diabetes mellitus, ischemic heart disease, cardiomyopathy, chronic kidney disease, hyperlipidemia, chronic depression, history of renal stone who came to the hospital with a complaint of worsening shortness of breath. The patient has been following as an outpatient with Dr. Rico and has a right arm AV fistula done by Dr. Genao about three weeks ago. The patient was just discharged yesterday and at that time he also came with worsening shortness of breath and orthopnea and his creatinine was 4.0 on admission, increased to 4.8 and now he is currently with a creatinine of 5.4. The patient has creatinine varying from 4-5 in the last two to three months and his GFR has been varying from 14-23 most of the time. The patient was discharged yesterday afternoon. He went home and he was not able to get his medications and not able to take the diuretics and was not able to sleep because of severe shortness of breath especially on lying down. He has mild cough. There is no chest pain. No palpitation. No nausea or vomiting. No history of diarrhea. PAST MEDICAL HISTORY 1. Hypertension 2. Diabetes mellitus 3. Morbid obesity 4. History of HIV disease. 5. Chronic anemia 6. Cardiomyopathy 7. Depression 8. History of renal stone. 9. Hyperlipidemia PAST SURGICAL HISTORY 1. Cataract surgery 2. Right AV fistula surgery was done on September 02. REVIEW OF SYSTEMS The patient has generalized weakness, feeling tired, has worsening shortness breath more with exertion and lying flat. He has cough which is mainly dry. There is no chest pain. No palpitation. No nausea or vomiting, but his appetite is not very good and he is feeling weak and tired. SOCIAL HISTORY The patient has no history of smoking or alcoholism. FAMILY HISTORY Positive for hypertension. ALLERGIES He has NO KNOWN DRUG ALLERGIES. MEDICATIONS Currently he is on following medications: 1. Clonidine 0.1 mg b.i.d. 2. Carvedilol 37.5 mg b.i.d. 3. Larisa-Colace 1 tablet b.i.d. 4. Ziagen 300 mg once a day 5. Norvasc 10 mg once a day 6. Rocaltrol 0.25 mcg daily 7. Novolin insulin 70/30 50 units subcu daily 8. Epivir 75 mg daily 9. Lisinopril 40 mg daily 10. Nephrocaps 1 capsule daily 11. Minoxidil 2.5 mg q.h.s. 12. Zofran as needed PHYSICAL EXAM On examination, the patient is awake and alert. He is sitting in the bed with some respiratory distress and has nasal cannula with 4 liters on. His last blood pressure is 146/84, temperature is 99.4, oxygen saturation on 4 liters nasal cannula is 96-98%. HEAD, EYES, EARS, NOSE, AND THROAT: Pupils equally reacting to light. Nonicteric sclera. His left eye has periorbital swelling and just below the eye he has redness of the skin with a skin tag hanging down and has some discharge. NECK: Supple. JVD is slightly elevated. LUNGS: The patient has bilateral decreased air entry with basilar rales and scattered wheezing. HEART: S1 and S2 regular rhythm. ABDOMEN: Distended, soft and lax. There is no tenderness. EXTREMITIES: He has bilateral 2+ edema. INVESTIGATIONS WBC count is 4.8, hemoglobin 10.8, platelet count 144, neutrophils 75.3%. Sodium 141, potassium 4.6, chloride 109, bicarb 23.5, BUN 65, creatinine 5.4, GFR is 14, calcium 8.3, AST is 13, ALT is 13 also, troponin-I is 0.06, BNP is 295, total protein 7.3 with albumin of 3.1. Urinalysis is showing protein of 30. IMAGING STUDIES The patient had a chest x-ray done which shows that he has cardiomegaly and interstitial prominence, a history of congestive heart failure. ASSESSMENT/PLAN 1. Fluid overload and history of congestive heart failure 2. Chronic kidney disease, advanced renal failure and some acute worsening. 3. Morbid obesity 4. Hypertension 5. Diabetes mellitus 6. Anemia 7. History of HIV disease. The patient has advanced renal disease and a now is having recurrent shortness of breath. He is getting now Lasix t.i.d. Possibly, he will need to be started on dialysis. I did discuss this with the patient and he is agreeable in case we needs to start him on dialysis. I will watch his urine output, BUN and creatinine carefully and decide about dialysis possibly tomorrow or Thursday. His fistula is not ready so in case if he needs dialysis, he will need a Perma-Cath. Thank you for the consultation. I will follow him while he is in the hospital. MD SELMA George/KEISHA /5:13 PM /6:52 AM
[2016-09-30 08:00] VITALS: BP 141/85; PULSE 83; RESP 19; TEMP 98.1; O2SAT 94
[2016-09-30] MEDS ORDERED: B COMPLEX PO SCH (09:00)
[2016-09-30] MEDS ORDERED: FOLIC ACID PO SCH (09:00)
[2016-09-30] MEDS ORDERED: [UNRECOGNIZED DRUG - OTHER] PO SCH (09:00)
[2016-09-30] MEDS ORDERED: NON-FORMULARY DRUG (Abacavir-Dolutegravir-Lamivudine (Triumeq) 1 TAB) PO SCH (09:00)
[2016-09-30] MEDS ORDERED: NON-FORMULARY DRUG (Lisinopril 40 MG) PO SCH (09:00)
[2016-09-30] MEDS: cloNIDine HCL 0.2 MG TAB PO SCH ×2 (10:26→22:53)
[2016-09-30] MEDS: CARVEDILOL 12.5 MG TAB PO SCH ×2 (10:26→22:53)
[2016-09-30] MEDS: DOCUSATE SODIUM 50 MG/SENNA 8.6 MG TAB PO SCH ×2 (10:26→22:53)
[2016-09-30] MEDS: LISINOPRIL 20 MG TAB PO SCH (10:26)
[2016-09-30] MEDS: VITAMIN B CMPLX/VITC/FOLIC AC CAP PO SCH (10:27)
[2016-09-30] MEDS: ABACAVIR SULFATE 300 MG TAB PO SCH (10:27)
[2016-09-30] MEDS: DOLUTEGRAVIR SODIUM 50 MG TAB PO SCH (10:27)
[2016-09-30] MEDS: FUROSEMIDE 40 MG/4 ML VIAL IV PUSH SCH ×3 (10:27→22:54)
[2016-09-30] MEDS: CALCITRIOL 0.25 MCG CAP PO SCH (10:27)
[2016-09-30] MEDS: SODIUM CHLORIDE 0.9% FLUSH 10 ML FLUSH IV FLUSH SCH ×2 (10:28→22:53)
[2016-09-30] MEDS: ERYTHROMYCIN 0.5% OPTH OINT 3.5 GM TUBO LEFT EYE SCH ×4 (10:31→22:54)
[2016-09-30] MEDS: INSULIN HUMAN NPH/R 70/30 1,000 UNITS/10 ML VIAL SQ SCH ×2 (10:39→23:55)
[2016-09-30 11:00] VITALS: PULSE 85
[2016-09-30 11:16] LABS: BICARBONATE 25.4 MEQ/L (21.0-32.0); POTASSIUM 4.5 MEQ/L (3.5-5.1)
[2016-09-30 11:45] VITALS: BP 134/76; PULSE 87; RESP 19; TEMP 98.7; O2SAT 94
--- NOTE | 2016-09-30 11:53 | HHI.PR ---
Subjective Subjective Remarks Short of breath when laying flat No chest pain Leg edema No fever Overall feeling poorly Left eye swelling has improved since last admission Review of Systems Constitutional Constitutional Remarks 12 point review of systems completed, negative except as noted above Vitals/Results Intake & Output 09/29/16 09/29/16 09/30/16 15:00 23:00 07:00 Intake Total 480 ml 720 ml Output Total 1550 ml 1025 ml Balance -1070 ml -305 ml Intake Oral 480 ml 720 ml Output Urine Total 1550 ml 1025 ml # Voids 2 # Bowel Movements 1 1 Vital Signs Vital Signs Date Time Temp Pulse Resp B/P Pulse Ox O2 Delivery O2 Flow Rate FiO2 09/30/16 08:00 98.1 83 19 141/85 94 09/30/16 04:39 97.6 90 19 130/78 92 09/29/16 23:49 97.9 91 19 151/79 92 09/29/16 20:48 98.4 92 20 150/109 96 09/29/16 20:00 90 09/29/16 18:30 98.5 96 18 164/91 92 09/29/16 18:30 96 09/29/16 17:07 88 20 146/84 98 Nasal Cannula 4 09/29/16 16:31 86 20 134/76 98 Room Air 142/78 09/29/16 16:31 96 Nasal Cannula 4 09/29/16 16:31 96 Nasal Cannula 4 09/29/16 15:00 88 18 162/59 98 Nasal Cannula 4 09/29/16 13:01 90 22 96 Nasal Cannula 4 09/29/16 13:01 99.4 90 20 165/89 96 Nasal Cannula 4 09/29/16 12:56 99.4 90 22 165/89 83 CBC/BMP: 09/29/16 1410 09/30/16 1026 Lab Results Laboratory Tests Test 09/29/16 09/30/16 14:10 10:26 White Blood Count 4.8 TH/MM3 Red Blood Count 3.93 MIL/MM3 Hemoglobin 10.8 GM/DL Hematocrit 33.0 % Mean Corpuscular Volume 84.0 FL Mean Corpuscular Hemoglobin 27.6 PG Mean Corpuscular Hemoglobin 32.9 % Concent Red Cell Distribution Width 15.8 % Platelet Count 144 TH/MM3 Mean Platelet Volume 9.6 FL Neutrophils (%) (Auto) 75.3 % Lymphocytes (%) (Auto) 11.9 % Monocytes (%) (Auto) 9.5 % Eosinophils (%) (Auto) 2.6 % Basophils (%) (Auto) 0.7 % Neutrophils # (Auto) 3.6 TH/MM3 Lymphocytes # (Auto) 0.6 TH/MM3 Monocytes # (Auto) 0.5 TH/MM3 Eosinophils # (Auto) 0.1 TH/MM3 Basophils # (Auto) 0.0 TH/MM3 CBC Comment DIFF FINAL Differential Comment Sodium Level 141 MEQ/L 139 MEQ/L Potassium Level 4.6 MEQ/L 4.5 MEQ/L Chloride Level 109 MEQ/L 108 MEQ/L Carbon Dioxide Level 23.5 MEQ/L 25.4 MEQ/L Anion Gap 9 MEQ/L 6 MEQ/L Blood Urea Nitrogen 65 MG/DL 66 MG/DL Creatinine 5.48 MG/DL 5.18 MG/DL Estimat Glomerular Filtration 14 ML/MIN 15 ML/MIN Rate Random Glucose 145 MG/DL 180 MG/DL Calcium Level 8.3 MG/DL 8.5 MG/DL Total Bilirubin 0.4 MG/DL Aspartate Amino Transf 13 U/L (AST/SGOT) Alanine Aminotransferase 13 U/L (ALT/SGPT) Alkaline Phosphatase 93 U/L Troponin I 0.06 NG/ML B-Type Natriuretic Peptide 295 PG/ML Total Protein 7.3 GM/DL Albumin 3.1 GM/DL Physical Exam General General Appearance: Well Developed, No Acute Distress, Obese Eyes Eye Remarks Left lower lid swelling, protruding. Left conjunctival erythema. Ears & Nose Ears & Nose Exam: Nasal Mucosa [place] Throat Throat Exam: Oral Mucosa [place] & Moist Neck Neck Exam: Neck Supple, Trachea Midline Pulmonary Resp Exam: Poor Inspiratory Effort Cardiology CV Exam: Regular Gastrointestinal/Abdomen GI Exam: Soft, Non-Tender, Bowel Sounds Present Musculoskeletal MS Exam: Joints Intact Integumentary Skin Exam: Warm, Dry Extremeties Extremities Exam: Moderate Edema, Dependent Edema Extremeties Remarks Right upper extremity with AV fistula, positive bruit and thrill Neurologic Neuro Exam: Alert, Awake, Oriented, Speech Clear, Moving All Extremities, No Focal Deficits Psychiatric Psych Exam: Appropriate Responses VTE Prophylaxis VTE Prophylaxis Meds: Heparin Assessment/Plan Problem List: (1) Acute on chronic systolic congestive heart failure (2) Morbid obesity (3) Hypothyroidism (4) HIV (human immunodeficiency virus infection) (5) Type 2 diabetes mellitus (6) Ischemic cardiomyopathy (7) Hypertension (8) CKD (chronic kidney disease) stage 4, GFR 15-29 ml/min Assessment/Plan Recurrent pulmonary edema, acute on chronic CHF Ischemic cardiomyopathy -Continue with diuretics-Lasix 40 mg IV 3 times a day Appreciate nephrology input, may need to be started on hemodialysis during this admission -Continue lisinopril status post right arm AV fistula per Dr. Genao -Monitor fistula Diabetes type 2 We'll start Accu-Cheks before meals and at bedtime with insulin therapy as needed Status post left eye surgery-cataract, has left lower leg swelling which is improving Continue erythromycin ointment Hypertension, stable Continue home medications HIV -Continue with home meds Heparin for DVT prophylaxis Continue to monitor intake and output, renal function Discussed with RN Discussed with patient Discussed with Dr. Childress This patient was seen by myself and Dr. Childress, this note is written on his behalf Problem Qualifiers (1) Hypothyroidism: Qualified Code: E03.9 - Hypothyroidism, unspecified type (2) Type 2 diabetes mellitus: (3) Hypertension: Qualified Code: I10 - Essential hypertension Marianna Chino Sep 30, 2016 11:53
[2016-09-30] MEDS: guaiFENesin SOLUTION 200 MG/10 ML CUP PO PRN (11:56)
[2016-09-30] MEDS ORDERED: GLUCAGON 1 MG/ML VIAL OTHER PRN (12:15)
[2016-09-30] MEDS ORDERED: DEXTROSE 50% IN WATER 50 ML VIAL(D50) IV PRN (12:15)
[2016-09-30 16:00] VITALS: BP 127/73; PULSE 85; RESP 19; TEMP 98.4; O2SAT 93
[2016-09-30] MEDS: INSULIN ASPART SUPPLEMENTAL SCALE SQ SCH ×2 (16:00→23:54)
--- NOTE | 2016-09-30 17:21 | HHI.NPPN ---
Subjective General Problems: Anemia, Edema, Heart Disease Renal Failure: Stage V History of Present Illness 41-year-old male known to me from his last admission which was a few days ago and he was discharged yesterday with past medical history of hypertension, diabetes mellitus, ischemic heart disease, cardiomyopathy, chronic kidney disease, hyperlipidemia, chronic depression, history of renal stone who came to the hospital with a complaint of worsening shortness of breath. The patient has been following as an outpatient with Dr. Rico and has a right arm AV fistula done by Dr. Genao about three weeks ago. Additional Remarks Patient is sitting on chair and has SOB, and orthopnea, no chest pain. Review of Systems General Constitutional: Fatigue Respiratory Lungs: SOB Cardiovascular Cardiac: Edema, FUNG Objective Data Data 09/29/16 09/30/16 19:00 07:00 Intake Total 1200 ml Output Total 1000 ml 1575 ml Balance -1000 ml -375 ml Intake Oral 1200 ml Output Urine Total 1000 ml 1575 ml # Voids 2 # Bowel Movements 2 Vital Signs Date Time Temp Pulse Resp B/P Pulse Ox O2 Delivery O2 Flow Rate FiO2 09/30/16 11:45 98.7 87 19 134/76 94 09/30/16 08:00 98.1 83 19 141/85 94 09/30/16 04:39 97.6 90 19 130/78 92 09/29/16 23:49 97.9 91 19 151/79 92 09/29/16 20:48 98.4 92 20 150/109 96 09/29/16 20:00 90 09/29/16 18:30 98.5 96 18 164/91 92 09/29/16 18:30 96 -: 09/29/16 1410 09/30/16 1026 Physical Exam General Appearance: No Acute Distress, Comfortable, Obese Ears & Nose Ears & Nose Exam: Nasal Mucosa [place] Throat Throat Exam: Oral Mucosa [place] & Moist Neck Neck Exam: Neck Supple, Trachea Midline Pulmonary Resp Exam: Poor Inspiratory Effort Cardiology CV Exam: Regular Gastrointestinal/Abdomen GI Exam: Soft, Non-Tender, Bowel Sounds Present Musculoskeletal MS Exam: Joints Intact Integumentary Skin Exam: Warm, Dry Extremeties Extremities Exam: Moderate Edema, Pitting Edema, Dependent Edema Neurologic Neuro Exam: Alert, Awake, Oriented, Speech Clear, Moving All Extremities, No Focal Deficits Psychiatric Psych Exam: Appropriate Responses Assessment/Plan Assessment Summary: Fluid/Volume Overload, CHF, Hypertension, CKD Stage V Problem List: (1) CHF (congestive heart failure) (2) CAD (coronary artery disease) (3) Diabetes mellitus (4) Morbid obesity (5) Type 2 diabetes mellitus (6) Anemia (7) AIDS (acquired immune deficiency syndrome) (8) Pedal edema (9) Chronic Renal Failure / insufficiency, unspec Plan Patient is alert, sitting on chair,still has SOB on exertion. Also has Orthopnea. No chest pain. Creatinine remain above 5. Increase Lasix to 80 mg BID and add Metolazone. Will need Dialysis. D/W the patient, he want to wait 1 more day to see if has any improvement. BP is stable. Problem Qualifiers (1) Type 2 diabetes mellitus: Parker Ramos MD Sep 30, 2016 17:21
[2016-09-30 20:00] VITALS: BP 158/88; PULSE 84; RESP 20; TEMP 97.9; O2SAT 94
[2016-09-30] MEDS: MINOXIDIL 2.5 MG TAB PO SCH (22:59)
[2016-09-30] MEDS: METOLAZONE 5 MG TAB PO SCH (22:59)
[2016-10-01] VITALS: BP 116/68; PULSE 77; RESP 20; TEMP 97; O2SAT 93
[2016-10-01 04:00] VITALS: BP 131/75; PULSE 77; RESP 20; TEMP 98; O2SAT 94
[2016-10-01] MEDS: HEPARIN SODIUM - SQ 10,000 UNITS/ML VIAL SQ SCH ×2 (06:00→17:15)
[2016-10-01] MEDS: guaiFENesin SOLUTION 200 MG/10 ML CUP PO PRN (06:32)
[2016-10-01] MEDS: INSULIN ASPART SUPPLEMENTAL SCALE SQ SCH ×4 (06:34→21:00)
[2016-10-01 08:00] VITALS: BP 134/81; PULSE 79; RESP 21; TEMP 98.1; O2SAT 94
--- NOTE | 2016-10-01 08:47 | HHI.PR ---
Subjective History of Present Illness Patient deny any complaints. Review of Systems Constitutional Constitutional: Fatigue, Weakness Eyes Eyes Remarks left lower eye lid swelling Vitals/Results Intake & Output 09/30/16 09/30/16 10/01/16 15:00 23:00 07:00 Intake Total 960 ml 620 ml 960 ml Output Total 600 ml Balance 360 ml 620 ml 960 ml Intake Oral 960 ml 620 ml 960 ml Output Urine Total 600 ml # Voids 2 2 4 # Bowel Movements 0 0 1 Vital Signs Vital Signs Date Time Temp Pulse Resp B/P Pulse Ox O2 Delivery O2 Flow Rate FiO2 10/01/16 08:00 98.1 79 21 134/81 94 10/01/16 04:00 98.0 77 20 131/75 94 10/01/16 00:00 97.0 77 20 116/68 93 09/30/16 20:00 97.9 84 20 158/88 94 09/30/16 19:14 Room Air 09/30/16 16:00 98.4 85 19 127/73 93 09/30/16 11:45 98.7 87 19 134/76 94 09/30/16 11:00 85 CBC/BMP: 09/29/16 1410 09/30/16 1026 Lab Results Laboratory Tests Test 09/30/16 10:26 Sodium Level 139 MEQ/L Potassium Level 4.5 MEQ/L Chloride Level 108 MEQ/L Carbon Dioxide Level 25.4 MEQ/L Anion Gap 6 MEQ/L Blood Urea Nitrogen 66 MG/DL Creatinine 5.18 MG/DL Estimat Glomerular Filtration 15 ML/MIN Rate Random Glucose 180 MG/DL Calcium Level 8.5 MG/DL Physical Exam General General Appearance: No Acute Distress, Comfortable, Obese Eyes Eye Exam: Sclera White, Extraocular Movement Intact Eye Remarks left lower eye lid swelling Ears & Nose Ears & Nose Exam: Nasal Mucosa [place] Throat Throat Exam: Oral Mucosa [place] & Moist Neck Neck Exam: Neck Supple, Trachea Midline Pulmonary Resp Exam: Poor Inspiratory Effort Cardiology CV Exam: Regular Gastrointestinal/Abdomen GI Exam: Soft, Non-Tender, Bowel Sounds Present Musculoskeletal MS Exam: Joints Intact Integumentary Skin Exam: Warm, Dry Extremeties Extremities Exam: Moderate Edema, Pitting Edema, Dependent Edema Neurologic Neuro Exam: Alert, Awake, Oriented, Speech Clear, Moving All Extremities, No Focal Deficits Psychiatric Psych Exam: Appropriate Responses VTE Prophylaxis VTE Prophylaxis Meds: Heparin Assessment/Plan Problem List: (1) Acute on chronic systolic congestive heart failure (2) Morbid obesity (3) Hypothyroidism (4) HIV (human immunodeficiency virus infection) (5) Type 2 diabetes mellitus (6) Ischemic cardiomyopathy (7) Hypertension (8) CKD (chronic kidney disease) stage 4, GFR 15-29 ml/min Assessment/Plan Recurrent pulmonary edema, acute on chronic CHF Ischemic cardiomyopathy -Continue with diuretics-Lasix 40 mg IV 3 times a day Appreciate nephrology input, may need to be started on hemodialysis during this admission -Continue lisinopril status post right arm AV fistula per Dr. Genao -Monitor fistula Diabetes type 2 We'll start Accu-Cheks before meals and at bedtime with insulin therapy as needed Status post left eye surgery-cataract, has left lower eye lid swelling which is improving Continue erythromycin ointment Hypertension, stable Continue home medications HIV -Continue with home meds Heparin for DVT prophylaxis Continue to monitor intake and output, renal function Discussed with RN Discussed with patient Check CBC with CMP in AM. Discussed Condition with: Patient Problem Qualifiers (1) Hypothyroidism: Qualified Code: E03.9 - Hypothyroidism, unspecified type (2) Type 2 diabetes mellitus: (3) Hypertension: Qualified Code: I10 - Essential hypertension Refugio Brownlee MD Oct 01, 2016 08:47
[2016-10-01] MEDS: SODIUM CHLORIDE 0.9% FLUSH 10 ML FLUSH IV FLUSH SCH ×2 (09:00→21:23)
[2016-10-01] MEDS: INSULIN HUMAN NPH/R 70/30 1,000 UNITS/10 ML VIAL SQ SCH ×2 (09:00→21:38)
[2016-10-01 10:04] LABS: HEMATOCRIT 32.6 % (39.0-51.0); MEAN CELL VOLUME 84.7 FL (80.0-100.0); MEAN CORPUSCULAR HEMOGLOBIN 27.7 PG (27.0-34.0); MEAN CORPUSCULAR HGB CONC 32.7 % (32.0-36.0); PLATELET COUNT 148 TH/MM3 (150-450); RED BLOOD COUNT 3.85 MIL/MM3 (4.50-5.90); RED CELL DISTRIBUTION WIDTH 15.6 % (11.6-17.2); REVIEW FLAG FINAL; WHITE BLOOD COUNT 4.1 TH/MM3 (4.0-11.0)
[2016-10-01 10:11] LABS: APTT (PATIENT) 29.6 SEC (24.3-30.1); INTERNATIONAL NORMALIZED RATIO 1.1 RATIO
[2016-10-01 10:26] LABS: BICARBONATE 25.9 MEQ/L (21.0-32.0); POTASSIUM 4.5 MEQ/L (3.5-5.1)
[2016-10-01] MEDS: VITAMIN B CMPLX/VITC/FOLIC AC CAP PO SCH (11:10)
[2016-10-01] MEDS: cloNIDine HCL 0.2 MG TAB PO SCH ×2 (11:11→21:00)
[2016-10-01] MEDS: LISINOPRIL 20 MG TAB PO SCH (11:11)
[2016-10-01] MEDS: METOLAZONE 5 MG TAB PO SCH ×2 (11:13→21:22)
[2016-10-01] MEDS: ABACAVIR SULFATE 300 MG TAB PO SCH (11:13)
[2016-10-01] MEDS: CARVEDILOL 12.5 MG TAB PO SCH ×2 (11:13→21:20)
[2016-10-01] MEDS: ERYTHROMYCIN 0.5% OPTH OINT 3.5 GM TUBO LEFT EYE SCH ×4 (11:14→21:20)
[2016-10-01] MEDS: CALCITRIOL 0.25 MCG CAP PO SCH (11:14)
[2016-10-01] MEDS: DOLUTEGRAVIR SODIUM 50 MG TAB PO SCH (11:14)
[2016-10-01] MEDS: FUROSEMIDE 40 MG/4 ML VIAL IV PUSH SCH ×2 (11:15→21:20)
[2016-10-01] MEDS: DOCUSATE SODIUM 50 MG/SENNA 8.6 MG TAB PO SCH ×2 (11:17→21:00)
[2016-10-01 12:00] VITALS: BP 141/82; PULSE 83; RESP 17; TEMP 97.2; O2SAT 96
[2016-10-01 16:00] VITALS: BP 98/53; PULSE 77; RESP 21; TEMP 97.2; O2SAT 92
--- NOTE | 2016-10-01 17:12 | HHI.NPPN ---
Subjective General Problems: Anemia, Edema, Heart Disease Renal Failure: Stage V History of Present Illness 41-year-old male known to me from his last admission which was a few days ago and he was discharged yesterday with past medical history of hypertension, diabetes mellitus, ischemic heart disease, cardiomyopathy, chronic kidney disease, hyperlipidemia, chronic depression, history of renal stone who came to the hospital with a complaint of worsening shortness of breath. The patient has been following as an outpatient with Dr. Rico and has a right arm AV fistula done by Dr. Genao about three weeks ago. Additional Remarks Patient is sitting on chair and has SOB, and orthopnea, no chest pain, clinically same. Review of Systems General Constitutional: Fatigue Respiratory Lungs: SOB Cardiovascular Cardiac: Edema, FUNG Objective Data Data 09/30/16 10/01/16 19:00 07:00 Intake Total 960 ml 1580 ml Output Total 600 ml Balance 360 ml 1580 ml Intake Oral 960 ml 1580 ml Output Urine Total 600 ml # Voids 2 6 # Bowel Movements 0 1 Vital Signs Date Time Temp Pulse Resp B/P Pulse Ox O2 Delivery O2 Flow Rate FiO2 10/01/16 16:00 97.2 77 21 98/53 92 10/01/16 12:00 97.2 83 17 141/82 96 10/01/16 08:00 98.1 79 21 134/81 94 10/01/16 07:00 Room Air 10/01/16 04:00 98.0 77 20 131/75 94 10/01/16 00:00 97.0 77 20 116/68 93 09/30/16 20:00 97.9 84 20 158/88 94 09/30/16 19:14 Room Air -: 10/01/16 0752 10/01/16 0752 Physical Exam General Appearance: No Acute Distress, Comfortable, Obese Ears & Nose Ears & Nose Exam: Nasal Mucosa [place] Throat Throat Exam: Oral Mucosa [place] & Moist Neck Neck Exam: Neck Supple, Trachea Midline Pulmonary Resp Exam: Poor Inspiratory Effort Cardiology CV Exam: Regular Gastrointestinal/Abdomen GI Exam: Soft, Non-Tender, Bowel Sounds Present Musculoskeletal MS Exam: Joints Intact Integumentary Skin Exam: Warm, Dry Extremeties Extremities Exam: Moderate Edema, Pitting Edema, Dependent Edema Neurologic Neuro Exam: Alert, Awake, Oriented, Speech Clear, Moving All Extremities, No Focal Deficits Psychiatric Psych Exam: Appropriate Responses Assessment/Plan Assessment Summary: Fluid/Volume Overload, CHF, Hypertension, CKD Stage V Problem List: (1) CHF (congestive heart failure) (2) CAD (coronary artery disease) (3) Diabetes mellitus (4) Morbid obesity (5) Type 2 diabetes mellitus (6) Anemia (7) AIDS (acquired immune deficiency syndrome) (8) Pedal edema (9) Chronic Renal Failure / insufficiency, unspec Plan Patient is alert, sitting on chair,still has SOB on exertion. Also has Orthopnea. No chest pain. Creatinine remain above 5. Increase Lasix to 80 mg BID and add Metolazone. Still Creatinine and GFR same, GFR is now 15 ml/min. I get worse , Will need Dialysis. D/W the patient, he agreed about it. Follow AM BMP. Problem Qualifiers (1) Type 2 diabetes mellitus: Parker Ramos MD Oct 01, 2016 17:12
[2016-10-01 21:17] VITALS: BP 122/72; PULSE 73; RESP 18; TEMP 97.7; O2SAT 95
[2016-10-01] MEDS: MINOXIDIL 2.5 MG TAB PO SCH (21:22)
[2016-10-02] VITALS: BP 128/72; PULSE 73; RESP 20; TEMP 97.2; O2SAT 97
[2016-10-02 03:35] VITALS: BP 145/81; PULSE 80; RESP 20; TEMP 98.1; O2SAT 95
[2016-10-02] MEDS: HEPARIN SODIUM - SQ 10,000 UNITS/ML VIAL SQ SCH ×2 (06:00→18:00)
[2016-10-02] MEDS: INSULIN ASPART SUPPLEMENTAL SCALE SQ SCH ×4 (06:46→21:00)
[2016-10-02 07:46] LABS: AUTOMATED NEUTROPHIL # 2.8 TH/MM3 (1.8-7.7); BASOPHIL % 0.9 % (0.0-2.0); EOSINOPHIL # 0.2 TH/MM3 (0-0.4); EOSINOPHIL % 4.7 % (0.0-4.0); HEMATOCRIT 33.8 % (39.0-51.0); HEMO FLAGS DIFF FINAL; LYMPH % 16.6 % (9.0-44.0); LYMPHOCYTE # 0.7 TH/MM3 (1.0-4.8); MEAN CORPUSCULAR HEMOGLOBIN 27.7 PG (27.0-34.0); MEAN CORPUSCULAR HGB CONC 32.6 % (32.0-36.0); MONO % 13.6 % (0.0-8.0); NEUT % 64.2 % (16.0-70.0); PLATELET COUNT 158 TH/MM3 (150-450); RED BLOOD COUNT 3.98 MIL/MM3 (4.50-5.90); RED CELL DISTRIBUTION WIDTH 15.8 % (11.6-17.2); WHITE BLOOD COUNT 4.4 TH/MM3 (4.0-11.0)
[2016-10-02 08:00] VITALS: BP 127/75; PULSE 80; RESP 19; TEMP 97.9; O2SAT 96
[2016-10-02 08:14] LABS: ANION GAP 7 MEQ/L (5-15); AST (GOT) 10 U/L (15-37); BICARBONATE 26.8 MEQ/L (21.0-32.0); BLOOD UREA NITROGEN 70 MG/DL (7-18); CHLORIDE 104 MEQ/L (98-107); GLOMERULAR FILTRATION RATE 14 ML/MIN (>89); POTASSIUM 4.3 MEQ/L (3.5-5.1); SODIUM (NA) 138 MEQ/L (136-145)
[2016-10-02 08:16] LABS: ALT (GPT) 12 U/L (12-78)
[2016-10-02 08:17] LABS: ALKALINE PHOSPHATASE 95 U/L (45-117); TOTAL BILIRUBIN ADULT 0.4 MG/DL (0.2-1.0)
[2016-10-02] MEDS: VITAMIN B CMPLX/VITC/FOLIC AC CAP PO SCH (09:00)
[2016-10-02] MEDS: DOCUSATE SODIUM 50 MG/SENNA 8.6 MG TAB PO SCH ×2 (09:00→21:00)
[2016-10-02] MEDS: SODIUM CHLORIDE 0.9% FLUSH 10 ML FLUSH IV FLUSH SCH ×2 (09:00→21:45)
[2016-10-02] MEDS: CALCITRIOL 0.25 MCG CAP PO SCH (09:00)
[2016-10-02] MEDS: CARVEDILOL 12.5 MG TAB PO SCH ×2 (09:00→21:46)
[2016-10-02] MEDS: cloNIDine HCL 0.2 MG TAB PO SCH ×2 (09:00→21:45)
[2016-10-02] MEDS: FUROSEMIDE 40 MG/4 ML VIAL IV PUSH SCH ×2 (09:00→21:45)
[2016-10-02] MEDS: LISINOPRIL 20 MG TAB PO SCH (09:00)
[2016-10-02] MEDS: METOLAZONE 5 MG TAB PO SCH ×2 (09:00→21:46)
[2016-10-02] MEDS: ABACAVIR SULFATE 300 MG TAB PO SCH (09:00)
[2016-10-02] MEDS: DOLUTEGRAVIR SODIUM 50 MG TAB PO SCH (09:00)
[2016-10-02] MEDS ORDERED: SODIUM CHLOR 0.9% 1000 ML INJ 1,000 ML IV PRN ×2 (09:10)
[2016-10-02] MEDS ORDERED: NITROGLYCERIN 0.4 MG SL 25 TABS/BTL SL PRN (09:15)
[2016-10-02] MEDS ORDERED: ONDANSETRON HCL 4 MG/2 ML VIAL IV PRN (09:15)
[2016-10-02] MEDS ORDERED: diphenhydrAMINE HCL 25 MG CAP PO PRN (09:15)
[2016-10-02] MEDS ORDERED: ACETAMINOPHEN 325 MG TAB PO PRN (09:15)
[2016-10-02] MEDS ORDERED: ALBUMIN HUMAN 25% 25 GM/100 ML BAGP IV PRN (09:15)
[2016-10-02] MEDS ORDERED: HEPARIN SODIUM - IV 10,000 UNITS/10 ML VIAL IVF PRN (09:15)
[2016-10-02] MEDS ORDERED: GELATIN 12 MM/7 MM FOAM TOP PRN (09:15)
[2016-10-02] MEDS ORDERED: cloNIDine HCL 0.1 MG TAB PO PRN (09:15)
[2016-10-02] MEDS ORDERED: SODIUM CHLORIDE 0.9% FLUSH 10 ML FLUSH IV FLUSH PRN (09:15)
[2016-10-02] MEDS ORDERED: MANNITOL 12.5 GM/50 ML VIAL IV PRN (09:15)
[2016-10-02] MEDS: ERYTHROMYCIN 0.5% OPTH OINT 3.5 GM TUBO LEFT EYE SCH ×4 (09:36→21:46)
[2016-10-02] MEDS: INSULIN HUMAN NPH/R 70/30 1,000 UNITS/10 ML VIAL SQ SCH ×2 (09:40→21:00)
--- NOTE | 2016-10-02 09:44 | HHI.NPPN ---
Subjective General Problems: Anemia, Edema, Heart Disease Renal Failure: Stage V History of Present Illness 41-year-old male known to me from his last admission which was a few days ago and he was discharged yesterday with past medical history of hypertension, diabetes mellitus, ischemic heart disease, cardiomyopathy, chronic kidney disease, hyperlipidemia, chronic depression, history of renal stone who came to the hospital with a complaint of worsening shortness of breath. The patient has been following as an outpatient with Dr. Rico and has a right arm AV fistula done by Dr. Genao about three weeks ago. Additional Remarks Patient is sitting on chair and has SOB, and orthopnea, not much improvement in the edema. Review of Systems General Constitutional: Fatigue Respiratory Lungs: SOB Cardiovascular Cardiac: Edema, FUNG Objective Data Data 10/01/16 10/02/16 18:59 06:59 Intake Total 720 ml 1280 ml Output Total 1000 ml 900 ml Balance -280 ml 380 ml Intake Oral 720 ml 1280 ml Output Urine Total 1000 ml 900 ml # Voids 3 2 # Bowel Movements 1 0 Vital Signs Date Time Temp Pulse Resp B/P Pulse Ox O2 Delivery O2 Flow Rate FiO2 10/02/16 08:00 97.9 80 19 127/75 96 10/02/16 03:35 98.1 80 20 145/81 95 10/02/16 00:00 97.2 73 20 128/72 97 10/01/16 21:17 97.7 73 18 122/72 95 10/01/16 19:35 Room Air 10/01/16 16:00 97.2 77 21 98/53 92 10/01/16 12:00 97.2 83 17 141/82 96 -: 10/02/16 0715 10/02/16 0715 Physical Exam General Appearance: No Acute Distress, Comfortable, Obese Eyes Eye Exam: Sclera White, Extraocular Movement Intact Ears & Nose Ears & Nose Exam: Nasal Mucosa [place] Throat Throat Exam: Oral Mucosa [place] & Moist Neck Neck Exam: Neck Supple, Trachea Midline Pulmonary Resp Exam: Poor Inspiratory Effort Cardiology CV Exam: Regular Gastrointestinal/Abdomen GI Exam: Soft, Non-Tender, Bowel Sounds Present Musculoskeletal MS Exam: Joints Intact Integumentary Skin Exam: Warm, Dry Extremeties Extremities Exam: Moderate Edema, Pitting Edema, Dependent Edema Neurologic Neuro Exam: Alert, Awake, Oriented, Speech Clear, Moving All Extremities, No Focal Deficits Psychiatric Psych Exam: Appropriate Responses Assessment/Plan Assessment Summary: Fluid/Volume Overload, CHF, Hypertension, CKD Stage V Problem List: (1) CHF (congestive heart failure) (2) CAD (coronary artery disease) (3) Diabetes mellitus (4) Morbid obesity (5) Type 2 diabetes mellitus (6) Anemia (7) AIDS (acquired immune deficiency syndrome) (8) Pedal edema (9) Chronic Renal Failure / insufficiency, unspec Plan Patient is alert, sitting on chair,still has SOB on exertion. Also has Orthopnea. No chest pain. Creatinine remain above 5. Increase Lasix to 80 mg BID and add Metolazone. Still Creatinine and GFR same, GFR is now decreased to 14 ml/min. Will need Dialysis. D/W the patient, he agreed about it. Will get PermCath and start HD. Will need out patient HD arrangement. Problem Qualifiers (1) Type 2 diabetes mellitus: Parker Ramos MD Oct 02, 2016 09:44
--- NOTE | 2016-10-02 09:48 | HHI.PR ---
Subjective History of Present Illness Patient complaint of shortness of breath . Review of Systems Constitutional Constitutional: Fatigue, Weakness Constitutional Remarks Morbid obese. Eyes Eyes Remarks left lower eye lid swelling Pulmonary Respiratory: Shortness of Breath Vitals/Results Intake & Output 10/01/16 10/01/16 10/02/16 14:59 22:59 06:59 Intake Total 1380 ml 620 ml Output Total 1000 ml 900 ml Balance 380 ml -280 ml Intake Oral 1380 ml 620 ml Output Urine Total 1000 ml 900 ml # Voids 5 # Bowel Movements 1 0 Vital Signs Vital Signs Date Time Temp Pulse Resp B/P Pulse Ox O2 Delivery O2 Flow Rate FiO2 10/02/16 08:00 97.9 80 19 127/75 96 10/02/16 03:35 98.1 80 20 145/81 95 10/02/16 00:00 97.2 73 20 128/72 97 10/01/16 21:17 97.7 73 18 122/72 95 10/01/16 19:35 Room Air 10/01/16 16:00 97.2 77 21 98/53 92 10/01/16 12:00 97.2 83 17 141/82 96 CBC/BMP: 10/02/16 0715 10/02/16 0715 Lab Results Laboratory Tests Test 10/02/16 07:15 White Blood Count 4.4 TH/MM3 Red Blood Count 3.98 MIL/MM3 Hemoglobin 11.0 GM/DL Hematocrit 33.8 % Mean Corpuscular Volume 85.0 FL Mean Corpuscular Hemoglobin 27.7 PG Mean Corpuscular Hemoglobin 32.6 % Concent Red Cell Distribution Width 15.8 % Platelet Count 158 TH/MM3 Mean Platelet Volume 9.0 FL Neutrophils (%) (Auto) 64.2 % Lymphocytes (%) (Auto) 16.6 % Monocytes (%) (Auto) 13.6 % Eosinophils (%) (Auto) 4.7 % Basophils (%) (Auto) 0.9 % Neutrophils # (Auto) 2.8 TH/MM3 Lymphocytes # (Auto) 0.7 TH/MM3 Monocytes # (Auto) 0.6 TH/MM3 Eosinophils # (Auto) 0.2 TH/MM3 Basophils # (Auto) 0.0 TH/MM3 CBC Comment DIFF FINAL Differential Comment Sodium Level 138 MEQ/L Potassium Level 4.3 MEQ/L Chloride Level 104 MEQ/L Carbon Dioxide Level 26.8 MEQ/L Anion Gap 7 MEQ/L Blood Urea Nitrogen 70 MG/DL Creatinine 5.30 MG/DL Estimat Glomerular Filtration 14 ML/MIN Rate Random Glucose 97 MG/DL Calcium Level 8.7 MG/DL Total Bilirubin 0.4 MG/DL Aspartate Amino Transf 10 U/L (AST/SGOT) Alanine Aminotransferase 12 U/L (ALT/SGPT) Alkaline Phosphatase 95 U/L Total Protein 7.5 GM/DL Albumin 3.2 GM/DL Physical Exam General General Appearance: No Acute Distress, Comfortable, Obese Appearance Remarks Morbid Obese. Eyes Eye Exam: Sclera White, Extraocular Movement Intact Eye Remarks left lower eye lid swelling Ears & Nose Ears & Nose Exam: Nasal Mucosa [place] Throat Throat Exam: Oral Mucosa [place] & Moist Neck Neck Exam: Neck Supple, Trachea Midline Pulmonary Resp Exam: Poor Inspiratory Effort Cardiology CV Exam: Regular Gastrointestinal/Abdomen GI Exam: Soft, Non-Tender, Bowel Sounds Present Musculoskeletal MS Exam: Joints Intact Integumentary Skin Exam: Warm, Dry Extremeties Extremities Exam: Moderate Edema, Pitting Edema, Dependent Edema Neurologic Neuro Exam: Alert, Awake, Oriented, Speech Clear, Moving All Extremities, No Focal Deficits Psychiatric Psych Exam: Appropriate Responses VTE Prophylaxis VTE Prophylaxis Meds: Heparin Assessment/Plan Problem List: (1) Acute on chronic systolic congestive heart failure (2) Morbid obesity (3) Hypothyroidism (4) HIV (human immunodeficiency virus infection) (5) Type 2 diabetes mellitus (6) Ischemic cardiomyopathy (7) Hypertension (8) CKD (chronic kidney disease) stage 4, GFR 15-29 ml/min Assessment/Plan Recurrent pulmonary edema, acute on chronic CHF Ischemic cardiomyopathy -Continue with diuretics-Lasix 80 mg IV 2 times a day Appreciate nephrology input, may need to be started on hemodialysis during this admission add Metolazone. Still Creatinine and GFR same, GFR is now decreased to 14 ml/min. Will need Dialysis. D/W the patient, he agreed about it. Will get PermCath and start HD. Will need out patient HD arrangement. -Continue lisinopril status post right arm AV fistula per Dr. Genao -Monitor fistula Diabetes type 2 Accu-Cheks before meals and at bedtime with insulin therapy as needed Status post left eye surgery-cataract, has left lower eye lid swelling which is improving Continue erythromycin ointment Hypertension, stable Continue home medications HIV -Continue with home meds Heparin for DVT prophylaxis Continue to monitor intake and output, renal function Discussed with RN Discussed with patient Check CBC with CMP in AM. Discussed Condition with: Patient Problem Qualifiers (1) Hypothyroidism: Qualified Code: E03.9 - Hypothyroidism, unspecified type (2) Type 2 diabetes mellitus: (3) Hypertension: Qualified Code: I10 - Essential hypertension Refugio Brownlee MD Oct 02, 2016 09:48
[2016-10-02] MEDS ORDERED: VANCOMYCIN INJ 1,000 MG in SODIUM CHLOR 0.9% 250 ML INJ 250 ML IV SCH (10:15)
[2016-10-02] MEDS ORDERED: ceFAZolin 2 GM PREMIX 50 ML IV SCH (10:15)
[2016-10-02 10:40] VITALS: O2SAT 94
[2016-10-02 12:00] VITALS: BP 133/73; PULSE 82; RESP 19; TEMP 97.9; O2SAT 94
[2016-10-02] MEDS ORDERED: LIDOCAINE 1%/EPINEPHrine 1:100,000 SOLN 20 ML VIAL ONE (15:52)
[2016-10-02] MEDS ORDERED: HEPARIN SODIUM - IV 2,000 UNITS/2 ML VIAL IV FLUSH PRN (16:45)
[2016-10-02] MEDS ORDERED: SODIUM CHLORIDE 0.9% FLUSH 10 ML FLUSH IVF PRN (16:45)
--- NOTE | 2016-10-02 16:46 | PD.RAD ---
Post Procedure Progress Note Pre Procedure Diagnosis: (1) Acute renal failure Post Procedure Diagnosis: (1) Acute renal failure Procedure Date: Oct 02, 2016 Supervising Radiologist: Deni Conklin Anesthesia: Local, Conscious Sedation Plan of Activity Patient to Unit: Other Patient Condition: Good Additional Comments: Pt. post left subclavian PermCath placement. due to patients size IJ placement not possible. Catheter in good position and functions normally. CXR pending See PACS Report for procedural detail/treatment Deni Conklin MD Oct 02, 2016 16:46
--- NOTE | 2016-10-02 18:04 | RADRPT ---
EXAM DATE/TIME: 10/02/2016 16:49 [facility] COMPARISON: CHEST SINGLE AP, September 29, 2016, 14:11. INDICATIONS : Central line placement. MEDICAL HISTORY : Congestive heart failure. Hypertension. Renal failure, chronic. SURGICAL HISTORY : Right arm fistula ENCOUNTER: Initial ACUITY: 1 day PAIN SCORE: 0/10 LOCATION: Bilateral chest FINDINGS: Single chest and straight permacatheter via the left subclavian vein. The catheter tips are in good p osition. No pneumothorax is seen. The heart is enlarged. There is mild interstitial edema. CONCLUSION: 1. No pneumothorax identified following catheter placement. Deni Conklin MD on October 02, 2016 at 18:02 Board Certified Radiologist. This report was verified electronically.
[2016-10-02] MEDS ORDERED: IOHEXOL 350 MG/ML 50 ML BTL (for RAD DIAG) ONE (18:11)
[2016-10-02 20:00] VITALS: BP 164/77; PULSE 86; RESP 17; TEMP 97.3; O2SAT 95
[2016-10-02] MEDS: MINOXIDIL 2.5 MG TAB PO SCH (21:45)
[2016-10-02] MEDS: ACETAMINOPHEN/HYDROcodone 325 MG/7.5 MG TAB PO PRN (23:27)
[2016-10-03] VITALS: BP 111/65; PULSE 86; RESP 18; TEMP 98.4; O2SAT 93
[2016-10-03 03:45] VITALS: BP 100/62; PULSE 84; RESP 18; TEMP 98.2; O2SAT 93
[2016-10-03] MEDS: INSULIN ASPART SUPPLEMENTAL SCALE SQ SCH ×4 (06:45→20:32)
[2016-10-03] MEDS: HEPARIN SODIUM - SQ 10,000 UNITS/ML VIAL SQ SCH ×2 (06:46→16:36)
[2016-10-03] MEDS: ACETAMINOPHEN/HYDROcodone 325 MG/7.5 MG TAB PO PRN ×3 (06:46→20:33)
[2016-10-03 07:31] VITALS: BP 113/61; PULSE 95; RESP 21; TEMP 97.5; O2SAT 94
[2016-10-03] MEDS: DOLUTEGRAVIR SODIUM 50 MG TAB PO SCH (09:00)
[2016-10-03] MEDS: ERYTHROMYCIN 0.5% OPTH OINT 3.5 GM TUBO LEFT EYE SCH ×4 (09:00→20:31)
[2016-10-03] MEDS: INSULIN HUMAN NPH/R 70/30 1,000 UNITS/10 ML VIAL SQ SCH ×2 (09:00→20:37)
[2016-10-03] MEDS: SODIUM CHLORIDE 0.9% FLUSH 10 ML FLUSH IV FLUSH SCH ×2 (09:00→20:31)
[2016-10-03] MEDS: LISINOPRIL 20 MG TAB PO SCH (09:00)
[2016-10-03] MEDS: cloNIDine HCL 0.2 MG TAB PO SCH ×2 (09:00→20:31)
[2016-10-03] MEDS: CARVEDILOL 12.5 MG TAB PO SCH ×2 (09:00→20:30)
[2016-10-03] MEDS: FUROSEMIDE 40 MG/4 ML VIAL IV PUSH SCH ×2 (09:00→20:31)
[2016-10-03] MEDS: DOCUSATE SODIUM 50 MG/SENNA 8.6 MG TAB PO SCH ×2 (09:00→20:32)
[2016-10-03] MEDS: VITAMIN B CMPLX/VITC/FOLIC AC CAP PO SCH (09:00)
[2016-10-03 09:49] LABS: ANION GAP 7 MEQ/L (5-15); AST (GOT) 11 U/L (15-37); BICARBONATE 28.8 MEQ/L (21.0-32.0); BLOOD UREA NITROGEN 62 MG/DL (7-18); CHLORIDE 100 MEQ/L (98-107); GLOMERULAR FILTRATION RATE 15 ML/MIN (>89); POTASSIUM 4.2 MEQ/L (3.5-5.1); SODIUM (NA) 136 MEQ/L (136-145)
[2016-10-03 09:50] LABS: AUTOMATED NEUTROPHIL # 2.9 TH/MM3 (1.8-7.7); BASOPHIL % 0.6 % (0.0-2.0); EOSINOPHIL # 0.2 TH/MM3 (0-0.4); EOSINOPHIL % 4.1 % (0.0-4.0); HEMATOCRIT 33.8 % (39.0-51.0); HEMO FLAGS DIFF FINAL; LYMPH % 17.9 % (9.0-44.0); LYMPHOCYTE # 0.8 TH/MM3 (1.0-4.8); MEAN CELL VOLUME 85.2 FL (80.0-100.0); MEAN CORPUSCULAR HEMOGLOBIN 27.9 PG (27.0-34.0); MEAN CORPUSCULAR HGB CONC 32.7 % (32.0-36.0); MONO % 14.4 % (0.0-8.0); PLATELET COUNT 155 TH/MM3 (150-450); RED BLOOD COUNT 3.96 MIL/MM3 (4.50-5.90); RED CELL DISTRIBUTION WIDTH 16.1 % (11.6-17.2); WHITE BLOOD COUNT 4.6 TH/MM3 (4.0-11.0)
[2016-10-03 09:51] LABS: ALT (GPT) 12 U/L (12-78)
[2016-10-03 09:52] LABS: ALKALINE PHOSPHATASE 92 U/L (45-117); TOTAL BILIRUBIN ADULT 0.3 MG/DL (0.2-1.0)
--- NOTE | 2016-10-03 09:53 | HHI.PR ---
Subjective History of Present Illness Patient complaint of shortness of breath . Patient s/p left subclavian PermCath placement. due to patients size IJ placement not possible...and will start HD. Review of Systems Constitutional Constitutional: Fatigue, Weakness Constitutional Remarks Morbid obese. Eyes Eyes Remarks left lower eye lid swelling Pulmonary Respiratory: Shortness of Breath Vitals/Results Intake & Output 10/02/16 10/02/16 10/03/16 15:00 23:00 07:00 Intake Total 480 ml 480 ml 480 ml Balance 480 ml 480 ml 480 ml Intake Oral 480 ml 480 ml 480 ml # Voids 1 2 2 # Bowel Movements 0 1 0 Vital Signs Vital Signs Date Time Temp Pulse Resp B/P Pulse Ox O2 Delivery O2 Flow Rate FiO2 10/03/16 07:31 97.5 95 21 113/61 94 10/03/16 03:45 98.2 84 18 100/62 93 10/03/16 00:00 98.4 86 18 111/65 93 10/02/16 20:00 97.3 86 17 164/77 95 10/02/16 19:45 Nasal Cannula 2.00 10/02/16 12:00 97.9 82 19 133/73 94 10/02/16 10:40 94 21 CBC/BMP: 10/03/16 0839 10/03/16 0839 Lab Results Laboratory Tests Test 10/03/16 08:39 White Blood Count 4.6 TH/MM3 Red Blood Count 3.96 MIL/MM3 Hemoglobin 11.0 GM/DL Hematocrit 33.8 % Mean Corpuscular Volume 85.2 FL Mean Corpuscular Hemoglobin 27.9 PG Mean Corpuscular Hemoglobin 32.7 % Concent Red Cell Distribution Width 16.1 % Platelet Count 155 TH/MM3 Mean Platelet Volume 9.6 FL Neutrophils (%) (Auto) 63.0 % Lymphocytes (%) (Auto) 17.9 % Monocytes (%) (Auto) 14.4 % Eosinophils (%) (Auto) 4.1 % Basophils (%) (Auto) 0.6 % Neutrophils # (Auto) 2.9 TH/MM3 Lymphocytes # (Auto) 0.8 TH/MM3 Monocytes # (Auto) 0.7 TH/MM3 Eosinophils # (Auto) 0.2 TH/MM3 Basophils # (Auto) 0.0 TH/MM3 CBC Comment DIFF FINAL Differential Comment Sodium Level 136 MEQ/L Potassium Level 4.2 MEQ/L Chloride Level 100 MEQ/L Carbon Dioxide Level 28.8 MEQ/L Anion Gap 7 MEQ/L Blood Urea Nitrogen 62 MG/DL Creatinine 5.23 MG/DL Estimat Glomerular Filtration 15 ML/MIN Rate Random Glucose 144 MG/DL Calcium Level 8.2 MG/DL Aspartate Amino Transf 11 U/L (AST/SGOT) Alanine Aminotransferase 12 U/L (ALT/SGPT) Albumin 3.3 GM/DL Physical Exam General General Appearance: No Acute Distress, Comfortable, Obese Appearance Remarks Morbid Obese. Eyes Eye Exam: Sclera White, Extraocular Movement Intact Eye Remarks left lower eye lid swelling Ears & Nose Ears & Nose Exam: Nasal Mucosa [place] Throat Throat Exam: Oral Mucosa [place] & Moist Neck Neck Exam: Neck Supple, Trachea Midline Pulmonary Resp Exam: Poor Inspiratory Effort Cardiology CV Exam: Regular Gastrointestinal/Abdomen GI Exam: Soft, Non-Tender, Bowel Sounds Present Musculoskeletal MS Exam: Joints Intact Integumentary Skin Exam: Warm, Dry Extremeties Extremities Exam: Moderate Edema, Pitting Edema, Dependent Edema Neurologic Neuro Exam: Alert, Awake, Oriented, Speech Clear, Moving All Extremities, No Focal Deficits Psychiatric Psych Exam: Appropriate Responses VTE Prophylaxis VTE Prophylaxis Meds: Heparin Assessment/Plan Problem List: (1) Acute on chronic systolic congestive heart failure (2) Morbid obesity (3) Hypothyroidism (4) HIV (human immunodeficiency virus infection) (5) Type 2 diabetes mellitus (6) Ischemic cardiomyopathy (7) Hypertension (8) CKD (chronic kidney disease) stage 4, GFR 15-29 ml/min Assessment/Plan Recurrent pulmonary edema, acute on chronic CHF Ischemic cardiomyopathy -Continue with diuretics-Lasix 80 mg IV 2 times a day Appreciate nephrology input, may need to be started on hemodialysis during this admission add Metolazone. Still Creatinine and GFR same, GFR is now decreased to 14 ml/min. Will need Dialysis. D/W the patient, he agreed about it. Patient s/p left subclavian PermCath placement. due to patients size IJ placement not possible. and will start HD. Will need out patient HD arrangement. -Continue lisinopril status post right arm AV fistula per Dr. Genao -Monitor fistula Diabetes type 2 Accu-Cheks before meals and at bedtime with insulin therapy as needed Status post left eye surgery-cataract, has left lower eye lid swelling which is improving Continue erythromycin ointment Hypertension, stable Continue home medications HIV -Continue with home meds Heparin for DVT prophylaxis Continue to monitor intake and output, renal function Discussed with RN Discussed with patient Check CBC with CMP in AM. Discussed Condition with: Patient Problem Qualifiers (1) Hypothyroidism: Qualified Code: E03.9 - Hypothyroidism, unspecified type (2) Type 2 diabetes mellitus: (3) Hypertension: Qualified Code: I10 - Essential hypertension Refugio Brownlee MD Oct 03, 2016 09:52
--- NOTE | 2016-10-03 10:32 | RADRPT ---
EXAM DATE/TIME: 10/02/2016 15:49 [place] COMPARISON: No previous studies available for comparison. INDICATIONS : Patient with history of chronic kidney disease in need of permcath placement for dialysis. MEDICAL HISTORY : 1.Cardiomyopathy 2.CVD 3.Hyperlipidemia 4.CHF 5.COPD 6.Depression, anxiety 7.CAD 8.DM 9.Colitis 10.GERD 11.HIV 12.Kidney stones 13.CKD 14.[place] SURGICAL HISTORY : 1.Right arm A-V fistula 2.Left cataract removed ENCOUNTER: Initial ACUITY: >1 year PAIN SCORE: 0/10 FLUORO TIME: 6.0 minutes IMAGE SERIES: 3 CONTRAST: 5 cc Omnipaque (iohexol) 350 ACCESS: Left subclavian vein SEDATION: 1.) 75 mcg fentanyl (Sublimaze) IV Prophylactic antibiotics were administered with appropriate pre-procedure timing. Vancomycin within 2 hours of procedure, Ancef (or alternative) within 1 hour of procedure. DEVICE: 1. 15 [place] dual lumen 27 cm Prabhakar II Plus catheter PROCEDURE : 1. Ultrasound-guided venipuncture. 2. PermaCath placement. 3. Conscious sedation with continuous EKG and oximetry monitoring. The risks, benefits and alternatives to the procedure were explained and verbal and written consent w as obtained. The site was prepped in sterile fashion. Full sterile technique was used, including ca p, mask, sterile gloves and gown and a large sterile sheet. Hand hygiene and 2% chlorhexidine and/or betadine/alcohol prep was utilized per protocol for cutaneous antisepsis. The skin and subcutaneous tissues were infiltrated with local anesthetic solution. The patient was evaluated pre-procedure. Due to his large size it was not felt feasible to place an i nternal jugular catheter. The left subclavian vein was selected due to a AV fistula on the right. With ultrasound and fluoroscopic guidance the left subclavian vein was accessed. A micropuncture set was used to access the targeted vein and serial dilatation was performed to accept the prescribed shalom gth catheter. A subcutaneous tunnel was created in a retrograde fashion the catheter was pulled thro ugh the tunnel. The catheter was flushed and assembled and locked with heparin. The catheter was blount tured in place. Conscious sedation was performed with the prescribed dosages and duration as above in the presence of an independent trained radiology nurse to assist in the monitoring of the patient. EKG and oximetry remained stable throughout the procedure. The patient tolerated the procedure well and there were n o complications. The patient was sent to post anesthesia recovery in stable condition. CONCLUSION: Uncomplicated PermaCath placement as above. Deni Conklin MD on October 03, 2016 at 10:28 Board Certified Radiologist. This report was verified electronically.
[2016-10-03] MEDS: EPOETIN ALFA 10,000 UNITS/ML VIAL IV PRN (10:42)
[2016-10-03] MEDS: HEPARIN SODIUM - IV 10,000 UNITS/10 ML VIAL PRN (10:45)
[2016-10-03] MEDS: SODIUM CHLOR 0.9% 1000 ML INJ 1,000 ML IV PRN (10:45)
[2016-10-03] MEDS: GENTAMICIN SULFATE (DIALYSIS USE ONLY) 20 MG/2 ML VIAL IV PRN (10:46)
[2016-10-03] MEDS: ABACAVIR SULFATE 300 MG TAB PO SCH (13:25)
[2016-10-03] MEDS: CALCITRIOL 0.25 MCG CAP PO SCH (13:25)
[2016-10-03] MEDS: METOLAZONE 5 MG TAB PO SCH ×2 (13:25→20:31)
[2016-10-03 15:38] VITALS: BP 151/71; PULSE 106; RESP 21; TEMP 97.3; O2SAT 95
--- NOTE | 2016-10-03 16:57 | HHI.NPPN ---
Subjective General Problems: Anemia, Edema, Heart Disease Renal Failure: Stage V History of Present Illness 41-year-old male known to me from his last admission which was a few days ago and he was discharged yesterday with past medical history of hypertension, diabetes mellitus, ischemic heart disease, cardiomyopathy, chronic kidney disease, hyperlipidemia, chronic depression, history of renal stone who came to the hospital with a complaint of worsening shortness of breath. The patient has been following as an outpatient with Dr. Rico and has a right arm AV fistula done by Dr. Genao about three weeks ago. Additional Remarks Patient is sitting on chair, still has SOB, and orthopnea, slightly better edema in the legs. Review of Systems General Constitutional: Fatigue Respiratory Lungs: SOB Cardiovascular Cardiac: Edema, FUNG Objective Data Data 10/02/16 10/03/16 19:00 07:00 Intake Total 480 ml 960 ml Balance 480 ml 960 ml Intake Oral 480 ml 960 ml # Voids 1 4 # Bowel Movements 0 1 Vital Signs Date Time Temp Pulse Resp B/P Pulse Ox O2 Delivery O2 Flow Rate FiO2 10/03/16 15:38 97.3 106 21 151/71 95 10/03/16 07:31 97.5 95 21 113/61 94 10/03/16 03:45 98.2 84 18 100/62 93 10/03/16 00:00 98.4 86 18 111/65 93 10/02/16 20:00 97.3 86 17 164/77 95 10/02/16 19:45 Nasal Cannula 2.00 -: 10/03/16 0839 10/03/16 0839 Physical Exam General Appearance: No Acute Distress, Comfortable, Obese Eyes Eye Exam: Sclera White, Extraocular Movement Intact Ears & Nose Ears & Nose Exam: Nasal Mucosa [place] Throat Throat Exam: Oral Mucosa [place] & Moist Neck Neck Exam: Neck Supple, Trachea Midline Pulmonary Resp Exam: Poor Inspiratory Effort Cardiology CV Exam: Regular Gastrointestinal/Abdomen GI Exam: Soft, Non-Tender, Bowel Sounds Present Musculoskeletal MS Exam: Joints Intact Integumentary Skin Exam: Warm, Dry Extremeties Extremities Exam: Moderate Edema, Pitting Edema, Dependent Edema Neurologic Neuro Exam: Alert, Awake, Oriented, Speech Clear, Moving All Extremities, No Focal Deficits Psychiatric Psych Exam: Appropriate Responses Assessment/Plan Assessment Summary: Fluid/Volume Overload, CHF, Hypertension, CKD Stage V Problem List: (1) CHF (congestive heart failure) (2) CAD (coronary artery disease) (3) Diabetes mellitus (4) Morbid obesity (5) Type 2 diabetes mellitus (6) Anemia (7) AIDS (acquired immune deficiency syndrome) (8) Pedal edema (9) Chronic Renal Failure / insufficiency, unspec Plan Patient is alert, sitting on chair,still has SOB on exertion. Also has Orthopnea. No chest pain. Creatinine remain above 5. Increase Lasix to 80 mg BID and add Metolazone. Still Creatinine and GFR same, GFR is now decreased to 14 ml/min. Started on HD, and will have 2nd treatment in AM. Remove fluid as tolerated. Out patient HD arrangements. Problem Qualifiers (1) Type 2 diabetes mellitus: Parker Ramos MD Oct 03, 2016 16:57
[2016-10-03 18:01] VITALS: O2SAT 95
[2016-10-03 19:45] VITALS: BP 127/78; PULSE 86; RESP 18; TEMP 98.6; O2SAT 95
[2016-10-03] MEDS: MINOXIDIL 2.5 MG TAB PO SCH (20:31)
[2016-10-04] VITALS (7 sets, daily range): BP systolic 92–129; BP diastolic 58–73; PULSE 74–81; RESP 16–19; TEMP 97.1–97.9; O2SAT 92–97
[2016-10-04] MEDS: HEPARIN SODIUM - SQ 10,000 UNITS/ML VIAL SQ SCH ×2 (06:00→19:11)
[2016-10-04] MEDS: INSULIN ASPART SUPPLEMENTAL SCALE SQ SCH ×4 (06:47→21:00)
[2016-10-04] MEDS: FUROSEMIDE 40 MG/4 ML VIAL IV PUSH SCH ×2 (08:58→22:21)
[2016-10-04] MEDS: LISINOPRIL 20 MG TAB PO SCH (08:59)
[2016-10-04] MEDS: DOCUSATE SODIUM 50 MG/SENNA 8.6 MG TAB PO SCH ×2 (08:59→22:21)
[2016-10-04] MEDS: CARVEDILOL 12.5 MG TAB PO SCH ×2 (08:59→22:20)
[2016-10-04] MEDS: SODIUM CHLORIDE 0.9% FLUSH 10 ML FLUSH IV FLUSH SCH ×2 (09:00→22:21)
[2016-10-04] MEDS: cloNIDine HCL 0.2 MG TAB PO SCH ×2 (09:00→22:20)
[2016-10-04] MEDS: INSULIN HUMAN NPH/R 70/30 1,000 UNITS/10 ML VIAL SQ SCH ×2 (09:00→22:17)
[2016-10-04] MEDS: CALCITRIOL 0.25 MCG CAP PO SCH (09:00)
[2016-10-04] MEDS: ERYTHROMYCIN 0.5% OPTH OINT 3.5 GM TUBO LEFT EYE SCH ×4 (09:00→22:20)
[2016-10-04] MEDS: DOLUTEGRAVIR SODIUM 50 MG TAB PO SCH (09:00)
[2016-10-04] MEDS: VITAMIN B CMPLX/VITC/FOLIC AC CAP PO SCH (09:00)
[2016-10-04] MEDS: ABACAVIR SULFATE 300 MG TAB PO SCH (09:00)
[2016-10-04] MEDS: METOLAZONE 5 MG TAB PO SCH ×2 (09:00→22:20)
[2016-10-04 09:54] LABS: AUTOMATED NEUTROPHIL # 2.7 TH/MM3 (1.8-7.7); BASOPHIL % 0.7 % (0.0-2.0); EOSINOPHIL # 0.3 TH/MM3 (0-0.4); EOSINOPHIL % 5.4 % (0.0-4.0); HEMATOCRIT 35.8 % (39.0-51.0); HEMO FLAGS DIFF FINAL; LYMPH % 19.9 % (9.0-44.0); LYMPHOCYTE # 0.9 TH/MM3 (1.0-4.8); MEAN CELL VOLUME 85.7 FL (80.0-100.0); MEAN CORPUSCULAR HEMOGLOBIN 27.8 PG (27.0-34.0); MEAN CORPUSCULAR HGB CONC 32.4 % (32.0-36.0); MONO % 16.1 % (0.0-8.0); NEUT % 57.9 % (16.0-70.0); PLATELET COUNT 166 TH/MM3 (150-450); RED BLOOD COUNT 4.17 MIL/MM3 (4.50-5.90); RED CELL DISTRIBUTION WIDTH 16.2 % (11.6-17.2); WHITE BLOOD COUNT 4.7 TH/MM3 (4.0-11.0)
--- NOTE | 2016-10-04 10:07 | HHI.PR ---
Subjective History of Present Illness Patient complaint of shortness of breath . Patient s/p left subclavian PermCath placement. due to patients size IJ placement not possible..s/p hemodialysis feel better after hemodialysis. Review of Systems Constitutional Constitutional: Fatigue, Weakness Constitutional Remarks Morbid obese. Eyes Eyes Remarks left lower eye lid swelling Pulmonary Respiratory: Shortness of Breath Vitals/Results Intake & Output 10/03/16 10/03/16 10/04/16 15:00 23:00 07:00 Intake Total 300 ml 480 ml 480 ml Output Total 3500 ml Balance -3200 ml 480 ml 480 ml Intake Oral 300 ml 480 ml 480 ml Hemodialysis 3500 ml # Voids 1 2 2 # Bowel Movements 0 0 Vital Signs Vital Signs Date Time Temp Pulse Resp B/P Pulse Ox O2 Delivery O2 Flow Rate FiO2 10/04/16 08:00 97.2 76 16 129/73 96 10/04/16 04:00 97.1 76 18 116/73 95 10/04/16 00:00 97.2 74 18 92/61 92 10/03/16 19:45 98.6 86 18 127/78 95 10/03/16 18:55 Room Air 10/03/16 18:01 95 21 10/03/16 15:38 97.3 106 21 151/71 95 CBC/BMP: 10/04/16 0921 10/03/16 0839 Lab Results Laboratory Tests Test 10/04/16 09:21 White Blood Count 4.7 TH/MM3 Red Blood Count 4.17 MIL/MM3 Hemoglobin 11.6 GM/DL Hematocrit 35.8 % Mean Corpuscular Volume 85.7 FL Mean Corpuscular Hemoglobin 27.8 PG Mean Corpuscular Hemoglobin 32.4 % Concent Red Cell Distribution Width 16.2 % Platelet Count 166 TH/MM3 Mean Platelet Volume 9.1 FL Neutrophils (%) (Auto) 57.9 % Lymphocytes (%) (Auto) 19.9 % Monocytes (%) (Auto) 16.1 % Eosinophils (%) (Auto) 5.4 % Basophils (%) (Auto) 0.7 % Neutrophils # (Auto) 2.7 TH/MM3 Lymphocytes # (Auto) 0.9 TH/MM3 Monocytes # (Auto) 0.8 TH/MM3 Eosinophils # (Auto) 0.3 TH/MM3 Basophils # (Auto) 0.0 TH/MM3 CBC Comment DIFF FINAL Differential Comment Physical Exam General General Appearance: No Acute Distress, Comfortable, Obese Appearance Remarks Morbid Obese. Eyes Eye Exam: Sclera White, Extraocular Movement Intact Eye Remarks left lower eye lid swelling Ears & Nose Ears & Nose Exam: Nasal Mucosa [place] Throat Throat Exam: Oral Mucosa [place] & Moist Neck Neck Exam: Neck Supple, Trachea Midline Pulmonary Resp Exam: Poor Inspiratory Effort Cardiology CV Exam: Regular Gastrointestinal/Abdomen GI Exam: Soft, Non-Tender, Bowel Sounds Present Musculoskeletal MS Exam: Joints Intact Integumentary Skin Exam: Warm, Dry Extremeties Extremities Exam: Moderate Edema, Pitting Edema, Dependent Edema Neurologic Neuro Exam: Alert, Awake, Oriented, Speech Clear, Moving All Extremities, No Focal Deficits Psychiatric Psych Exam: Appropriate Responses VTE Prophylaxis VTE Prophylaxis Meds: Heparin Assessment/Plan Problem List: (1) Acute on chronic systolic congestive heart failure (2) Morbid obesity (3) Hypothyroidism (4) HIV (human immunodeficiency virus infection) (5) Type 2 diabetes mellitus (6) Ischemic cardiomyopathy (7) Hypertension (8) CKD (chronic kidney disease) stage 4, GFR 15-29 ml/min Assessment/Plan Recurrent pulmonary edema, acute on chronic CHF Ischemic cardiomyopathy -Continue with diuretics-Lasix 80 mg IV 2 times a day Appreciate nephrology input, may need to be started on hemodialysis during this admission add Metolazone. Still Creatinine and GFR same, GFR is now decreased to 14 ml/min. s/p hemodialysis D/W the patient. Patient s/p left subclavian PermCath placement. due to patients size IJ placement not possible. S/P Hemodialysis. Will need out patient HD arrangement. -Continue lisinopril status post right arm AV fistula per Dr. Genao -Monitor fistula Diabetes type 2 Accu-Cheks before meals and at bedtime with insulin therapy as needed Status post left eye surgery-cataract, has left lower eye lid swelling which is improving Continue erythromycin ointment Hypertension, stable Continue home medications HIV -Continue with home meds Heparin for DVT prophylaxis Continue to monitor intake and output, renal function Discussed with RN Discussed with patient Check CBC with CMP in AM. Discussed Condition with: Patient Problem Qualifiers (1) Hypothyroidism: Qualified Code: E03.9 - Hypothyroidism, unspecified type (2) Type 2 diabetes mellitus: (3) Hypertension: Qualified Code: I10 - Essential hypertension Refugio Brownlee MD Oct 04, 2016 10:07
[2016-10-04 10:13] LABS: ANION GAP 7 MEQ/L (5-15); AST (GOT) 9 U/L (15-37); BICARBONATE 30.5 MEQ/L (21.0-32.0); BLOOD UREA NITROGEN 53 MG/DL (7-18); CHLORIDE 99 MEQ/L (98-107); GLOMERULAR FILTRATION RATE 15 ML/MIN (>89); POTASSIUM 4.5 MEQ/L (3.5-5.1); SODIUM (NA) 136 MEQ/L (136-145)
[2016-10-04 10:17] LABS: ALKALINE PHOSPHATASE 95 U/L (45-117); ALT (GPT) 11 U/L (12-78); TOTAL BILIRUBIN ADULT 0.3 MG/DL (0.2-1.0)
--- NOTE | 2016-10-04 17:42 | HHI.NPPN ---
Subjective General Problems: Anemia, Edema, Heart Disease Renal Failure: Stage V History of Present Illness 41-year-old male known to me from his last admission which was a few days ago and he was discharged yesterday with past medical history of hypertension, diabetes mellitus, ischemic heart disease, cardiomyopathy, chronic kidney disease, hyperlipidemia, chronic depression, history of renal stone who came to the hospital with a complaint of worsening shortness of breath. The patient has been following as an outpatient with Dr. Rico and has a right arm AV fistula done by Dr. Genao about three weeks ago. Additional Remarks No acute complaints, tolerated HD yesterday Review of Systems General Constitutional: Fatigue Respiratory Lungs: SOB Cardiovascular Cardiac: Edema, FUNG Objective Data Data 10/03/16 10/04/16 19:00 07:00 Intake Total 300 ml 960 ml Output Total 3500 ml Balance -3200 ml 960 ml Intake Oral 300 ml 960 ml Hemodialysis 3500 ml # Voids 1 4 # Bowel Movements 0 Vital Signs Date Time Temp Pulse Resp B/P Pulse Ox O2 Delivery O2 Flow Rate FiO2 10/04/16 16:00 97.9 80 16 94/60 97 10/04/16 14:30 95 21 10/04/16 12:00 97.7 77 18 92/58 96 10/04/16 08:00 97.2 76 16 129/73 96 10/04/16 04:00 97.1 76 18 116/73 95 10/04/16 00:00 97.2 74 18 92/61 92 10/03/16 19:45 98.6 86 18 127/78 95 10/03/16 18:55 Room Air 10/03/16 18:01 95 21 -: 10/04/16 0921 10/04/16 09 Physical Exam General Appearance: No Acute Distress, Comfortable, Obese Eyes Eye Exam: Sclera White, Extraocular Movement Intact Ears & Nose Ears & Nose Exam: Nasal Mucosa [place] Throat Throat Exam: Oral Mucosa [place] & Moist Neck Neck Exam: Neck Supple, Trachea Midline Pulmonary Resp Exam: Poor Inspiratory Effort Cardiology CV Exam: Regular Gastrointestinal/Abdomen GI Exam: Soft, Non-Tender, Bowel Sounds Present Musculoskeletal MS Exam: Joints Intact Integumentary Skin Exam: Warm, Dry Extremeties Extremities Exam: Moderate Edema, Pitting Edema, Dependent Edema Neurologic Neuro Exam: Alert, Awake, Oriented, Speech Clear, Moving All Extremities, No Focal Deficits Psychiatric Psych Exam: Appropriate Responses Assessment/Plan Assessment Summary: Fluid/Volume Overload, CHF, Hypertension, CKD Stage V Problem List: (1) CHF (congestive heart failure) (2) CAD (coronary artery disease) (3) Diabetes mellitus (4) Morbid obesity (5) Type 2 diabetes mellitus (6) Anemia (7) AIDS (acquired immune deficiency syndrome) (8) Pedal edema (9) Chronic Renal Failure / insufficiency, unspec Plan HD initiated - left subclavian tunneled catheter placed Tolerated HD well , Thursday. Will plan for next HD Thursday, then MWF HD. Continues on lasix and metolazone. Has AVF that is maturing, follow with Dr. eGnao. Will need arrangements for outpatient dialysis Problem Qualifiers (1) Type 2 diabetes mellitus: Deni Harmon MD Oct 04, 2016 17:41
[2016-10-04] MEDS: MINOXIDIL 2.5 MG TAB PO SCH (22:20)
[2016-10-05] VITALS: BP 108/56; PULSE 80; RESP 19; TEMP 97.6; O2SAT 95
[2016-10-05 04:00] VITALS: BP 119/62; PULSE 80; RESP 19; TEMP 97.1; O2SAT 96
[2016-10-05 04:12] LABS: AUTOMATED NEUTROPHIL # 2.6 TH/MM3 (1.8-7.7); BASOPHIL % 0.8 % (0.0-2.0); EOSINOPHIL # 0.2 TH/MM3 (0-0.4); EOSINOPHIL % 4.9 % (0.0-4.0); HEMO FLAGS DIFF FINAL; LYMPHOCYTE # 0.8 TH/MM3 (1.0-4.8); MEAN CORPUSCULAR HEMOGLOBIN 27.8 PG (27.0-34.0); MEAN CORPUSCULAR HGB CONC 32.8 % (32.0-36.0); MONO % 13.9 % (0.0-8.0); NEUT % 61.4 % (16.0-70.0); PLATELET COUNT 151 TH/MM3 (150-450); RED BLOOD COUNT 3.89 MIL/MM3 (4.50-5.90); RED CELL DISTRIBUTION WIDTH 16.2 % (11.6-17.2); WHITE BLOOD COUNT 4.2 TH/MM3 (4.0-11.0)
[2016-10-05 04:32] LABS: ANION GAP 10 MEQ/L (5-15); AST (GOT) 12 U/L (15-37); BICARBONATE 29.5 MEQ/L (21.0-32.0); BLOOD UREA NITROGEN 59 MG/DL (7-18); CHLORIDE 99 MEQ/L (98-107); GLOMERULAR FILTRATION RATE 13 ML/MIN (>89); POTASSIUM 4.4 MEQ/L (3.5-5.1); SODIUM (NA) 138 MEQ/L (136-145)
[2016-10-05 04:35] LABS: ALKALINE PHOSPHATASE 87 U/L (45-117); ALT (GPT) 12 U/L (12-78); TOTAL BILIRUBIN ADULT 0.2 MG/DL (0.2-1.0)
[2016-10-05] MEDS: HEPARIN SODIUM - SQ 10,000 UNITS/ML VIAL SQ SCH ×2 (06:34→19:29)
[2016-10-05] MEDS: INSULIN ASPART SUPPLEMENTAL SCALE SQ SCH ×4 (07:00→22:03)
[2016-10-05 08:00] VITALS: BP 114/62; PULSE 82; RESP 17; TEMP 97.9; O2SAT 96
[2016-10-05] MEDS: ERYTHROMYCIN 0.5% OPTH OINT 3.5 GM TUBO LEFT EYE SCH ×4 (09:00→22:12)
[2016-10-05] MEDS: LISINOPRIL 20 MG TAB PO SCH (09:00)
[2016-10-05] MEDS: FUROSEMIDE 40 MG/4 ML VIAL IV PUSH SCH ×2 (09:00→22:12)
[2016-10-05] MEDS: CALCITRIOL 0.25 MCG CAP PO SCH (09:00)
[2016-10-05] MEDS: INSULIN HUMAN NPH/R 70/30 1,000 UNITS/10 ML VIAL SQ SCH ×2 (09:00→22:23)
[2016-10-05] MEDS: VITAMIN B CMPLX/VITC/FOLIC AC CAP PO SCH (09:00)
[2016-10-05] MEDS: METOLAZONE 5 MG TAB PO SCH ×2 (09:00→22:11)
[2016-10-05] MEDS: CARVEDILOL 12.5 MG TAB PO SCH ×2 (09:00→21:00)
[2016-10-05] MEDS: cloNIDine HCL 0.2 MG TAB PO SCH ×2 (09:00→21:00)
[2016-10-05] MEDS: SODIUM CHLORIDE 0.9% FLUSH 10 ML FLUSH IV FLUSH SCH ×2 (09:00→22:13)
[2016-10-05] MEDS: ABACAVIR SULFATE 300 MG TAB PO SCH (09:00)
[2016-10-05] MEDS: DOLUTEGRAVIR SODIUM 50 MG TAB PO SCH (09:00)
[2016-10-05] MEDS: DOCUSATE SODIUM 50 MG/SENNA 8.6 MG TAB PO SCH ×2 (09:00→22:12)
[2016-10-05 12:00] VITALS: BP 108/57; PULSE 89; RESP 18; TEMP 97.5; O2SAT 94
[2016-10-05 16:00] VITALS: BP 109/59; PULSE 84; RESP 19; TEMP 97.2; O2SAT 95
--- NOTE | 2016-10-05 18:46 | HHI.NPPN ---
Subjective General Problems: Anemia, Edema, Heart Disease Renal Failure: Stage V History of Present Illness 41-year-old male known to me from his last admission which was a few days ago and he was discharged yesterday with past medical history of hypertension, diabetes mellitus, ischemic heart disease, cardiomyopathy, chronic kidney disease, hyperlipidemia, chronic depression, history of renal stone who came to the hospital with a complaint of worsening shortness of breath. The patient has been following as an outpatient with Dr. Rico and has a right arm AV fistula done by Dr. Genao about three weeks ago. Additional Remarks No acute complaints Review of Systems General Constitutional: Fatigue Respiratory Lungs: SOB Cardiovascular Cardiac: Edema, FUNG Objective Data Data 10/05/16 10/06/16 19:00 07:00 Intake Total 600 ml Balance 600 ml Intake Oral 600 ml # Voids 4 # Bowel Movements 1 Vital Signs Date Time Temp Pulse Resp B/P (MAP) Pulse Ox O2 Delivery O2 Flow Rate FiO2 10/05/16 16:00 97.2 84 19 109/59 (76) 95 10/05/16 12:00 97.5 89 18 108/57 (74) 94 10/05/16 08:00 97.9 82 17 114/62 (79) 96 10/05/16 04:00 97.1 80 19 119/62 (81) 96 10/05/16 00:00 97.6 80 19 108/56 (73) 95 10/04/16 20:00 97.9 81 19 117/59 (78) 95 -: 10/05/16 0315 10/05/16 0315 Physical Exam General Appearance: No Acute Distress, Comfortable, Obese Eyes Eye Exam: Sclera White, Extraocular Movement Intact Ears & Nose Ears & Nose Exam: Nasal Mucosa [place] Throat Throat Exam: Oral Mucosa [place] & Moist Neck Neck Exam: Neck Supple, Trachea Midline Pulmonary Resp Exam: Poor Inspiratory Effort Cardiology CV Exam: Regular Gastrointestinal/Abdomen GI Exam: Soft, Non-Tender, Bowel Sounds Present Musculoskeletal MS Exam: Joints Intact Integumentary Skin Exam: Warm, Dry Extremeties Extremities Exam: Moderate Edema, Pitting Edema, Dependent Edema Neurologic Neuro Exam: Alert, Awake, Oriented, Speech Clear, Moving All Extremities, No Focal Deficits Psychiatric Psych Exam: Appropriate Responses Assessment/Plan Assessment Summary: Fluid/Volume Overload, CHF, Hypertension, CKD Stage V Problem List: (1) CHF (congestive heart failure) ICD Codes: I50.9 - CHF (congestive heart failure) Status: Acute (2) CAD (coronary artery disease) ICD Codes: I25.10 - Atherosclerotic heart disease of [place] coronary artery without angina pectoris Status: Acute (3) Diabetes mellitus ICD Codes: E11.9 - Type 2 diabetes mellitus without complications Status: Acute (4) Morbid obesity ICD Codes: E66.01 - Morbid obesity Status: Acute (5) Type 2 diabetes mellitus ICD Codes: E11.9 - Type 2 diabetes mellitus Status: Chronic (6) Anemia ICD Codes: D64.9 - Anemia Status: Acute (7) AIDS (acquired immune deficiency syndrome) ICD Codes: B20 - Acquired immunodeficiency syndrome Status: Acute (8) Pedal edema ICD Codes: R60.0 - Edema of foot Status: Acute (9) Chronic Renal Failure / insufficiency, unspec Status: Chronic Plan HD initiated - left subclavian tunneled catheter placed Tolerated HD well , Thursday. Volume status, electrolytes stable. Will plan for next HD Thursday, then MWF HD. Continues on lasix and metolazone. Has right brachiocephalic AVF that is maturing, follow with Dr. Genao. Should develop in 3-4 months Will need arrangements for outpatient dialysis Problem Qualifiers (1) Type 2 diabetes mellitus: Deni Harmon MD Oct 05, 2016 18:46
[2016-10-05 20:10] VITALS: BP 148/77; PULSE 84; RESP 18; TEMP 98.8; O2SAT 98
[2016-10-05] MEDS: MINOXIDIL 2.5 MG TAB PO SCH (22:11)
[2016-10-06 00:09] VITALS: BP 146/79; PULSE 83; RESP 18; TEMP 98.5; O2SAT 97
[2016-10-06 04:10] VITALS: BP 117/72; PULSE 84; RESP 18; TEMP 98.4; O2SAT 96
[2016-10-06 05:22] LABS: AUTOMATED NEUTROPHIL # 2.7 TH/MM3 (1.8-7.7); BASOPHIL % 0.9 % (0.0-2.0); EOSINOPHIL # 0.2 TH/MM3 (0-0.4); EOSINOPHIL % 4.4 % (0.0-4.0); HEMATOCRIT 35.3 % (39.0-51.0); HEMO FLAGS DIFF FINAL; LYMPH % 21.4 % (9.0-44.0); MEAN CELL VOLUME 85.5 FL (80.0-100.0); MEAN CORPUSCULAR HEMOGLOBIN 27.4 PG (27.0-34.0); MEAN CORPUSCULAR HGB CONC 32.1 % (32.0-36.0); MONO % 13.1 % (0.0-8.0); NEUT % 60.2 % (16.0-70.0); PLATELET COUNT 170 TH/MM3 (150-450); RED BLOOD COUNT 4.13 MIL/MM3 (4.50-5.90); RED CELL DISTRIBUTION WIDTH 16.6 % (11.6-17.2); WHITE BLOOD COUNT 4.5 TH/MM3 (4.0-11.0)
[2016-10-06 05:35] LABS: BICARBONATE 29.1 MEQ/L (21.0-32.0); POTASSIUM 4.5 MEQ/L (3.5-5.1)
[2016-10-06] MEDS: HEPARIN SODIUM - SQ 10,000 UNITS/ML VIAL SQ SCH ×2 (05:49→17:29)
[2016-10-06] MEDS: INSULIN ASPART SUPPLEMENTAL SCALE SQ SCH ×4 (07:00→21:00)
[2016-10-06 08:00] VITALS: BP 138/76; PULSE 84; RESP 18; TEMP 98.1; O2SAT 97
--- NOTE | 2016-10-06 08:50 | HHI.PR ---
Subjective History of Present Illness Patient seen on 10/05/16 shortness of breath better . Patient s/p left subclavian PermCath placement. due to patients size IJ placement not possible..getting hemodialysis feel better after hemodialysis. Review of Systems Constitutional Constitutional: Fatigue, Weakness Constitutional Remarks Morbid obese. Eyes Eyes Remarks left lower eye lid swelling Pulmonary Respiratory: Shortness of Breath Vitals/Results Vital Signs Vital Signs Date Time Temp Pulse Resp B/P (MAP) Pulse Ox O2 Delivery O2 Flow Rate FiO2 10/06/16 04:10 98.4 84 18 117/72 (87) 96 10/06/16 00:09 98.5 83 18 146/79 (101) 97 10/05/16 20:10 98.8 84 18 148/77 (100) 98 10/05/16 16:00 97.2 84 19 109/59 (76) 95 10/05/16 12:00 97.5 89 18 108/57 (74) 94 CBC/BMP: 10/06/16 0402 10/06/16 0402 Lab Results Laboratory Tests Test 10/06/16 04:02 White Blood Count 4.5 TH/MM3 Red Blood Count 4.13 MIL/MM3 Hemoglobin 11.3 GM/DL Hematocrit 35.3 % Mean Corpuscular Volume 85.5 FL Mean Corpuscular Hemoglobin 27.4 PG Mean Corpuscular Hemoglobin Concent 32.1 % Red Cell Distribution Width 16.6 % Platelet Count 170 TH/MM3 Mean Platelet Volume 9.3 FL Neutrophils (%) (Auto) 60.2 % Lymphocytes (%) (Auto) 21.4 % Monocytes (%) (Auto) 13.1 % Eosinophils (%) (Auto) 4.4 % Basophils (%) (Auto) 0.9 % Neutrophils # (Auto) 2.7 TH/MM3 Lymphocytes # (Auto) 1.0 TH/MM3 Monocytes # (Auto) 0.6 TH/MM3 Eosinophils # (Auto) 0.2 TH/MM3 Basophils # (Auto) 0.0 TH/MM3 CBC Comment DIFF FINAL Differential Comment Blood Urea Nitrogen 64 MG/DL Creatinine 5.99 MG/DL Random Glucose 133 MG/DL Calcium Level 8.9 MG/DL Sodium Level 137 MEQ/L Potassium Level 4.5 MEQ/L Chloride Level 98 MEQ/L Carbon Dioxide Level 29.1 MEQ/L Anion Gap 10 MEQ/L Estimat Glomerular Filtration Rate 13 ML/MIN Physical Exam General General Appearance: No Acute Distress, Comfortable, Obese Appearance Remarks Morbid Obese. Eyes Eye Exam: Sclera White, Extraocular Movement Intact Eye Remarks left lower eye lid swelling Ears & Nose Ears & Nose Exam: Nasal Mucosa [place] Throat Throat Exam: Oral Mucosa [place] & Moist Neck Neck Exam: Neck Supple, Trachea Midline Pulmonary Resp Exam: Poor Inspiratory Effort Cardiology CV Exam: Regular Gastrointestinal/Abdomen GI Exam: Soft, Non-Tender, Bowel Sounds Present Musculoskeletal MS Exam: Joints Intact Integumentary Skin Exam: Warm, Dry Extremeties Extremities Exam: Moderate Edema, Pitting Edema, Dependent Edema Neurologic Neuro Exam: Alert, Awake, Oriented, Speech Clear, Moving All Extremities, No Focal Deficits Psychiatric Psych Exam: Appropriate Responses VTE Prophylaxis VTE Prophylaxis Meds: Heparin Assessment/Plan Problem List: (1) Acute on chronic systolic congestive heart failure ICD Codes: I50.23 - Acute on chronic systolic congestive heart failure Status: Acute (2) Morbid obesity ICD Codes: E66.01 - Morbid obesity Status: Acute (3) Hypothyroidism ICD Codes: E03.9 - Hypothyroidism Status: Acute (4) HIV (human immunodeficiency virus infection) ICD Codes: Z21 - Human immunodeficiency virus infection Status: Chronic (5) Type 2 diabetes mellitus ICD Codes: E11.9 - Type 2 diabetes mellitus Status: Chronic (6) Ischemic cardiomyopathy ICD Codes: I25.5 - Ischemic cardiomyopathy Status: Acute (7) Hypertension ICD Codes: I10 - Essential (primary) hypertension Status: Acute (8) CKD (chronic kidney disease) stage 4, GFR 15-29 ml/min ICD Codes: N18.4 - Chronic kidney disease, stage 4 (severe) Status: Acute Assessment/Plan Recurrent pulmonary edema, acute on chronic systolic CHF improved after hemodialysis. Ischemic cardiomyopathy -Continue with diuretics-Lasix 80 mg IV 2 times a day Appreciate nephrology input, may need to be started on hemodialysis during this admission add Metolazone. Still Creatinine and GFR same, GFR is now decreased to 14 ml/min. s/p hemodialysis D/W the patient. Patient s/p left subclavian PermCath placement. due to patients size IJ placement not possible. S/P Hemodialysis. Will need out patient HD arrangement. -Continue lisinopril status post right arm AV fistula per Dr. Genao -Monitor fistula Diabetes type 2 Accu-Cheks before meals and at bedtime with insulin therapy as needed Status post left eye surgery-cataract, has left lower eye lid swelling which is improving Continue erythromycin ointment Hypertension, stable Continue home medications HIV -Continue with home meds Heparin for DVT prophylaxis Continue to monitor intake and output, renal function Discussed with RN Discussed with patient Check CBC with CMP in AM. Discussed Condition with: Patient Problem Qualifiers (1) Hypothyroidism: (2) Type 2 diabetes mellitus: (3) Hypertension: Refugio Brownlee MD Oct 06, 2016 08:50
--- NOTE | 2016-10-06 08:51 | HHI.PR ---
Subjective History of Present Illness Patient shortness of breath better . Patient s/p left subclavian PermCath placement. due to patients size IJ placement not possible..s/p hemodialysis feel better after hemodialysis. Opthalmogist consulted for left lower eye lid swelling. Review of Systems Constitutional Constitutional: Fatigue, Weakness Constitutional Remarks Morbid obese. Eyes Eyes Remarks left lower eye lid swelling Pulmonary Respiratory: Shortness of Breath Vitals/Results Vital Signs Vital Signs Date Time Temp Pulse Resp B/P (MAP) Pulse Ox O2 Delivery O2 Flow Rate FiO2 10/06/16 04:10 98.4 84 18 117/72 (87) 96 10/06/16 00:09 98.5 83 18 146/79 (101) 97 10/05/16 20:10 98.8 84 18 148/77 (100) 98 10/05/16 16:00 97.2 84 19 109/59 (76) 95 10/05/16 12:00 97.5 89 18 108/57 (74) 94 CBC/BMP: 10/06/16 0402 10/06/16 0402 Lab Results Laboratory Tests Test 10/06/16 04:02 White Blood Count 4.5 TH/MM3 Red Blood Count 4.13 MIL/MM3 Hemoglobin 11.3 GM/DL Hematocrit 35.3 % Mean Corpuscular Volume 85.5 FL Mean Corpuscular Hemoglobin 27.4 PG Mean Corpuscular Hemoglobin Concent 32.1 % Red Cell Distribution Width 16.6 % Platelet Count 170 TH/MM3 Mean Platelet Volume 9.3 FL Neutrophils (%) (Auto) 60.2 % Lymphocytes (%) (Auto) 21.4 % Monocytes (%) (Auto) 13.1 % Eosinophils (%) (Auto) 4.4 % Basophils (%) (Auto) 0.9 % Neutrophils # (Auto) 2.7 TH/MM3 Lymphocytes # (Auto) 1.0 TH/MM3 Monocytes # (Auto) 0.6 TH/MM3 Eosinophils # (Auto) 0.2 TH/MM3 Basophils # (Auto) 0.0 TH/MM3 CBC Comment DIFF FINAL Differential Comment Blood Urea Nitrogen 64 MG/DL Creatinine 5.99 MG/DL Random Glucose 133 MG/DL Calcium Level 8.9 MG/DL Sodium Level 137 MEQ/L Potassium Level 4.5 MEQ/L Chloride Level 98 MEQ/L Carbon Dioxide Level 29.1 MEQ/L Anion Gap 10 MEQ/L Estimat Glomerular Filtration Rate 13 ML/MIN Physical Exam General General Appearance: No Acute Distress, Comfortable, Obese Appearance Remarks Morbid Obese. Eyes Eye Exam: Sclera White, Extraocular Movement Intact Eye Remarks left lower eye lid swelling Ears & Nose Ears & Nose Exam: Nasal Mucosa [place] Throat Throat Exam: Oral Mucosa [place] & Moist Neck Neck Exam: Neck Supple, Trachea Midline Pulmonary Resp Exam: Poor Inspiratory Effort Cardiology CV Exam: Regular Gastrointestinal/Abdomen GI Exam: Soft, Non-Tender, Bowel Sounds Present Musculoskeletal MS Exam: Joints Intact Integumentary Skin Exam: Warm, Dry Extremeties Extremities Exam: Moderate Edema, Pitting Edema, Dependent Edema Neurologic Neuro Exam: Alert, Awake, Oriented, Speech Clear, Moving All Extremities, No Focal Deficits Psychiatric Psych Exam: Appropriate Responses VTE Prophylaxis VTE Prophylaxis Meds: Heparin Assessment/Plan Problem List: (1) Acute on chronic systolic congestive heart failure ICD Codes: I50.23 - Acute on chronic systolic congestive heart failure Status: Acute (2) Morbid obesity ICD Codes: E66.01 - Morbid obesity Status: Acute (3) Hypothyroidism ICD Codes: E03.9 - Hypothyroidism Status: Acute (4) HIV (human immunodeficiency virus infection) ICD Codes: Z21 - Human immunodeficiency virus infection Status: Chronic (5) Type 2 diabetes mellitus ICD Codes: E11.9 - Type 2 diabetes mellitus Status: Chronic (6) Ischemic cardiomyopathy ICD Codes: I25.5 - Ischemic cardiomyopathy Status: Acute (7) Hypertension ICD Codes: I10 - Essential (primary) hypertension Status: Acute (8) CKD (chronic kidney disease) stage 4, GFR 15-29 ml/min ICD Codes: N18.4 - Chronic kidney disease, stage 4 (severe) Status: Acute Assessment/Plan Recurrent pulmonary edema, acute on chronic CHF better after hemodialysis. Ischemic cardiomyopathy -Continue with diuretics-Lasix 80 mg IV 2 times a day Appreciate nephrology input, may need to be started on hemodialysis during this admission add Metolazone. s/p hemodialysis D/W the patient. Patient s/p left subclavian PermCath placement. due to patients size IJ placement not possible. getting Hemodialysis. Will need out patient HD arrangement. -Continue lisinopril status post right arm AV fistula per Dr. Genao -Monitor fistula Diabetes type 2 Accu-Cheks before meals and at bedtime with insulin therapy as needed Status post left eye surgery-cataract, has left lower eye lid swelling which is improving Continue erythromycin ointment Hypertension, stable Continue home medications HIV -Continue with home meds Left lower eye lid swelling consulted ophthalmogist. Heparin for DVT prophylaxis Continue to monitor intake and output, renal function Discussed with RN Discussed with patient Check CBC with CMP in AM. Discussed Condition with: Patient Problem Qualifiers (1) Hypothyroidism: (2) Type 2 diabetes mellitus: (3) Hypertension: Refugio Brownlee MD Oct 06, 2016 08:51
[2016-10-06] MEDS: INSULIN HUMAN NPH/R 70/30 1,000 UNITS/10 ML VIAL SQ SCH ×2 (09:00→21:37)
[2016-10-06] MEDS: ERYTHROMYCIN 0.5% OPTH OINT 3.5 GM TUBO LEFT EYE SCH ×4 (09:00→21:37)
[2016-10-06] MEDS: SODIUM CHLORIDE 0.9% FLUSH 10 ML FLUSH IV FLUSH SCH ×2 (09:00→21:38)
[2016-10-06] MEDS: DOLUTEGRAVIR SODIUM 50 MG TAB PO SCH (09:00)
[2016-10-06] MEDS: VITAMIN B CMPLX/VITC/FOLIC AC CAP PO SCH (09:00)
[2016-10-06 12:00] VITALS: BP 151/81; PULSE 87; RESP 18; TEMP 98.4; O2SAT 95
[2016-10-06] MEDS: FUROSEMIDE 40 MG/4 ML VIAL IV PUSH SCH ×2 (13:13→21:35)
[2016-10-06] MEDS: CALCITRIOL 0.25 MCG CAP PO SCH (13:13)
[2016-10-06] MEDS: cloNIDine HCL 0.2 MG TAB PO SCH ×2 (13:14→21:00)
[2016-10-06] MEDS: ABACAVIR SULFATE 300 MG TAB PO SCH (13:14)
[2016-10-06] MEDS: CARVEDILOL 12.5 MG TAB PO SCH ×2 (13:14→21:00)
[2016-10-06] MEDS: METOLAZONE 5 MG TAB PO SCH (13:14)
[2016-10-06] MEDS: DOCUSATE SODIUM 50 MG/SENNA 8.6 MG TAB PO SCH ×2 (13:15→21:00)
[2016-10-06] MEDS: LISINOPRIL 20 MG TAB PO SCH (13:15)
[2016-10-06 16:00] VITALS: BP 92/60; PULSE 89; RESP 18; TEMP 98; O2SAT 92
--- NOTE | 2016-10-06 17:49 | HHI.NPPN ---
Subjective General Problems: Anemia, Edema, Heart Disease Renal Failure: Stage V History of Present Illness 41-year-old male known to me from his last admission which was a few days ago and he was discharged yesterday with past medical history of hypertension, diabetes mellitus, ischemic heart disease, cardiomyopathy, chronic kidney disease, hyperlipidemia, chronic depression, history of renal stone who came to the hospital with a complaint of worsening shortness of breath. The patient has been following as an outpatient with Dr. Rico and has a right arm AV fistula done by Dr. Genao about three weeks ago. Additional Remarks Patient is sitting on chair, has some improvement in the SOB, orthopnea and the edema in the legs. Review of Systems General Constitutional: Fatigue Respiratory Lungs: SOB Cardiovascular Cardiac: Edema, FUNG Objective Data Data Vital Signs Date Time Temp Pulse Resp B/P (MAP) Pulse Ox O2 Delivery O2 Flow Rate FiO2 10/06/16 12:00 98.4 87 18 151/81 (104) 95 10/06/16 08:00 98.1 84 18 138/76 (96) 97 10/06/16 04:10 98.4 84 18 117/72 (87) 96 10/06/16 00:09 98.5 83 18 146/79 (101) 97 10/05/16 20:10 98.8 84 18 148/77 (100) 98 -: 10/06/16 0402 10/06/16 0402 Physical Exam General Appearance: No Acute Distress, Comfortable, Obese Eyes Eye Exam: Sclera White, Extraocular Movement Intact Ears & Nose Ears & Nose Exam: Nasal Mucosa [place] Throat Throat Exam: Oral Mucosa [place] & Moist Neck Neck Exam: Neck Supple, Trachea Midline Pulmonary Resp Exam: Poor Inspiratory Effort Cardiology CV Exam: Regular Gastrointestinal/Abdomen GI Exam: Soft, Non-Tender, Bowel Sounds Present Musculoskeletal MS Exam: Joints Intact Integumentary Skin Exam: Warm, Dry Extremeties Extremities Exam: Moderate Edema, Pitting Edema, Dependent Edema Neurologic Neuro Exam: Alert, Awake, Oriented, Speech Clear, Moving All Extremities, No Focal Deficits Psychiatric Psych Exam: Appropriate Responses Assessment/Plan Assessment Summary: Fluid/Volume Overload, CHF, Hypertension, CKD Stage V Problem List: (1) CHF (congestive heart failure) ICD Codes: I50.9 - CHF (congestive heart failure) Status: Acute (2) CAD (coronary artery disease) ICD Codes: I25.10 - Atherosclerotic heart disease of [place] coronary artery without angina pectoris Status: Acute (3) Diabetes mellitus ICD Codes: E11.9 - Type 2 diabetes mellitus without complications Status: Acute (4) Morbid obesity ICD Codes: E66.01 - Morbid obesity Status: Acute (5) Type 2 diabetes mellitus ICD Codes: E11.9 - Type 2 diabetes mellitus Status: Chronic (6) Anemia ICD Codes: D64.9 - Anemia Status: Acute (7) AIDS (acquired immune deficiency syndrome) ICD Codes: B20 - Acquired immunodeficiency syndrome Status: Acute (8) Pedal edema ICD Codes: R60.0 - Edema of foot Status: Acute (9) Chronic Renal Failure / insufficiency, unspec Status: Chronic Plan Patient is alert, sitting on chair,still has SOB on exertion. Also has Orthopnea. No chest pain. Creatinine remain above 5. Still Creatinine and GFR same, GFR is low, Started on HD, Remove fluid as tolerated. Out patient HD arrangements. Next HD in AM, check Po4 level and iron study. Problem Qualifiers (1) Type 2 diabetes mellitus: Parker Ramos MD Oct 06, 2016 17:49
--- NOTE | 2016-10-06 18:54 | PD.CONS ---
History of Present Illness Service Ophthalmology Consult Requested By Reason for Consult conjunctival chemosis Primary Care Physician No Primary Care Physician Diagnoses: History of Present Illness 41 yo BM with history of HIV, diabetes, morbid obesity, hypertension, hyperlipidemia, COPD, reflux disease, and chronic kidney disease. I saw this patient recently on his last visit. Patient is poor historian - had to obtain ocular history from several different ophthalmologists he has been treated by as an outpatient. ([facility]) has done panretinal photocoagulation laser for his diabetic retinopathy in both eyes in 2011. Dr. Hopper performed cataract surgery on both eyes in early 2015. 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 He saw in [place] a few months ago for a second opinion. He performed possible cyclophotocoagulation ([employer]) to help reduce pressure. Pt states he noticed his left eye starting to swell a few months ago. told him to keep it well lubricated with ointment and keep it covered which the patient has not been doing. Past Family Social History Allergies: Coded Allergies: No Known Allergies (Verified , 09/29/16) Physical Exam Vital Signs Vital Signs Date Time Temp Pulse Resp B/P (MAP) Pulse Ox O2 Delivery O2 Flow Rate FiO2 10/06/16 12:00 98.4 87 18 151/81 (104) 95 10/06/16 08:00 98.1 84 18 138/76 (96) 97 10/06/16 04:10 98.4 84 18 117/72 (87) 96 10/06/16 00:09 98.5 83 18 146/79 (101) 97 10/05/16 20:10 98.8 84 18 148/77 (100) 98 Physical Exam Va sc at near OD 20/400, OS NLP EOM full OU, no diplopia CVF unable Pupils 3mm OU IOP 14, 16 Anterior exam OD - normal eyelid, C/S W&Q, K clear, AC deep, pupil round, PCIOL OS - normal eyelid, severe inferior conj chemosis, K clear, AC deep, pupil round , PCIOL Laboratory Laboratory Tests Test 10/06/16 04:02 White Blood Count 4.5 Red Blood Count 4.13 Hemoglobin 11.3 Hematocrit 35.3 Mean Corpuscular Volume 85.5 Mean Corpuscular Hemoglobin 27.4 Mean Corpuscular Hemoglobin Concent 32.1 Red Cell Distribution Width 16.6 Platelet Count 170 Mean Platelet Volume 9.3 Neutrophils (%) (Auto) 60.2 Lymphocytes (%) (Auto) 21.4 Monocytes (%) (Auto) 13.1 Eosinophils (%) (Auto) 4.4 Basophils (%) (Auto) 0.9 Neutrophils # (Auto) 2.7 Lymphocytes # (Auto) 1.0 Monocytes # (Auto) 0.6 Eosinophils # (Auto) 0.2 Basophils # (Auto) 0.0 CBC Comment DIFF FINAL Differential Comment Blood Urea Nitrogen 64 Creatinine 5.99 Random Glucose 133 Calcium Level 8.9 Sodium Level 137 Potassium Level 4.5 Chloride Level 98 Carbon Dioxide Level 29.1 Anion Gap 10 Estimat Glomerular Filtration Rate 13 Result Diagram: 10/06/1640110/06/16401 Assessment and Plan Problem List: (1) Chemosis of conjunctiva ICD 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 Same recommendation as before - generous amount of Lacri-lube on swollen conjunctiva and keeping it covered (not with gauze or anything else that will stick to it) 24 hours a day to reduce exposure to air which is making it more inflamed. This will take weeks to resolve. Can follow up as outpatient. 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 Problem Qualifiers (1) Chemosis of conjunctiva: Qualified Codes: H11.422 - Conjunctival edema, left eye Puja Harmon MD Oct 06, 2016 18:54
[2016-10-06 20:00] VITALS: BP 113/58; PULSE 84; RESP 18; TEMP 96.2; O2SAT 95
[2016-10-06] MEDS: MINOXIDIL 2.5 MG TAB PO SCH (21:00)
[2016-10-07] VITALS (8 sets, daily range): BP systolic 106–133; BP diastolic 58–74; PULSE 74–86; RESP 18–20; TEMP 96.1–98.6; O2SAT 93–96
[2016-10-07] MEDS: HEPARIN SODIUM - SQ 10,000 UNITS/ML VIAL SQ SCH ×2 (06:02→17:33)
[2016-10-07] MEDS: INSULIN ASPART SUPPLEMENTAL SCALE SQ SCH ×4 (06:39→21:00)
[2016-10-07 07:47] LABS: AUTOMATED NEUTROPHIL # 2.7 TH/MM3 (1.8-7.7); BASOPHIL % 1.1 % (0.0-2.0); EOSINOPHIL # 0.2 TH/MM3 (0-0.4); EOSINOPHIL % 3.7 % (0.0-4.0); HEMATOCRIT 35.7 % (39.0-51.0); HEMO FLAGS DIFF FINAL; LYMPH % 20.3 % (9.0-44.0); LYMPHOCYTE # 0.9 TH/MM3 (1.0-4.8); MEAN CELL VOLUME 85.5 FL (80.0-100.0); MEAN CORPUSCULAR HEMOGLOBIN 27.8 PG (27.0-34.0); MEAN CORPUSCULAR HGB CONC 32.6 % (32.0-36.0); MONO % 15.8 % (0.0-8.0); NEUT % 59.1 % (16.0-70.0); PLATELET COUNT 174 TH/MM3 (150-450); RED BLOOD COUNT 4.17 MIL/MM3 (4.50-5.90); RED CELL DISTRIBUTION WIDTH 15.9 % (11.6-17.2); WHITE BLOOD COUNT 4.5 TH/MM3 (4.0-11.0)
[2016-10-07 08:16] LABS: ALT (GPT) 12 U/L (12-78); ANION GAP 8 MEQ/L (5-15); AST (GOT) 13 U/L (15-37); BLOOD UREA NITROGEN 51 MG/DL (7-18); CHLORIDE 94 MEQ/L (98-107); GLOMERULAR FILTRATION RATE 16 ML/MIN (>89); POTASSIUM 4.7 MEQ/L (3.5-5.1); SODIUM (NA) 133 MEQ/L (136-145)
[2016-10-07 08:18] LABS: ALKALINE PHOSPHATASE 90 U/L (45-117); FERRITIN 118 NG/ML (26-388); TOTAL BILIRUBIN ADULT 0.2 MG/DL (0.2-1.0); TRANSFERRIN IRON PROFILE 197 MG/DL (200-360)
[2016-10-07] MEDS: CARVEDILOL 12.5 MG TAB PO SCH ×2 (09:00→21:00)
[2016-10-07] MEDS: SODIUM CHLORIDE 0.9% FLUSH 10 ML FLUSH IV FLUSH SCH ×2 (09:00→21:25)
[2016-10-07] MEDS: ERYTHROMYCIN 0.5% OPTH OINT 3.5 GM TUBO LEFT EYE SCH ×4 (09:00→21:25)
[2016-10-07] MEDS: CALCITRIOL 0.25 MCG CAP PO SCH (10:12)
[2016-10-07] MEDS: cloNIDine HCL 0.2 MG TAB PO SCH ×2 (10:12→21:00)
[2016-10-07] MEDS: FUROSEMIDE 40 MG/4 ML VIAL IV PUSH SCH ×2 (10:12→21:25)
[2016-10-07] MEDS: DOLUTEGRAVIR SODIUM 50 MG TAB PO SCH (10:13)
[2016-10-07] MEDS: ABACAVIR SULFATE 300 MG TAB PO SCH (10:13)
[2016-10-07] MEDS: LISINOPRIL 20 MG TAB PO SCH (10:13)
[2016-10-07] MEDS: DOCUSATE SODIUM 50 MG/SENNA 8.6 MG TAB PO SCH ×2 (10:14→21:00)
[2016-10-07] MEDS: VITAMIN B CMPLX/VITC/FOLIC AC CAP PO SCH (10:14)
[2016-10-07] MEDS: INSULIN HUMAN NPH/R 70/30 1,000 UNITS/10 ML VIAL SQ SCH ×2 (10:23→21:27)
--- NOTE | 2016-10-07 14:56 | HHI.PR ---
Subjective History of Present Illness Patient shortness of breath better . Opthalmogist input noted for left lower eye lid swelling. Review of Systems Constitutional Constitutional: Fatigue, Weakness Constitutional Remarks Morbid obese. Eyes Eyes Remarks left lower eye lid swelling Pulmonary Respiratory: Shortness of Breath Vitals/Results Vital Signs Vital Signs Date Time Temp Pulse Resp B/P (MAP) Pulse Ox O2 Delivery O2 Flow Rate FiO2 10/07/16 12:00 97.3 83 20 117/62 (80) 93 10/07/16 11:31 74 10/07/16 08:00 97.9 81 20 122/74 (90) 95 10/07/16 04:00 97.8 86 18 116/61 (79) 96 10/07/16 00:00 98.1 80 18 108/58 (75) 96 10/06/16 20:00 96.2 84 18 113/58 (76) 95 10/06/16 16:00 98.0 89 18 92/60 (71) 92 CBC/BMP: 10/07/16 0727 10/07/16 0727 Lab Results Laboratory Tests Test 10/07/16 07:27 White Blood Count 4.5 TH/MM3 Red Blood Count 4.17 MIL/MM3 Hemoglobin 11.6 GM/DL Hematocrit 35.7 % Mean Corpuscular Volume 85.5 FL Mean Corpuscular Hemoglobin 27.8 PG Mean Corpuscular Hemoglobin Concent 32.6 % Red Cell Distribution Width 15.9 % Platelet Count 174 TH/MM3 Mean Platelet Volume 8.9 FL Neutrophils (%) (Auto) 59.1 % Lymphocytes (%) (Auto) 20.3 % Monocytes (%) (Auto) 15.8 % Eosinophils (%) (Auto) 3.7 % Basophils (%) (Auto) 1.1 % Neutrophils # (Auto) 2.7 TH/MM3 Lymphocytes # (Auto) 0.9 TH/MM3 Monocytes # (Auto) 0.7 TH/MM3 Eosinophils # (Auto) 0.2 TH/MM3 Basophils # (Auto) 0.0 TH/MM3 CBC Comment DIFF FINAL Differential Comment Blood Urea Nitrogen 51 MG/DL Creatinine 5.00 MG/DL Random Glucose 198 MG/DL Total Protein 7.8 GM/DL Albumin 3.3 GM/DL Calcium Level 9.0 MG/DL Phosphorus Level 4.1 MG/DL Alkaline Phosphatase 90 U/L Aspartate Amino Transf (AST/SGOT) 13 U/L Alanine Aminotransferase (ALT/SGPT) 12 U/L Total Bilirubin 0.2 MG/DL Sodium Level 133 MEQ/L Potassium Level 4.7 MEQ/L Chloride Level 94 MEQ/L Carbon Dioxide Level 31.0 MEQ/L Anion Gap 8 MEQ/L Estimat Glomerular Filtration Rate 16 ML/MIN Iron Level 45 MCG/DL Total Iron Binding Capacity 276 MCG/DL Percent Iron Saturation 16.3 % Ferritin 118 NG/ML Physical Exam General General Appearance: No Acute Distress, Comfortable, Obese Appearance Remarks Morbid Obese. Eyes Eye Exam: Sclera White, Extraocular Movement Intact Eye Remarks left lower eye lid swelling Ears & Nose Ears & Nose Exam: Nasal Mucosa [place] Throat Throat Exam: Oral Mucosa [place] & Moist Neck Neck Exam: Neck Supple, Trachea Midline Pulmonary Resp Exam: Poor Inspiratory Effort Cardiology CV Exam: Regular Gastrointestinal/Abdomen GI Exam: Soft, Non-Tender, Bowel Sounds Present Musculoskeletal MS Exam: Joints Intact Integumentary Skin Exam: Warm, Dry Extremeties Extremities Exam: Moderate Edema, Pitting Edema, Dependent Edema Neurologic Neuro Exam: Alert, Awake, Oriented, Speech Clear, Moving All Extremities, No Focal Deficits Psychiatric Psych Exam: Appropriate Responses VTE Prophylaxis VTE Prophylaxis Meds: Heparin Assessment/Plan Problem List: (1) Acute on chronic systolic congestive heart failure ICD Codes: I50.23 - Acute on chronic systolic congestive heart failure Status: Acute (2) Morbid obesity ICD Codes: E66.01 - Morbid obesity Status: Acute (3) Hypothyroidism ICD Codes: E03.9 - Hypothyroidism Status: Acute (4) HIV (human immunodeficiency virus infection) ICD Codes: Z21 - Human immunodeficiency virus infection Status: Chronic (5) Type 2 diabetes mellitus ICD Codes: E11.9 - Type 2 diabetes mellitus Status: Chronic (6) Ischemic cardiomyopathy ICD Codes: I25.5 - Ischemic cardiomyopathy Status: Acute (7) Hypertension ICD Codes: I10 - Essential (primary) hypertension Status: Acute (8) CKD (chronic kidney disease) stage 4, GFR 15-29 ml/min ICD Codes: N18.4 - Chronic kidney disease, stage 4 (severe) Status: Acute Assessment/Plan Recurrent pulmonary edema, acute on chronic CHF better after hemodialysis. Ischemic cardiomyopathy -Continue with diuretics-Lasix 80 mg IV 2 times a day Appreciate nephrology input, may need to be started on hemodialysis during this admission + Metolazone. s/p hemodialysis D/W the patient. Patient s/p left subclavian PermCath placement. due to patients size IJ placement not possible. getting Hemodialysis. Will need out patient HD arrangement. -Continue lisinopril status post right arm AV fistula per Dr. Genao -Monitor fistula Diabetes type 2 Accu-Cheks before meals and at bedtime with insulin therapy as needed Status post left eye surgery-cataract, has left lower eye lid swelling / Chemosis of conjunctiva ..Ophthalmogist input noted Continue erythromycin ointment Hypertension, stable Continue home medications HIV -Continue with home meds Heparin for DVT prophylaxis Continue to monitor intake and output, renal function Discussed with RN Discussed with patient Check CBC with CMP in AM. Discussed Condition with: Patient Problem Qualifiers (1) Hypothyroidism: (2) Type 2 diabetes mellitus: (3) Hypertension: Refugio Brownlee MD Oct 07, 2016 14:56
--- NOTE | 2016-10-07 17:28 | HHI.NPPN ---
Subjective General Problems: Anemia, Edema, Heart Disease Renal Failure: Stage V History of Present Illness 41-year-old male known to me from his last admission which was a few days ago and he was discharged yesterday with past medical history of hypertension, diabetes mellitus, ischemic heart disease, cardiomyopathy, chronic kidney disease, hyperlipidemia, chronic depression, history of renal stone who came to the hospital with a complaint of worsening shortness of breath. The patient has been following as an outpatient with Dr. Rico and has a right arm AV fistula done by Dr. Genao about three weeks ago. Additional Remarks Patient is sitting on chair, has some improvement in the SOB, sitting on chair. Review of Systems General Constitutional: Fatigue Respiratory Lungs: SOB Cardiovascular Cardiac: Edema, FUNG Objective Data Data Vital Signs Date Time Temp Pulse Resp B/P (MAP) Pulse Ox O2 Delivery O2 Flow Rate FiO2 10/07/16 12:00 97.3 83 20 117/62 (80) 93 10/07/16 11:31 74 10/07/16 08:00 97.9 81 20 122/74 (90) 95 10/07/16 04:00 97.8 86 18 116/61 (79) 96 10/07/16 00:00 98.1 80 18 108/58 (75) 96 10/06/16 20:00 96.2 84 18 113/58 (76) 95 -: 10/07/16 0727 10/07/16 0727 Physical Exam General Appearance: No Acute Distress, Comfortable, Obese Eyes Eye Exam: Sclera White, Extraocular Movement Intact Ears & Nose Ears & Nose Exam: Nasal Mucosa [place] Throat Throat Exam: Oral Mucosa [place] & Moist Neck Neck Exam: Neck Supple, Trachea Midline Pulmonary Resp Exam: Poor Inspiratory Effort Cardiology CV Exam: Regular Gastrointestinal/Abdomen GI Exam: Soft, Non-Tender, Bowel Sounds Present Musculoskeletal MS Exam: Joints Intact Integumentary Skin Exam: Warm, Dry Extremeties Extremities Exam: Moderate Edema, Pitting Edema, Dependent Edema Neurologic Neuro Exam: Alert, Awake, Oriented, Speech Clear, Moving All Extremities, No Focal Deficits Psychiatric Psych Exam: Appropriate Responses Assessment/Plan Assessment Summary: Fluid/Volume Overload, CHF, Hypertension, CKD Stage V Problem List: (1) CHF (congestive heart failure) ICD Codes: I50.9 - CHF (congestive heart failure) Status: Acute (2) CAD (coronary artery disease) ICD Codes: I25.10 - Atherosclerotic heart disease of [place] coronary artery without angina pectoris Status: Acute (3) Diabetes mellitus ICD Codes: E11.9 - Type 2 diabetes mellitus without complications Status: Acute (4) Morbid obesity ICD Codes: E66.01 - Morbid obesity Status: Acute (5) Type 2 diabetes mellitus ICD Codes: E11.9 - Type 2 diabetes mellitus Status: Chronic (6) Anemia ICD Codes: D64.9 - Anemia Status: Acute (7) AIDS (acquired immune deficiency syndrome) ICD Codes: B20 - Acquired immunodeficiency syndrome Status: Acute (8) Pedal edema ICD Codes: R60.0 - Edema of foot Status: Acute (9) Chronic Renal Failure / insufficiency, unspec Status: Chronic Plan Patient is alert, sitting on chair,still has SOB on exertion. Also has Orthopnea. No chest pain. Creatinine remain above 5. Still Creatinine and GFR same, GFR is low, Started on HD, Remove fluid as tolerated. Out patient HD arrangements. Next HD in AM, check Po4 is normal. Replace iron. Problem Qualifiers (1) Type 2 diabetes mellitus: Parker Ramos MD Oct 07, 2016 17:28
[2016-10-07] MEDS: MINOXIDIL 2.5 MG TAB PO SCH (21:25)
[2016-10-08 04:00] VITALS: BP 118/62; PULSE 81; RESP 20; TEMP 97.9; O2SAT 96
[2016-10-08] MEDS: HEPARIN SODIUM - SQ 10,000 UNITS/ML VIAL SQ SCH ×2 (05:45→17:18)
[2016-10-08] MEDS: INSULIN ASPART SUPPLEMENTAL SCALE SQ SCH ×4 (06:43→20:47)
[2016-10-08 08:00] VITALS: BP 130/78; PULSE 81; RESP 17; TEMP 97.3; O2SAT 97
[2016-10-08 08:14] LABS: AUTOMATED NEUTROPHIL # 2.7 TH/MM3 (1.8-7.7); BASOPHIL % 0.8 % (0.0-2.0); EOSINOPHIL # 0.2 TH/MM3 (0-0.4); EOSINOPHIL % 4.4 % (0.0-4.0); HEMATOCRIT 37.6 % (39.0-51.0); HEMO FLAGS DIFF FINAL; MEAN CELL VOLUME 86.2 FL (80.0-100.0); MEAN CORPUSCULAR HEMOGLOBIN 27.5 PG (27.0-34.0); MEAN CORPUSCULAR HGB CONC 31.9 % (32.0-36.0); MONO % 14.6 % (0.0-8.0); NEUT % 58.2 % (16.0-70.0); PLATELET COUNT 176 TH/MM3 (150-450); RED BLOOD COUNT 4.36 MIL/MM3 (4.50-5.90); WHITE BLOOD COUNT 4.7 TH/MM3 (4.0-11.0)
--- NOTE | 2016-10-08 08:33 | HHI.PR ---
Subjective History of Present Illness Patient shortness of breath better . Opthalmogist input noted for left lower eye lid swelling. getting hemodialysis d/w patient. Review of Systems Constitutional Constitutional: Fatigue, Weakness Constitutional Remarks Morbid obese. Eyes Eyes Remarks left lower eye lid swelling Pulmonary Respiratory: Shortness of Breath Vitals/Results Vital Signs Vital Signs Date Time Temp Pulse Resp B/P (MAP) Pulse Ox O2 Delivery O2 Flow Rate FiO2 10/08/16 04:00 97.9 81 20 118/62 (80) 96 10/07/16 23:20 98.6 86 20 133/74 (93) 95 10/07/16 19:40 97.8 83 20 127/70 (89) 95 10/07/16 16:00 96.1 83 18 106/61 (76) 93 10/07/16 12:00 97.3 83 20 117/62 (80) 93 10/07/16 11:31 74 CBC/BMP: 10/08/16 0645 10/07/16 0727 Lab Results Laboratory Tests Test 10/08/16 06:45 White Blood Count 4.7 TH/MM3 Red Blood Count 4.36 MIL/MM3 Hemoglobin 12.0 GM/DL Hematocrit 37.6 % Mean Corpuscular Volume 86.2 FL Mean Corpuscular Hemoglobin 27.5 PG Mean Corpuscular Hemoglobin Concent 31.9 % Red Cell Distribution Width 16.0 % Platelet Count 176 TH/MM3 Mean Platelet Volume 9.0 FL Neutrophils (%) (Auto) 58.2 % Lymphocytes (%) (Auto) 22.0 % Monocytes (%) (Auto) 14.6 % Eosinophils (%) (Auto) 4.4 % Basophils (%) (Auto) 0.8 % Neutrophils # (Auto) 2.7 TH/MM3 Lymphocytes # (Auto) 1.0 TH/MM3 Monocytes # (Auto) 0.7 TH/MM3 Eosinophils # (Auto) 0.2 TH/MM3 Basophils # (Auto) 0.0 TH/MM3 CBC Comment DIFF FINAL Differential Comment Physical Exam General General Appearance: No Acute Distress, Comfortable, Obese Appearance Remarks Morbid Obese. Eyes Eye Exam: Sclera White, Extraocular Movement Intact Eye Remarks left lower eye lid swelling Ears & Nose Ears & Nose Exam: Nasal Mucosa [place] Throat Throat Exam: Oral Mucosa [place] & Moist Neck Neck Exam: Neck Supple, Trachea Midline Pulmonary Resp Exam: Clear Bilaterally, Breath Sounds Equal, No Distress, Poor Inspiratory Effort Cardiology CV Exam: Regular Gastrointestinal/Abdomen GI Exam: Soft, Non-Tender, Bowel Sounds Present Musculoskeletal MS Exam: Joints Intact Integumentary Skin Exam: Warm, Dry Extremeties Extremities Exam: Moderate Edema, Pitting Edema, Dependent Edema Neurologic Neuro Exam: Alert, Awake, Oriented, Speech Clear, Moving All Extremities, No Focal Deficits Psychiatric Psych Exam: Appropriate Responses VTE Prophylaxis VTE Prophylaxis Meds: Heparin Assessment/Plan Problem List: (1) Acute on chronic systolic congestive heart failure ICD Codes: I50.23 - Acute on chronic systolic congestive heart failure Status: Acute (2) Morbid obesity ICD Codes: E66.01 - Morbid obesity Status: Acute (3) Hypothyroidism ICD Codes: E03.9 - Hypothyroidism Status: Acute (4) HIV (human immunodeficiency virus infection) ICD Codes: Z21 - Human immunodeficiency virus infection Status: Chronic (5) Type 2 diabetes mellitus ICD Codes: E11.9 - Type 2 diabetes mellitus Status: Chronic (6) Ischemic cardiomyopathy ICD Codes: I25.5 - Ischemic cardiomyopathy Status: Acute (7) Hypertension ICD Codes: I10 - Essential (primary) hypertension Status: Acute (8) CKD (chronic kidney disease) stage 4, GFR 15-29 ml/min ICD Codes: N18.4 - Chronic kidney disease, stage 4 (severe) Status: Acute Assessment/Plan Recurrent pulmonary edema, acute on chronic CHF better after hemodialysis. Ischemic cardiomyopathy -Continue with diuretics-Lasix 80 mg IV 2 times a day Appreciate nephrology input, on hemodialysis during this admission + Metolazone. D/W the patient. Patient s/p left subclavian PermCath placement. due to patients size IJ placement not possible. getting Hemodialysis. Will need out patient HD arrangement. -Continue lisinopril status post right arm AV fistula per Dr. Genao -Monitor fistula Diabetes type 2 Accu-Cheks before meals and at bedtime with insulin therapy as needed Status post left eye surgery-cataract, has left lower eye lid swelling / Chemosis of conjunctiva ..Ophthalmogist input noted Continue erythromycin ointment Hypertension, stable Continue home medications HIV -Continue with home meds Heparin for DVT prophylaxis Continue to monitor intake and output, renal function Discussed with RN Discussed with patient Check CBC with CMP in AM. Discussed Condition with: Patient Problem Qualifiers (1) Hypothyroidism: (2) Type 2 diabetes mellitus: (3) Hypertension: Refugio Brownlee MD Oct 08, 2016 08:33
[2016-10-08 08:39] LABS: ALT (GPT) 14 U/L (12-78); ANION GAP 9 MEQ/L (5-15); AST (GOT) 13 U/L (15-37); BICARBONATE 32.4 MEQ/L (21.0-32.0); BLOOD UREA NITROGEN 61 MG/DL (7-18); CHLORIDE 96 MEQ/L (98-107); GLOMERULAR FILTRATION RATE 13 ML/MIN (>89); POTASSIUM 4.5 MEQ/L (3.5-5.1); SODIUM (NA) 137 MEQ/L (136-145)
[2016-10-08 08:42] LABS: ALKALINE PHOSPHATASE 94 U/L (45-117); TOTAL BILIRUBIN ADULT 0.3 MG/DL (0.2-1.0)
[2016-10-08] MEDS: ERYTHROMYCIN 0.5% OPTH OINT 3.5 GM TUBO LEFT EYE SCH ×5 (08:53→20:46)
[2016-10-08] MEDS: INSULIN HUMAN NPH/R 70/30 1,000 UNITS/10 ML VIAL SQ SCH ×2 (09:00→20:38)
[2016-10-08] MEDS: VITAMIN B CMPLX/VITC/FOLIC AC CAP PO SCH ×2 (09:00→17:22)
[2016-10-08] MEDS: ABACAVIR SULFATE 300 MG TAB PO SCH ×2 (09:00→17:23)
[2016-10-08] MEDS: SODIUM CHLORIDE 0.9% FLUSH 10 ML FLUSH IV FLUSH SCH ×2 (09:00→20:46)
[2016-10-08] MEDS: cloNIDine HCL 0.2 MG TAB PO SCH ×2 (09:00→20:40)
[2016-10-08] MEDS: FUROSEMIDE 40 MG/4 ML VIAL IV PUSH SCH ×2 (09:00→20:41)
[2016-10-08] MEDS: LISINOPRIL 20 MG TAB PO SCH (09:00)
[2016-10-08] MEDS: IRON SUCROSE INJ 100 MG in SODIUM CHLORIDE 0.9% INJ 100 ML IV SCH ×2 (09:00→18:12)
[2016-10-08] MEDS: DOLUTEGRAVIR SODIUM 50 MG TAB PO SCH ×2 (09:00→17:23)
[2016-10-08] MEDS: CALCITRIOL 0.25 MCG CAP PO SCH ×2 (09:00→17:22)
[2016-10-08] MEDS: DOCUSATE SODIUM 50 MG/SENNA 8.6 MG TAB PO SCH ×2 (09:00→20:46)
[2016-10-08] MEDS: CARVEDILOL 12.5 MG TAB PO SCH ×2 (09:00→20:40)
[2016-10-08] MEDS: ACETAMINOPHEN/HYDROcodone 325 MG/7.5 MG TAB PO PRN ×2 (10:48→20:39)
[2016-10-08] MEDS: EPOETIN ALFA 10,000 UNITS/ML VIAL IV PRN (11:07)
[2016-10-08] MEDS: SODIUM CHLOR 0.9% 1000 ML INJ 1,000 ML IV PRN (11:30)
--- NOTE | 2016-10-08 11:49 | HHI.NPPN ---
Subjective General Problems: Anemia, Edema, Heart Disease Renal Failure: Stage V History of Present Illness 41-year-old male known to me from his last admission which was a few days ago and he was discharged yesterday with past medical history of hypertension, diabetes mellitus, ischemic heart disease, cardiomyopathy, chronic kidney disease, hyperlipidemia, chronic depression, history of renal stone who came to the hospital with a complaint of worsening shortness of breath. The patient has been following as an outpatient with Dr. Rico and has a right arm AV fistula done by Dr. Genao about three weeks ago. Additional Remarks Patient is now on HD, feeling better. Review of Systems General Constitutional: Fatigue Respiratory Lungs: SOB Cardiovascular Cardiac: Edema, FUNG Objective Data Data Vital Signs Date Time Temp Pulse Resp B/P (MAP) Pulse Ox O2 Delivery O2 Flow Rate FiO2 10/08/16 08:00 97.3 81 17 130/78 (95) 97 10/08/16 04:00 97.9 81 20 118/62 (80) 96 10/07/16 23:20 98.6 86 20 133/74 (93) 95 10/07/16 19:40 97.8 83 20 127/70 (89) 95 10/07/16 16:00 96.1 83 18 106/61 (76) 93 10/07/16 12:00 97.3 83 20 117/62 (80) 93 -: 10/08/16 0645 10/08/16 0645 Physical Exam General Appearance: No Acute Distress, Comfortable, Obese Eyes Eye Exam: Sclera White, Extraocular Movement Intact Ears & Nose Ears & Nose Exam: Nasal Mucosa [place] Throat Throat Exam: Oral Mucosa [place] & Moist Neck Neck Exam: Neck Supple, Trachea Midline Pulmonary Resp Exam: Poor Inspiratory Effort Cardiology CV Exam: Regular Gastrointestinal/Abdomen GI Exam: Soft, Non-Tender, Bowel Sounds Present Musculoskeletal MS Exam: Joints Intact Integumentary Skin Exam: Warm, Dry Extremeties Extremities Exam: Moderate Edema, Pitting Edema, Dependent Edema Neurologic Neuro Exam: Alert, Awake, Oriented, Speech Clear, Moving All Extremities, No Focal Deficits Psychiatric Psych Exam: Appropriate Responses Assessment/Plan Assessment Summary: Fluid/Volume Overload, CHF, Hypertension, CKD Stage V Problem List: (1) CHF (congestive heart failure) ICD Codes: I50.9 - CHF (congestive heart failure) Status: Acute (2) CAD (coronary artery disease) ICD Codes: I25.10 - Atherosclerotic heart disease of [place] coronary artery without angina pectoris Status: Acute (3) Diabetes mellitus ICD Codes: E11.9 - Type 2 diabetes mellitus without complications Status: Acute (4) Morbid obesity ICD Codes: E66.01 - Morbid obesity Status: Acute (5) Type 2 diabetes mellitus ICD Codes: E11.9 - Type 2 diabetes mellitus Status: Chronic (6) Anemia ICD Codes: D64.9 - Anemia Status: Acute (7) AIDS (acquired immune deficiency syndrome) ICD Codes: B20 - Acquired immunodeficiency syndrome Status: Acute (8) Pedal edema ICD Codes: R60.0 - Edema of foot Status: Acute (9) Chronic Renal Failure / insufficiency, unspec Status: Chronic Plan Patient is alert, sitting on chair,still has SOB on exertion. Also has Orthopnea. No chest pain. Creatinine remain above 5. Still Creatinine and GFR is low, Started on HD, Remove fluid as tolerated. Out patient HD arrangements. HD now, possible D/C once out [facility] is arranged[facility]. Problem Qualifiers (1) Type 2 diabetes mellitus: Parker Ramos MD Oct 08, 2016 11:49
[2016-10-08 16:00] VITALS: BP 124/68; PULSE 88; RESP 17; TEMP 98.1; O2SAT 96
[2016-10-08 18:58] VITALS: PULSE 83
[2016-10-08 20:10] VITALS: PULSE 92
[2016-10-08 20:15] VITALS: BP 147/87; PULSE 89; RESP 21; TEMP 97.2; O2SAT 95
[2016-10-08] MEDS: MINOXIDIL 2.5 MG TAB PO SCH (20:48)
[2016-10-09] VITALS (13 sets, daily range): BP systolic 102–143; BP diastolic 55–89; PULSE 67–82; RESP 18–21; TEMP 97–98.2; O2SAT 93–98
[2016-10-09] MEDS ORDERED: SODIUM CHLORID 0.9% 500 ML IV PRN (00:45)
[2016-10-09] MEDS ORDERED: CHLORHEXIDINE GLUCONATE 2 % 1 PACK (2 CLOTHS) TOPICAL PRN (00:45)
[2016-10-09] MEDS ORDERED: POVIDONE IODINE 5% (ANTISEPSIS KIT) 4 APPLICATIONS EACH NARE PRN (00:45)
[2016-10-09] MEDS ORDERED: LACTATED RINGER'S 1000 ML IV PRN (00:45)
[2016-10-09] MEDS: HEPARIN SODIUM - SQ 10,000 UNITS/ML VIAL SQ SCH ×2 (06:35→16:37)
[2016-10-09] MEDS: INSULIN ASPART SUPPLEMENTAL SCALE SQ SCH ×4 (06:38→21:00)
[2016-10-09 06:49] LABS: AUTOMATED NEUTROPHIL # 2.4 TH/MM3 (1.8-7.7); EOSINOPHIL # 0.3 TH/MM3 (0-0.4); EOSINOPHIL % 5.9 % (0.0-4.0); HEMATOCRIT 35.6 % (39.0-51.0); HEMO FLAGS DIFF FINAL; LYMPH % 21.6 % (9.0-44.0); LYMPHOCYTE # 0.9 TH/MM3 (1.0-4.8); MEAN CELL VOLUME 85.6 FL (80.0-100.0); MEAN CORPUSCULAR HGB CONC 32.7 % (32.0-36.0); MONO % 16.8 % (0.0-8.0); NEUT % 54.7 % (16.0-70.0); PLATELET COUNT 157 TH/MM3 (150-450); RED BLOOD COUNT 4.16 MIL/MM3 (4.50-5.90); RED CELL DISTRIBUTION WIDTH 15.7 % (11.6-17.2); WHITE BLOOD COUNT 4.3 TH/MM3 (4.0-11.0)
[2016-10-09 07:15] LABS: ALKALINE PHOSPHATASE 90 U/L (45-117); ALT (GPT) 14 U/L (12-78); ANION GAP 8 MEQ/L (5-15); AST (GOT) 12 U/L (15-37); BICARBONATE 31.2 MEQ/L (21.0-32.0); BLOOD UREA NITROGEN 50 MG/DL (7-18); CHLORIDE 98 MEQ/L (98-107); GLOMERULAR FILTRATION RATE 15 ML/MIN (>89); POTASSIUM 4.8 MEQ/L (3.5-5.1); SODIUM (NA) 137 MEQ/L (136-145); TOTAL BILIRUBIN ADULT 0.2 MG/DL (0.2-1.0)
[2016-10-09] MEDS ORDERED: MIDAZOLAM HCL 2 MG/2 ML VIAL ONE ×2 (07:56)
[2016-10-09] MEDS ORDERED: fentaNYL CITRATE 250 MCG/5 ML AMP ONE (07:56)
[2016-10-09] MEDS: CARVEDILOL 12.5 MG TAB PO SCH ×2 (08:14→21:00)
[2016-10-09] MEDS ORDERED: LIDOCAINE 2%/EPINEPHrine PF 1:200,000 20ML SDV ONE (08:57)
[2016-10-09] MEDS: SODIUM CHLORIDE 0.9% FLUSH 10 ML FLUSH IV FLUSH SCH ×2 (09:00→21:00)
[2016-10-09] MEDS: ERYTHROMYCIN 0.5% OPTH OINT 3.5 GM TUBO LEFT EYE SCH ×3 (09:00→16:37)
[2016-10-09] MEDS: DOCUSATE SODIUM 50 MG/SENNA 8.6 MG TAB PO SCH ×2 (09:00→21:00)
--- NOTE | 2016-10-09 09:23 | PD.RAD ---
Post Procedure Progress Note Pre Procedure Diagnosis: (1) CKD (chronic kidney disease) stage 4, GFR 15-29 ml/min (2) Acute renal failure Post Procedure Diagnosis: (1) Stage 4 chronic kidney disease (2) Acute renal failure Procedure Date: Oct 09, 2016 Supervising Radiologist: Deni Conklin Estimated blood loss: 2cc Anesthesia: Local, Conscious Sedation Plan of Activity Patient to Unit: ROPU Patient Condition: Fair Additional Comments: Left subclavian PermCath was exchanged for a new longer catheter due to poor flows at dialysis. New catheter flushes and aspirates well. catheter in good position OK for use See PACS Report for procedural detail/treatment Deni Conklin MD Oct 09, 2016 09:23
[2016-10-09] MEDS ORDERED: HEPARIN SODIUM - IV 2,000 UNITS/2 ML VIAL IV FLUSH PRN (09:30)
[2016-10-09] MEDS ORDERED: SODIUM CHLORIDE 0.9% FLUSH 10 ML FLUSH IVF PRN (09:30)
--- NOTE | 2016-10-09 10:44 | RADRPT ---
EXAM DATE/TIME: 10/09/2016 08:38 INDICATIONS : Patient presents with chronic renal failure in need of dialysis catheter placement. MEDICAL HISTORY : 1.Cardiomyopathy 2.CVD 3.Hyperlipidemia 4.CHF 5.COPD 6.Depression, anxiety 7.CAD 8.DM 9.Colitis 10.GERD 11.HIV 12.Kidney stones 13.CKD 14.AZ SURGICAL HISTORY : 1.Right arm A-V fistula 2.Left cataract removed ENCOUNTER: Subsequent ACUITY: > 1 year PAIN SCORE: 0/10 LOCATION: n/a FLUORO TIME: 1.7 minutes IMAGE SERIES: 1 SEDATION TIME: 25minutes MEDICATION(S): 1.) 3 mg midazolam (Versed) IV 2.) 150 mcg fentanyl (Sublimaze) IV DEVICE(S): 1.) 15 [place] dual lumen 31 cm Prabhakar II Plus catheter PROCEDURE: CENTRAL VENOUS CATHETER REPLACEMENT, LT 1. Fluoroscopically guided central venous catheter exchange. The patient underwent permacath placement 10/02/16. There are poor flows noted in the catheter during dialysis. The risks, benefits and alternatives to the procedure were explained and verbal and written consent w as obtained. The site was prepped in sterile fashion. Full sterile technique was used, including ca p, mask, sterile gloves and gown and a large sterile sheet. Hand hygiene and 2% chlorhexidine and/or betadine/alcohol prep was utilized per protocol for cutaneous antisepsis. The skin and subcutaneous tissues were infiltrated with local anesthetic solution. A 0.035 Glidewire was advanced through each lumen of the patient's existing catheter. The catheter wa s removed without difficulty. A new 31 cm permacath was advanced over the wire and positioned deep wi thin the SVC. The new catheter flushed and aspirated normally. CONCLUSION: Uncomplicated venous catheter change as above. Deni Conklin MD on October 09, 2016 at 10:41 Board Certified Radiologist. This report was verified electronically.
[2016-10-09] MEDS: IRON SUCROSE INJ 100 MG in SODIUM CHLORIDE 0.9% INJ 100 ML IV SCH (12:23)
[2016-10-09] MEDS: FUROSEMIDE 40 MG/4 ML VIAL IV PUSH SCH ×2 (12:24→21:00)
[2016-10-09] MEDS: VITAMIN B CMPLX/VITC/FOLIC AC CAP PO SCH (12:24)
[2016-10-09] MEDS: LISINOPRIL 20 MG TAB PO SCH (12:25)
[2016-10-09] MEDS: cloNIDine HCL 0.2 MG TAB PO SCH ×2 (12:26→21:00)
[2016-10-09] MEDS: DOLUTEGRAVIR SODIUM 50 MG TAB PO SCH (12:36)
[2016-10-09] MEDS: ABACAVIR SULFATE 300 MG TAB PO SCH (12:36)
[2016-10-09] MEDS: CALCITRIOL 0.25 MCG CAP PO SCH (12:36)
[2016-10-09] MEDS: INSULIN HUMAN NPH/R 70/30 1,000 UNITS/10 ML VIAL SQ SCH ×2 (13:16→21:40)
--- NOTE | 2016-10-09 20:16 | HHI.NPPN ---
Subjective General Problems: Anemia, Edema, Heart Disease Renal Failure: Stage V History of Present Illness 41-year-old male known to me from his last admission which was a few days ago and he was discharged yesterday with past medical history of hypertension, diabetes mellitus, ischemic heart disease, cardiomyopathy, chronic kidney disease, hyperlipidemia, chronic depression, history of renal stone who came to the hospital with a complaint of worsening shortness of breath. The patient has been following as an outpatient with Dr. Rico and has a right arm AV fistula done by Dr. Genao about three weeks ago. Additional Remarks Patient is alert, feeling better, breathing improving. Review of Systems General Constitutional: Fatigue Respiratory Lungs: SOB Cardiovascular Cardiac: Edema, FUNG Objective Data Data 10/09/16 10/10/16 18:59 06:59 Intake Total 700 ml Balance 700 ml Intake Oral 700 ml Vital Signs Date Time Temp Pulse Resp B/P (MAP) Pulse Ox O2 Delivery O2 Flow Rate FiO2 10/09/16 16:00 97.9 77 18 104/78 (87) 96 10/09/16 12:00 97.5 67 18 129/82 (98) 96 10/09/16 11:13 75 20 127/76 (93) 93 10/09/16 10:45 75 20 126/80 (95) 93 10/09/16 10:15 76 20 125/77 (93) 93 10/09/16 09:45 78 20 121/79 (93) 93 10/09/16 09:30 97.0 82 20 126/89 (101) 97 10/09/16 08:00 98.2 81 18 143/82 (102) 97 10/09/16 07:49 79 10/09/16 04:06 97.1 81 21 114/66 (82) 93 10/09/16 01:45 97.6 81 20 102/55 (71) 93 10/09/16 01:30 Room Air 10/08/16 21:49 18 -: 10/09/16 0543 10/09/16 0543 Physical Exam General Appearance: No Acute Distress, Comfortable, Obese Eyes Eye Exam: Sclera White, Extraocular Movement Intact Ears & Nose Ears & Nose Exam: Nasal Mucosa [place] Throat Throat Exam: Oral Mucosa [place] & Moist Neck Neck Exam: Neck Supple, Trachea Midline Pulmonary Resp Exam: Clear Bilaterally, Breath Sounds Equal, No Distress, Poor Inspiratory Effort Cardiology CV Exam: Regular Gastrointestinal/Abdomen GI Exam: Soft, Non-Tender, Bowel Sounds Present Musculoskeletal MS Exam: Joints Intact Integumentary Skin Exam: Warm, Dry Extremeties Extremities Exam: Moderate Edema, Pitting Edema, Dependent Edema Neurologic Neuro Exam: Alert, Awake, Oriented, Speech Clear, Moving All Extremities, No Focal Deficits Psychiatric Psych Exam: Appropriate Responses Assessment/Plan Assessment Summary: Fluid/Volume Overload, CHF, Hypertension, CKD Stage V Problem List: (1) CHF (congestive heart failure) ICD Codes: I50.9 - CHF (congestive heart failure) Status: Acute (2) CAD (coronary artery disease) ICD Codes: I25.10 - Atherosclerotic heart disease of [place] coronary artery without angina pectoris Status: Acute (3) Diabetes mellitus ICD Codes: E11.9 - Type 2 diabetes mellitus without complications Status: Acute (4) Morbid obesity ICD Codes: E66.01 - Morbid obesity Status: Acute (5) Type 2 diabetes mellitus ICD Codes: E11.9 - Type 2 diabetes mellitus Status: Chronic (6) Anemia ICD Codes: D64.9 - Anemia Status: Acute (7) AIDS (acquired immune deficiency syndrome) ICD Codes: B20 - Acquired immunodeficiency syndrome Status: Acute (8) Pedal edema ICD Codes: R60.0 - Edema of foot Status: Acute (9) Chronic Renal Failure / insufficiency, unspec Status: Chronic Plan Patient is alert, sitting on chair,still has SOB on exertion. Also has Orthopnea. No chest pain. Creatinine remain above 5. Still Creatinine and GFR is low, Started on HD, Remove fluid as tolerated. Out patient HD arrangements. HD is due in AM. BP is better. Continue to remove fluid with HD. Problem Qualifiers (1) Type 2 diabetes mellitus: Praker Ramos MD Oct 09, 2016 20:16
[2016-10-09] MEDS: MINOXIDIL 2.5 MG TAB PO SCH (21:00)
[2016-10-09] MEDS: ACETAMINOPHEN/HYDROcodone 325 MG/7.5 MG TAB PO PRN (21:38)
[2016-10-10] VITALS: BP 107/78; PULSE 86; RESP 18; TEMP 97; O2SAT 98
[2016-10-10 04:00] VITALS: BP 112/50; PULSE 80; RESP 18; TEMP 98.1; O2SAT 96
[2016-10-10] MEDS: HEPARIN SODIUM - SQ 10,000 UNITS/ML VIAL SQ SCH ×2 (05:40→18:16)
[2016-10-10] MEDS: INSULIN ASPART SUPPLEMENTAL SCALE SQ SCH ×4 (05:45→20:44)
[2016-10-10 08:00] VITALS: BP_SYST 117; BP_SYST 123; BP_DIAS 62; BP_DIAS 78; PULSE 102; PULSE 108; RESP 18; RESP 20; TEMP 97.6; TEMP 98.2; O2SAT 92; O2SAT 96
[2016-10-10] MEDS: cloNIDine HCL 0.2 MG TAB PO SCH ×2 (09:00→20:42)
[2016-10-10] MEDS: SODIUM CHLORIDE 0.9% FLUSH 10 ML FLUSH IV FLUSH SCH ×2 (09:00→20:44)
[2016-10-10] MEDS: DOCUSATE SODIUM 50 MG/SENNA 8.6 MG TAB PO SCH ×2 (09:00→20:43)
[2016-10-10] MEDS: ERYTHROMYCIN 0.5% OPTH OINT 3.5 GM TUBO LEFT EYE SCH ×3 (09:00→18:16)
[2016-10-10] MEDS: ABACAVIR SULFATE 300 MG TAB PO SCH (09:38)
[2016-10-10] MEDS: CARVEDILOL 12.5 MG TAB PO SCH ×2 (09:38→20:42)
[2016-10-10] MEDS: CALCITRIOL 0.25 MCG CAP PO SCH (09:39)
[2016-10-10] MEDS: VITAMIN B CMPLX/VITC/FOLIC AC CAP PO SCH (09:40)
[2016-10-10] MEDS: DOLUTEGRAVIR SODIUM 50 MG TAB PO SCH (09:40)
[2016-10-10] MEDS: ACETAMINOPHEN/HYDROcodone 325 MG/7.5 MG TAB PO PRN (09:42)
[2016-10-10] MEDS: LISINOPRIL 20 MG TAB PO SCH (09:43)
[2016-10-10] MEDS: FUROSEMIDE 40 MG/4 ML VIAL IV PUSH SCH ×2 (09:44→20:42)
[2016-10-10] MEDS: INSULIN HUMAN NPH/R 70/30 1,000 UNITS/10 ML VIAL SQ SCH ×2 (10:04→20:41)
--- NOTE | 2016-10-10 11:57 | HHI.NPPN ---
Subjective General Problems: Anemia, Edema, Heart Disease Renal Failure: Stage V History of Present Illness 41-year-old male known to me from his last admission which was a few days ago and he was discharged yesterday with past medical history of hypertension, diabetes mellitus, ischemic heart disease, cardiomyopathy, chronic kidney disease, hyperlipidemia, chronic depression, history of renal stone who came to the hospital with a complaint of worsening shortness of breath. The patient has been following as an outpatient with Dr. Rico and has a right arm AV fistula done by Dr. Genao about three weeks ago. Additional Remarks Patient is alert, breathing is better, with nasal cannula. Review of Systems General Constitutional: Fatigue Respiratory Lungs: SOB Cardiovascular Cardiac: Edema, FUNG Objective Data Data Vital Signs Date Time Temp Pulse Resp B/P (MAP) Pulse Ox O2 Delivery O2 Flow Rate FiO2 10/10/16 10:44 16 10/10/16 08:00 98.2 102 18 117/78 (91) 96 10/10/16 08:00 98.2 102 18 117/78 (91) 96 10/10/16 04:00 98.1 80 18 112/50 (70) 96 10/10/16 00:00 97.0 86 18 107/78 (88) 98 10/09/16 21:30 82 10/09/16 20:00 97.5 74 18 104/62 (76) 98 10/09/16 16:00 97.9 77 18 104/78 (87) 96 10/09/16 12:00 97.5 67 18 129/82 (98) 96 -: 10/09/16 0543 10/09/16 0543 Physical Exam General Appearance: No Acute Distress, Comfortable, Obese Eyes Eye Exam: Sclera White, Extraocular Movement Intact Ears & Nose Ears & Nose Exam: Nasal Mucosa [place] Throat Throat Exam: Oral Mucosa [place] & Moist Neck Neck Exam: Neck Supple, Trachea Midline Pulmonary Resp Exam: Clear Bilaterally, Breath Sounds Equal, No Distress, Poor Inspiratory Effort Cardiology CV Exam: Regular Gastrointestinal/Abdomen GI Exam: Soft, Non-Tender, Bowel Sounds Present Musculoskeletal MS Exam: Joints Intact Integumentary Skin Exam: Warm, Dry Extremeties Extremities Exam: Moderate Edema, Pitting Edema, Dependent Edema Neurologic Neuro Exam: Alert, Awake, Oriented, Speech Clear, Moving All Extremities, No Focal Deficits Psychiatric Psych Exam: Appropriate Responses Assessment/Plan Assessment Summary: Fluid/Volume Overload, CHF, Hypertension, CKD Stage V Problem List: (1) CHF (congestive heart failure) ICD Codes: I50.9 - CHF (congestive heart failure) Status: Acute (2) CAD (coronary artery disease) ICD Codes: I25.10 - Atherosclerotic heart disease of [place] coronary artery without angina pectoris Status: Acute (3) Diabetes mellitus ICD Codes: E11.9 - Type 2 diabetes mellitus without complications Status: Acute (4) Morbid obesity ICD Codes: E66.01 - Morbid obesity Status: Acute (5) Type 2 diabetes mellitus ICD Codes: E11.9 - Type 2 diabetes mellitus Status: Chronic (6) Anemia ICD Codes: D64.9 - Anemia Status: Acute (7) AIDS (acquired immune deficiency syndrome) ICD Codes: B20 - Acquired immunodeficiency syndrome Status: Acute (8) Pedal edema ICD Codes: R60.0 - Edema of foot Status: Acute (9) Chronic Renal Failure / insufficiency, unspec Status: Chronic Plan Patient is alert, sitting on chair,still has SOB on exertion. Also has Orthopnea. No chest pain. Creatinine remain above 5. Still Creatinine and GFR is low, Started on HD, Remove fluid as tolerated. Out patient HD arrangements. HD today, remove fluid as tolerated. He will start out patient HD from . next week. Told to watch salt and fluid intake. To come to ED if breathing is worse. Problem Qualifiers (1) Type 2 diabetes mellitus: Parker Ramos MD Oct 10, 2016 11:57
[2016-10-10 12:00] VITALS: BP 97/67; PULSE 78; RESP 18; TEMP 98; O2SAT 95
--- NOTE | 2016-10-10 15:18 | HHI.PR ---
Subjective History of Present Illness Patient seen on 10/09/16 shortness of breath better . Opthalmogist input noted for left lower eye lid swelling. getting hemodialysis d/w patient. discharge plan soon when ok with nephrology. Review of Systems Constitutional Constitutional: Fatigue, Weakness Constitutional Remarks Morbid obese. Eyes Eyes Remarks left lower eye lid swelling Pulmonary Respiratory: Shortness of Breath Vitals/Results Vital Signs Vital Signs Date Time Temp Pulse Resp B/P (MAP) Pulse Ox O2 Delivery O2 Flow Rate FiO2 10/10/16 12:00 98.0 78 18 97/67 (77) 95 10/10/16 10:44 16 10/10/16 08:00 98.2 102 18 117/78 (91) 96 10/10/16 08:00 98.2 102 18 117/78 (91) 96 10/10/16 04:00 98.1 80 18 112/50 (70) 96 10/10/16 00:00 97.0 86 18 107/78 (88) 98 10/09/16 21:30 82 10/09/16 20:00 97.5 74 18 104/62 (76) 98 10/09/16 16:00 97.9 77 18 104/78 (87) 96 CBC/BMP: 10/09/16 0543 10/09/16 0543 Physical Exam General General Appearance: No Acute Distress, Comfortable, Obese Appearance Remarks Morbid Obese. Eyes Eye Exam: Sclera White, Extraocular Movement Intact Eye Remarks left lower eye lid swelling Ears & Nose Ears & Nose Exam: Nasal Mucosa [place] Throat Throat Exam: Oral Mucosa [place] & Moist Neck Neck Exam: Neck Supple, Trachea Midline Pulmonary Resp Exam: Clear Bilaterally, Breath Sounds Equal, No Distress, Poor Inspiratory Effort Cardiology CV Exam: Regular Gastrointestinal/Abdomen GI Exam: Soft, Non-Tender, Bowel Sounds Present Musculoskeletal MS Exam: Joints Intact Integumentary Skin Exam: Warm, Dry Extremeties Extremities Exam: Moderate Edema, Pitting Edema, Dependent Edema Neurologic Neuro Exam: Alert, Awake, Oriented, Speech Clear, Moving All Extremities, No Focal Deficits Psychiatric Psych Exam: Appropriate Responses VTE Prophylaxis VTE Prophylaxis Meds: Heparin Assessment/Plan Problem List: (1) Acute on chronic systolic congestive heart failure ICD Codes: I50.23 - Acute on chronic systolic congestive heart failure Status: Acute (2) Morbid obesity ICD Codes: E66.01 - Morbid obesity Status: Acute (3) Hypothyroidism ICD Codes: E03.9 - Hypothyroidism Status: Acute (4) HIV (human immunodeficiency virus infection) ICD Codes: Z21 - Human immunodeficiency virus infection Status: Chronic (5) Type 2 diabetes mellitus ICD Codes: E11.9 - Type 2 diabetes mellitus Status: Chronic (6) Ischemic cardiomyopathy ICD Codes: I25.5 - Ischemic cardiomyopathy Status: Acute (7) Hypertension ICD Codes: I10 - Essential (primary) hypertension Status: Acute (8) CKD (chronic kidney disease) stage 4, GFR 15-29 ml/min ICD Codes: N18.4 - Chronic kidney disease, stage 4 (severe) Status: Acute Assessment/Plan Recurrent pulmonary edema, acute on chronic CHF better after hemodialysis. Ischemic cardiomyopathy -Continue with diuretics-Lasix 80 mg IV 2 times a day Appreciate nephrology input, on hemodialysis during this admission + Metolazone. D/W the patient. Patient s/p left subclavian PermCath placement. due to patients size IJ placement not possible. getting Hemodialysis. Will need out patient HD arrangement. -Continue lisinopril status post right arm AV fistula per Dr. Genao -Monitor fistula Diabetes type 2 Accu-Cheks before meals and at bedtime with insulin therapy as needed Status post left eye surgery-cataract, has left lower eye lid swelling / Chemosis of conjunctiva ..Ophthalmogist input noted Continue erythromycin ointment Hypertension, stable Continue home medications HIV -Continue with home meds Heparin for DVT prophylaxis Continue to monitor intake and output, renal function discharge plan when ok with nephrology. Discussed with patient Check CBC with CMP in AM. Discussed Condition with: Patient Problem Qualifiers (1) Hypothyroidism: (2) Type 2 diabetes mellitus: (3) Hypertension: Refugio Brownlee MD Oct 10, 2016 15:18
--- NOTE | 2016-10-10 15:20 | HHI.PR ---
Subjective History of Present Illness Patient shortness of breath better . . getting hemodialysis d/w patient. discharge plan tomorrow ok with nephrology. Review of Systems Constitutional Constitutional: Fatigue, Weakness Constitutional Remarks Morbid obese. Eyes Eyes Remarks left lower eye lid swelling Pulmonary Respiratory: Shortness of Breath Vitals/Results Vital Signs Vital Signs Date Time Temp Pulse Resp B/P (MAP) Pulse Ox O2 Delivery O2 Flow Rate FiO2 10/10/16 12:00 98.0 78 18 97/67 (77) 95 10/10/16 10:44 16 10/10/16 08:00 98.2 102 18 117/78 (91) 96 10/10/16 08:00 98.2 102 18 117/78 (91) 96 10/10/16 04:00 98.1 80 18 112/50 (70) 96 10/10/16 00:00 97.0 86 18 107/78 (88) 98 10/09/16 21:30 82 10/09/16 20:00 97.5 74 18 104/62 (76) 98 10/09/16 16:00 97.9 77 18 104/78 (87) 96 CBC/BMP: 10/09/16 0543 10/09/16 0543 Physical Exam General General Appearance: No Acute Distress, Comfortable, Obese Appearance Remarks Morbid Obese. Eyes Eye Exam: Sclera White, Extraocular Movement Intact Eye Remarks left lower eye lid swelling Ears & Nose Ears & Nose Exam: Nasal Mucosa [place] Throat Throat Exam: Oral Mucosa [place] & Moist Neck Neck Exam: Neck Supple, Trachea Midline Pulmonary Resp Exam: Clear Bilaterally, Breath Sounds Equal, No Distress, Poor Inspiratory Effort Cardiology CV Exam: Regular Gastrointestinal/Abdomen GI Exam: Soft, Non-Tender, Bowel Sounds Present Musculoskeletal MS Exam: Joints Intact Integumentary Skin Exam: Warm, Dry Extremeties Extremities Exam: Moderate Edema, Pitting Edema, Dependent Edema Neurologic Neuro Exam: Alert, Awake, Oriented, Speech Clear, Moving All Extremities, No Focal Deficits Psychiatric Psych Exam: Appropriate Responses VTE Prophylaxis VTE Prophylaxis Meds: Heparin Assessment/Plan Problem List: (1) Acute on chronic systolic congestive heart failure ICD Codes: I50.23 - Acute on chronic systolic congestive heart failure Status: Acute (2) Morbid obesity ICD Codes: E66.01 - Morbid obesity Status: Acute (3) Hypothyroidism ICD Codes: E03.9 - Hypothyroidism Status: Acute (4) HIV (human immunodeficiency virus infection) ICD Codes: Z21 - Human immunodeficiency virus infection Status: Chronic (5) Type 2 diabetes mellitus ICD Codes: E11.9 - Type 2 diabetes mellitus Status: Chronic (6) Ischemic cardiomyopathy ICD Codes: I25.5 - Ischemic cardiomyopathy Status: Acute (7) Hypertension ICD Codes: I10 - Essential (primary) hypertension Status: Acute (8) CKD (chronic kidney disease) stage 4, GFR 15-29 ml/min ICD Codes: N18.4 - Chronic kidney disease, stage 4 (severe) Status: Acute Assessment/Plan Recurrent pulmonary edema, acute on chronic CHF better after hemodialysis. Ischemic cardiomyopathy -Continue with diuretics-Lasix 80 mg IV 2 times a day Appreciate nephrology input, on hemodialysis during this admission + Metolazone. D/W the patient. Patient s/p left subclavian PermCath placement. due to patients size IJ placement not possible. getting Hemodialysis. Will need out patient HD arrangement. -Continue lisinopril status post right arm AV fistula per Dr. Genao -Monitor fistula Diabetes type 2 Accu-Cheks before meals and at bedtime with insulin therapy as needed Status post left eye surgery-cataract, has left lower eye lid swelling / Chemosis of conjunctiva ..Ophthalmogist input noted Continue erythromycin ointment Hypertension, stable Continue home medications HIV -Continue with home meds Heparin for DVT prophylaxis Continue to monitor intake and output, renal function discharge plan tomorrow ok with nephrology. Discussed with patient Check CBC with CMP in AM. Discussed Condition with: Patient Problem Qualifiers (1) Hypothyroidism: (2) Type 2 diabetes mellitus: (3) Hypertension: Refugio Brownlee MD Oct 10, 2016 15:20
[2016-10-10] MEDS ORDERED: ERYTOIN10 LEFT EYE (15:26)
[2016-10-10] MEDS: GENTAMICIN SULFATE (DIALYSIS USE ONLY) 20 MG/2 ML VIAL IV PRN (17:39)
[2016-10-10] MEDS: HEPARIN SODIUM - IV 10,000 UNITS/10 ML VIAL PRN (17:39)
[2016-10-10] MEDS: EPOETIN ALFA 10,000 UNITS/ML VIAL IV PRN (17:39)
[2016-10-10 20:05] VITALS: BP 123/78; PULSE 86; RESP 18; TEMP 97; O2SAT 96
[2016-10-10 20:45] VITALS: PULSE 85
[2016-10-10] MEDS: MINOXIDIL 2.5 MG TAB PO SCH (20:49)
[2016-10-11 00:05] VITALS: BP 101/59; PULSE 85; RESP 18; TEMP 96.9; O2SAT 96
[2016-10-11 04:05] VITALS: BP 115/56; PULSE 81; RESP 18; TEMP 98.3; O2SAT 96
[2016-10-11] MEDS: HEPARIN SODIUM - SQ 10,000 UNITS/ML VIAL SQ SCH (06:00)
[2016-10-11] MEDS: INSULIN ASPART SUPPLEMENTAL SCALE SQ SCH ×2 (06:07→11:00)
[2016-10-11 08:00] VITALS: BP 127/76; PULSE 79; RESP 20; TEMP 98.3; O2SAT 93
[2016-10-11] MEDS: DOCUSATE SODIUM 50 MG/SENNA 8.6 MG TAB PO SCH (09:00)
[2016-10-11] MEDS: FUROSEMIDE 40 MG/4 ML VIAL IV PUSH SCH (09:01)
[2016-10-11] MEDS: CARVEDILOL 12.5 MG TAB PO SCH (09:02)
[2016-10-11] MEDS: ABACAVIR SULFATE 300 MG TAB PO SCH (09:02)
[2016-10-11] MEDS: VITAMIN B CMPLX/VITC/FOLIC AC CAP PO SCH (09:02)
[2016-10-11] MEDS: CALCITRIOL 0.25 MCG CAP PO SCH (09:02)
[2016-10-11] MEDS: cloNIDine HCL 0.2 MG TAB PO SCH (09:03)
[2016-10-11] MEDS: LISINOPRIL 20 MG TAB PO SCH (09:03)
[2016-10-11] MEDS: DOLUTEGRAVIR SODIUM 50 MG TAB PO SCH (09:03)
[2016-10-11] MEDS: SODIUM CHLORIDE 0.9% FLUSH 10 ML FLUSH IV FLUSH SCH (09:04)
[2016-10-11] MEDS: ERYTHROMYCIN 0.5% OPTH OINT 3.5 GM TUBO LEFT EYE SCH ×2 (09:04→13:00)
[2016-10-11] MEDS: INSULIN HUMAN NPH/R 70/30 1,000 UNITS/10 ML VIAL SQ SCH (09:26)
--- NOTE | 2016-10-11 11:37 | HHI.PR ---
Subjective History of Present Illness Patient shortness of breath better . . getting hemodialysis d/w patient. discharge plan tomorrow ok with nephrology. Patient refused to go home ok to discharge to SNF. Review of Systems Constitutional Constitutional: Fatigue, Weakness Constitutional Remarks Morbid obese. Eyes Eyes Remarks left lower eye lid swelling Pulmonary Respiratory: Shortness of Breath Vitals/Results Vital Signs Vital Signs Date Time Temp Pulse Resp B/P (MAP) Pulse Ox O2 Delivery O2 Flow Rate FiO2 10/11/16 08:00 98.3 79 20 127/76 (93) 93 10/11/16 04:05 98.3 81 18 115/56 (75) 96 10/11/16 00:05 96.9 85 18 101/59 (73) 96 10/10/16 20:45 85 10/10/16 20:05 97.0 86 18 123/78 (93) 96 10/10/16 12:00 98.0 78 18 97/67 (77) 95 CBC/BMP: 10/09/16 0543 10/09/16 0543 Physical Exam General General Appearance: No Acute Distress, Comfortable, Obese Appearance Remarks Morbid Obese. Eyes Eye Exam: Sclera White, Extraocular Movement Intact Eye Remarks left lower eye lid swelling Ears & Nose Ears & Nose Exam: Nasal Mucosa [place] Throat Throat Exam: Oral Mucosa [place] & Moist Neck Neck Exam: Neck Supple, Trachea Midline Pulmonary Resp Exam: Clear Bilaterally, Breath Sounds Equal, No Distress, Poor Inspiratory Effort Cardiology CV Exam: Regular Gastrointestinal/Abdomen GI Exam: Soft, Non-Tender, Bowel Sounds Present Musculoskeletal MS Exam: Joints Intact Integumentary Skin Exam: Warm, Dry Extremeties Extremities Exam: Moderate Edema, Pitting Edema, Dependent Edema Neurologic Neuro Exam: Alert, Awake, Oriented, Speech Clear, Moving All Extremities, No Focal Deficits Psychiatric Psych Exam: Appropriate Responses VTE Prophylaxis VTE Prophylaxis Meds: Heparin Assessment/Plan Problem List: (1) Acute on chronic systolic congestive heart failure ICD Codes: I50.23 - Acute on chronic systolic congestive heart failure Status: Acute (2) Morbid obesity ICD Codes: E66.01 - Morbid obesity Status: Acute (3) Hypothyroidism ICD Codes: E03.9 - Hypothyroidism Status: Acute (4) HIV (human immunodeficiency virus infection) ICD Codes: Z21 - Human immunodeficiency virus infection Status: Chronic (5) Type 2 diabetes mellitus ICD Codes: E11.9 - Type 2 diabetes mellitus Status: Chronic (6) Ischemic cardiomyopathy ICD Codes: I25.5 - Ischemic cardiomyopathy Status: Acute (7) Hypertension ICD Codes: I10 - Essential (primary) hypertension Status: Acute (8) CKD (chronic kidney disease) stage 4, GFR 15-29 ml/min ICD Codes: N18.4 - Chronic kidney disease, stage 4 (severe) Status: Acute Assessment/Plan Recurrent pulmonary edema, acute on chronic CHF better after hemodialysis. Ischemic cardiomyopathy -Continue with diuretics-Lasix 80 mg IV 2 times a day Appreciate nephrology input, on hemodialysis during this admission + Metolazone. D/W the patient. Patient s/p left subclavian PermCath placement. due to patients size IJ placement not possible. getting Hemodialysis. Will need out patient HD arrangement. -Continue lisinopril status post right arm AV fistula per Dr. Genao -Monitor fistula Diabetes type 2 Accu-Cheks before meals and at bedtime with insulin therapy as needed Status post left eye surgery-cataract, has left lower eye lid swelling / Chemosis of conjunctiva ..Ophthalmogist input noted Continue erythromycin ointment Hypertension, stable Continue home medications HIV -Continue with home meds Heparin for DVT prophylaxis Continue to monitor intake and output, renal function discharge plan tomorrow ok with nephrology. Patient refused to go home ok to discharge to SNF. Discussed with patient Check CBC with CMP in AM. Discussed Condition with: Patient Problem Qualifiers (1) Hypothyroidism: (2) Type 2 diabetes mellitus: (3) Hypertension: Refugio Brownlee MD Oct 11, 2016 11:37
[2016-10-11 12:00] VITALS: BP 100/57; PULSE 89; RESP 20; TEMP 95.7; O2SAT 95
--- NOTE | 2016-10-11 15:02 | HHI.NPPN ---
Subjective General Problems: Anemia, Edema, Heart Disease Renal Failure: Stage V History of Present Illness 41-year-old male known to me from his last admission which was a few days ago and he was discharged yesterday with past medical history of hypertension, diabetes mellitus, ischemic heart disease, cardiomyopathy, chronic kidney disease, hyperlipidemia, chronic depression, history of renal stone who came to the hospital with a complaint of worsening shortness of breath. The patient has been following as an outpatient with Dr. Rico and has a right arm AV fistula done by Dr. Genao about three weeks ago. Additional Remarks Patient is alert, breathing is better, with nasal cannula. Review of Systems General Constitutional: Fatigue Respiratory Lungs: SOB Cardiovascular Cardiac: Edema, FUNG Objective Data Data Vital Signs Date Time Temp Pulse Resp B/P (MAP) Pulse Ox O2 Delivery O2 Flow Rate FiO2 10/11/16 12:00 95.7 89 20 100/57 (71) 95 10/11/16 08:00 98.3 79 20 127/76 (93) 93 10/11/16 04:05 98.3 81 18 115/56 (75) 96 10/11/16 00:05 96.9 85 18 101/59 (73) 96 10/10/16 20:45 85 10/10/16 20:05 97.0 86 18 123/78 (93) 96 -: 10/09/16 0543 10/09/16 0543 Physical Exam General Appearance: No Acute Distress, Comfortable, Obese Eyes Eye Exam: Sclera White, Extraocular Movement Intact Ears & Nose Ears & Nose Exam: Nasal Mucosa [place] Throat Throat Exam: Oral Mucosa [place] & Moist Neck Neck Exam: Neck Supple, Trachea Midline Pulmonary Resp Exam: Clear Bilaterally, Breath Sounds Equal, No Distress, Poor Inspiratory Effort Cardiology CV Exam: Regular Gastrointestinal/Abdomen GI Exam: Soft, Non-Tender, Bowel Sounds Present Musculoskeletal MS Exam: Joints Intact Integumentary Skin Exam: Warm, Dry Extremeties Extremities Exam: Moderate Edema, Pitting Edema, Dependent Edema Neurologic Neuro Exam: Alert, Awake, Oriented, Speech Clear, Moving All Extremities, No Focal Deficits Psychiatric Psych Exam: Appropriate Responses Assessment/Plan Assessment Summary: Fluid/Volume Overload, CHF, Hypertension, CKD Stage V Problem List: (1) CHF (congestive heart failure) ICD Codes: I50.9 - CHF (congestive heart failure) Status: Acute (2) CAD (coronary artery disease) ICD Codes: I25.10 - Atherosclerotic heart disease of [place] coronary artery without angina pectoris Status: Acute (3) Diabetes mellitus ICD Codes: E11.9 - Type 2 diabetes mellitus without complications Status: Acute (4) Morbid obesity ICD Codes: E66.01 - Morbid obesity Status: Acute (5) Type 2 diabetes mellitus ICD Codes: E11.9 - Type 2 diabetes mellitus Status: Chronic (6) Anemia ICD Codes: D64.9 - Anemia Status: Acute (7) AIDS (acquired immune deficiency syndrome) ICD Codes: B20 - Acquired immunodeficiency syndrome Status: Acute (8) Pedal edema ICD Codes: R60.0 - Edema of foot Status: Acute (9) Chronic Renal Failure / insufficiency, unspec Status: Chronic Plan Patient is alert, sitting on chair,still has SOB on exertion. Also has Orthopnea. No chest pain. Creatinine remain above 5. Still Creatinine and GFR is low, Started on HD, last yesterday 3 L Off Remove fluid as tolerated. Out patient HD arrangements. He will start out patient HD from . next week. Told to watch salt and fluid intake. To come to ED if breathing is worse. Problem Qualifiers (1) Type 2 diabetes mellitus: Gertrude Hampton MD Oct 11, 2016 15:02
--- NOTE | 2016-10-15 08:17 | MD ---
cc: REFUGIO GRAMAJO MD ADMISSION DATE: 09/29/2016 DISCHARGE DATE: 10/11/2016 Okay to discharge the patient home. CONDITION AT THE TIME OF DISCHARGE Satisfactory ACTIVITY As tolerated. DIET Cardiac diet ADA 1800 calorie low-fat diet, low calorie diet. ALLERGIES NO KNOWN DRUG ALLERGIES. DISCHARGE MEDICATIONS Include: 1. Erythromycin Ointment to apply to the left eye three times a day. 2. Abacavir 300 mg p.o. daily 3. Qlkcducj-Gykmjtocuzdx-Klqfrmugfz the brand name is ANNETTA mEq 600/50/300 one p.o. daily. 4. Amlodipine 10 mg daily 5. Vitamin B complex p.o. daily 6. Calcitriol 0.25 mg p.o. Thursday, Thursday, Thursday 7. Carvedilol 25 mg twice a day 8. Clonidine 0.2 mg p.o. b.i.d. 9. Tivicay 50 mg p.o. daily 10. Furosemide 80 mg twice a day 11. Humulin isophane 50 units subcutaneous daily 12. Human isophane regular 70/30, 25 units subcutaneous at bedtime 13. Lamivudine 75 mg daily 14. Lisinopril 40 mg p.o. daily 15. Minoxidil 2.5 mg p.o. at bedtime The patient advised to follow with PCP, ophthalmology and nephrology and infectious disease doctor in one week. Okay to discharge to rehab. DISPOSITION retirement facility or rehab. ADMITTING DIAGNOSIS 1. Recurrent pulmonary edema, acute on chronic congestive heart failure most likely diastolic heart failure, ischemic cardiomyopathy. 2. Acute renal failure. The patient is status post left subclavian Perma-Cath placement, IJ placement was not possible. The patient was getting hemodialysis. Outpatient hemodialysis was arranged and nephrology wants to do hemodialysis. The patient also got IV Lasix and also metolazone during the hospital stay. 3. The patient had high blood pressure was given lisinopril. 4. The patient had diabetes mellitus, blood sugar was monitored. 5. The patient is also status post left eye surgery, cataract and has a left lower eyelid swelling/ecchymosis of conjunctivae. Ophthalmology is seeing the patient and recommendation to follow during hospital stay. 6. History of hypertension. 7. History of HIV, the patient advised to continue HIV medicine. HOSPITAL COURSE This is a 41-year-old morbidly obese -[place] male admitted with shortness of breath, recurrent pulmonary edema diagnosed with acute on chronic systolic heart failure. The patient was given diuretics. The patient needs hemodialysis, creatinine was high. The patient has a hemoglobin of 11.6 and 12.0. The patient's creatinine was 5.9, 5.68, 4.2, and 5.7 even after dialysis. The patient had a PT of 12.0, INR 1.1, APTT 29.6. The patient is hepatitis A, B and C negative. The patient's on WBC count was normal. The patient had mild hyponatremia which was resolved. The patient's blood sugar remained stable during the hospital stay. Further details in the medical record. Refugio Gramajo MD EA/KEISHA /1:45 PM /8:01 AM
--- NOTE | 2016-10-17 07:59 | PQ ---
Physician Query Response Document PATIENT: SINA TRIPLETT : 1975 ADMIT DATE: 09/29/2016 3:40 PM DISCH DATE: 10/11/2016 3:54 PM RESPONDING PROVIDER #: EAhmed QUERY TEXT: Clinical Validity Additional clinical indicators are required to support documented diagnosis of: Acute renal failure Please respond and also state in your next progress note whether: -- Condition exists and also please provide clinical indicators to support the diagnosis -- Condition does not exist and also please provide amended documentation in the medical record to steven mcneal -- Unable to provide additional clarity regarding the diagnosis -- Other, please specify If you have any additional questions/comments and/or concerns, please do not hesitate to reach out to the CDI/Coding Hotline, Ext. [phone]. The patient's Clinical Indicators include: Progress notes by Radiologist Dr. Conklin (for PermCath placement) documents diagnosis of acute renal f ailure. Acute renal failure NOT documented elsewhere in chart. Nephrology consult does NOT document acute renal failure, but progression of CKD from stage IV to sta ge V and now requiring dialysis. Final progress note by Attending only documents CKD. Query created by: Josie Qureshi on 10/14/2016 12:39 PM RESPONSE TEXT: Acute renal failure exist Electronically signed by: Refugio Brownlee MD 10/17/2016 7:55 AM
== END 2016-10-11 15:54 | disposition home or self-care (01) | DRG 291 ==
LOC: NEPE 12:38 → NEDA 15:40 → N06B 17:17
PROVIDERS: ADMIT Family Medicine; ATTEND Family Medicine
PROC: 5A1D60Z (ICD-10-PCS; principal; 2016-10-03)
PROC: 05H633Z Insertion of Infusion Device into Left Subclavian Vein, Percutaneous Approach (ICD-10-PCS; 2016-10-03)
PROC: B517ZZA Fluoroscopy of Left Subclavian Vein, Guidance (ICD-10-PCS; 2016-10-03)
PROC: 05PYX3Z Removal of Infusion Device from Upper Vein, External Approach (ICD-10-PCS; 2016-10-09)
PROC: 02HV33Z Insertion of Infusion Device into Superior Vena Cava, Percutaneous Approach (ICD-10-PCS; 2016-10-09)
DX: I13.2 Hypertensive heart and chronic kidney disease with heart failure and with stage 5 chronic kidney disease, or end stage renal disease (principal); I50.23 Acute on chronic systolic (congestive) heart failure; N17.9 Acute kidney failure, unspecified; E11.22 Type 2 diabetes mellitus with diabetic chronic kidney disease; E11.42 Type 2 diabetes mellitus with diabetic polyneuropathy; N18.6 End stage renal disease; J44.1 Chronic obstructive pulmonary disease with (acute) exacerbation; Z68.43 Body mass index [BMI] 50.0-59.9, adult; H33.43 Traction detachment of retina, bilateral; Z79.4 Long term (current) use of insulin; I25.5 Ischemic cardiomyopathy; H11.422 Conjunctival edema, left eye; E66.01 Morbid (severe) obesity due to excess calories; F41.9 Anxiety disorder, unspecified; I25.10 Atherosclerotic heart disease of native coronary artery without angina pectoris; I25.2 Old myocardial infarction; Z79.899 Other long term (current) drug therapy; D64.9 Anemia, unspecified; Z99.2 Dependence on renal dialysis; E78.5 Hyperlipidemia, unspecified; F32.9 Major depressive disorder, single episode, unspecified; Z87.442 Personal history of urinary calculi; E11.319 Type 2 diabetes mellitus with unspecified diabetic retinopathy without macular edema; E03.9 Hypothyroidism, unspecified; Z21 Asymptomatic human immunodeficiency virus [HIV] infection status; R60.0 Localized edema; K21.9 Gastro-esophageal reflux disease without esophagitis; I45.4 Nonspecific intraventricular block; R94.31 Abnormal electrocardiogram [ECG] [EKG]; H57.8 Other specified disorders of eye and adnexa
CPT/HCPCS: 36558; 71010; 76937; 77001; 80048; 80053; 80074; 82728; 82948; 83540; 83550; 83880; 84100; 84484; 85025; 85027; 85610; 85730; 90935; 93005; 94640; 96372; 96374; 96375; 96376; 99152; 99153; C1750; C1769; G0378; J0690; J1580; J1644; J1756; J1815; J1940; J2250; J3010; J3370; J7030; J7050; Q4081; Q9967

== ENCOUNTER 2016-12-08 11:57 | Emergency (ER) | payer MEDICARE, OTHER ==
[~2016-12-08] VITALS: Ht 175.3 cm; Wt 162.0 kg
[~2016-12-08 11:57] MED LIST changes: -AZIT250T3 PO; -FURO20TA PO
[2016-12-08 12:04] VITALS: BP 161/98; PULSE 94; RESP 18; TEMP 98.2; O2SAT 99
--- NOTE | 2016-12-08 12:57 | PD ---
HPI Chief Complaint: Edema Time Seen by Provider: 12:48 Travel History International Travel<30 days: No Contact w/Intl Traveler<30days: No Traveled to known affect area: No History of Present Illness HPI 41-year-old male with history of end-stage renal disease on dialysis TRS, presents via EMS for evaluation of right upper extremity ecchymosis and pain. He had dialysis 2 days ago, had his right AV fistula accessed, but this was stopped because his developing pain and they accessed his port to finish his dialysis. Since then he has developed ecchymosis around the right AV fistula site. The pain is an aching pain, constant, worse with palpation. Denies any fevers, chills, numbness or tingling or weakness. No other complaints. PFSH Past Medical History Arthritis: No Asthma: No Autoimmune Disease: No Blood Disorders: No Anxiety: Yes Depression: No Heart Rhythm Problems: No Cancer: No Cardiac Catheterization: No Cardiomyopathy: Yes Cardiovascular Problems: Yes (CHF) High Cholesterol: Yes Chemotherapy: No Chest Pain: Yes Congestive Heart Failure: Yes COPD: Yes Cerebrovascular Accident: Yes (TIA, pt denies) Coronary Artery Disease: Yes Diabetes: Yes Patient Takes Glucophage: No Dialysis: Yes (Rt arm fistula Tue,Thurs,Sat) Diminished Hearing: No Endocrine: Yes Gastrointestinal Disorders: Yes (COLITIS) GERD: Yes Genitourinary: No Headaches: Yes Hepatitis: No Hiatal Hernia: No Heparin Induced Thrombocytopen: No Hypertension: Yes Immune Disorder: Yes (HIV ) Implanted Vascular Access Dvce: No Kidney Stones: Yes Medical other: Yes (ALLERGIC REACTION TO SURGERY IN L EYE BLISTER COVERING IT) Musculoskeletal: No Neurologic: No Psychiatric: Yes Reproductive: No Respiratory: Yes Immunizations Current: Yes Migraines: No Myocardial Infarction: Yes Pneumonia: Yes Radiation Therapy: No Renal Failure: Yes (CKD STAGE 4) Sleep Apnea: No Thyroid Disease: No Ulcer: No Past Surgical History Abdominal Surgery: No AICD: No Arteriovenous Shunt: Yes (RIGHT ARM AV FISTULA) Cardiac Surgery: No Coronary Artery Bypass Graft: No Ear Surgery: No Endocrine Surgery: No Eye Surgery: Yes (L cataract removed) Genitourinary Surgery: No Gynecologic Surgery: No Insulin Pump: No Joint Replacement: No Neurologic Surgery: No Oral Surgery: Yes (teeth pulled) Pacemaker: No Thoracic Surgery: No Other Surgery: Yes (L EYE FOR LASIX AND CATARACT AND "FREEZE EYE" ) Family History Family Myocardial Infarction: No Social History Alcohol Use: No Tobacco Use: No Substance Use: No Allergies-Medications (Allergen,Severity, Reaction): Coded Allergies: No Known Allergies (Verified Allergy, Unknown, 12/08/16) Reported Meds & Prescriptions Reported Meds & Active Scripts Active Lasix (Furosemide) 80 Mg Tab 80 Mg PO BID Minoxidil 2.5 Mg Tab 2.5 Mg PO HS Reported Lisinopril 40 Mg Tab 40 Mg PO DAILY Calcitriol 0.25 Mcg Cap 0.25 Mcg PO M,W,F Abacavir (Abacavir Sulfate) 300 Mg Tab 300 Mg PO DAILY Hazardous agent; use appropriate precautions for handling & disposal. Tivicay (Dolutegravir Sodium) 50 Mg Tab 50 Mg PO DAILY Carvedilol 25 Mg Tab 37 Mg PO BID Amlodipine (Amlodipine Besylate) 10 Mg Tab 10 Mg PO DAILY Triumeq (Uwusvrev-Proeppjsuegl-Dmqlncdljl) 600-50-300 Mg Tab 1 Tab PO DAILY Hazardous agent; use appropriate precautions for handling & disposal. Clonidine (Clonidine HCl) 0.2 Mg Tab 0.2 Mg PO BID Novolin 70-30 Inj (Insulin Human Isoph/Insulin Regular) 1,000 Unit/10 Ml Vial 25 Units SQ HS Novolin 70-30 Inj (Insulin Human Isoph/Insulin Regular) 1,000 Unit/10 Ml Vial 50 Units SQ DAILY Review of Systems Except as stated in HPI: all other systems reviewed are Neg Physical Exam Narrative GENERAL: Well-developed well-nourished male in no acute distress SKIN: Warm and dry. Ecchymosis noted to the right upper extremity around the AV fistula site. HEAD: Atraumatic. Normocephalic. EYES: Pupils equal and round. No scleral icterus. No injection or drainage. ENT: No nasal bleeding or discharge. Mucous membranes pink and moist. NECK: Trachea midline. No JVD. CARDIOVASCULAR: Regular rate and rhythm. No murmur appreciated. RESPIRATORY: No accessory muscle use. Clear to auscultation. Breath sounds equal bilaterally. GASTROINTESTINAL: Abdomen soft, non-tender, nondistended. Hepatic and splenic margins not palpable. MUSCULOSKELETAL: No obvious deformities. Skin as noted above, palpable fistula with thrill. NEUROLOGICAL: Awake and alert. No obvious cranial nerve deficits. Motor grossly within normal limits. Normal speech. PSYCHIATRIC: Appropriate mood and affect; insight and judgment normal. Data Data Last Documented VS Vital Signs Date Time Temp Pulse Resp B/P (MAP) Pulse Ox O2 Delivery O2 Flow Rate FiO2 12/08/16 12:47 90 18 99 Room Air 12/08/16 12:04 98.2 161/98 (119) Orders Orders Us Arm Venous Doppler (12/08/16 12:56) Ed Discharge Order (12/08/16 15:13) MDM Medical Decision Making Medical Screen Exam Complete: Yes Emergency Medical Condition: Yes Medical Record Reviewed: Yes Differential Diagnosis Extravasation, pseudoaneurysm, thrombosis, hematoma Narrative Course Right upper extremity ultrasound will be obtained. Ultrasound reveals: CONCLUSION: 1. Right upper extremity fistula appears to be functional. 2. No DVT. Lawrence Rice Dec 08, 2016 12:57
--- NOTE | 2016-12-08 14:50 | RADRPT ---
EXAM DATE/TIME: 12/08/2016 14:18 [facility] COMPARISON: No previous studies available for comparison. INDICATIONS : Right arm swelling. MEDICAL HISTORY : Congestive heart failure. Hypercholesterolemia. HIV. Retinal detachments. Glaucoma. Left eye partiall y blind. TIA. Cardiomyopathy. CAD. Hyperlipidemia. Chest pain. COPD. HTN. Pneumonia. Dyspnea. Colitis . GERD. Stage IV renal disease. Diabetes. Anxiety. SURGICAL HISTORY : Left cataract extraction. Teeth pulled. Right arm fistula. Dialysis. ENCOUNTER: Initial ACUITY: 2 day PAIN SCORE: 4/10 LOCATION: Right arm. FINDINGS: Patient appears to have a right upper extremity fistula from the brachial artery to the cephalic vein . Fistula appears to be patent. Deep venous system is widely patent without DVT. CONCLUSION: 1. Right upper extremity fistula appears to be functional. 2. No DVT. Clifford Bryant MD on December 08, 2016 at 14:46 Board Certified Radiologist. This report was verified electronically.
--- NOTE | 2016-12-08 15:07 | PD ---
Data Data Last Documented VS Vital Signs Date Time Temp Pulse Resp B/P (MAP) Pulse Ox O2 Delivery O2 Flow Rate FiO2 12/08/16 12:47 90 18 99 Room Air 12/08/16 12:04 98.2 161/98 (119) Orders Orders Us Arm Venous Doppler (12/08/16 12:56) Ed Discharge Order (12/08/16 15:13) MDM Medical Record Reviewed: Yes Supervised Visit with DAVID: Yes Narrative Course I, Dr. Alanis, have reviewed the advance practice practitioner's documentation and am in agreement, met with the patient face to face, made the diagnosis, and the medical decision making was done by me. *My assessment and Findings: Right upper extremity ultrasound is normal. The patient's ready for discharge. Please refer to the extended provider note. Diagnosis Primary Impression: Edema of upper extremity Referrals: Primary Care Physician call for appointment Additional Instruction: You have a choice when it comes to health care, and we are glad that you chose [facility]. Hopefully, we have met your expectations on today's visit. You are welcome to return to [facility] at any time, as we are committed to meeting the health care needs of our community. Med/Other Pt SpecificInfo: No Change to Meds Disposition: 01 DISCHARGE HOME Condition: Stable Deni Alanis MD Dec 08, 2016 15:07
--- NOTE | 2016-12-08 15:07 | PD ---
Data Data Last Documented VS Vital Signs Date Time Temp Pulse Resp B/P (MAP) Pulse Ox O2 Delivery O2 Flow Rate FiO2 12/08/16 12:47 90 18 99 Room Air 12/08/16 12:04 98.2 161/98 (119) Orders Orders Us Arm Venous Doppler (12/08/16 12:56) Ed Discharge Order (12/08/16 15:13) MDM Medical Record Reviewed: Yes Supervised Visit with DAVID: Yes Narrative Course I, Dr. Alanis, have reviewed the advance practice practitioner's documentation and am in agreement, met with the patient face to face, made the diagnosis, and the medical decision making was done by me. *My assessment and Findings: Right upper extremity ultrasound is normal. The patient's ready for discharge. Please refer to the extended provider note. Diagnosis Primary Impression: Edema of upper extremity Referrals: Primary Care Physician call for appointment Additional Instruction: You have a choice when it comes to health care, and we are glad that you chose [facility]. Hopefully, we have met your expectations on today's visit. You are welcome to return to [facility] at any time, as we are committed to meeting the health care needs of our community. Med/Other Pt SpecificInfo: No Change to Meds Disposition: 01 DISCHARGE HOME Condition: Stable Deni Alanis MD Dec 08, 2016 15:07
== END 2016-12-08 16:12 | disposition home or self-care (01) ==
LOC: NEPC 11:57
DX: M79.89 Other specified soft tissue disorders (principal); I13.2 Hypertensive heart and chronic kidney disease with heart failure and with stage 5 chronic kidney disease, or end stage renal disease; N18.6 End stage renal disease; E11.22 Type 2 diabetes mellitus with diabetic chronic kidney disease; Z99.2 Dependence on renal dialysis; Z79.4 Long term (current) use of insulin
CPT/HCPCS: 93971; 99284

== ENCOUNTER 2017-04-16 09:50 | Observation (INO) | payer MEDICARE, OTHER ==
[~2017-04-16] VITALS: Ht 175.3 cm; Wt 165.0 kg
[~2017-04-16 09:50] MED LIST changes: -ERYTOIN10 LEFT EYE; -LAMI1TAB7 PO; -NEPHTAB3 PO
[2017-04-16 10:03] VITALS: BP 165/81; PULSE 102; RESP 20; TEMP 98; O2SAT 95
--- NOTE | 2017-04-16 10:53 | RADRPT ---
EXAM DATE/TIME: 04/16/2017 10:45 [facility] COMPARISON: CHEST SINGLE AP, September 29, 2016, 14:11. INDICATIONS : Coughing, short of breath and chest pain today MEDICAL HISTORY : Renal failure, chronic. SURGICAL HISTORY : dialysis catheter ENCOUNTER: Initial ACUITY: 1 day PAIN SCORE: 8/10 LOCATION: Bilateral chest FINDINGS: A single view of the chest demonstrates the lungs to be symmetrically aerated without evidence of mas s, infiltrate or effusion. The cardiomediastinal contours are unremarkable. Osseous structures are intact. CONCLUSION: Left subclavian multilumen catheter. Lungs are grossly clear Vishal Lo MD on April 16, 2017 at 10:52 Board Certified Radiologist. This report was verified electronically.
[2017-04-16 11:00] LABS: AUTOMATED NEUTROPHIL # 3.5 TH/MM3 (1.8-7.7); BASOPHIL % 0.7 % (0.0-2.0); EOSINOPHIL # 0.1 TH/MM3 (0-0.4); EOSINOPHIL % 2.1 % (0.0-4.0); HEMATOCRIT 32.4 % (39.0-51.0); HEMOGLOBIN 10.8 GM/DL (13.0-17.0); LYMPH % 13.5 % (9.0-44.0); LYMPHOCYTE # 0.6 TH/MM3 (1.0-4.8); MEAN CELL VOLUME 87.9 FL (80.0-100.0); MEAN CORPUSCULAR HEMOGLOBIN 29.3 PG (27.0-34.0); MEAN CORPUSCULAR HGB CONC 33.3 % (32.0-36.0); MEAN PLATELET VOLUME 9.2 FL (7.0-11.0); MONO % 8.4 % (0.0-8.0); MONOCYTE # 0.4 TH/MM3 (0-0.9); NEUT % 75.3 % (16.0-70.0); PLATELET COUNT 147 TH/MM3 (150-450); RED BLOOD COUNT 3.68 MIL/MM3 (4.50-5.90); RED CELL DISTRIBUTION WIDTH 16.1 % (11.6-17.2); WHITE BLOOD COUNT 4.7 TH/MM3 (4.0-11.0)
[2017-04-16 11:17] LABS: BICARBONATE 25.3 MEQ/L (21.0-32.0); BLOOD UREA NITROGEN 41 MG/DL (7-18); CHLORIDE 106 MEQ/L (98-107); CREATININE 4.43 MG/DL (0.60-1.30); GLOMERULAR FILTRATION RATE 18 ML/MIN (>89); GLUCOSE,RANDOM 241 MG/DL (74-106); SODIUM (NA) 140 MEQ/L (136-145)
[2017-04-16 11:19] LABS: TROPONIN I 0.04 NG/ML (0.02-0.05)
--- NOTE | 2017-04-16 11:47 | PD ---
HPI Chief Complaint: Chest Pain Time Seen by Provider: 09:53 Travel History International Travel<30 days: No Contact w/Intl Traveler<30days: No Traveled to known affect area: No History of Present Illness HPI 41-year-old male arrives with retrosternal chest pain. Severity 5/10. It started at rest. He denies any physical exertion today so is unsure if there is a exertional component however he denies pleuritic component. Pain does not radiate. Patient undergoes dialysis Thursday and Thursday and missed this morning's dialysis (10:30 AM on [facility], renal is Dr Ramos ). Additionally he reports mild shortness of breath and some nausea. Nuclear medicine scan was performed approximately 6 months prior revealing a large defect involving anterior, lateral and inferior sanchez. PFSH Past Medical History Arthritis: No Asthma: No Autoimmune Disease: No Blood Disorders: No Anxiety: Yes Depression: No Heart Rhythm Problems: No Cancer: No Cardiac Catheterization: No Cardiomyopathy: Yes Cardiovascular Problems: Yes (CHF) High Cholesterol: Yes Chemotherapy: No Chest Pain: Yes Congestive Heart Failure: Yes COPD: Yes Cerebrovascular Accident: Yes (TIA, pt denies) Coronary Artery Disease: Yes Diabetes: Yes Dialysis: Yes (Rt arm fistula Thu,,Thu) Diminished Hearing: No Endocrine: Yes Gastrointestinal Disorders: Yes (COLITIS) GERD: Yes Genitourinary: No Headaches: Yes Hepatitis: No Hiatal Hernia: No Heparin Induced Thrombocytopen: No Hypertension: Yes Immune Disorder: Yes (HIV ) Implanted Vascular Access Dvce: No Kidney Stones: Yes Musculoskeletal: No Neurologic: No Psychiatric: Yes Reproductive: No Respiratory: Yes Immunizations Current: Yes Migraines: No Myocardial Infarction: Yes Pneumonia: Yes Radiation Therapy: No Renal Failure: Yes (CKD STAGE 4) Sleep Apnea: No Thyroid Disease: No Ulcer: No Past Surgical History Abdominal Surgery: No AICD: No Arteriovenous Shunt: Yes (RIGHT ARM AV FISTULA) Cardiac Surgery: No Coronary Artery Bypass Graft: No Ear Surgery: No Endocrine Surgery: No Eye Surgery: Yes (L cataract removed) Genitourinary Surgery: No Gynecologic Surgery: No Insulin Pump: No Joint Replacement: No Neurologic Surgery: No Oral Surgery: Yes (teeth pulled) Pacemaker: No Thoracic Surgery: No Other Surgery: Yes (L EYE FOR LASIX AND CATARACT AND "FREEZE EYE" ) Social History Alcohol Use: No Tobacco Use: No Substance Use: No Allergies-Medications (Allergen,Severity, Reaction): Coded Allergies: No Known Allergies (Verified , 02/02/17) Reported Meds & Prescriptions Reported Meds & Active Scripts Active Minoxidil 2.5 Mg Tab 2.5 Mg PO HS Reported Lasix (Furosemide) 80 Mg Tab 80 Mg PO EVERY OTHER DAY Lisinopril 40 Mg Tab 40 Mg PO DAILY Calcitriol 0.25 Mcg Cap 0.25 Mcg PO M,W,F Abacavir (Abacavir Sulfate) 300 Mg Tab 300 Mg PO DAILY Hazardous agent; use appropriate precautions for handling & disposal. Tivicay (Dolutegravir Sodium) 50 Mg Tab 50 Mg PO DAILY Carvedilol 25 Mg Tab 37 Mg PO BID Amlodipine (Amlodipine Besylate) 10 Mg Tab 10 Mg PO DAILY Triumeq (Jvgirgpw-Rhbzppjtuvtt-Wizqqtuaui) 600-50-300 Mg Tab 1 Tab PO DAILY Hazardous agent; use appropriate precautions for handling & disposal. Clonidine (Clonidine HCl) 0.2 Mg Tab 0.2 Mg PO BID Novolin 70-30 Inj (Insulin Human Isoph/Insulin Regular) 1,000 Unit/10 Ml Vial 25 Units SQ HS Novolin 70-30 Inj (Insulin Human Isoph/Insulin Regular) 1,000 Unit/10 Ml Vial 50 Units SQ DAILY Review of Systems Except as stated in HPI: all other systems reviewed are Neg General / Constitutional: No: Fever Physical Exam Narrative GENERAL: 41-year-old male pleasant, speaking full sentences mild distress, BMI 54 Vital Signs Date Time Temp Pulse Resp B/P (MAP) Pulse Ox O2 Delivery O2 Flow Rate FiO2 04/16/17 10:03 98.0 102 20 165/81 (109) 95 SKIN: Warm and dry. HEAD: Atraumatic. Normocephalic. EYES: Pupils equal and round. No scleral icterus. No injection or drainage. ENT: No nasal bleeding or discharge. Mucous membranes pink and moist. NECK: Trachea midline. No JVD. CARDIOVASCULAR: Tachycardic. Regular rhythm. RESPIRATORY: Anterior chest wall catheter. Lung sounds present bilaterally. GASTROINTESTINAL: Abdomen soft, non-tender, nondistended. Hepatic and splenic margins not palpable. MUSCULOSKELETAL: Extremities without clubbing, cyanosis, or edema. No obvious deformities. NEUROLOGICAL: Awake and alert. No obvious cranial nerve deficits. Motor grossly within normal limits. Five out of 5 muscle strength in the arms and legs. Normal speech. PSYCHIATRIC: Appropriate mood and affect; insight and judgment normal. Data Data Last Documented VS Vital Signs Date Time Temp Pulse Resp B/P (MAP) Pulse Ox O2 Delivery O2 Flow Rate FiO2 04/16/17 12:33 98 Room Air 04/16/17 12:33 04/16/17 12:33 88 18 04/16/17 10:03 98.0 Vital signs reviewed Orders Orders Electrocardiogram (04/16/17 10:34) Complete Blood Count With Diff (04/16/17 10:34) Basic Metabolic Panel (Bmp) (04/16/17 10:34) Ckmb (Isoenzyme) Profile (04/16/17 10:34) Troponin I (04/16/17 10:34) Chest, Single Ap (04/16/17 10:34) Iv Access Insert/Monitor (04/16/17 10:34) Ecg Monitoring (04/16/17 10:34) Oxygen Administration (04/16/17 10:34) Oximetry (04/16/17 10:34) CKMB (04/16/17 10:40) CKMB% (04/16/17 10:40) Add Patient To Providers List (04/16/17 ) Blood Flow Rate (04/16/17 12:20) Dialysate Flow Rate (04/16/17 12:20) Dialyzer (04/16/17 12:20) Concentrate (04/16/17 12:20) Acid Concentrate (04/16/17 12:20) Length Of Dialysis (04/16/17 12:20) Frequency Of Dialysis (04/16/17 12:20) Dialysis Obtain (04/16/17 12:20) Needle Size (04/16/17 12:20) Dialysis Schedule (04/16/17 12:20) Resp Oxygen William C Titrat 1-4 L (04/16/17 ) Dialysis Weight (04/16/17 12:20) ^ Obtain As Needed (04/16/17 12:20) Sodium Chlor 0.9% 1000 Ml Inj (Ns 1000 M (04/16/17 12:20) Heparin Inj (Heparin Inj) (04/16/17 12:30) Sodium Chlor 0.9% 1000 Ml Inj (Ns 1000 M (04/16/17 12:20) Sodium Chlor 0.9% 1000 Ml Inj (Ns 1000 M (04/16/17 12:20) Mannitol Inj (Mannitol Inj) (04/16/17 12:30) Albumin 25% Inj (Albumin 25% Inj) (04/16/17 12:30) Sodium Chloride 0.9% Flush (Ns Flush) (04/16/17 12:30) Heparin Inj (Heparin Inj) (04/16/17 12:30) Gentamicin Inj (Gentamicin Inj) (04/16/17 12:30) Ondansetron Inj (Zofran Inj) (04/16/17 12:30) Acetaminophen (Tylenol) (04/16/17 12:30) Diphenhydramine (Benadryl) (04/16/17 12:30) Nitroglycerin Sl (Nitrostat Sl) (04/16/17 12:30) Clonidine (Catapres) (04/16/17 12:30) Epoetin Cesario Inj (Epogen Inj) (04/16/17 12:30) Gelatin 12 Mm/7 Mm Top (Gelfoam 12 Mm/7 (04/16/17 12:30) Admit Order (Ed Use Only) (04/16/17 ) Contact Lens Cutter / Telemetry JONATAN.Q8H (04/16/17 12:32) Vital Signs (Adult) Q4H (04/16/17 12:32) Activity Bed Rest (04/16/17 12:32) Labs Laboratory Tests Test 04/16/17 10:40 White Blood Count 4.7 TH/MM3 Red Blood Count 3.68 MIL/MM3 Hemoglobin 10.8 GM/DL Hematocrit 32.4 % Mean Corpuscular Volume 87.9 FL Mean Corpuscular Hemoglobin 29.3 PG Mean Corpuscular Hemoglobin Concent 33.3 % Red Cell Distribution Width 16.1 % Platelet Count 147 TH/MM3 Mean Platelet Volume 9.2 FL Neutrophils (%) (Auto) 75.3 % Lymphocytes (%) (Auto) 13.5 % Monocytes (%) (Auto) 8.4 % Eosinophils (%) (Auto) 2.1 % Basophils (%) (Auto) 0.7 % Neutrophils # (Auto) 3.5 TH/MM3 Lymphocytes # (Auto) 0.6 TH/MM3 Monocytes # (Auto) 0.4 TH/MM3 Eosinophils # (Auto) 0.1 TH/MM3 Basophils # (Auto) 0.0 TH/MM3 CBC Comment DIFF FINAL Differential Comment Blood Urea Nitrogen 41 MG/DL Creatinine 4.43 MG/DL Random Glucose 241 MG/DL Calcium Level 8.0 MG/DL Sodium Level 140 MEQ/L Potassium Level 4.4 MEQ/L Chloride Level 106 MEQ/L Carbon Dioxide Level 25.3 MEQ/L Anion Gap 9 MEQ/L Estimat Glomerular Filtration Rate 18 ML/MIN Total Creatine Kinase 151 U/L Creatine Kinase MB 2.0 NG/ML Troponin I 0.04 NG/ML MDM Medical Decision Making Medical Screen Exam Complete: Yes Emergency Medical Condition: Yes Medical Record Reviewed: Yes Differential Diagnosis NSTEMI, unstable angina, coronary vasospasm, PE, PTX, aortic dissection, pericarditis, myocarditis, endocarditis, PNA, esophageal disease, aneurysm, musculoskeletal etiologies, anxiety, cocaine/sympathomimetic abuse Narrative Course EKG shows a sinus tachycardia at a rate of 100 and the right bundle branch block morphology Patient has a known perfusion defect on nuclear medicine myocardial scanning Admission for serial enzymes considered most reasonable along with dialysis as the patient missed this morning's dialysis. d/w Dr Ramos d/w Dr Gallegos Diagnosis Primary Impression: Chest pain Qualified Codes: R07.9 - Chest pain, unspecified Additional Impression: ESRD (end stage renal disease) on dialysis Admitting Information Admitting Physician Requests: Observation Deni Alanis MD Apr 16, 2017 11:47
[2017-04-16] MEDS ORDERED: SODIUM CHLOR 0.9% 1000 ML INJ 1,000 ML OTHER PRN ×2 (12:20)
[2017-04-16] MEDS ORDERED: SODIUM CHLOR 0.9% 1000 ML INJ 1,000 ML IV PRN (12:20)
[2017-04-16] MEDS ORDERED: MANNITOL 12.5 GM/50 ML VIAL IV PRN (12:30)
[2017-04-16] MEDS ORDERED: cloNIDine HCL 0.1 MG TAB PO PRN (12:30)
[2017-04-16] MEDS ORDERED: HEPARIN SODIUM - IV 10,000 UNITS/10 ML VIAL PRN (12:30)
[2017-04-16] MEDS ORDERED: SODIUM CHLORIDE 0.9% FLUSH 10 ML FLUSH IV FLUSH PRN ×2 (12:30→13:00)
[2017-04-16] MEDS ORDERED: ACETAMINOPHEN 325 MG TAB PO PRN ×3 (12:30→13:00)
[2017-04-16] MEDS ORDERED: ONDANSETRON HCL 4 MG/2 ML VIAL IV PUSH PRN (12:30)
[2017-04-16] MEDS ORDERED: diphenhydrAMINE HCL 25 MG CAP PO PRN (12:30)
[2017-04-16] MEDS ORDERED: EPOETIN ALFA 10,000 UNITS/ML VIAL IV PUSH PRN (12:30)
[2017-04-16] MEDS ORDERED: GENTAMICIN SULFATE 20 MG/2 ML VIAL OTHER PRN (12:30)
[2017-04-16] MEDS ORDERED: GELATIN 12 MM/7 MM FOAM TOP PRN (12:30)
[2017-04-16] MEDS ORDERED: ALBUMIN 25% INJ 100 ML IV PRN (12:30)
[2017-04-16] MEDS ORDERED: HEPARIN SODIUM - IV 10,000 UNITS/10 ML VIAL IV FLUSH PRN (12:30)
[2017-04-16] MEDS ORDERED: NITROGLYCERIN 0.4 MG SL 25 TABS/BTL SL PRN ×2 (12:30→13:00)
[2017-04-16 12:33] VITALS: BP 141/78; PULSE 88; RESP 18; O2SAT 97; O2SAT 98
[2017-04-16] MEDS ORDERED: GLUCAGON 1 MG/ML VIAL OTHER PRN (13:00)
[2017-04-16] MEDS ORDERED: DEXTROSE 50% IN WATER 50 ML VIAL(D50) IV PUSH PRN (13:00)
[2017-04-16] MEDS ORDERED: TEMAZEPAM 15 MG CAP PO PRN (13:00)
[2017-04-16] MEDS ORDERED: ONDANSETRON HCL 4 MG/2 ML VIAL IVP PRN (13:00)
[2017-04-16] MEDS ORDERED: NALOXONE HCL 0.4 MG/ML AMP IV PUSH PRN (13:00)
[2017-04-16] MEDS ORDERED: FURO1TAB61 PO (13:13)
--- NOTE | 2017-04-16 13:18 | HHI.HP ---
HPI Service [facility] Primary Care Physician Unknown Admission Diagnosis Chest Pain; ESRD Diagnoses: (1) Atypical chest pain (2) ESRD (end stage renal disease) on dialysis Chief Complaint: Chest pain Travel History International Travel<30 Days: No Contact w/Intl Traveler <30 Da: No Traveled to Known Affected Are: No History of Present Illness 41-year-old male with a history of HIV on HARRT , end-stage renal disease on hemodialysis presents to the ED for evaluation of an acute onset of substernal chest pain described as heaviness without any associated shortness of breath or diaphoresis however with some radiation to his back. Patient, at a time about his symptom was having breakfast. Patient states he feels like hiccups pain. During my exam patient reported improvement of chest pain. Initial cardiac enzyme 0.04. Nephrology has been consulted for hemodialysis. Review of Systems Except as stated in HPI: all other systems reviewed are Neg Past Family Social History Past Medical History Anxiety: Yes Cardiomyopathy: Yes Cardiovascular Problems: Yes (CHF) High Cholesterol: Yes Chest Pain: Yes Congestive Heart Failure: Yes COPD: Yes Cerebrovascular Accident: Yes (TIA, pt denies) Coronary Artery Disease: Yes Diabetes: Yes Dialysis: Yes (Rt arm fistula Tue,,Sat) Endocrine: Yes Gastrointestinal Disorders: Yes (COLITIS) GERD: Yes Headaches: Yes Hypertension: Yes Immune Disorder: Yes (HIV ) Myocardial Infarction: Yes Renal Failure: Yes (CKD STAGE 4) Past Surgical History Arteriovenous Shunt: Yes (RIGHT ARM AV FISTULA) Eye Surgery: Yes (L cataract removed) Oral Surgery: Yes (teeth pulled) Other Surgery: Yes (L EYE FOR LASIX AND CATARACT AND "FREEZE EYE" ) Reported Medications Lasix (Furosemide) 80 Mg Tab 80 Mg PO BID Minoxidil 2.5 Mg Tab 2.5 Mg PO HS Reported Lisinopril 40 Mg Tab 40 Mg PO DAILY Calcitriol 0.25 Mcg Cap 0.25 Mcg PO M,W,F Abacavir (Abacavir Sulfate) 300 Mg Tab 300 Mg PO DAILY Hazardous agent; use appropriate precautions for handling & disposal. Tivicay (Dolutegravir Sodium) 50 Mg Tab 50 Mg PO DAILY Carvedilol 25 Mg Tab 37 Mg PO BID Amlodipine (Amlodipine Besylate) 10 Mg Tab 10 Mg PO DAILY Triumeq (Hajygtkk-Nitjlgjpaake-Dbnvfymjpc) 600-50-300 Mg Tab 1 Tab PO DAILY Hazardous agent; use appropriate precautions for handling & disposal. Clonidine (Clonidine HCl) 0.2 Mg Tab 0.2 Mg PO BID Novolin 70-30 Inj (Insulin Human Isoph/Insulin Regular) 1,000 Unit/10 Ml Vial 25 Units SQ HS Novolin 70-30 Inj (Insulin Human Isoph/Insulin Regular) 1,000 Unit/10 Ml Vial 50 Units SQ DAILY Allergies: Coded Allergies: No Known Allergies (Verified , 02/02/17) Family History Positive for hypertension, diabetes Social History Alcohol Use: No Tobacco Use: No Substance Use: No Physical Exam Vital Signs Vital Signs Date Time Temp Pulse Resp B/P (MAP) Pulse Ox O2 Delivery O2 Flow Rate FiO2 04/16/17 12:33 98 Room Air 04/16/17 12:33 98 04/16/17 12:33 88 18 141/78 (99) 97 Room Air 04/16/17 10:03 98.0 102 20 165/81 (109) 95 Physical Exam GENERAL: This is a well-nourished, well-developed patient, in no apparent distress. SKIN: No rashes, ecchymoses or lesions. Cool and dry. HEAD: Atraumatic. Normocephalic. No temporal or scalp tenderness. EYES: Pupils equal round and reactive. Extraocular motions intact. No scleral icterus. No injection or drainage. ENT: Nose without bleeding, purulent drainage or septal hematoma. Throat without erythema, tonsillar hypertrophy or exudate. Uvula midline. Airway patent. NECK: Trachea midline. No JVD or lymphadenopathy. Supple, nontender, no meningeal signs. CARDIOVASCULAR: Regular rate and rhythm without murmurs, gallops, or rubs. RESPIRATORY: Clear to auscultation. Breath sounds equal bilaterally. No wheezes , rales, or rhonchi. GASTROINTESTINAL: Abdomen soft, non-tender, nondistended. No hepato-splenomegaly , or palpable masses. No guarding. MUSCULOSKELETAL: Extremities without clubbing, cyanosis, or edema. No joint tenderness, effusion, or edema noted. No calf tenderness. Negative Homans sign bilaterally. NEUROLOGICAL: Awake and alert. Cranial nerves II through XII intact. Motor and sensory grossly within normal limits. Five out of 5 muscle strength in all muscle groups. Normal speech. Laboratory Laboratory Tests Test 04/16/17 10:40 White Blood Count 4.7 Red Blood Count 3.68 Hemoglobin 10.8 Hematocrit 32.4 Mean Corpuscular Volume 87.9 Mean Corpuscular Hemoglobin 29.3 Mean Corpuscular Hemoglobin Concent 33.3 Red Cell Distribution Width 16.1 Platelet Count 147 Mean Platelet Volume 9.2 Neutrophils (%) (Auto) 75.3 Lymphocytes (%) (Auto) 13.5 Monocytes (%) (Auto) 8.4 Eosinophils (%) (Auto) 2.1 Basophils (%) (Auto) 0.7 Neutrophils # (Auto) 3.5 Lymphocytes # (Auto) 0.6 Monocytes # (Auto) 0.4 Eosinophils # (Auto) 0.1 Basophils # (Auto) 0.0 CBC Comment DIFF FINAL Differential Comment Blood Urea Nitrogen 41 Creatinine 4.43 Random Glucose 241 Calcium Level 8.0 Sodium Level 140 Potassium Level 4.4 Chloride Level 106 Carbon Dioxide Level 25.3 Anion Gap 9 Estimat Glomerular Filtration Rate 18 Total Creatine Kinase 151 Creatine Kinase MB 2.0 Troponin I 0.04 Result Diagram: 04/16/17 1040 04/16/17 1040 Imaging Last Impressions Chest X-Ray 04/16/17 1034 Signed Impressions: Service Date/Time: April 10:45 - CONCLUSION: Left subclavian multilumen catheter. Lungs are grossly clear Vishal Lo MD Septic Shock Reassessment Septic shock perfusion: reassessment completed Caprini VTE Risk Assessment Caprini VTE Risk Assessment: No/Low Risk (score <= 1) Caprini Risk Assessment Model Point Value = 1 Point Value = 2 Point Value = 3 Point Value = 5 Age 41-60 Minor surgery BMI > 25 kg/m2 Swollen legs Varicose veins or History of unexplained or recurrent spontaneous Oral contraceptives or hormone replacement Sepsis (< 1 month) Serious lung disease, including pneumonia (< 1 month) Abnormal pulmonary function Acute myocardial infarction Congestive heart failure (< 1 month) History of inflammatory bowel disease Medical patient at bed rest Age 61-74 Arthroscopic surgery Major open surgery (> 45 min) Laparoscopic surgery (> 45 min) Malignancy Confined to bed (> 72 hours) Immobilizing plaster cast Central venous access Age >= 75 History of VTE Family history of VTE Factor V Leiden Prothrombin [id number] Lupus anticoagulant Anticardiolipin antibodies Elevated serum homocysteine Heparin-induced thrombocytopenia Other congenital or acquired thrombophilia Stroke (< 1 month) Elective arthroplasty Hip, pelvis, or leg fracture Acute spinal cord injury (< 1 month) Prophylaxis Regimen Total Risk Factor Score Risk Level Prophylaxis Regimen 0-1 Low Early ambulation 2 Moderate Order ONE of the following: *Sequential Compression Device (SCD) *Heparin 5000 units SQ BID 3-4 Higher Order ONE of the following medications: *Heparin 5000 units SQ TID *Enoxaparin/Lovenox 40 mg SQ daily (WT < 150 kg, CrCl > 30 mL/min) *Enoxaparin/Lovenox 30 mg SQ daily (WT < 150 kg, CrCl > 10-29 mL/min) *Enoxaparin/Lovenox 30 mg SQ BID (WT < 150 kg, CrCl > 30 mL/min) AND/OR *Sequential Compression Device (SCD) 5 or more Highest Order ONE of the following medications: *Heparin 5000 units SQ TID (Preferred with Epidurals) *Enoxaparin/Lovenox 40 mg SQ daily (WT < 150 kg, CrCl > 30 mL/min) *Enoxaparin/Lovenox 30 mg SQ daily (WT < 150 kg, CrCl > 10-29 mL/min) *Enoxaparin/Lovenox 30 mg SQ BID (WT < 150 kg, CrCl > 30 mL/min) AND *Sequential Compression Device (SCD) Assessment and Plan Problem List: (1) Atypical chest pain ICD Code: R07.89 - Other chest pain (2) ESRD (end stage renal disease) on dialysis ICD Code: N18.6 - End stage renal disease; Z99.2 - Dependence on renal dialysis Status: Acute (3) HTN (hypertension) ICD Code: I10 - Essential (primary) hypertension Status: Acute Assessment and Plan 41-year-old man with Atypical chest pain Chest x-ray noted and review by me without any cardio pulmonary disease Likely costochondritis vs GI However will continue ACS ruled out per protocol with serial cardiac enzyme and EKGs Consider nuclear stress test if abnormal results Cardiology consultation when necessary End-stage renal disease on hemodialysis Nephrology has been consulted and patient will undergo hemodialysis Diabetes type 2 Resume basal insulin and start medium sliding scale Hypertension Resume patient medications pending verification HIV Resume HARRT Other chronic medical conditions Resume outpatient medications Code Status Full code Discussed Condition With Patient, ED physician Saulo Gallegos MD Apr 16, 2017 13:18
[2017-04-16] MEDS: INSULIN ASPART SUPPLEMENTAL SCALE SQ SCH ×2 (17:00→21:31)
[2017-04-16] MEDS ORDERED: INSULIN HUMAN NPH/R 70/30 1,000 UNITS/10 ML VIAL SQ SCH (17:00)
[2017-04-16] MEDS ORDERED: DEXTROSE 50% IN WATER 50 ML SYRINGE ONE (17:32)
[2017-04-16 18:02] LABS: TROPONIN I 0.05 NG/ML (0.02-0.05)
--- NOTE | 2017-04-16 20:10 | MB ---
cc: Sera Ramos MD DATE OF CONSULT: 04/16/2017 REASON FOR CONSULTATION: End-stage renal disease, on hemodialysis. HISTORY OF PRESENT ILLNESS: This is a 41-year-old male with past medical history of hypertension, HIV disease, chronic obstructive pulmonary disease, history of ischemic heart disease, congestive heart failure, gastroesophageal reflux disease, chronic anemia, end-stage renal disease on hemodialysis 3 times per week, came to the emergency department with the complaint of chest pain. I was called to see the patient for the management of dialysis. Patient was seen by me around 11 a.m. this morning and I was called from the ER. Patient has retrosternal chest pain that started while he was resting and watching TV without any exertion. The pain kept coming back and forth without any aggravating factor. He started having some hiccups along with that. There was nausea, but no vomiting. He denies any shortness of breath, but he has chronic shortness of breath off and on. There is no history of cough, no history of fever. PAST MEDICAL HISTORY: Hypertension, HIV disease, ischemic heart disease, congestive heart failure, chronic obstructive pulmonary disease, gastroesophageal reflux disease, end-stage renal disease on hemodialysis, chronic anemia. PAST SURGICAL HISTORY: History of right arm AV fistula surgery, history of cataract surgery. REVIEW OF SYSTEMS: He denied any history of fever, no sore throat, no headache, dizziness or blurring of vision. Patient had this chest pain, which was retrosternal off and on not related to exertion. It started the night before. There is no relieving factor. The pain subsided and was coming back and forth off and on. There is mild shortness of breath, which is chronic. He has hiccups. There is no vomiting, but has mild nausea. There is no abdominal pain. SOCIAL HISTORY: There is no history of smoking or alcohol use. FAMILY HISTORY: Noncontributory. ALLERGIES: HE HAS NO KNOWN DRUG ALLERGIES. MEDICATIONS: Currently, he is on the following medication: Carvedilol 37.5 mg b.i.d., Ziagen mg once a day, Norvasc 10 mg daily, lisinopril 40 mg once a day, 25 mg daily, insulin 70/30 - 15 units in the morning and 35 in the evening. PHYSICAL EXAMINATION: GENERAL: Patient was awake, alert, not in acute distress. He did not have any chest pain when I saw him. VITAL SIGNS: The blood pressure was 141/78, temperature is 98, oxygen saturation 97-98%. HEENT: no anicteric sclerae, conjunctivae pale. NECK: Supple. JVD is not elevated. LUNGS: Patient has bilateral good air entry with scattered wheezing. HEART: S1, S2 regular. ABDOMEN: Soft, distended. There is no tenderness. EXTREMITIES: He has mild edema of the legs. The right arm with AV fistula with good bruit. INVESTIGATIONS: WBC count is 4.7, hemoglobin 10.8, platelet count of 147. Sodium 140, potassium 4.4, chloride 106, bicarb 25.3, BUN 41, creatinine 4.4, glucose 64. Troponin 0.05. IMAGING STUDIES: Patient had a chest x-ray done, which shows that he has clear lung field. ASSESSMENT AND PLAN: 1. Current chest pain, possibly atypical. 2. End-stage renal disease on hemodialysis. 3. Hypertension. 4. Mild anemia. 5. History of human immunodeficiency virus disease. 6. Diabetes mellitus. Patient has a history of a past stress test, which was abnormal. Patient was admitted with observation to monitor the serial cardiac enzymes. He did not have any chest pain when I saw him and I already called dialysis and arrange for him to get the dialysis done as inpatient. The blood pressure was stable. The potassium was normal. Hemoglobin is 10.8. He will be getting Epogen with dialysis. Thank you for the consultation. MD SELMA George/cory , 07:14 PM , 08:08 PM MIYA
[2017-04-16 20:36] VITALS: BP 159/83; PULSE 88; RESP 18; TEMP 98.5; O2SAT 100
[2017-04-16] MEDS: CARVEDILOL 12.5 MG TAB PO SCH (21:31)
[2017-04-16] MEDS: SODIUM CHLORIDE 0.9% FLUSH 10 ML FLUSH IV FLUSH SCH (21:32)
[2017-04-17 00:37] VITALS: BP 120/70; PULSE 84; PULSE 85; RESP 18; TEMP 98.5; O2SAT 97
[2017-04-17 04:00] VITALS: BP 139/76; PULSE 73; RESP 16; TEMP 98.3; O2SAT 97
[2017-04-17 04:30] VITALS: PULSE 89
[2017-04-17 08:00] VITALS: BP 138/79; PULSE 92; RESP 20; TEMP 98.3; O2SAT 95
[2017-04-17] MEDS ORDERED: INSULIN HUMAN NPH/R 70/30 1,000 UNITS/10 ML VIAL SQ SCH (08:00)
[2017-04-17] MEDS: INSULIN ASPART SUPPLEMENTAL SCALE SQ SCH (08:00)
[2017-04-17] MEDS ORDERED: LISINOPRIL 20 MG TAB PO SCH (09:00)
[2017-04-17] MEDS ORDERED: NON-FORMULARY DRUG (Abacavir-Dolutegravir-Lamivudine (Triumeq) 1 TAB) PO SCH (09:00)
[2017-04-17] MEDS ORDERED: ABACAVIR SULFATE 300 MG TAB PO SCH (09:00)
[2017-04-17] MEDS ORDERED: DOLUTEGRAVIR SODIUM 50 MG TAB PO SCH (09:00)
[2017-04-17] MEDS ORDERED: lamiVUDine SOLN 150 MG/15 ML CUP PO SCH (09:00)
[2017-04-17] MEDS: CARVEDILOL 12.5 MG TAB PO SCH (09:14)
[2017-04-17] MEDS: SODIUM CHLORIDE 0.9% FLUSH 10 ML FLUSH IV FLUSH SCH (09:14)
--- NOTE | 2017-04-17 10:02 | EKG ---
Date Performed: 04/16/2017 Time Performed: 19:19:46 PTAGE: 41 years EKG: Sinus rhythm RIGHT BUNDLE BRANCH BLOCK AND POSSIBLE RIGHT VENTRICULAR HYPERTROPHY LEFT POSTERIOR FASCICULAR BLOCK ABNORMAL ECG Since PREVIOUS TRACING , no significant change noted PREVIOUS TRACIN04/16/2017 10.11 DOCTOR: Rosalba Rosas Interpretating Date/Time 04/17/2017 10:02:18
--- NOTE | 2017-04-17 10:02 | EKG ---
Date Performed: 04/16/2017 Time Performed: 23:21:01 PTAGE: 41 years EKG: Sinus rhythm RIGHT BUNDLE BRANCH BLOCK ABNORMAL ECG Since PREVIOUS TRACING , no significant change noted PREVIOUS TRACIN04/16/2017 19.19 DOCTOR: Rosalba Rosas Interpretating Date/Time 04/17/2017 10:02:26
--- NOTE | 2017-04-17 10:02 | EKG ---
Date Performed: 04/16/2017 Time Performed: 10:11:30 PTAGE: 41 years EKG: SINUS TACHYCARDIA RIGHT BUNDLE BRANCH BLOCK MODERATE T-WAVE ABNORMALITY, CONSIDER LATERAL I SCHEMIA MODERATE T-WAVE ABNORMALITY, CONSIDER INFERIOR ISCHEMIA ABNORMAL ECG Since PREVIOUS TRACING , no significant change noted PREVIOUS TRACING DOCTOR: Rosalba Rosas Interpretating Date/Time 04/17/2017 10:02:09
[2017-04-17 11:43] VITALS: BP 114/68; PULSE 86; RESP 20; TEMP 98.3; O2SAT 94
--- NOTE | 2017-04-17 13:04 | PD.AMA ---
Against Medical Advice Note Diagnosis: (1) HIV (human immunodeficiency virus infection) (2) Immunocompromised (3) Accelerated hypertension (4) Type 2 diabetes mellitus (5) chest pain with elevated troponin I (6) AIDS (acquired immune deficiency syndrome) (7) Hypothyroidism (8) Morbid obesity (9) Congestive heart failure (10) Malignant hypertension (11) Adjustment disorder (12) Hyperparathyroidism due to vitamin D deficiency (13) Hypertensive urgency (14) CHF (congestive heart failure) (15) Ischemic cardiomyopathy (16) Chronic Renal Failure / insufficiency, unspec Discharge Disposition: Against Medical Advice Pt Condition on Discharge: Good Recommended Treatment Course 41-year-old male with a history of HIV on HARRT , end-stage renal disease on hemodialysis presents to the ED for evaluation of an acute onset of substernal chest pain described as heaviness without any associated shortness of breath or diaphoresis however with some radiation to his back. Patient, at a time about his symptom was having breakfast. Patient states he feels like hiccups pain. During my exam patient reported improvement of chest pain. Initial cardiac enzyme 0.04. Nephrology has been consulted for hemodialysis. LEFT AMA TODAY BEFORE BEING SEEN HAD HD YESTERDAY AMA Statement Patient Frank Thakkar has decided to leave the hospital against medical advice. This patient has the capacity to refuse care and understands the risks of leaving, including permanent disability and/or , and has had an opportunity to ask questions about his condition. The patient has been informed that he may return for care at any time, and follow up has been arranged/ advised. Mickey De La Cruz DO Apr 17, 2017 13:04
--- NOTE | 2017-04-17 13:12 | HHI.DS ---
Discharge Summary Admission Date Apr 16, 2017 at 12:35 Discharge Date: Apr 17, 2017 Admitting Diagnosis Chest Pain; ESRD (1) Atypical chest pain ICD Code: R07.89 - Other chest pain Diagnosis: Principal (2) ESRD (end stage renal disease) on dialysis ICD Code: N18.6 - End stage renal disease; Z99.2 - Dependence on renal dialysis Diagnosis: Secondary Status: Acute (3) HTN (hypertension) ICD Code: I10 - Essential (primary) hypertension Diagnosis: Secondary Status: Acute Procedures HD 3-1 Brief History - From Admission 41-year-old male with a history of HIV on HARRT , end-stage renal disease on hemodialysis presents to the ED for evaluation of an acute onset of substernal chest pain described as heaviness without any associated shortness of breath or diaphoresis however with some radiation to his back. Patient, at a time about his symptom was having breakfast. Patient states he feels like hiccups pain. During my exam patient reported improvement of chest pain. Initial cardiac enzyme 0.04. Nephrology has been consulted for hemodialysis. CBC/BMP: 04/16/17 1040 04/16/17 1707 Significant Findings Laboratory Tests Test 04/16/17 10:40 04/16/17 17:07 Red Blood Count 3.68 MIL/MM3 (4.50-5.90) Hemoglobin 10.8 GM/DL (13.0-17.0) Hematocrit 32.4 % (39.0-51.0) Platelet Count 147 TH/MM3 (150-450) Neutrophils (%) (Auto) 75.3 % (16.0-70.0) Monocytes (%) (Auto) 8.4 % (0.0-8.0) Lymphocytes # (Auto) 0.6 TH/MM3 (1.0-4.8) Blood Urea Nitrogen 41 MG/DL (7-18) Creatinine 4.43 MG/DL (0.60-1.30) Random Glucose 241 MG/DL (74-106) 64 MG/DL (74-106) Calcium Level 8.0 MG/DL (8.5-10.1) Estimat Glomerular Filtration Rate 18 ML/MIN (>89) Hospital Course 41-year-old male with a history of HIV on HARRT , end-stage renal disease on hemodialysis presents to the ED for evaluation of an acute onset of substernal chest pain described as heaviness without any associated shortness of breath or diaphoresis however with some radiation to his back. Patient, at a time about his symptom was having breakfast. Patient states he feels like hiccups pain. During my exam patient reported improvement of chest pain. Initial cardiac enzyme 0.04. Nephrology has been consulted for hemodialysis. HAD HD ON 04-16 DECIDED TO GO AMA ON 04-17 BEFORE BEING SEEN Pt Condition on Discharge: Good Discharge Disposition: Discharge Home (LEFT AMA) Discharge Time: <= 30 minutes Discharge Instructions DIET: Follow Instructions for: Heart Healthy Diet, Diabetic Diet, Renal Failure Diet Speech Therapy-Diet Recommends: Regular Activities you can perform: Regular-No Restrictions Mickey De La Cruz DO Apr 17, 2017 13:12
== END 2017-04-17 12:38 | disposition left against medical advice (07) ==
LOC: NEPE 09:50 → NEDA 12:35 → UNDODISOB 19:02 → NEPHCDU 19:17
PROVIDERS: ADMIT Hospitalist; ATTEND Hospitalist
DX: R07.89 Other chest pain (principal); I13.2 Hypertensive heart and chronic kidney disease with heart failure and with stage 5 chronic kidney disease, or end stage renal disease; I50.9 Heart failure, unspecified; E11.22 Type 2 diabetes mellitus with diabetic chronic kidney disease; N18.6 End stage renal disease; D63.1 Anemia in chronic kidney disease; R06.6 Hiccough; I16.0 Hypertensive urgency; N25.81 Secondary hyperparathyroidism of renal origin; E55.9 Vitamin D deficiency, unspecified; F43.20 Adjustment disorder, unspecified; I45.10 Unspecified right bundle-branch block; R00.0 Tachycardia, unspecified; R74.8 Abnormal levels of other serum enzymes; I25.5 Ischemic cardiomyopathy; I44.5 Left posterior fascicular block; R94.31 Abnormal electrocardiogram [ECG] [EKG]; I25.10 Atherosclerotic heart disease of native coronary artery without angina pectoris; E78.00 Pure hypercholesterolemia, unspecified; I25.2 Old myocardial infarction; J44.9 Chronic obstructive pulmonary disease, unspecified; E03.9 Hypothyroidism, unspecified; B20 Human immunodeficiency virus [HIV] disease; K21.9 Gastro-esophageal reflux disease without esophagitis; F41.9 Anxiety disorder, unspecified; E66.01 Morbid (severe) obesity due to excess calories; Z99.2 Dependence on renal dialysis; Z79.899 Other long term (current) drug therapy
CPT/HCPCS: 71045; 80048; 82550; 82552; 82947; 82948; 84484; 85025; 93005; 96374; 96375; 99285; G0257; G0378; J1580; J1644; Q4081; 90935

== ENCOUNTER 2017-06-12 16:00 | Emergency (ER) | payer MEDICARE, OTHER ==
[~2017-06-12] VITALS: Ht 175.3 cm; Wt 170.0 kg
[2017-06-12 16:05] VITALS: BP 142/81; PULSE 94; RESP 16; TEMP 98.3; O2SAT 96
[2017-06-12] MEDS ORDERED: NEOM0.1S4 LEFT EYE (17:04)
--- NOTE | 2017-06-12 17:04 | PD ---
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 He states he was doing well until 2 days ago, now he has swelling and discomfort in the left lower eyelid. He denies significant drainage. Vision is not changed as he is blind in this eye. He was followed by the eye clinic in [place] and seen by Dr. Gallardo. He was sent here by them to be evaluated. Patient has no history of injury to the area. He has no fever, chills, or other symptoms. He has no known drug allergies. PFSH Past Medical History Arthritis: No Asthma: No Autoimmune Disease: No Blood Disorders: No Anxiety: Yes Depression: No Heart Rhythm Problems: No Cancer: No Cardiac Catheterization: No Cardiomyopathy: Yes Cardiovascular Problems: Yes High Cholesterol: Yes Chemotherapy: No Chest Pain: Yes Congestive Heart Failure: Yes COPD: Yes Cerebrovascular Accident: Yes (TIA, pt denies) Coronary Artery Disease: Yes Diabetes: Yes Patient Takes Glucophage: No Dialysis: Yes (Rt arm fistula Tue,,Sat) Diminished Hearing: No Endocrine: Yes Gastrointestinal Disorders: Yes (COLITIS) GERD: Yes Genitourinary: No Headaches: Yes Hepatitis: No Hiatal Hernia: No Heparin Induced Thrombocytopen: No Hypertension: Yes Immune Disorder: Yes (HIV ) Implanted Vascular Access Dvce: No Kidney Stones: Yes Medical other: Yes (ALLERGIC REACTION TO SURGERY IN L EYE BLISTER COVERING IT) Musculoskeletal: No Neurologic: No Psychiatric: Yes Reproductive: No Respiratory: Yes Immunizations Current: Yes Migraines: No Myocardial Infarction: Yes Pneumonia: Yes Radiation Therapy: No Renal Failure: Yes (CKD STAGE 4) Sleep Apnea: No Thyroid Disease: No Ulcer: No Past Surgical History Abdominal Surgery: No AICD: No Arteriovenous Shunt: Yes (RIGHT ARM AV FISTULA) Cardiac Surgery: No Coronary Artery Bypass Graft: No Ear Surgery: No Endocrine Surgery: No Eye Surgery: Yes (L cataract removed) Genitourinary Surgery: No Gynecologic Surgery: No Insulin Pump: No Joint Replacement: No Neurologic Surgery: No Oral Surgery: Yes (teeth pulled) Pacemaker: No Thoracic Surgery: No Other Surgery: Yes (L EYE FOR LASIX AND CATARACT AND "FREEZE EYE" ) Social History Alcohol Use: No Tobacco Use: No Substance Use: No Allergies-Medications (Allergen,Severity, Reaction): Coded Allergies: No Known Allergies (Verified , 06/12/17) Reported Meds & Prescriptions Reported Meds & Active Scripts Active Thvmcckq-Mwkgvktqj-Yhhpqxysrlaeu Opth Drops 3.5-10,000-0.1 Mg-Units-% Susp 1 Drop LEFT EYE Q4H Minoxidil 2.5 Mg Tab 2.5 Mg PO HS Reported Lisinopril 40 Mg Tab 40 Mg PO DAILY Calcitriol 0.25 Mcg Cap 0.25 Mcg PO M,W,F Abacavir (Abacavir Sulfate) 300 Mg Tab 300 Mg PO DAILY Hazardous agent; use appropriate precautions for handling & disposal. Carvedilol 25 Mg Tab 37 Mg PO BID Amlodipine (Amlodipine Besylate) 10 Mg Tab 10 Mg PO DAILY Clonidine (Clonidine HCl) 0.2 Mg Tab 0.2 Mg PO BID Novolin 70-30 Inj (Insulin Human Isoph/Insulin Regular) 1,000 Unit/10 Ml Vial 25 Units SQ HS Novolin 70-30 Inj (Insulin Human Isoph/Insulin Regular) 1,000 Unit/10 Ml Vial 50 Units SQ DAILY Review of Systems Except as stated in HPI: all other systems reviewed are Neg General / Constitutional: No: Fever Eyes: Positive: Redness, Pain, Tearing (Discomfort), Blindness (In the left eye which is chronic), Other (See history of present illness per), No: Diploplia , Blurred Vision, Photophobia, Drainage, Foreign Body Sensation, Blind Spots, Visual changes HENT: No: Headaches, Vertigo, Lightheadedness, Sore Throat, Rhinitis, Rhinorrhea, Congestion, Nosebleed, Neck Stiffness, Neck Pain, Masses, Gingival Bleeding, Dental Difficulties, Ear Discharge, Earache Cardiovascular: No: Chest Pain or Discomfort Respiratory: No: Shortness of Breath Gastrointestinal: No: Abdominal Pain Genitourinary: No: Dysuria Musculoskeletal: No: Pain Skin: No Rash Neurologic: No: Weakness Psychiatric: No: Depression Endocrine: No: Polydipsia Hematologic/Lymphatic: No: Easy Bruising Physical Exam Narrative GENERAL: Patient appears in no acute distress per SKIN: Warm and dry. Normal color. Normal turgor HEAD: Atraumatic. Normocephalic. EYES: Pupils equal and round. No scleral icterus. Left eye has mild to moderate conjunctival injection, with some swelling in the left lower eyelid. There is no purulent drainage. Cornea appears unremarkable. Right eye is unaffected. Ocular motions are equal bilaterally. There is no increased pain with ocular motions per ENT: No nasal bleeding or discharge. Mucous membranes pink and moist. Pharynx is clear. Airways patent NECK: Trachea midline. Supple nontender CARDIOVASCULAR: Regular rate and rhythm. RESPIRATORY: No accessory muscle use. Clear to auscultation. Breath sounds equal bilaterally. MUSCULOSKELETAL: Extremities without clubbing, cyanosis, or edema. No obvious deformities. NEUROLOGICAL: Awake and alert. No obvious cranial nerve deficits. Motor grossly within normal limits. Five out of 5 muscle strength in the arms and legs. Normal speech. PSYCHIATRIC: Appropriate mood and affect; insight and judgment normal. Data Data Last Documented VS Vital Signs Date Time Temp Pulse Resp B/P (MAP) Pulse Ox O2 Delivery O2 Flow Rate FiO2 06/12/17 16:05 98.3 94 16 142/81 (101) 96 MDM Medical Decision Making Medical Screen Exam Complete: Yes Emergency Medical Condition: Yes Differential Diagnosis Chronic conjunctivitis. Exophthalmus. Left eyelid swelling. Narrative Course I attempted to call the eye clinic in [place] but received an answering machine. Their office had closed by the time I did call. Patient will be treated empirically with neomycin/polymyxin/dexamethasone ophthalmic drops to the left eye every 4 hours. Patient should call of [facility] in follow-up as soon as possible. Patient should return if symptoms worsen in the next several days. Diagnosis Primary Impression: Chemosis of left conjunctiva Additional Instructions: I attempted to call the eye clinic in [place] but received an answering machine. Their office had closed by the time I did call. Patient will be treated empirically with neomycin/polymyxin/dexamethasone ophthalmic drops to the left eye every 4 hours. Patient should call of [facility] in follow-up as soon as possible. Patient should return if symptoms worsen in the next several days. Med/Other Pt SpecificInfo: Prescription(s) given Scripts Mlizfydy-Txwgkrqaf-Gvaswnwauxfpm Opth Drops (Snhjekch-Npqthtgwu-Uolnqjsbdqkew Opth Drops) 3.5-10,000-0.1 Mg-Units-% Susp 1 DROP LEFT EYE Q4H for Infection, #1 BOTTLE 0 Refills Prov: Viel,Vishal C. MD 06/12/17 Disposition: 01 DISCHARGE HOME Condition: Ronald Butterfield Jun 12, 2017 17:04
== END 2017-06-12 17:51 | disposition home or self-care (01) ==
LOC: NEPD 16:00
DX: H11.422 Conjunctival edema, left eye (principal)
CPT/HCPCS: 99283